=== PATIENT | female | born 1950 | race Caucasian/White ===

== ENCOUNTER 2017-05-29 09:50 | Emergency (ER) | payer OTHER ==
[2017-05-29] MEDS ORDERED: ALBUTEROL 2.5 MG/3 ML NEB SOL ONE (10:40)
[2017-05-29] MEDS ORDERED: IPRATROPIUM BROM 0.5MG/2.5ML ONE (10:40)
--- NOTE | 2017-05-29 11:33 | RAD REPORT ---
EXAM DESCRIPTION: Delores Ferguson (2 Views)05/29/2017 10:24 am CLINICAL HISTORY: Cough COMPARISON: None FINDINGS: The left base is mildly hazy. The remainder of the lungs appear clear of acute infiltrate . Peribronchial thickening is present centrally. The heart is normal size IMPRESSION: The left base is mildly hazy which may indicate a mild pneumonia
--- NOTE | 2017-05-29 11:39 | EDPHYS ---
Physician Documentation [facility] Name: Carmelita Ovalles Age: 66 yrs Sex: Female : 1950 Arrival Date: 05/29/2017 Time: 09:57 Bed 18 Private MD: ED Physician Dann Mathur HPI: 05/29 10:18 This 66 yrs old Female presents to ER via Ambulatory with complaints of kb Congestion. 10:19 The patient or guardian reports cough, that is intermittent, described as moderate, kb with no sputum. Onset: The symptoms/episode began/occurred 1 year(s) ago. Severity of symptoms: At their worst the symptoms were mild, moderate, in the emergency department the symptoms are unchanged. Modifying factors: The symptoms are alleviated by nothing, the symptoms are aggravated by nothing. Associated signs and symptoms: The patient has no apparent associated signs or symptoms. The patient has not experienced similar symptoms in the past. The patient has not recently seen a physician. Pt states she has had a cough and not breathing well for a year. Has been seen by Dr Tafoya and Urgent Care a few times for same complaint over the last year and was given cough syrup for symptoms, but no imaging was done. . Historical: - Allergies: 10:03 No Known Allergies; hb - Home Meds: 10:15 hydrochlorothiazide 25 mg Oral tab 1 tab once daily [Active]; methylphenidate 18 mg rb1 Oral tr24 1 tab once daily [Active]; methimazole 5 mg Oral tab 1 tab once daily [Active]; propranolol 10 mg Oral tab 1 tab daily [Active]; atorvastatin 10 mg oral tab 1 tab once daily [Active]; irbesartan 300 mg oral tab 1 tab once daily [Active]; paroxetine HCl 40 mg oral tab 1 tab once daily [Active]; guaifenesin Oral [Active]; ProAir HFA inhalation inhalation [Active]; red yeast rice 600 mg oral cap [Active]; - PMHx: 10:15 Hypertension; Hypothyroidism; rb1 - Immunization history:: Adult Immunizations up to date. - Social history:: Smoking status: Patient/guardian denies using tobacco. ROS: 10:14 Constitutional: Negative for fever, chills, and weight loss, Cardiovascular: Negative kb for chest pain, palpitations, and edema, Abdomen/GI: Negative for abdominal pain, nausea, vomiting, diarrhea, and constipation, Back: Negative for injury and pain, MS/Extremity: Negative for injury and deformity, Skin: Negative for injury, rash, and discoloration, Neuro: Negative for headache, weakness, numbness, tingling, and seizure. 10:14 Respiratory: Positive for cough, wheezing, Negative for dyspnea on exertion, hemoptysis, orthopnea, pleurisy, shortness of breath, sputum production. Exam: 10:14 Constitutional: This is a well developed, well nourished patient who is awake, alert, kb and in no acute distress. Head/Face: Normocephalic, atraumatic. ENT: Nares patent. No nasal discharge, no septal abnormalities noted. Tympanic membranes are normal and external auditory canals are clear. Oropharynx with no redness, swelling, or masses, exudates, or evidence of obstruction, uvula midline. Mucous membranes moist. Neck: Trachea midline, no thyromegaly or masses palpated, and no cervical lymphadenopathy. Supple, full range of motion without nuchal rigidity, or vertebral point tenderness. No Meningismus. Chest/axilla: Normal chest wall appearance and motion. Nontender with no deformity. No lesions are appreciated. Cardiovascular: Regular rate and rhythm with a normal S1 and S2. No gallops, murmurs, or rubs. Normal PMI, no JVD. No pulse deficits. Abdomen/GI: Soft, non-tender, with normal bowel sounds. No distension or tympany. No guarding or rebound. No evidence of tenderness throughout. Skin: Warm, dry with normal turgor. Normal color with no rashes, no lesions, and no evidence of cellulitis. MS/ Extremity: Pulses equal, no cyanosis. Neurovascular intact. Full, normal range of motion. Neuro: Awake and alert, GCS 15, oriented to person, place, time, and situation. Cranial nerves II-XII grossly intact. Motor strength 5/5 in all extremities. Sensory grossly intact. Cerebellar exam normal. Normal gait. 10:14 Respiratory: the patient does not display signs of respiratory distress, Respirations: normal, Breath sounds: wheezing: expiratory that is mild, that is moderate, is scattered. Vital Signs: 10:02 BP 147 / 94; Pulse 87; Resp 20; Temp 98.1; Pulse Ox 95% on R/A; Weight 63.5 kg; Height hb 5 ft. (152.40 cm); Pain 0/10; 11:13 BP 165 / 86; Pulse 90; Resp 18; Pulse Ox 100% on R/A; tw2 11:59 BP 165 / 86; Pulse 89; Resp 18; Pulse Ox 100% on R/A; tw2 10:02 Body Mass Index 27.34 (63.50 kg, 152.40 cm) hb MDM: 10:04 Patient medically screened. kb 10:14 Data reviewed: vital signs, nurses notes. Data interpreted: Pulse oximetry: on room air kb is 95 %. Interpretation: normal. 11:36 Counseling: I had a detailed discussion with the patient and/or guardian regarding: the kb historical points, exam findings, and any diagnostic results supporting the discharge/admit diagnosis, radiology results, the need for outpatient follow up, a family practitioner, to return to the emergency department if symptoms worsen or persist or if there are any questions or concerns that arise at home. 05/29 10:13 Order name: Chest Pa And Lat (2 Views) XRAY kb 05/29 11:33 Order name: RAD; Complete Time: 11:36 EDMS Administered Medications: 10:40 Drug: DuoNeb (3:1) (2.5 mg - 0.5 mg) 3 ml {Note: pt. in x-ray.} Route: Nebulizer; rb1 11:57 Follow up: Response: No adverse reaction; Wheezing diminished tw2 11:47 Drug: Zithromax 500 mg Route: PO; tw2 12:04 Follow up: Response: No adverse reaction tw2 Disposition: 05/29/17 11:38 Discharged to Home. Impression: Pneumonia, unspecified organism. - Condition is Stable. - Discharge Instructions: Pneumonia, Adult, [id number]. - Prescriptions for Albuterol Sulfate 90 mcg/actuation - inhale 1-2 puff by INHALATION route every 4-6 hours; 1 Inhaler. Zithromax 500 mg Oral Tablet - take 1 tablet by ORAL route once daily for 5 days; 5 tablet. - Medication Reconciliation Form, Thank You Letter, Antibiotic Education, Prescription Opioid Use form. - Follow up: Emergency Department; When: As needed; Reason: Worsening of condition. Follow up: Private Physician; When: 2 - 3 days; Reason: Recheck today's complaints, Continuance of care, Re-evaluation by your physician. Addendum: 05/31/2017 08:05 Co-signature as Attending Physician, Dann Mathur MD I agree with the assessment and c montez plan of care. Signatures: Dispatcher [employer] Alem Beauchamp, PATIENT CARE-C PATIENT CARE-Dann Mann MD MD cha Barber, Rebecca, RN RN rb1 Bambi Cagle RN RN Amberly Frankel RN RN tw2
--- NOTE | 2017-05-29 11:39 | ER ---
Nurse's Notes [facility] Name: Carmelita Ovalles Age: 66 yrs Sex: Female : 1950 Arrival Date: 05/29/2017 Time: 09:57 Bed 18 Private MD: Diagnosis: Pneumonia, unspecified organism Presentation: 05/29 10:01 Presenting complaint: Patient states: Productive cough with greenish yellow sputum, hb SOB, and malaise x 1 year. Transition of care: patient was not received from another setting of care. Resp Distress?. Onset of symptoms is unknown. Care prior to arrival: None. 10:01 Method Of Arrival: Ambulatory hb 10:01 Acuity: MARCIA 3 hb Historical: - Allergies: 10:03 No Known Allergies; hb - Home Meds: 10:15 hydrochlorothiazide 25 mg Oral tab 1 tab once daily [Active]; methylphenidate 18 mg rb1 Oral tr24 1 tab once daily [Active]; methimazole 5 mg Oral tab 1 tab once daily [Active]; propranolol 10 mg Oral tab 1 tab daily [Active]; atorvastatin 10 mg oral tab 1 tab once daily [Active]; irbesartan 300 mg oral tab 1 tab once daily [Active]; paroxetine HCl 40 mg oral tab 1 tab once daily [Active]; guaifenesin Oral [Active]; ProAir HFA inhalation inhalation [Active]; red yeast rice 600 mg oral cap [Active]; - PMHx: 10:15 Hypertension; Hypothyroidism; rb1 - Immunization history:: Adult Immunizations up to date. - Social history:: Smoking status: Patient/guardian denies using tobacco. Screenin:49 Abuse screen: Denies threats or abuse. Nutritional screening: No deficits noted. tw2 Tuberculosis screening: No symptoms or risk factors identified. Fall Risk None identified. Assessment: 10:06 General: Appears uncomfortable, Behavior is calm, cooperative, Denies fever. Pain: rb1 Complains of pain in left wrist Pain currently is 4 out of 10 on a pain scale. Neuro: Level of Consciousness is awake, alert, obeys commands, Oriented to person, place, time, situation. Cardiovascular: Capillary refill < 3 seconds is brisk in bilateral fingers. Respiratory: Airway is patent Respiratory effort is even, labored, Respiratory pattern is regular, symmetrical, Breath sounds with rhonchi bilaterally. GI: No signs and/or symptoms were reported involving the gastrointestinal system. : No signs and/or symptoms were reported regarding the genitourinary system. Derm: Skin is pink, warm \T\ dry. Musculoskeletal: Range of motion: intact in all extremities. 11:13 Reassessment: Patient appears in no apparent distress at this time. Patient and/or tw2 family updated on plan of care and expected duration. Pain level reassessed. Patient is alert, oriented x 3, equal unlabored respirations, skin warm/dry/pink. Patient states feeling better. 12:04 Reassessment: Patient appears in no apparent distress at this time. Patient and/or tw2 family updated on plan of care and expected duration. Pain level reassessed. Patient is alert, oriented x 3, equal unlabored respirations, skin warm/dry/pink. Patient states feeling better. Vital Signs: 10:02 BP 147 / 94; Pulse 87; Resp 20; Temp 98.1; Pulse Ox 95% on R/A; Weight 63.5 kg; Height hb 5 ft. (152.40 cm); Pain 0/10; 11:13 BP 165 / 86; Pulse 90; Resp 18; Pulse Ox 100% on R/A; tw2 11:59 BP 165 / 86; Pulse 89; Resp 18; Pulse Ox 100% on R/A; tw2 10:02 Body Mass Index 27.34 (63.50 kg, 152.40 cm) hb ED Course: 09:57 Patient arrived in ED. as 10:02 Triage completed. hb 10:03 Alem Rivera [facility]-C [facility]. kb 10:04 Dann Mathur MD is Attending Physician. kb 10:06 Mariela Elias, RN is Primary Nurse. rb1 10:23 X-ray completed. Patient tolerated procedure well. jw2 10:48 Primary Nurse role handed off by Mariela Elias, RN tw2 10:48 Amberly Frankel, ROSHAN is Primary Nurse. tw2 10:49 Bed in low position. Call light in reach. Pulse ox on. NIBP on. tw2 11:12 Arm band placed on. tw2 11:13 No provider procedures requiring assistance completed. tw2 11:48 Awaiting: AWAITING MEDICATION WATCH PRIOR TO DISCHARGE. tw2 12:04 Patient did not have IV access during this emergency room visit. tw2 Administered Medications: 10:40 Drug: DuoNeb (3:1) (2.5 mg - 0.5 mg) 3 ml {Note: pt. in x-ray.} Route: Nebulizer; rb1 11:57 Follow up: Response: No adverse reaction; Wheezing diminished tw2 11:47 Drug: Zithromax 500 mg Route: PO; tw2 12:04 Follow up: Response: No adverse reaction tw2 Outcome: 11:38 Discharge ordered by MD. greco 12:04 Discharged to home ambulatory, with family. tw2 12:04 Condition: stable 12:04 Discharge instructions given to patient, family, Instructed on discharge instructions, follow up and referral plans. medication usage, Demonstrated understanding of instructions, follow-up care, medications, Prescriptions given X 2. 12:04 Patient left the ED. tw2 Signatures: Alem Rivera, PULP OPERATOR-C PULP OPERATOR-Renetta Chapin Rebecca, RN RN [facility] Ana Savage 2 Bambi Cagle RN ROSHAN Amberly Frankel RN RN tw2
[2017-05-29] MEDS ORDERED: AZITHROMYCIN 250 MG TAB ONE (12:04)
== END 2017-05-29 12:04 | disposition home or self-care (01) ==
LOC: ER 09:50
DX: J18.9 Pneumonia, unspecified organism (principal); I10 Essential (primary) hypertension; E03.9 Hypothyroidism, unspecified
CPT/HCPCS: 71046; 94640; 99284

== ENCOUNTER 2021-02-21 14:48 | Inpatient (IN) | payer OTHER ==
--- OUTSIDE RECORDS SUMMARY | 2021-02-21 14:51 | XMS REPORT | Continuity of Care Document ---
:1950 Author Organization [facility] t Address [address] [place] [address] Dr. Driscoll [address] [place] [id number] Care Team Providers Name Role Phone Unavailable Unavailable Unavailable Problems This patient has no known problems. Allergies, Adverse Reactions, Alerts This patient has no known allergies or adverse reactions. Medications This patient has no known medications. Procedures This patient has no known procedures. Results This patient has no known results.
[2021-02-21] MEDS ORDERED: METOPROLOL TARTRATE 5 MG/5 ML INJ IV ONE (16:03)
[2021-02-21] MEDS ORDERED: METOPROLOL TAR 25 MG TAB ONE (16:03)
[2021-02-21 16:07] LABS: Basophils % 0.5 % (0-1.3); Lymphocytes % 19.3 % (15.3-44.8); MPV 8.9 fL (7.6-11.3); RBC Red Blood Cell Count 4.64 M/uL (3.86-4.86)
[2021-02-21 16:11] LABS: Protime INR 1.16
--- NOTE | 2021-02-21 16:13 | RAD REPORT ---
EXAM DESCRIPTION: RAD - Chest Single View - 02/21/2021 4:04 pm CLINICAL HISTORY: Cough;SOB COMPARISON: Chest Pa And Lat (2 Views) dated 05/29/2017 FINDINGS: Lines: None. Lungs: No evidence of edema or pneumonia. Pleural: No significant pleural effusions or pneumothorax. Cardiac: The heart size is within normal limits. Bones: No acute fractures. Other: IMPRESSION: No acute cardiopulmonary disease.
[2021-02-21 16:41] LABS: ALT/SGPT 24 U/L (12-78); AST/SGOT 14 U/L (15-37); Albumin 3.2 g/dL (3.4-5.0); Alkaline Phosphatase 92 U/L (45-117); BUN Blood Urea Nitrogen 14 mg/dL (7-18); Bicarbonate 31 mmol/L (21-32); Bilirubin Direct 0.2 mg/dL (0-0.2); Bilirubin Total 0.5 mg/dL (0.2-1.0); Glucose Level 123 mg/dL (74-106); Magnesium 1.8 mg/dL (1.8-2.4); NT PRO-BNP 94 pg/mL (<125); Protein, Total 8.4 g/dL (6.4-8.2); Sodium Level 132 mmol/L (136-145); T3 Free 5.92 pg/mL (2.18-3.98); Troponin (Emerg Dept Use Only) < 0.02 ng/mL (0.0-0.045)
[2021-02-21 16:42] LABS: Thyroid Stimulating Hormone < 0.005 uIU/mL (0.360-3.740)
[2021-02-21] MEDS ORDERED: POTASSIUM 25 MEQ EFFERV TAB ONE (16:51)
--- NOTE | 2021-02-21 16:51 | ER ---
Nurse's Notes [facility] Name: Carmelita Ovalles Age: 70 yrs Sex: Female : 1950 Arrival Date: 02/21/2021 Time: 14:54 Bed 18 Private MD: Ashly Tafoya H Diagnosis: Unspecified atrial fibrillation Presentation: 02/21 15:07 Chief complaint: Patient states: 2-3 days I have been short of breath and having a ld1 cough/congestion. "I seem to get this every year.". Coronavirus screen: Client presents with at least one sign or symptom that may indicate coronavirus-19. Standard/surgical mask placed on the client. Ebola Screen: No symptoms or risks identified at this time. Initial Sepsis Screen: Does the patient meet any 2 criteria? No. Patient's initial sepsis screen is negative. Does the patient have a suspected source of infection? No. Patient's initial sepsis screen is negative. Risk Assessment: Do you want to hurt yourself or someone else? Patient reports no desire to harm self or others. Onset of symptoms was February 21, 2021. 15:07 Method Of Arrival: Ambulatory ld1 15:07 Acuity: MARCIA 3 ld1 Triage Assessment: 15:09 General: Appears in no apparent distress. comfortable, Behavior is cooperative, ld1 appropriate for age, anxious. Pain: Denies pain. EENT: No signs and/or symptoms were reported regarding the EENT system. Neuro: Level of Consciousness is awake, alert, obeys commands, Oriented to person, place, time, situation, Appropriate for age. Cardiovascular: Capillary refill < 3 seconds Patient's skin is warm and dry. Respiratory: Reports shortness of breath cough that is non-productive, Airway is patent Respiratory effort is even, unlabored, Respiratory pattern is regular, symmetrical, Onset: The symptoms/episode began/occurred gradually, the patient has mild shortness of breath. GI: Abdomen is flat, non-distended. : No signs and/or symptoms were reported regarding the genitourinary system. Derm: No signs and/or symptoms reported regarding the dermatologic system. Musculoskeletal: No signs and/or symptoms reported regarding the musculoskeletal system. Historical: - Allergies: 15:09 No Known Allergies; ld1 - Home Meds: 15:09 hydrochlorothiazide 25 mg Oral tab 1 tab once daily [Active]; paroxetine HCl 40 mg Oral ld1 tab 1 tab once daily [Active]; methylphenidate 18 mg Oral tr24 1 tab once daily [Active]; sulfamethoxazole-trimethoprim 400-80 mg Oral tab 2 tabs 4 times per day [Active]; aspirin 81 mg Oral chew 1 tab once daily [Active]; valsartan 320 mg oral tab 1 tab once daily [Active]; - PMHx: 15:09 Hypertension; Hypothyroidism; Depressive disorder; ld1 - PSHx: 15:09 section; ld1 - Immunization history:: Adult Immunizations up to date, Client reports receiving the 2nd dose of the Covid vaccine. - Social history:: Smoking status: Patient denies any tobacco usage or history of. Patient/guardian denies using alcohol, street drugs. Screenin:40 Abuse screen: Denies threats or abuse. Nutritional screening: No deficits noted. vg1 Tuberculosis screening: No symptoms or risk factors identified. Fall Risk No fall in past 12 months (0 pts). No secondary diagnosis (0 pts). IV access (20 points). Ambulatory Aid- None/Bed Rest/Nurse Assist (0 pts). Gait- Normal/Bed Rest/Wheelchair (0 pts) Mental Status- Oriented to own ability (0 pts). Total Ann Fall Scale indicates No Risk (0-24 pts). Assessment: 15:17 General: Appears in no apparent distress. comfortable, Behavior is calm, cooperative. vg1 Pain: Denies pain. Neuro: Level of Consciousness is awake, alert, obeys commands, Oriented to person, place, time, situation. Cardiovascular: Denies chest pain, Patient's skin is warm and dry. Rhythm is atrial fibrillation with rapid ventricular response Parent/caregiver reports patient has had no hx of Afib. Respiratory: Reports shortness of breath on exertion cough that is Airway is patent Respiratory effort is even, unlabored, Respiratory pattern is regular, symmetrical, tachypnea Breath sounds are clear bilaterally. GI: Patient currently denies diarrhea, nausea, vomiting. : No signs and/or symptoms were reported regarding the genitourinary system. EENT: Parent/caregiver reports the patient having nasal discharge. Derm: Skin is intact, is healthy with good turgor. Musculoskeletal: Circulation, motion, and sensation intact. 17:19 Reassessment: Patient appears in no apparent distress at this time. No changes from ld1 previously documented assessment. Patient and/or family updated on plan of care and expected duration. Pain level reassessed. Patient is alert, oriented x 3, equal unlabored respirations, skin warm/dry/pink. Vital Signs: 15:09 BP 114 / 74; Pulse 99; Resp 18; Temp 98.0(TE); Pulse Ox 100% on R/A; Weight 48.99 kg; ld1 Height 5 ft. 2 in. (157.48 cm); Pain 0/10; 15:22 BP 109 / 70; Pulse 142; Resp 28; Pulse Ox 99% ; vg1 16:23 BP 112 / 65; Pulse 106; Resp 19; Pulse Ox 97% on R/A; ld1 17:19 BP 107 / 66; Pulse 81; Resp 18; Pulse Ox 98% on R/A; ld1 20:57 BP 106 / 59; Pulse 91; Resp 24; Pulse Ox 97% on R/A; ld1 21:35 BP 92 / 59; Pulse 69; Resp 18; Pulse Ox 99% on R/A; ld1 15:09 Body Mass Index 19.75 (48.99 kg, 157.48 cm) ld1 ED Course: 14:54 Patient arrived in ED. mr 14:54 Ashly Tafoya DO is Private Physician. mr 15:09 Triage completed. ld1 15:09 Arm band placed on left wrist. ld1 15:16 Lindsey Saavedra, RN is Primary Nurse. vg1 15:17 [facility] Salcido [facility]. cp 15:17 Stanford Ruth MD is Attending Physician. cp 15:37 EKG done, by ED staff, reviewed by Dann ARREDONDO. vg1 15:40 Patient has correct armband on for positive identification. Placed in gown. Bed in low vg1 position. Call light in reach. Side rails up X2. Adult w/ patient. color television console monitor on. Pulse ox on. NIBP on. 15:40 No provider procedures requiring assistance completed. vg1 15:45 Initial lab(s) drawn, by nd, sent to lab. COVID swab sent to lab. Flu and/or RSV swab 5 sent to lab. Inserted saline lock: 22 gauge in right forearm, using aseptic technique. Blood collected. 15:46 T3 Free Sent. 5 15:46 TSH Sent. 5 15:46 Basic Metabolic Panel Sent. [facility] 15:46 CBC with Diff Sent. [facility] 15:46 LFT's Sent. [facility] 15:46 Magnesium Sent. [facility] 15:47 NT PRO-BNP Sent. [facility] 15:47 PT-INR Sent. [facility] 15:47 Troponin (emerg Dept Use Only) Sent. [facility] 16:04 XRAY Chest (1 view) In Process Unspecified. EDSC 16:50 Artie Urias MD is Hospitalizing Provider. cp 22:37 Patient admitted, IV remains in place. ld1 Administered Medications: 16:21 Drug: Metoprolol 2.5 mg Route: IVP; Site: right forearm; ld1 17:03 Follow up: Response: No adverse reaction ld1 16:21 Drug: Metoprolol 25 mg Route: PO; ld1 17:03 Follow up: Response: No adverse reaction ld1 17:03 Drug: Potassium Effervescent Tablet 50 mEq Route: PO; ld1 17:03 Follow up: Response: No adverse reaction ld1 17:03 Drug: Lovenox (enoxaparin) 1 mg/kg Route: Sub-Q; Site: abdomen; ld1 17:03 Follow up: Response: No adverse reaction ld1 19:51 Drug: Dextromethorphan-Guaifenesin Liquid 10 mg-100 mg/5 mL 10 ml Route: PO; ld1 19:51 Follow up: Response: No adverse reaction ld1 Outcome: 16:51 Decision to Hospitalize by Provider. cp 22:37 Admitted to Med/surg accompanied by tech, via wheelchair, with chart, Report called to ldJeronimo Xavier RN 22:37 Condition: stable 22:37 Instructed on the need for admit. 22:37 Patient left the ED. ld1 Signatures: Dispatcher [employer] EDSC Meghna Yang Corey, PA PA cp Martinez, Maria 5 Lindsey Saavedra, RN RN vg1 Maria A Jordan RN RN ld1 Corrections: (The following items were deleted from the chart) 15:12 15:09 PSHx: Coronary Angioplasty; ld1 ld1 15:41 15:17 Respiratory: Reports shortness of breath on exertion cough that is Airway is vg1 patent Respiratory effort is even, unlabored, Respiratory pattern is regular, symmetrical, Breath sounds are clear bilaterally. 1 16:04 15:46 Influenza Screen (A \\T\\ B)+BA.LAB.ALEX drawn and sent. [facility] EDMS 16:05 15:46 CORONAVIRUS+MR.LAB.ALEX drawn and sent. [address]
--- NOTE | 2021-02-21 16:51 | EDPHYS ---
Physician Documentation [facility] Name: Carmelita Ovalles Age: 70 yrs Sex: Female : 1950 Arrival Date: 02/21/2021 Time: 14:54 Bed 18 Private MD: Ashly Tafoya H ED Physician Stanford Ruth HPI: 02/21 15:45 This 70 yrs old Female presents to ER via Ambulatory with complaints of Breathing cp Difficulty. 15:45 The patient has shortness of breath with light activity. Onset: The symptoms/episode cp began/occurred 3 day(s) ago. Associated signs and symptoms: Pertinent positives: non-productive cough, diaphoresis, fever, vomiting, Pertinent negatives: chest pain. Severity of symptoms: in the emergency department the symptoms are unchanged despite home interventions. Historical: - Allergies: 15:09 No Known Allergies; ld1 - Home Meds: 15:09 hydrochlorothiazide 25 mg Oral tab 1 tab once daily [Active]; paroxetine HCl 40 mg Oral ld1 tab 1 tab once daily [Active]; methylphenidate 18 mg Oral tr24 1 tab once daily [Active]; sulfamethoxazole-trimethoprim 400-80 mg Oral tab 2 tabs 4 times per day [Active]; aspirin 81 mg Oral chew 1 tab once daily [Active]; valsartan 320 mg oral tab 1 tab once daily [Active]; - PMHx: 15:09 Hypertension; Hypothyroidism; Depressive disorder; ld1 - PSHx: 15:09 section; ld1 - Immunization history:: Adult Immunizations up to date, Client reports receiving the 2nd dose of the Covid vaccine. - Social history:: Smoking status: Patient denies any tobacco usage or history of. Patient/guardian denies using alcohol, street drugs. ROS: 15:50 Constitutional: Negative for body aches, chills, fever, poor PO intake. cp 15:50 Eyes: Negative for injury, pain, redness, and discharge. cp 15:50 ENT: Positive for rhinorrhea, Negative for drainage from ear(s), ear pain, sore throat, difficulty swallowing, difficulty handling secretions. 15:50 Cardiovascular: Negative for chest pain, edema. 15:50 Respiratory: Positive for cough, with no reported sputum, shortness of breath, on exertion. 15:50 Abdomen/GI: Negative for abdominal pain, vomiting, diarrhea, constipation. 15:50 : Negative for urinary symptoms. 15:50 Neuro: Negative for altered mental status, headache, syncope, weakness. 15:50 All other systems are negative. Exam: 15:39 ECG was reviewed by the Attending Physician. cp 15:55 Constitutional: The patient appears in no acute distress, alert, awake, cp non-diaphoretic, non-toxic, well developed, well nourished. 15:55 Head/Face: Normocephalic, atraumatic. cp 15:55 Eyes: Periorbital structures: appear normal, Conjunctiva: normal, no exudate, no injection, Sclera: no appreciated abnormality, Lids and lashes: appear normal, bilaterally. 15:55 ENT: External ear(s): are unremarkable, Nose: is normal, Mouth: Lips: moist, Oral mucosa: moist, Posterior pharynx: Airway: no evidence of obstruction, patent. 15:55 Neck: ROM/movement: is normal, is supple, without pain, no range of motions limitations, no nuchal rigidity. 15:55 Chest/axilla: Inspection: normal, Palpation: is normal, no crepitus, no tenderness. 15:55 Cardiovascular: Rate: tachycardic, Rhythm: irregular, Edema: is not appreciated, JVD: is not appreciated. 15:55 Respiratory: the patient does not display signs of respiratory distress, Respirations: normal, no use of accessory muscles, no retractions, labored breathing, is not present, Breath sounds: bronchial sounds, that are mild, are heard diffusely, decreased breath sounds, are not appreciated, stridor, is not appreciated, wheezing: is not appreciated. 15:55 Abdomen/GI: Inspection: abdomen appears normal, Palpation: abdomen is soft and non-tender, in all quadrants. 15:55 Back: pain, is absent, ROM is normal. 15:55 Skin: cellulitis, is not appreciated, no rash present. 15:55 Neuro: Orientation: to person, place \T\ time. Mentation: is normal, Cerebellar function: is grossly normal, Motor: moves all fours, strength is normal, Sensation: is normal. Vital Signs: 15:09 BP 114 / 74; Pulse 99; Resp 18; Temp 98.0(TE); Pulse Ox 100% on R/A; Weight 48.99 kg; ld1 Height 5 ft. 2 in. (157.48 cm); Pain 0/10; 15:22 BP 109 / 70; Pulse 142; Resp 28; Pulse Ox 99% ; vg1 16:23 BP 112 / 65; Pulse 106; Resp 19; Pulse Ox 97% on R/A; ld1 17:19 BP 107 / 66; Pulse 81; Resp 18; Pulse Ox 98% on R/A; ld1 20:57 BP 106 / 59; Pulse 91; Resp 24; Pulse Ox 97% on R/A; ld1 21:35 BP 92 / 59; Pulse 69; Resp 18; Pulse Ox 99% on R/A; ld1 15:09 Body Mass Index 19.75 (48.99 kg, 157.48 cm) ld1 MDM: 15:33 Patient medically screened. cp 16:00 Differential diagnosis: Bronchitis CHF exacerbation, Chronic Obstructive Pulmonary cp Disease Myocardial Infarction pneumonia, Pneumothorax pulmonary edema, Pulmonary Embolism Sepsis Unstable Angina. 16:50 Data reviewed: vital signs, nurses notes, lab test result(s), EKG, radiologic studies, cp plain films. 16:50 Test interpretation: by ED physician or midlevel provider: ECG, plain radiologic cp studies. Counseling: I had a detailed discussion with the patient and/or guardian regarding: the historical points, exam findings, and any diagnostic results supporting the discharge/admit diagnosis, lab results, radiology results, the need for further work-up and treatment in the hospital. Response to treatment: the patient's symptoms have markedly improved after treatment. Physician consultation: Artie Urias MD was called at 16:45, was contacted at 16:45, regarding admission, to the telemetry unit. patient's condition. 02/21 15:38 Order name: Basic Metabolic Panel; Complete Time: 16:47 cp 02/21 16:48 Interpretation: Normal except: NA 132; K 3.0; CL 93; GLUC 123; GFR 75. cp 02/21 15:38 Order name: CBC with Diff; Complete Time: 16:20 cp 02/21 15:38 Order name: LFT's; Complete Time: 16:47 cp 02/21 16:49 Interpretation: Normal except: AST 14; TP 8.4; ALB 3.2; GLOB 5.2; A/G 0.6. cp 02/21 15:38 Order name: Magnesium; Complete Time: 16:47 cp 02/21 15:38 Order name: NT PRO-BNP; Complete Time: 16:47 cp 02/21 15:38 Order name: PT-INR; Complete Time: 16:20 cp 02/21 16:20 Interpretation: Reviewed. 02/21 15:38 Order name: Troponin (emerg Dept Use Only); Complete Time: 16:47 cp 02/21 15:38 Order name: XRAY Chest (1 view); Complete Time: 16:20 cp 02/21 15:38 Order name: TSH; Complete Time: 16:47 cp 02/21 16:50 Interpretation: Abnormal: TSH < 0.005. 02/21 15:38 Order name: T3 Free; Complete Time: 16:47 02/21 16:49 Interpretation: Abnormal: T3F 5.92. 02/21 16:05 Order name: COVID-19/FLU A+B; Complete Time: 17:30 EDMS 02/21 17:30 Interpretation: Reviewed. 02/21 18:58 Order name: T4 Free EDMS 02/21 15:38 Order name: EKG; Complete Time: 15:40 cp 02/21 15:38 Order name: Cardiac monitoring; Complete Time: 15:41 cp 02/21 15:38 Order name: EKG - Nurse/Tech; Complete Time: 15:41 cp 02/21 15:38 Order name: IV Saline Lock; Complete Time: 15:46 cp 02/21 15:38 Order name: Labs collected and sent; Complete Time: 15:46 02/21 15:38 Order name: O2 Per Protocol; Complete Time: 15:41 cp 02/21 15:38 Order name: O2 Sat Monitoring; Complete Time: 15:41 cp EC:39 Rate is 122 beats/min. Rhythm is irregular. QRS interval is normal. QT interval is cp normal. T waves are Inverted in lead aVL. Interpreted by me. Reviewed by me. Administered Medications: 16:21 Drug: Metoprolol 2.5 mg Route: IVP; Site: right forearm; ld1 17:03 Follow up: Response: No adverse reaction ld1 16:21 Drug: Metoprolol 25 mg Route: PO; ld1 17:03 Follow up: Response: No adverse reaction ld1 17:03 Drug: Potassium Effervescent Tablet 50 mEq Route: PO; ld1 17:03 Follow up: Response: No adverse reaction ld1 17:03 Drug: Lovenox (enoxaparin) 1 mg/kg Route: Sub-Q; Site: abdomen; ld1 17:03 Follow up: Response: No adverse reaction ld1 19:51 Drug: Dextromethorphan-Guaifenesin Liquid 10 mg-100 mg/5 mL 10 ml Route: PO; ld1 19:51 Follow up: Response: No adverse reaction ld1 Disposition Summary: 02/21/21 16:51 Hospitalization Ordered Hospitalization Status: Inpatient Admission cp Provider: Artie Urias cp Location: Telemetry/MedSurg (Inpatient) cp Condition: Stable cp Problem: new cp Symptoms: have improved cp Bed/Room Type: Standard cp Room Assignment: 205(02/21/21 19:58) mw Diagnosis - Unspecified atrial fibrillation cp Forms: - Medication Reconciliation Form cp - SBAR form cp Addendum: 02/26/2021 07:12 Co-signature as Attending Physician, Stanford Ruth MD I agree with the assessment and k dr plan of care. Signatures: Dispatcher [employer] EDMS Teena Hernandez RN RN Stanford Ruth MD MD [facility] Dann Salcido PA PA cp Osvaldo Heller PA PA ej Dibbern, Lauren, RN RN ld1 Corrections: (The following items were deleted from the chart) 02/21 15:12 15:09 PSHx: Coronary Angioplasty; ld1 ld1 16:04 15:39 Influenza Screen (A \T\ B)+BA.LAB.BRZ ordered. EDMS EDMS 16:05 15:39 CORONAVIRUS+MR.LAB.BRZ ordered. EDMS EDMS 19:58 16:51 cp mw
[2021-02-21 16:54] LABS: SARS-COV-2 RT PCR NEGATIVE (NEGATIVE)
[2021-02-21] MEDS ORDERED: ENOXAPARIN 40 MG/0.4 ML SQ ONE (16:59)
[2021-02-21] MEDS ORDERED: GUAIFENESIN/CODEINE 5ML UCUP ONE (19:48)
[2021-02-21] MEDS ORDERED: guaiFENesin 100 MG/5 ML UCUP ONE (19:49)
--- NOTE | 2021-02-21 20:15 | P.HP ---
Certification for Inpatient Patient admitted to: Inpatient With expected LOS: <2 Midnights Patient will require the following post-hospital care: None Practitioner: I am a practitioner with admitting privileges, knowledge of patient current condition, hospital course, and medical plan of care. Services: Services provided to patient in accordance with Admission requirements found in Title 42 Section 412.3 of the Code of Federal Regulations Patient History Date of Service: 02/21/21 Reason for admission: atrial fibrillation History of Present Illness: Ms. Ovalles is a 70 yo F with HTN, hyperthyroidism (not on medications), here today for cough, sinus congestion, and SOB for the past two to three weeks. Upon arrival, she was found to be in atrial fibrillation with a rate of 142 that responded to IV and PO Lopressor. She says she has had palpitations and weight loss for the past few months as well. She was previously on methimazole for hyperthyoidism. She last saw her floorworker before the pandemic. Her levels were wnl at that time, so her methimazole was discontinued. She says she has had thyroid nodules in the past that 'went away' and the biopsy of the nodules showed they were benign. Na 132 K 3 Cl 93 GFR 75 Glu 123 TSH <0.005 T4 2.56 T3 5.92 Allergies No Known Allergies Allergy (Unverified 05/29/17 12:08) - Past Medical/Surgical History -: hyperthyroidism -: HTN -: C section -: tonsillectomy - Family History Family History: Reviewed- Non-Contributory - Social History Smoking Status: Never smoker Alcohol use: No CD- Drugs: No Caffeine use: Yes Place of Residence: Home Review of Systems 10-point ROS is otherwise unremarkable General: Unremarkable Eyes: Unremarkable ENT: Nose Congestion Respiratory: Cough, Shortness of Breath Cardiovascular: Palpitations Gastrointestinal: Unremarkable Genitourinary: Unremarkable Musculoskeletal: Unremarkable Integumentary: Unremarkable Neurological: Unremarkable Lymphatics: Unremarkable Physical Examination - Physical Exam General: Alert, In no apparent distress HEENT: Atraumatic, PERRLA, Mucous membr. moist/pink, EOMI, Sclerae nonicteric Neck: Supple, 2+ carotid pulse no bruit, No LAD, Without JVD or thyroid abnormality Respiratory: Clear to auscultation bilaterally, Normal air movement Cardiovascular: Normal S1 S2, Irregular heart rate/rhythm Gastrointestinal: Normal bowel sounds, No tenderness Musculoskeletal: No tenderness Integumentary: No rashes Neurological: Normal speech, Normal strength at 5/5 x4 extr, Normal tone, Normal affect Lymphatics: No axilla or inguinal lymphadenopathy - Studies Laboratory Data (last 24 hrs) 02/21/21 15:47: PT 13.4 H, INR 1.16 02/21/21 15:47: WBC 5.40, Hgb 12.7, Hct 38.0, Plt Count 262 02/21/21 15:47: Sodium 132 L, Potassium 3.0 L, BUN 14, Creatinine 0.76, Glucose 123 H, Magnesium 1.8, Total Bilirubin 0.5, AST 14 L, ALT 24, Alkaline Phosphatase 92 Assessment and Plan - Problems (Diagnosis) (1) Atrial fibrillation Current Visit: Yes Status: Acute Qualifiers: Atrial fibrillation type: unspecified Qualified Code(s): I48.91 - Unspecified atrial fibrillation (2) Hyperthyroidism Current Visit: Yes Status: Chronic (3) HTN (hypertension) Current Visit: Yes Status: Chronic Qualifiers: Hypertension type: primary hypertension Qualified Code(s): I10 - Essential (primary) hypertension - Plan on tele continue PO metoprolol BID, IV metoprolol PRN for HR >120 continue eliquis BID restart methimazole ECHO pending cough syrup PRN potassium replacement gentle IVF hydration hydralazine PRN for BP spikes reconcile and continue home medications Discharge Plan: Home Plan to discharge in: 48 Hours - Advance Directives Does patient have a Living Will: No Does patient have a Durable POA for Healthcare: No - Code Status/Comfort Care Code Status Assessed: Yes (full code ) Critical Care: No Time Spent Managing Pts Care (In Minutes): 70
[2021-02-21] MEDS ORDERED: METOPROLOL TARTRATE 5 MG/5 ML INJ IV PRN (23:05)
[2021-02-21] MEDS ORDERED: ONDANSETRON 4 MG/2 ML VIAL IV PRN (23:05)
[2021-02-21] MEDS ORDERED: HYDRALAZINE HCL 20 MG/ML VIAL IV PRN (23:05)
[2021-02-21] MEDS ORDERED: ACETAMINOPHEN 500 MG TAB PO PRN (23:05)
[2021-02-22 06:06] LABS: Absolute Lymphocytes (CBC) 1.7 K/uL (0.7-4.9); Basophils % 0.7 % (0-1.3); Hematocrit 34.6 % (36.0-45.0); RBC Red Blood Cell Count 4.18 M/uL (3.86-4.86)
[2021-02-22 06:26] LABS: ALT/SGPT 20 U/L (12-78); AST/SGOT 15 U/L (15-37); Albumin 2.7 g/dL (3.4-5.0); Alkaline Phosphatase 74 U/L (45-117); BUN Blood Urea Nitrogen 16 mg/dL (7-18); Bicarbonate 31 mmol/L (21-32); Bilirubin Total 0.4 mg/dL (0.2-1.0); Glucose Level 102 mg/dL (74-106); Phosphorus 3.4 mg/dL (2.5-4.9); Sodium Level 136 mmol/L (136-145)
[2021-02-22 06:28] LABS: HDL Cholesterol 41 mg/dL (40-60); LDL Cholesterol, Calculated 100 (<130); Protein, Total 6.9 g/dL (6.4-8.2)
[2021-02-22] MEDS ORDERED: POTASSIUM 25 MEQ EFFERV TAB PO ONE ×2 (08:44→09:00)
[2021-02-22] MEDS: METOPROLOL TAR 25 MG TAB PO SCH ×2 (10:20→18:12)
[2021-02-22] MEDS: APIXABAN 5 MG TABLET PO SCH ×2 (10:21→20:38)
[2021-02-22] MEDS: GUAIFENESIN/DM 5 ML UCUP PO PRN ×2 (10:31→18:12)
[2021-02-22] MEDS: NA CHLORIDE 0.9% 1,000 ML IV SCH ×3 (10:32→12:25)
--- NOTE | 2021-02-22 13:09 | P.PN ---
Subjective Date of Service: 02/22/21 Chief Complaint: atrial fibrillation Subjective: No new changes, No C/O voiced, Tolerating diet Physical Examination - Vital Signs Temperature: 98.5 F Blood Pressure: 134/60 Pulse: 82 Respirations: 18 Pulse Ox (%): 96 - Studies Laboratory Data (last 24 hrs) 02/21/21 15:47: PT 13.4 H, INR 1.16 02/21/21 15:47: WBC 5.40, Hgb 12.7, Hct 38.0, Plt Count 262 02/21/21 15:47: Sodium 132 L, Potassium 3.0 L, BUN 14, Creatinine 0.76, Glucose 123 H, Magnesium 1.8, Total Bilirubin 0.5, AST 14 L, ALT 24, Alkaline Phosphatase 92 Assessment And Plan - Plan Patient Generalthin built female, appears older than stated age, awake and conversant HEENTpupils equal reactive to light extraocular motor movement intact Neckno thyroid mass no JVD Respiratoryfew coarse rubs otherwise good air entry bilaterally CardiovascularS1-S2 mildly tachycardic but regular GIfull soft bowel sounds positive Extremities are no pedal edema no calf tenderness Neuroalert conversant, rapid speech flow Labsreviewedlow TSH and markedly elevated T4 Impression 1 Clinical hyperthyroidism 2 A. fib with RVRdue to 1 3 Hypertension Plan Atrial fibrillation currently rate controlled Continue started Eliquis Continue restarted methimazole Patient previously followed with Dr. Fonseca at [facility], will recommend follow-up with her at discharge patient advised to make appointment Follow-up pending echocardiogram We will replete potassium today Magnesium level within normal range Continue GI and DVT prophylaxis
[2021-02-22] MEDS: NS KCL 20MEQ 20 MEQ/1,000 ML BAG IV SCH (14:05)
[2021-02-22 23:55] VITALS: O2SAT 98; BMI 19.5
[2021-02-23] MEDS: GUAIFENESIN/DM 5 ML UCUP PO PRN (00:57)
[2021-02-23] MEDS: METOPROLOL TAR 25 MG TAB PO SCH (05:24)
[2021-02-23 06:33] LABS: ALT/SGPT 20 U/L (12-78); AST/SGOT 18 U/L (15-37); Albumin 2.6 g/dL (3.4-5.0); Alkaline Phosphatase 71 U/L (45-117); BUN Blood Urea Nitrogen 11 mg/dL (7-18); Bicarbonate 28 mmol/L (21-32); Bilirubin Total 0.4 mg/dL (0.2-1.0); Glucose Level 94 mg/dL (74-106); Potassium 3.9 mmol/L (3.5-5.1); Sodium Level 138 mmol/L (136-145)
[2021-02-23] MEDS: APIXABAN 5 MG TABLET PO SCH (08:21)
[2021-02-23] MEDS: NS KCL 20MEQ 20 MEQ/1,000 ML BAG IV SCH ×2 (08:21→08:29)
--- NOTE | 2021-02-23 08:26 | P.PN ---
Subjective Date of Service: 02/23/21 Chief Complaint: atrial fibrillation Subjective: No new changes, C/O voiced (cough and nasal congestion) Physical Examination - Vital Signs Temperature: 97.5 F Blood Pressure: 126/83 Pulse: 86 Respirations: 18 Pulse Ox (%): 98 - Physical Exam General: Alert, In no apparent distress, Oriented x3 Neck: 2+ carotid pulse no bruit, JVD not distended Respiratory: Clear to auscultation bilaterally, Normal air movement Cardiovascular: Normal pulses, Regular rate/rhythm, Normal S1 S2 Gastrointestinal: Normal bowel sounds, Soft and benign, Non-distended Musculoskeletal: No clubbing, No swelling Neurological: Normal gait, Normal speech, Normal strength at 5/5 x4 extr Assessment And Plan - Current Problems (Diagnosis) (1) Atrial fibrillation Current Visit: Yes Status: Acute Qualifiers: Atrial fibrillation type: unspecified Qualified Code(s): I48.91 - Unspecified atrial fibrillation (2) HTN (hypertension) Current Visit: Yes Status: Chronic Qualifiers: Hypertension type: primary hypertension Qualified Code(s): I10 - Essential (primary) hypertension (3) Hyperthyroidism Current Visit: Yes Status: Chronic - Plan Patient Generalthin built female, appears older than stated age, awake and conversant HEENTpupils equal reactive to light extraocular motor movement intact Neckno thyroid mass no JVD Respiratoryfew coarse rubs otherwise good air entry bilaterally CardiovascularS1-S2 mildly tachycardic but regular GIfull soft bowel sounds positive Extremities are no pedal edema no calf tenderness Neuroalert conversant, rapid speech flow Labsreviewedlow TSH and markedly elevated T4 Impression 1 Clinical hyperthyroidism 2 A. fib with RVRdue to 1 3 Hypertension Plan Complaining of persistent cough today We will obtain repeat chest history, previously normal If chest x-ray clears will start Cipro echo antitussives as follow-up plan for discharge home Chest atrial fibrillation currently rate controlled Continue started Eliquis Continue restarted methimazole Patient previously followed with Dr. Fonseca at [facility], will recommend follow-up with her at discharge patient advised to make appointment Follow-up pending echocardiogram Magnesium level within normal range Continue GI and DVT prophylaxis
--- NOTE | 2021-02-23 09:47 | RAD REPORT ---
EXAM DESCRIPTION: Delores Single View02/23/2021 8:41 am CLINICAL HISTORY: cough COMPARISON: cough FINDINGS: There appear to be mild bilateral pulmonary opacities. The heart is normal size IMPRESSION: There appear to be mild bilateral pulmonary opacities which may indicate pneumonia
[2021-02-23] MEDS ORDERED: CEFTRIAXONE 1,000 MG in NA CHLORIDE 0.9% 50 ML IVPB SCH (10:00)
[2021-02-23 12:03] VITALS: BP 122/61; TEMP 96.8
--- NOTE | 2021-02-23 14:56 | P.DS ---
Admission Date: 02/21/21 Discharge Date: 02/23/21 Disposition: ROUTINE DISCHARGE Discharge Condition: FAIR Reason for Admission: atrial fibrillation - Problems (1) Atrial fibrillation Current Visit: Yes Status: Acute Qualifiers: Atrial fibrillation type: unspecified Qualified Code(s): I48.91 - Unspecified atrial fibrillation (2) HTN (hypertension) Current Visit: Yes Status: Chronic Qualifiers: Hypertension type: primary hypertension Qualified Code(s): I10 - Essential (primary) hypertension (3) Hyperthyroidism Current Visit: Yes Status: Chronic (4) Pneumonia Current Visit: Yes Status: Acute Brief History of Present Illness: History of Present Illness: Ms. Ovalles is a 70 yo F with HTN, hyperthyroidism (not on medications), here today for cough, sinus congestion, and SOB for the past two to three weeks. Upon arrival, she was found to be in atrial fibrillation with a rate of 142 that responded to IV and PO Lopressor. She says she has had palpitations and weight loss for the past few months as well. She was previously on methimazole for hyperthyoidism. She last saw her weatherization coordinator before the pandemic. Her levels were wnl at that time, so her methimazole was discontinued. She says she has had thyroid nodules in the past that 'went away' and the biopsy of the nodules showed they were benign. Na 132 K 3 Cl 93 GFR 75 Glu 123 TSH <0.005 T4 2.56 T3 5.92 Allergies No Known Allergies Allergy (Unverified 05/29/17 12:08) - Past Medical/Surgical History -: hyperthyroidism -: HTN -: C section -: tonsillectomy - Family History Family History: Reviewed- Non-Contributory Hospital Course: Hospital course Patient admitted for increased weight loss, palpitation. Noted with new onset atrial fibrillation with RVR up to 140s. She was initiated on Eliquis as well as beta-laith with improved rate control. She was noted with elevated thyroid level with free T4 of 2.4. Patient has a history of hypothyroidism previously was on methimazole and following with weatherization coordinator but apparently has stopped taking the medicine over the last several years. Her medication with methimazole was restarted and was advised to follow-up with endocrine. Patient developed cough within 24 hours of admission. Chest x-ray shows small bilateral infiltrate. She was Covid negative. She has been started on Rocephin. Patient requesting to go home with p.o. antibiotics which will be sent. Referral back to endocrinology as [facility] Dr. Marrero has been advised Vital Signs/Physical Exam: Temp Pulse Resp BP Pulse Ox 96.8 F 71 18 122/61 97 02/23/21 12:00 02/23/21 12:00 02/23/21 12:00 02/23/21 12:00 02/23/21 12:00 General: Alert, In no apparent distress, Oriented x3 HEENT: Atraumatic, Normocephalic, PERRLA Neck: Supple, 2+ carotid pulse no bruit, JVD not distended Respiratory: Clear to auscultation bilaterally, Normal air movement Cardiovascular: No edema, Regular rate/rhythm, Normal S1 S2 Gastrointestinal: Normal bowel sounds, Soft and benign, Non-distended Musculoskeletal: No clubbing, No swelling Integumentary: No rashes, No breakdown Neurological: Normal gait, Normal speech, Normal strength at 5/5 x4 extr, Normal tone External genitalia: No edema, No lesions Laboratory Data at Discharge: WBC 4.30 K/uL (4.3-10.9) D 02/22/21 05:43 Hgb 11.5 g/dL (12.0-15.0) L 02/22/21 05:43 Hct 34.6 % (36.0-45.0) L 02/22/21 05:43 Plt Count 223 K/uL (152-406) 02/22/21 05:43 PT 13.4 SECONDS (9.5-12.5) H 02/21/21 15:47 INR 1.16 02/21/21 15:47 Sodium 138 mmol/L (136-145) 02/23/21 05:36 Potassium 3.9 mmol/L (3.5-5.1) 02/23/21 05:36 BUN 11 mg/dL (7-18) 02/23/21 05:36 Creatinine 0.54 mg/dL (0.55-1.3) L 02/23/21 05:36 Glucose 94 mg/dL (74-106) 02/23/21 05:36 Phosphorus 3.4 mg/dL (2.5-4.9) 02/22/21 05:43 Magnesium 2.0 mg/dL (1.8-2.4) 02/22/21 05:43 Total Bilirubin 0.4 mg/dL (0.2-1.0) 02/23/21 05:36 AST 18 U/L (15-37) 02/23/21 05:36 ALT 20 U/L (12-78) 02/23/21 05:36 Alkaline Phosphatase 71 U/L (45-117) 02/23/21 05:36 Triglycerides 87 mg/dL (<150) 02/22/21 05:43 Cholesterol 158 mg/dL (<200) 02/22/21 05:43 HDL Cholesterol 41 mg/dL (40-60) 02/22/21 05:43 Cholesterol/HDL Ratio 3.85 02/22/21 05:43 Home Medications: Amoxicillin/Potassium Clav [Augmentin 875-125 Tablet] 1 each PO BID #20 tablet 02/23/21 Apixaban [Eliquis] 5 mg PO BID #60 tablet 02/23/21 Benzonatate [Tessalon Perle] 200 mg PO TID PRN #15 cap 02/23/21 Metoprolol Tartrate [Lopressor*] 25 mg PO BID 6AM 6PM #60 tab 02/23/21 guaiFENesin [Guaifenesin ER] 600 mg PO BID #10 tab.er.12h 02/23/21 methIMAzole [Tapazole*] 10 mg PO DAILY #30 tab 02/23/21 New Medications: Amoxicillin/Potassium Clav [Augmentin 875-125 Tablet] 1 each PO BID #20 tablet Apixaban [Eliquis] 5 mg PO BID #60 tablet guaiFENesin [Guaifenesin ER] 600 mg PO BID #10 tab.er.12h Metoprolol Tartrate [Lopressor*] 25 mg PO BID 6AM 6PM #60 tab methIMAzole [Tapazole*] 10 mg PO DAILY #30 tab Benzonatate [Tessalon Perle] 200 mg PO TID PRN #15 cap PRN Reason: Cough Diet: Regular Activity: Ad gabe Time spent managing pt's care (in minutes): 35
--- NOTE | 2021-02-24 08:16 | EKG ---
Test Date: 2021-02-21 Test Time: 15:34:41 Chairman And Ceo: VERÓNICA MEASUREMENT RESULTS: Intervals: Rate: 122 MO: QRSD: 76 QT: 316 QTc: 450 [place]: P: MO: QRS: 74 T: 77 INTERPRETIVE STATEMENTS: Atrial fibrillation with rapid ventricular response Abnormal ECG No previous ECG available for comparison Electronically Signed On 02-24-21 08:12:44 APPAREL MANAGER by Vincent Gr
== END 2021-02-23 16:46 | disposition home or self-care (01) | DRG 308 ==
LOC: ER 14:48 → ERHOLD 18:47 → 2ND 22:20
PROVIDERS: ADMIT Internal Medicine; ATTEND Internal Medicine
DX: I48.91 Unspecified atrial fibrillation (principal); J18.9 Pneumonia, unspecified organism; I10 Essential (primary) hypertension; E05.90 Thyrotoxicosis, unspecified without thyrotoxic crisis or storm; Z20.822 Contact with and (suspected) exposure to COVID-19
CPT/HCPCS: 0240U; 36415; 71045; 80048; 80053; 80061; 80076; 82947; 83735; 83880; 84100; 84439; 84443; 84481; 84484; 85025; 85610; 87070; 87205; 93005; 96372; 96374; 99285; J1650; J3480; J7030; U0003

== ENCOUNTER 2022-03-01 13:28 | Inpatient (IN) | payer OTHER ==
--- OUTSIDE RECORDS SUMMARY | 2022-03-01 13:32 | XMS REPORT | Continuity of Care Document ---
:1950 Author Organization [facility] t Address [address] [place] [address] Care Team Providers Name Role Phone Ashly Tafoya Primary Care Physician STANFORD SOTELO Attending Clinician Unavailable MARTHA MARRERO Attending Clinician Unavailable Lab, Ang - Db Attending Clinician Unavailable Stanford Sotelo MD Attending Clinician Martha Marrero MD Attending Clinician Doctor Unassigned, Captree Attending Clinician Unavailable Payers Payer Name Policy Type Policy Number Effective Date Expiration Date Chio ALCOCER MANAGED [id number] 2021 MEDICARE PPO-JUAN C 00:00:00 MEDICARE PART A [id number] 2016 2022 \T\ B 00:00:00 00:00:00 Problems Condition Condition Condition Status Onset Resolution Last Treating Co mments Source Name Details Category Date Date Treatment Clinician Date Essential Essential Disease Active Uni vers hypertensi hypertensi 1-06 [place] [address] [place] [address] Multiple Multiple Disease Active Unive rs thyroid thyroid 4-15 ity of nodules nodules 00:00: [address] Vitamin D Vitamin D Disease Active 2013-03 Uni vers deficiency deficiency 0-22 it y of 00:00: [address] Thyroid Thyroid Disease Active 2013-03 Univers nodule nodule 0-15 ity of 00:00: [address] Prediabete Prediabete Disease Active 2013-03 U nivers s s 0-15 ity of 00:00: [place] 00 Medical Branch Osteopenia Osteopenia Disease Active U barb 5-07 ity of 00:00: [place] 00 [facility] Branch Family Family Disease Active Univers history of history of 8-20 [place] y of early CAD [place] CAD [place] HLD HLD Disease Active Overview: Univer s (hyperlipi (hyperlipi 8-20 Formattin ity of demia) demia) 00:00: g of this [place] note Medical might be Branch different from the original. ICD10 Diagnosis Term Guidance Adviser Utility Toxic Toxic Disease Recurre Overview: Unive rs multinodul multinodul nce 2-23 Formattin ity of ar goiter ar goiter 00:00: [place] of this [place] 00 note Medical might be Branch different from the original. ICD10 Diagnosis Term Guidance Adviser Utility Allergies, Adverse Reactions, Alerts Allergy Allergy Status Severity Reaction(s) Onset Inactive Treating Comm ents Source Name Type Date Date Clinician NO KNOWN Drug Active Univers ALLERGIE Class ity of S [facility] Social History Social Habit Start Date Stop Date Quantity Comments Source Exposure to 2022-02-03 2022-02-13 Not sure [facility] SARS-CoV-2 00:00:00 13:48:00 [facility] (event) [place] Alcohol intake 2017-03-13 2017-03-13 Current [facility] 00:00:00 00:00:00 non-drinker of [facility] alcohol (finding) [place] Tobacco use and 2011-09-14 2011-09-14 Smokeless tobacco Un iversity of exposure 00:00:00 00:00:00 non-user [facility] Sex Ass[birth year] At [birth year] Universit y of 00:00:00 00:00:00 [facility] Smoking Status Start Date Stop Date Source Never smoked tobacco [facility] Medications Ordered Filled Start Stop Current Ordering Indication Dosage Frequency Signature Comments Components Source Medication Medication Date Date Medication? Clinician (SIG) Name Name RED YEAST 2021-03- No Take by [facility] ers RICE 2-13 12-13 mouth. ity of EXTRACT 01:49: 00:00 [place] ORAL 42 :00 Medical Branch RED YEAST 2021-03- No Take by [facility] ers RICE 2-13 12-13 mouth. ity of EXTRACT 01:49: 00:00 [place] ORAL 42 :00 Medical Branch MULTIVITS,C 2021-03- No Take by Un luis A,MINERALS/ 2-13 12-13 mouth. ity o f IRON/FA 01:49: 00:00 [place] (MULTI FOR 36 :00 Medical HER ORAL) Branch MULTIVITS,C 2021-03- No Take by Un luis A,MINERALS/ 2-13 12-13 mouth. ity o f IRON/FA 01:49: 00:00 [place] (MULTI FOR 36 :00 Medical HER ORAL) Branch irbesartan 2021-03- No 300mg Take 300 U nivers (AVAPRO) 2-13 12-13 mg by ity of 300 mg 01:49: 00:00 mouth [place] tablet 30 :00 every Medical morning. Branch irbesartan 2021-03- No 300mg Take 300 U nivers (AVAPRO) 2-13 12-13 mg by ity of 300 mg 01:49: 00:00 mouth [place] tablet 30 :00 every Medical morning. Branch FOLIC 2021-03- No Take by Univers ACID/MV,FE, 2-13 12-13 mouth. ity o f OTHER MIN 01:49: 00:00 [place] (CENTRUM 27 :00 Medical ORAL) Branch FOLIC 2021-03- No Take by Univers ACID/MV,FE, 2-13 12-13 mouth. ity o f OTHER MIN 01:49: 00:00 [place] (CENTRUM 27 :00 Medical ORAL) Branch ANNA LOW 2021-03- No w/ heart Uni vers STRENGTH 81 2-13 12-13 guard -- ity of MG ORAL 01:49: 00:00 once daily [place] as TBEC 21 :00 Medical Branch ANNA LOW 2021-03- No w/ heart Uni vers STRENGTH 81 2-13 12-13 guard -- ity of MG ORAL 01:49: 00:00 once daily [place] as TBEC 21 :00 Medical Branch alendronate 2021-03 Yes [id number] 70mg Take 1 Univers 70 mg 2-09 tablet by ity of tablet 00:00: mouth [place] 00 weekly. Medical Branch methIMAzole 2021-03 Yes [id number] 5mg Take 1 Univers 5 mg tablet 2-09 tablet by ity of 00:00: mouth in [place] 00 the Medical morning. Branch alendronate 2-1 Yes [id number] 70mg Take 1 Univers 70 mg 2-09 tablet by ity of tablet 00:00: mouth [place] 00 weekly. Medical Branch methIMAzole 2-1 Yes [id number] 5mg Take 1 Univers 5 mg tablet 2-09 tablet by ity of 00:00: mouth in [place] 00 the Medical morning. Branch alendronate 2-1 Yes [id number] 70mg Take 1 Univers 70 mg 2-09 tablet by ity of tablet 00:00: mouth [place] 00 weekly. Medical Branch methIMAzole 2-1 Yes [id number] 5mg Take 1 Univers 5 mg tablet 2-09 tablet by ity of 00:00: mouth in [place] 00 the Medical morning. Branch methIMAzole 2-0 Yes [id number] 5mg Take 1 Univers 5 mg tablet 8-12 tablet by ity of 00:00: mouth in [place] 00 the Medical morning. Branch alendronate 2-0 Yes [id number] 70mg Take 1 Univers 70 mg 8-12 tablet by ity of tablet 00:00: mouth [place] 00 weekly. Medical Branch methIMAzole 2-0 Yes [id number] 5mg Take 1 Univers 5 mg tablet 8-12 tablet by ity of 00:00: mouth in [place] 00 the Medical morning. Branch alendronate 2-0 Yes [id number] 70mg Take 1 Univers 70 mg 8-12 tablet by ity of tablet 00:00: mouth [place] 00 weekly. Medical Branch methIMAzole 2-0 Yes [id number] 5mg Take 1 Univers 5 mg tablet 8-12 tablet by ity of 00:00: mouth in [place] 00 the Medical morning. Branch alendronate 2-0 Yes [id number] 70mg Take 1 Univers 70 mg 8-12 tablet by ity of tablet 00:00: mouth [place] 00 weekly. Medical Branch methIMAzole 2022-0 2- No [id number] 5mg Take 1 Univers 5 mg tablet 8-12 12-09 tablet by it y of 00:00: 00:00 mouth in [place] 00 :00 the Medical morning. Branch alendronate 2022-0 2- No [id number] 70mg Take 1 Univers 70 mg 8-12 12-09 tablet by ity of tablet 00:00: 00:00 mouth [place] 00 :00 weekly. Medical Branch methIMAzole 2021-0 2021- No [id number] 5mg Take 1 Univers 5 mg tablet 10-17 tablet by it y of 00:00: 00:00 mouth in [place] 00 :00 the Medical morning. Branch alendronate 2021-0 2- No [id number] 70mg Take 1 Univers 70 mg 10-17 tablet by ity of tablet 00:00: 00:00 mouth [place] 00 :00 weekly. Medical Branch ELIQUIS 5 2021-0 Yes 5mg Take 5 mg Uni vers mg tablet 1-03 by mouth 2 ity of 00:00: (two) [place] 00 times Medical daily. Branch metoprolol 2-0 Yes 25mg Take 25 mg U nivers tartrate 25 1-03 by mouth 2 it y of mg tablet 00:00: (two) [place] 00 times Medical daily. Branch ELIQUIS 5 2021-0 Yes 5mg Take 5 mg Uni vers mg tablet 1-03 by mouth 2 ity of 00:00: (two) [place] 00 times Medical daily. Branch metoprolol 2-0 Yes 25mg Take 25 mg U nivers tartrate 25 1-03 by mouth 2 it y of mg tablet 00:00: (two) [place] 00 times Medical daily. Branch ELIQUIS 5 2021-0 Yes 5mg Take 5 mg Uni vers mg tablet 1-03 by mouth 2 ity of 00:00: (two) [place] 00 times Medical daily. Branch metoprolol 2022-0 Yes 25mg Take 25 mg U nivers tartrate 25 1-03 by mouth 2 it y of mg tablet 00:00: (two) [place] 00 times Medical daily. Branch ELIQUIS 5 2-0 Yes 5mg Take 5 mg Uni vers mg tablet 1-03 by mouth 2 ity of 00:00: (two) [place] 00 times Medical daily. Branch metoprolol 2022-0 Yes 25mg Take 25 mg U nivers tartrate 25 1-03 by mouth 2 it y of mg tablet 00:00: (two) [place] 00 times Medical daily. Branch ELIQUIS 5 2-0 Yes 5mg Take 5 mg Uni vers mg tablet 1-03 by mouth 2 ity of 00:00: (two) [place] 00 times Medical daily. Branch metoprolol Yes 25mg Take 25 mg U nivers tartrate 25 - by mouth 2 it y of mg tablet 00:00: (two) [place] 00 times Medical daily. Branch ELIQUIS 5 Yes 5mg Take 5 mg Uni vers mg tablet 03-10 by mouth 2 ity of 00:00: (two) [place] 00 times Medical daily. Branch metoprolol Yes 25mg Take 25 mg U nivers tartrate 25 - by mouth 2 it y of mg tablet 00:00: (two) [place] 00 times Medical daily. Branch PROPRANOLOL 2020-0 Yes [id number] TAKE 1 Univers 10 mg 7-28 TABLET BY ity of tablet 00:00: MOUTH [place] 00 EVERY DAY Medical Branch PROPRANOLOL 2020-0 Yes [id number] TAKE 1 Univers 10 mg 7-28 TABLET BY ity of tablet 00:00: MOUTH [place] 00 EVERY DAY Medical Branch PROPRANOLOL 2020-0 Yes [id number] TAKE 1 Univers 10 mg 7-28 TABLET BY ity of tablet 00:00: MOUTH [place] 00 EVERY DAY Medical Branch PROPRANOLOL 2020-0 Yes [id number] TAKE 1 Univers 10 mg 7-28 TABLET BY ity of tablet 00:00: MOUTH [place] 00 EVERY DAY Medical Branch PROPRANOLOL 2020-0 2022- No [id number] TAKE 1 Univers 10 mg 7-28 12-13 TABLET BY ity of tablet 00:00: 00:00 MOUTH [place] 00 :00 EVERY DAY Medical Branch PROPRANOLOL 2020-0 2- No [id number] TAKE 1 Univers 10 mg 7-28 12-13 TABLET BY ity of tablet 00:00: 00:00 MOUTH [place] 00 :00 EVERY DAY Medical Branch atorvastati 2020-0 Yes [id number] TAKE 1 Univers n 10 mg 3-02 TABLET BY ity of tablet 00:00: MOUTH AT [place] [address] BEDTIME. Medical Branch atorvastati 2020-0 Yes [id number] TAKE 1 Univers n 10 mg 3-02 TABLET BY ity of tablet 00:00: MOUTH AT [place] [address] BEDTIME. Medical Branch atorvastati 2020-0 Yes [id number] TAKE 1 Univers n 10 mg 3-02 TABLET BY ity of tablet 00:00: MOUTH AT [place] [address] BEDTIME. Medical Branch atorvastati 2020-0 Yes [id number] TAKE 1 Univers n 10 mg 3-02 TABLET BY ity of tablet 00:00: MOUTH AT [place] 00 BEDTIME. Medical Branch atorvastati 2021- No [id number] TAKE 1 Univers n 10 mg 3-02 12-13 TABLET BY ity of tablet 00:00: 00:00 MOUTH AT [place] 00 :00 BEDTIME. Medical Branch atorvastati 2021- No [id number] TAKE 1 Univers n 10 mg 3-02 12-13 TABLET BY ity of tablet 00:00: 00:00 MOUTH AT [place] 00 :00 BEDTIME. Medical Branch ANNA LOW Yes w/ heart Univ ers STRENGTH 81 1-06 guard -- ity of MG ORAL 15:48: [place] [facility] 40 Medical Branch PEXEVA 40 Yes 1 daily Unive rs MG ORAL TAB 1-06 ity of 15:48: [place] [address] Medical Branch CONCERTA 18 Yes once daily Univers MG ORAL 1-06 x 5days ity of TO24 15:48: weekly [place] [address] Medical Branch RED YEAST Yes Take by Unive rs RICE 1-06 mouth. ity of EXTRACT 15:48: [place] ORAL Medical Branch irbesartan Yes 300mg Take 300 Un luis (AVAPRO) 1-06 mg by ity of 300 mg 15:48: mouth [place] tablet 40 every Medical morning. Branch MULTIVITS,C Yes Take by Uni vers A,MINERALS/ 1-06 mouth. ity of IRON/FA 15:48: [place] (MULTI FOR 40 Medical HER ORAL) Branch FOLIC Yes Take by Univers ACID/MV,FE, 1-06 mouth. ity of OTHER MIN 15:48: [place] (CENTRUM 40 Medical ORAL) Branch VITAMIN B Yes Take by Unive rs COMPLEX 1-06 mouth ity of ORAL 15:48: daily. [place] [address] Medical Branch ANNA LOW Yes w/ heart Univ ers STRENGTH 81 1-06 guard -- ity of MG ORAL 15:48: once daily [place] [facility] 40 Medical Branch PEXEVA 40 Yes 1 daily Unive rs MG ORAL TAB 1-06 ity of 15:48: [place] [address] Medical Branch CONCERTA 18 Yes once daily Univers MG ORAL 1-06 x 5days ity of TO24 15:48: weekly [place] [address] Medical Branch RED YEAST Yes Take by Unive rs RICE 1-06 mouth. ity of EXTRACT 15:48: [place] ORAL 40 Medical Branch irbesartan Yes 300mg Take 300 Un luis (AVAPRO) 1-06 mg by ity of 300 mg 15:48: mouth [place] tablet 40 every Medical morning. Branch MULTIVITS,C Yes Take by Uni vers A,MINERALS/ 1-06 mouth. ity of IRON/FA 15:48: [place] (MULTI FOR 40 Medical HER ORAL) Branch FOLIC Yes Take by Univers ACID/MV,FE, 1-06 mouth. ity of OTHER MIN 15:48: [place] (CENTRUM 40 Medical ORAL) Branch VITAMIN B Yes Take by Unive rs COMPLEX 1-06 mouth ity of ORAL 15:48: daily. [address] ANNA LOW Yes w/ heart Univ ers STRENGTH 81 1-06 guard -- ity of MG ORAL 15:48: once daily [address] PEXEVA 40 Yes 1 daily Unive rs MG ORAL TAB 1-06 ity of 15:48: [address] CONCERTA 18 Yes once daily Univers MG ORAL 1-06 x 5days ity of TO24 15:48: weekly [address] RED YEAST Yes Take by Unive rs RICE 1-06 mouth. ity of EXTRACT 15:48: [place] ORAL [address] [place] [address] Branch irbesartan Yes 300mg Take 300 Un luis (AVAPRO) 1-06 mg by ity of 300 mg 15:48: mouth [place] tablet 40 every Medical morning. Branch MULTIVITS,C Yes Take by Uni vers A,MINERALS/ 1-06 mouth. ity of IRON/FA 15:48: [place] (MULTI FOR 40 Medical HER ORAL) Branch FOLIC Yes Take by Univers ACID/MV,FE, 1-06 mouth. ity of OTHER MIN 15:48: [place] (CENTRUM 40 Medical ORAL) Branch VITAMIN B Yes Take by Unive rs COMPLEX 1-06 mouth ity of ORAL 15:48: daily. [address] ANNA LOW Yes w/ heart Univ ers STRENGTH 81 1-06 guard -- ity of MG ORAL 15:48: once daily [address] Branch PEXEVA 40 2018-0 Yes 1 daily Unive rs MG ORAL TAB 1-06 ity of 15:48: [address] CONCERTA 18 Yes once daily Univers MG ORAL 1-06 x 5days ity of TO24 15:48: weekly [address] RED YEAST Yes Take by Unive rs RICE 1-06 mouth. ity of EXTRACT 15:48: [address] irbesartan Yes 300mg Take 300 Un luis (AVAPRO) 1-06 mg by ity of 300 mg 15:48: mouth [place] tablet 40 every Medical morning. Branch MULTIVITS,C Yes Take by Uni vers A,MINERALS/ 1-06 mouth. ity of IRON/FA 15:48: [place] (MULTI FOR 40 Medical HER ORAL) [place] FOLIC Yes Take by Univers ACID/MV,FE, 1-06 mouth. ity of OTHER MIN 15:48: [place] (CENTRUM 40 Medical ORAL) Branch VITAMIN B Yes Take by Unive rs COMPLEX 1-06 mouth ity of ORAL 15:48: daily. [address] PEXEVA 40 Yes 1 daily Unive rs MG ORAL TAB 1-06 ity of 15:48: [address] CONCERTA 18 Yes once daily Univers MG ORAL 1-06 x 5days ity of TO24 15:48: weekly [address] VITAMIN B Yes Take by Unive rs COMPLEX 1-06 mouth ity of ORAL 15:48: daily. [address] PEXEVA 40 Yes 1 daily Unive rs MG ORAL TAB 1-06 ity of 15:48: [address] CONCERTA 18 Yes once daily Univers MG ORAL 1-06 x 5days ity of TO24 15:48: weekly [address] VITAMIN B Yes Take by Unive rs COMPLEX 1-06 mouth ity of ORAL 15:48: daily. [address] hydroCHLORO Yes [id number] 25mg Take 1 U nivers thiazide 25 1-06 tablet by ity of mg tablet 00:00: mouth [place] 00 daily. Medical Branch codeine-gua Yes [id number] 5mL Take 5 mL Univers ifenesin 1-06 by mouth ity of 10-100 mg/5 00:00: every 6 [place] as mL solution 00 (six) Medical hours as Branch needed for Cough. hydroCHLORO 2017-0 Yes [id number] 25mg Take 1 U nivers thiazide 25 1-06 tablet by ity of mg tablet 00:00: mouth [place] 00 daily. Medical Branch codeine-gua 2017-0 Yes [id number] 5mL Take 5 mL Univers ifenesin 1-06 by mouth ity of 10-100 mg/5 00:00: every 6 [place] as mL solution 00 (six) Medical hours as Branch needed for Cough. hydroCHLORO Yes [id number] 25mg Take 1 U nivers thiazide 25 1-06 tablet by ity of mg tablet 00:00: mouth [place] 00 daily. Medical Branch codeine-gua 2017-0 Yes [id number] 5mL Take 5 mL Univers ifenesin 1-06 by mouth ity of 10-100 mg/5 00:00: every 6 [place] as mL solution 00 (six) Medical hours as Branch needed for Cough. hydroCHLORO Yes [id number] 25mg Take 1 U nivers thiazide 25 1-06 tablet by ity of mg tablet 00:00: mouth [place] 00 daily. Medical Branch codeine-gua Yes [id number] 5mL Take 5 mL Univers ifenesin 1-06 by mouth ity of 10-100 mg/5 00:00: every 6 [place] as mL solution 00 (six) Medical hours as Branch needed for Cough. codeine-gua 2017-0 Yes [id number] 5mL Take 5 mL Univers ifenesin 1-06 by mouth ity of 10-100 mg/5 00:00: every 6 [place] as mL solution 00 (six) Medical hours as Branch needed for Cough. codeine-gua Yes [id number] 5mL Take 5 mL Univers ifenesin 1-06 by mouth ity of 10-100 mg/5 00:00: every 6 [place] as mL solution 00 (six) Medical hours as Branch needed for Cough. hydroCHLORO 2021- No [id number] 25mg Take 1 Univers thiazide 25 1-06 12-13 tablet by it y of mg tablet 00:00: 00:00 mouth [place] 00 :00 daily. Medical Branch hydroCHLORO 2021- No [id number] 25mg Take 1 Univers thiazide 25 1-06 12-13 tablet by it y of mg tablet 00:00: 00:00 mouth [place] 00 :00 daily. Medical Branch paroxetine 2016-03 Yes TAKE 1 Unive rs 40 mg 1-12 TABLET BY ity of tablet 00:00: MOUTH ONCE [place] DAY Medical Branch paroxetine 2016-03 Yes TAKE 1 Unive rs 40 mg 1-12 TABLET BY ity of tablet 00:00: MOUTH ONCE [place] Medical Branch paroxetine 2016-03 Yes TAKE 1 Unive rs 40 mg 1-12 TABLET BY ity of tablet 00:00: MOUTH ONCE [place] Medical Branch paroxetine 2016-03 Yes TAKE 1 Unive rs 40 mg 1-12 TABLET BY ity of tablet 00:00: MOUTH ONCE [place] Medical Branch paroxetine 2016-03 Yes TAKE 1 Unive rs 40 mg 1-12 TABLET BY ity of tablet 00:00: MOUTH ONCE [place] Medical Branch paroxetine 2016-03 Yes TAKE 1 Unive rs 40 mg 1-12 TABLET BY ity of tablet 00:00: MOUTH ONCE [place] Medical Branch Vital Signs Vital Name Observation Time Observation Value Comments Source Systolic blood 2022-02-13 20:09:00 148 [facility]Hg[facility] Diastolic blood 2022-02-13 20:09:00 81 mm[Hg] [facility] pressure [facility] Heart rate 2022-02-13 20:01:00 60 /min [facility] Body weight 2022-02-13 20:01:00 51.574 kg [facility] BMI 2022-02-13 20:01:00 22.21 kg/m2 [facility] Oxygen saturation 2022-02-13 20:01:00 98 /min Uni versity [facility] in Arterial blood [facility] Br anch by Pulse oximetry Procedures Procedure Date / Time Performed Performing Clinician Sour e POCT HEMOGLOBIN A1C 2022-02-13 20:11:00 Stanford [facility]otelo [facility] TEST [facility] Encounters Start End Encounter Admission Attending Care Care Encounter Source Date/Time Date/Time Type Type Clinicians Facility Department ID 2022-08-14 2022-08-14 Outpatient R RAE [facility] [id number] [facility] 13:30:00 13:30:00 STANFORD lainez [facility] 2022-03-03 2022-03-03 Outpatient R MARRERO [facility] [id number] Univers 09:00:00 09:00:00 MARTHA lainez [facility] 2022-03-03 2022-03-03 Outpatient R MAG [facility] [id number] Univers 09:00:00 09:00:00 MARTHA lainez [facility] 2022-02-13 2022-02-13 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, 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 Franck as MG?BLEA [id number] [place] carlos [facility] [address] [place] MEDICAL OFFICE [facility] 2021-11-07 2021-11-07 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, Ang - Db [facility] 1.2.840.1 [id number] Univers 09:00:00 09:15:00 Visit Martha Marrero DivX [id number] ity of [place] [id number] Franck as MG?BLEA [id number] [address] MEDICAL OFFICE [facility] 2021-11-07 2021-11-07 Outpatient R MAG [facility] [id number] Univers 09:00:00 09:00:00 MARTHA itselena [facility] 2021-11-07 2021-11-07 Outpatient R MAG [facility] [id number] Univers 09:00:00 09:00:00 MARTHA ity [facility] 2021-11-07 2021-11-07 Outpatient R MAG [facility] [id number] Univers 09:00:00 09:00:00 [facility] ity [facility] 2021-11-06 2021-11-06 [facility] [id number] Univers 00:00:00 00:00:00 [employer] [id number] it y of [place] 4.2.7.2.686 Franck as MG?BLEA [id number] [address] MEDICAL OFFICE BUILDING 2021-10-17 2021-10-17 [facility]phone [facility] [id number] Univers 00:00:00 00:00:00 [place] SRCH2PEC [id number] [place].2.[place].2.686 [place] [facility] [id number] [address] [facility] 2021-08-26 2021-08-26 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, Ang - Db [facility] 1.2.840.1 [id number] Univers 09:45:00 10:00:00 Visit Marrero [employer] [id number] ity of [place] 4.2.7.2.686 Franck as MG?BLEA [id number] [address] MEDICAL OFFICE [facility] 2021-08-26 2021-08-26 Outpatient R MAG [facility] [id number] Univers 09:00:00 09:44:21 [facility] ity [facility] 2021-08-26 2021-08-26 Office [facility] [id number] Univers 09:00:00 09:44:21 Visit [employer] [id number] it y of [place] 4.2.7.2.686 Franck as MG?BLEA [id number] [address] MEDICAL OFFICE BUILDING 2021-06-27 2021-06-27 [facility]phone [facility] [id number] Univers 00:00:00 00:00:00 [facility] SRCH2PEC [id number] ity of [place] 4.2.7.2.686 [facility] [id number] [facility] [place] 220 Branch [facility] 2021-05-23 2021-05-23 [facility] [id number] Univers 08:57:32 23:59:00 Encounter Martha KENYON [id number] [facility] 4.2.7.2.686 [facility] [id number] [facility] 806 Branch 2021-05-23 2021-05-[address] [facility] [id number] Univers 08:57:14 08:56:00 [place] ity [facility] 2021-05-23 2021-05-23 [facility] [id number] Univers 08:40:00 08:56:00 Encounter Martha KENYON [id number] ity [facility] [id number] [facility] [id number] [facility] 800 Branch 2021-05-14 2021-05-[address] [facility] [id number] Univers 14:30:00 14:30:00 [place] ity [facility] 2021-05-14 2021-05-14 Orders Doctor LAURYN [id number] Univers 00:00:00 00:00:00 Only Unassigned, BYRON [id number] ity of [place] [facility] 4.2.7.2.686 Franck [id number] [facility] 009 Branch Results Test Description Test Time Test Comments Results Result Comments Source POCT HEMOGLOBIN A1C TEST 2022-02-13 20:13:00 Test Item Value Reference Range Interpretation Comme nts POCT HBA1C (test code = 4548-4) 5.2 % 4[facility]6 [facility] [id number] 20:13:00 Test Item Value Reference Range Interpretation Comments POCT HBA1C (test code = 4548-4) 5.2 % 4-6 [facility]
[2022-03-01 14:07] LABS: Absolute Lymphocytes (CBC) 0.7 K/uL (0.7-4.9); Hematocrit 33.2 % (36.0-45.0); Lymphocytes % 27.3 % (15.3-44.8); MCV 87.5 fL (80-100); MPV 8.5 fL (7.6-11.3); RBC Red Blood Cell Count 3.79 M/uL (3.86-4.86)
[2022-03-01 14:38] LABS: Potassium 2.2 mmol/L (3.5-5.1)
[2022-03-01] MEDS ORDERED: ALBUTEROL 2.5 MG/3 ML NEB SOL ONE (14:43)
[2022-03-01] MEDS ORDERED: IPRATROPIUM BROM 0.5MG/2.5ML ONE (14:43)
[2022-03-01 15:17] LABS: SARS-COV-2 RT PCR POSITIVE (NEGATIVE)
[2022-03-01 15:24] LABS: Blood Morphology Comment NOT SEEN (NOT SEEN); Platelet Estimate ADEQ; White Blood Cell Scan OK (OK)
--- NOTE | 2022-03-01 15:31 | RAD REPORT ---
EXAM DESCRIPTION: RAD - Chest Single View - 03/01/2022 3:22 pm CLINICAL HISTORY: COUGH Chest pain. COMPARISON: Chest Single View dated 02/23/2021; Chest Single View dated 02/21/2021; Chest Pa And Lat (2 Views) dated 05/29/2017 FINDINGS: Portable technique limits examination quality. Mild bilateral pulmonary opacities are present likely representing pulmonary edema or pneumonia. The heart is mildly enlarged in size. No displaced fractures. IMPRESSION: Mild CHF versus pneumonia pattern.
[2022-03-01] MEDS ORDERED: CEFTRIAXONE 1000 MG/VIAL ONE (16:03)
[2022-03-01] MEDS ORDERED: ASPIRIN 81 MG CHEWABLE TABLET ONE (16:04)
[2022-03-01] MEDS ORDERED: OSELTAMIVIR 75 MG CAP PO ONE (16:04)
[2022-03-01] MEDS ORDERED: METHYLPREDNISOLONE 40 MG INJ ONE (16:05)
[2022-03-01] MEDS ORDERED: POTASSIUM 25 MEQ EFFERV TAB ONE (16:05)
[2022-03-01] MEDS ORDERED: KCL 20 MEQ/100 mL IVPB 100 ML IV ONE (16:05)
[2022-03-01] MEDS ORDERED: AZITHROMYCIN 500 MG INJ IVPB ONE (16:05)
--- NOTE | 2022-03-01 16:41 | EDPHYS ---
Physician Documentation [facility] Name: Carmelita Ovalles Age: 71 yrs Sex: Female : 1950 Arrival Date: 03/01/2022 Time: 13:30 Bed 20 Private MD: ED Physician Dann Mathur HPI: 03/01 13:35 This 71 yrs old Female presents to ER via EMS with complaints of Congestion, Productive cp Cough. 13:35 The patient or guardian reports cough, that is intermittent, difficulty breathing. cp 13:35 Onset: The symptoms/episode began/occurred gradually, and became worse yesterday. cp Associated signs and symptoms: Pertinent positives: sore throat, runny nose, Pertinent negatives: chest pain, diarrhea, fever, vomiting. Severity of symptoms: in the emergency department the symptoms are unchanged despite home interventions. Historical: - Allergies: 13:33 No Known Allergies; ko1 - Home Meds: 13:33 aspirin 81 mg Oral chew 1 tab once daily [Active]; ko1 - PMHx: 13:33 depressive disorder; Hypertension; Hypothyroidism; ko1 - Immunization history:: Adult Immunizations unknown. - Social history:: Smoking status: Patient reports the use of cigarette tobacco products, smokes two packs cigarettes per day. ROS: 13:40 Constitutional: Negative for body aches, chills, fever, poor PO intake. cp 13:40 Respiratory: Positive for cough, "sounds productive", shortness of breath, at rest. cp 13:40 Abdomen/GI: Negative for vomiting, diarrhea, constipation. 13:40 Eyes: Negative for injury, pain, redness, and discharge. cp 13:40 ENT: Positive for rhinorrhea, sore throat, Negative for drainage from ear(s), ear pain, difficulty swallowing, difficulty handling secretions. 13:40 Cardiovascular: Negative for chest pain. 13:40 Neuro: Negative for altered mental status, dizziness, syncope, weakness. 13:40 All other systems are negative. Exam: 13:45 Constitutional: The patient appears in no acute distress, alert, awake, cp non-diaphoretic, non-toxic, well developed, well nourished, uncomfortable. 13:45 Head/Face: Normocephalic, atraumatic. cp 13:45 Eyes: Periorbital structures: appear normal, Conjunctiva: normal, no exudate, no injection, Sclera: no appreciated abnormality, Lids and lashes: appear normal, bilaterally. 13:45 ENT: External ear(s): are unremarkable, Ear canal(s): are normal, clear, TM's: dullness, bilaterally, Nose: nasal drainage, and is seen coming from both nares, that is clear, Mouth: Lips: moist, Oral mucosa: moist, Posterior pharynx: Airway: no evidence of obstruction, patent, swelling, is not appreciated, erythema, that is mild, exudate, is not appreciated. 13:45 Neck: ROM/movement: is normal, is supple, without pain, no range of motions limitations, no meningismus. 13:45 Chest/axilla: Inspection: normal. 13:45 Cardiovascular: Rate: normal, Rhythm: regular, Edema: is not appreciated, JVD: is not appreciated. 13:45 Respiratory: the patient does not display signs of respiratory distress, Respirations: labored breathing, that is mild, Breath sounds: decreased breath sounds, that are severe, are heard in the left posterior lower lobe, right posterior middle lobe and right posterior lower lobe, stridor, is not appreciated, wheezing: that is mild, is heard diffusely. 13:45 Abdomen/GI: Inspection: abdomen appears normal, Palpation: abdomen is soft and non-tender, in all quadrants. 13:45 Neuro: Orientation: to person, place \\T\\ time. Mentation: is normal, Motor: moves all fours, strength is normal. 13:57 ECG was reviewed by the Attending Physician. cp Vital Signs: 13:30 BP 121 / 85; Pulse 72; Resp 20; Temp 98.6(O); Pulse Ox 98% ; Pain 0/10; ko1 14:47 BP 135 / 64; Pulse 62; Pulse Ox 95% on 2 lpm NC; ko1 15:30 BP 137 / 88; Pulse 66; Resp 18; Pulse Ox 95% on 2 lpm NC; ko1 16:00 BP 130 / 60; Pulse 71; Resp 20; Pulse Ox 100% on Nebulizer Mask; ko1 17:00 BP 123 / 81; Pulse 87; Pulse Ox 97% on 2 lpm NC; ko1 18:00 BP 117 / 72; Pulse 72; Pulse Ox 98% on 2 lpm NC; ko1 19:20 BP 112 / 74; Pulse 82; Resp 21; Temp 98.6; Pulse Ox 100% on 2 lpm NC; Pain 0/10; pf1 MDM: 13:33 Patient medically screened. 16:27 Data reviewed: vital signs, nurses notes, lab test result(s), EKG, radiologic studies, cp plain films. Physician consultation: Rubin Macias MD was called at 16:27, left message on voicemail. 03/01 13:32 Order name: Basic Metabolic Panel; Complete Time: 15:05 03/01 15:05 Interpretation: Normal except: NA 131; K 2.2; CL 87; CO2 37; GLUC 110; CA 8.3. 03/01 13:32 Order name: CBC with Diff; Complete Time: 15:24 03/01 14:19 Interpretation: Normal except: WBC 2.70; RBC 3.79; HGB 11.6; HCT 33.2; MN% 18.6; NEUT A cp 1.3. 03/01 13:32 Order name: Magnesium; Complete Time: 15:05 03/01 13:32 Order name: NT PRO-BNP; Complete Time: 15:05 03/01 13:32 Order name: Troponin HS; Complete Time: 15:05 03/01 15:05 Interpretation: Troponin HS 95.0; Reviewed. 03/01 13:32 Order name: COVID-19/FLU A+B/RSV; Complete Time: 15:24 03/01 15:24 Interpretation: Reviewed. 03/01 13:32 Order name: XRAY Chest (1 view); Complete Time: 15:34 03/01 15:34 Interpretation: Report review. 03/01 13:32 Order name: Strep; Complete Time: 14:19 03/01 14:18 Order name: Throat Culture EDMT 03/01 15:06 Order name: ABG 03/01 15:07 Order name: Lactate w/ 2H reflex if indic.; Complete Time: 16:23 03/01 15:07 Order name: D-Dimer; Complete Time: 16:23 03/01 15:07 Order name: Blood Culture Adult (2) 03/01 15:24 Order name: CBC Smear Scan; Complete Time: 15:24 EDMT 03/01 13:32 Order name: EKG; Complete Time: 13:33 cp 03/01 13:32 Order name: Cardiac monitoring; Complete Time: 13:36 cp 03/01 13:32 Order name: EKG - Nurse/Tech; Complete Time: 13:57 cp 03/01 13:32 Order name: IV Saline Lock; Complete Time: 13:57 cp 03/01 13:32 Order name: Labs collected and sent; Complete Time: 13:57 cp 03/01 13:32 Order name: O2 Per Protocol; Complete Time: 13:35 cp 03/01 13:32 Order name: O2 Sat Monitoring; Complete Time: 13:36 cp EC:57 Rate is 76 beats/min. Rhythm is regular. NM interval is normal. QRS interval is normal. cp QT interval is normal. T waves are Inverted in lead aVR. Interpreted by me. Reviewed by me. Administered Medications: 14:42 Drug: Albuterol 2.5 mg Route: Inhalation; ko1 14:42 Drug: AtroVENT (ipratropium) Aerosol 0.5 mg Route: Inhalation; ko1 16:24 Drug: SOLU-Medrol (methylPrednisoLONE) 80 mg Route: IVP; Site: right antecubital; ko1 16:24 Drug: Tamiflu (oseltamivir) 75 mg Route: PO; ko1 19:00 Follow up: Response: No adverse reaction pf1 16:24 Drug: Potassium Effervescent Tablet 50 mEq Route: PO; ko1 19:00 Follow up: Response: No adverse reaction pf1 16:25 Drug: Aspirin Chewable Tablet 324 mg Route: PO; ko1 19:00 Follow up: Response: No adverse reaction; Pain is decreased; RASS: Alert and Calm (0) pf1 16:25 Drug: Rocephin - (cefTRIAXone) 1 grams Route: IVPB; Infused Over: 30 mins; Site: right ko1 antecubital; 16:32 Drug: Potassium Chloride 20 mEq Route: IV; Rate: calculated rate; Site: right ko1 antecubital; 16:33 Drug: Zithromax (azithromycin) 500 mg Route: IVPB; Infused Over: 1 hrs; Site: right ko1 antecubital; Disposition Summary: 03/01/22 16:40 Hospitalization Ordered Hospitalization Status: Inpatient Admission cp Provider: Rubin Macias cp Location: Telemetry/MedSurg (Inpatient) cp Condition: Stable cp Problem: new cp Symptoms: have improved cp Bed/Room Type: Standard cp Room Assignment: 418(03/01/22 19:53) cg Diagnosis - Pneumonia due to SARS-associated coronavirus cp - Influenza due to identified novel influenza A virus with pneumonia cp Forms: - Medication Reconciliation Form cp - SBAR form cp Addendum: 03/20/2022 13:33 Co-signature as Attending Physician, Dann Mathur MD I agree with the assessment and c montez plan of care. Signatures: Dispatcher [employer] EDDann Cronin MD MD cha Page, Corey, PA PA cp Theresa Saavedra RN RN cg Nesha Santa RN RN ko1 Linda polk RN RN pf1 Corrections: (The following items were deleted from the chart) 03/01 19:53 16:40 cp cg 20:32 20:32 PSHx: section; pf1 pf1
--- NOTE | 2022-03-01 16:41 | ER ---
Nurse's Notes [facility] Name: Carmelita Ovalles Age: 71 yrs Sex: Female : 1950 Arrival Date: 03/01/2022 Time: 13:30 Bed 20 Private MD: Diagnosis: Pneumonia due to SARS-associated coronavirus;Influenza due to identified novel influenza A virus with pneumonia Presentation: 03/01 13:30 Chief complaint: EMS states: patient does not have heat in their house and she called ko1 for cough and congestion. Coronavirus screen: congestion, cough unrelated to allergies, runny nose. Ebola Screen: No symptoms or risks identified at this time. Initial Sepsis Screen: Does the patient meet any 2 criteria? No. Patient's initial sepsis screen is negative. Does the patient have a suspected source of infection? No. Patient's initial sepsis screen is negative. Risk Assessment: Do you want to hurt yourself or someone else? Patient reports no desire to harm self or others. Onset of symptoms was February 28, 2022 at 07:00. 13:30 Method Of Arrival: EMS: [facility] ko1 13:30 Acuity: MARCIA 2 ko1 Triage Assessment: 13:33 General: Appears in no apparent distress. comfortable, Behavior is cooperative, ko1 appropriate for age, anxious. Pain: Denies pain. Respiratory:. Historical: - Allergies: 13:33 No Known Allergies; ko1 - Home Meds: 13:33 aspirin 81 mg Oral chew 1 tab once daily [Active]; ko1 - PMHx: 13:33 depressive disorder; Hypertension; Hypothyroidism; ko1 - Immunization history:: Adult Immunizations unknown. - Social history:: Smoking status: Patient reports the use of cigarette tobacco products, smokes two packs cigarettes per day. Screenin:45 Abuse screen: Denies threats or abuse. Denies injuries from another. Nutritional ko1 screening: No deficits noted. Tuberculosis screening: No symptoms or risk factors identified. 15:00 [facility] ED Fall Risk Assessment (Adult) History of falling in the last 3 months, ko1 including since admission No falls in past 3 months (0 pts) Confusion or Disorientation No (0 pts) Intoxicated or Sedated No (0 pts) Impaired Gait No (0 pts) Mobility Assist Device Used No (0 pt) Altered Elimination No (0 pt) Score/Fall Risk Level 0 - 2 = Low Risk Oriented to surroundings, Maintained a safe environment, Educated pt \T\ family on fall prevention, incl call for assistance when getting out of bed, Assessed \T\ reinforced patient's understanding of fall precautions, Provided non-skid footwear, Hourly rounding (assess needs \T\ fall precautionary measures) done, Used ambulatory aids as needed (educated on \T\ assisted with), Used gait belt as appropriate. Assessment: 15:00 General: Appears distressed, uncomfortable, ill, Behavior is cooperative, appropriate ko1 for age. Pain: Denies pain. Cardiovascular: Patient's skin is warm and dry. Respiratory: Airway is patent Trachea midline Respiratory effort is even, unlabored, Respiratory pattern is regular, Sputum is. 18:43 Neuro: No deficits noted. Respiratory: Breath sounds are coarse bilaterally. GI: No ko1 deficits noted. : No deficits noted. EENT: Reports nasal congestion nasal discharge. Derm: No deficits noted. Musculoskeletal: No deficits noted. 19:00 General: Appears in no apparent distress. comfortable, well developed, Behavior is pf1 calm, cooperative, appropriate for age, quiet. 19:00 Pain: Denies pain. Neuro: No deficits noted. Level of Consciousness is awake, alert, pf1 obeys commands, Oriented to person, place, time, situation. Cardiovascular: No deficits noted. Capillary refill < 3 seconds Patient's skin is warm and dry. Respiratory: Airway is patent Trachea midline Respiratory effort is even, unlabored, Respiratory pattern is regular, symmetrical, Sputum is green Breath sounds are coarse Breath sounds are diminished bilaterally. in left posterior lower lobe. GI: No deficits noted. Abdomen is non-distended, Bowel sounds present X 4 quads. Abd is soft and non tender X 4 quads. : No deficits noted. No signs and/or symptoms were reported regarding the genitourinary system. EENT: Reports nasal congestion nasal discharge for 3 days. Derm: No deficits noted. Musculoskeletal: No deficits noted. No signs and/or symptoms reported regarding the musculoskeletal system. Vital Signs: 13:30 BP 121 / 85; Pulse 72; Resp 20; Temp 98.6(O); Pulse Ox 98% ; Pain 0/10; ko1 14:47 BP 135 / 64; Pulse 62; Pulse Ox 95% on 2 lpm NC; ko1 15:30 BP 137 / 88; Pulse 66; Resp 18; Pulse Ox 95% on 2 lpm NC; ko1 16:00 BP 130 / 60; Pulse 71; Resp 20; Pulse Ox 100% on Nebulizer Mask; ko1 17:00 BP 123 / 81; Pulse 87; Pulse Ox 97% on 2 lpm NC; ko1 18:00 BP 117 / 72; Pulse 72; Pulse Ox 98% on 2 lpm NC; ko1 19:20 BP 112 / 74; Pulse 82; Resp 21; Temp 98.6; Pulse Ox 100% on 2 lpm NC; Pain 0/10; pf1 ED Course: 13:30 Patient arrived in ED. ko1 13:31 Dann Salcido PA is PHCP. cp 13:31 Dann Mathur MD is Attending Physician. cp 13:33 Triage completed. ko1 13:35 Nesha Santa, RN is Primary Nurse. ko1 13:42 Strep Sent. ko1 13:42 COVID-19/FLU A+B/RSV Sent. ko1 13:57 Basic Metabolic Panel Sent. ko1 13:57 CBC with Diff Sent. ko1 13:57 Magnesium Sent. ko1 13:57 NT PRO-BNP Sent. ko1 13:57 Troponin HS Sent. ko1 13:58 EKG done, by ED staff, reviewed by Dann Mathur MD. mm9 13:58 Patient has correct armband on for positive identification. Placed in gown. Bed in low mm9 position. Call light in reach. Side rails up X2. Warm blanket given. Pillow given. equipment monitor phototypesetting on. Pulse ox on. NIBP on. 14:45 Inserted saline lock: 22 gauge in right antecubital area, using aseptic technique. ko1 Blood collected. Oxygen administration via nasal cannula \T\ 2L/min Response to oxygen therapy: symptoms improved. 15:23 XRAY Chest (1 view) In Process Unspecified. EDMS 15:56 Blood Culture Adult (2) Sent. ko1 15:56 D-Dimer Sent. ko1 15:56 Lactate w/ 2H reflex if indic. Sent. ko1 16:03 ABG Sent. ko1 16:40 Rubin Macias MD is Hospitalizing Provider. cp 19:54 No provider procedures requiring assistance completed. pf1 19:55 Arm band placed on right wrist. pf1 Administered Medications: 14:42 Drug: Albuterol 2.5 mg Route: Inhalation; ko1 14:42 Drug: AtroVENT (ipratropium) Aerosol 0.5 mg Route: Inhalation; ko1 16:24 Drug: SOLU-Medrol (methylPrednisoLONE) 80 mg Route: IVP; Site: right antecubital; ko1 16:24 Drug: Tamiflu (oseltamivir) 75 mg Route: PO; ko1 19:00 Follow up: Response: No adverse reaction pf1 16:24 Drug: Potassium Effervescent Tablet 50 mEq Route: PO; ko1 19:00 Follow up: Response: No adverse reaction pf1 16:25 Drug: Aspirin Chewable Tablet 324 mg Route: PO; ko1 19:00 Follow up: Response: No adverse reaction; Pain is decreased; RASS: Alert and Calm (0) pf1 16:25 Drug: Rocephin - (cefTRIAXone) 1 grams Route: IVPB; Infused Over: 30 mins; Site: right ko1 antecubital; 16:32 Drug: Potassium Chloride 20 mEq Route: IV; Rate: calculated rate; Site: right ko1 antecubital; 16:33 Drug: Zithromax (azithromycin) 500 mg Route: IVPB; Infused Over: 1 hrs; Site: right ko1 antecubital; Medication: 19:54 VIS not applicable for this client. pf1 Outcome: 16:40 Decision to Hospitalize by Provider. cp 22:12 Patient left the ED. pf1 Signatures: Dispatcher [employer] EDMS Dann Salcido PA PA cp Oliver, Kathy, RN RN ko1 Martinez, Maria 9 Linda polk RN RN pf1 Corrections: (The following items were deleted from the chart) 18:47 14:47 BP 135 / 64; Pulse 62bpm; Pulse Ox 95% RA; ko1 ko1 18:47 18:46 BP 137 / 88; Pulse 66bpm; Resp 18bpm; Pulse Ox 95% 2 lpm Nasal Cannula; ko1 ko1 20:32 20:32 PSHx: section; pf1 pf1
--- NOTE | 2022-03-01 20:02 | P.HP ---
Certification for Inpatient Patient admitted to: Inpatient With expected LOS: >2 Midnights Patient will require the following post-hospital care: None Practitioner: I am a practitioner with admitting privileges, knowledge of patient current condition, hospital course, and medical plan of care. Services: Services provided to patient in accordance with Admission requirements found in Title 42 Section 412.3 of the Code of Federal Regulations Patient History Date of Service: 03/01/22 Reason for admission: Pneumonia, hypokalemia History of Present Illness: 71-year-old female with history of hypertension, hypothyroidism, paroxysmal atrial fibrillation on chronic anticoagulation therapy presents the emergency department for 1 week of cough, congestion. She was evaluated in the emergency department her labs were significant for sodium of 131 potassium 2.2 chloride 87 bicarb 37 high-sensitivity troponin 95.0 BNP 418 chest x-ray was performed which showed mild CHF versus pneumonia pattern. Clinically patient does not appear to be significantly overloaded she did test positive for COVID/influenza a. She is currently saturating well on room air, she does admit to the use of hydrochlorothiazide which I believe is contributing to her mild hyponatremia and hypokalemia, patient also reports diarrhea during the day today. Electrolytes were replaced in ED, ED provider wishes to admit for further evaluation and management of COVID/influenza/hypokalemia. Allergies No Known Allergies Allergy (Unverified 05/29/17 12:08) Home Medications: Amoxicillin/Potassium Clav [Augmentin 875-125 Tablet] 1 each PO BID #20 tablet 02/23/21 Apixaban [Eliquis] 5 mg PO BID #60 tablet 02/23/21 Benzonatate [Tessalon Perle] 200 mg PO TID PRN #15 cap 02/23/21 Metoprolol Tartrate [Lopressor*] 25 mg PO BID 6AM 6PM #60 tab 02/23/21 guaiFENesin [Guaifenesin ER] 600 mg PO BID #10 tab.er.12h 02/23/21 methIMAzole [Tapazole*] 10 mg PO DAILY #30 tab 02/23/21 - Past Medical/Surgical History Diabetic: No -: hyperthyroidism -: HTN -: A. fib on chronic anticoagulation -: C section -: tonsillectomy Psychosocial/ Personal History: Patient lives at home with her - Family History Family History: Reviewed- Non-Contributory - Social History Smoking Status: Never smoker Alcohol use: No CD- Drugs: No Caffeine use: Yes Place of Residence: Home Review of Systems 10-point ROS is otherwise unremarkable Respiratory: Cough, Dry Gastrointestinal: Nausea, Diarrhea Physical Examination - Physical Exam General: Alert, In no apparent distress, Oriented x3 HEENT: Atraumatic, PERRLA, Other (Mucous membranes dry), EOMI, Sclerae nonicteric Neck: Supple, 2+ carotid pulse no bruit, No LAD, Without JVD or thyroid abnormality Respiratory: Diminished Cardiovascular: Regular rate/rhythm, Normal S1 S2 Capillary refill: <2 Seconds Gastrointestinal: Normal bowel sounds, No tenderness Musculoskeletal: No tenderness Integumentary: No rashes Neurological: Normal speech, Normal strength at 5/5 x4 extr, Normal tone, Normal affect - Studies Laboratory Data (last 24 hrs) 03/01/22 13:50: WBC 2.70 L, Hgb 11.6 L, Hct 33.2 L, Plt Count 274 03/01/22 13:50: Sodium 131 L, Potassium 2.2 L*, BUN 10, Creatinine 0.60, Glucose 110 H, Magnesium 2.0 Microbiology Data (last 24 hrs): 03/01/22 13:39 Throat Group A Streptococcus Rapid Screen - Final Assessment and Plan - Plan Assessment: Pneumonia secondary to COVID-19/influenza A Elevated troponin Mild hyponatremia, severe hypokalemia Paroxysmal atrial fibrillation on chronic anticoagulation therapy Hypertension Hypothyroidism Plan: Pneumonia secondary to COVID-19/influenza A: Symptoms ongoing for approximately 1 week now, chest x-ray shows CHF versus pneumonia. Cover with antibiotics Rocephin/Zithromax. Patient does not appear clinically overloaded at this point time. Continue gentle IV hydration. Elevated troponin: Trend troponins, mildly elevated suspect event ischemia. Cardiology consulted. Echocardiogram ordered. Mild hyponatremia, severe hypokalemia: Replaced in ED, believe this is from commendation of diarrhea, use of hydrochlorothiazide. We will hold hydroch lorothiazide, continue gentle hydration tonight. Paroxysmal atrial fibrillation on chronic anticoagulation therapy: Continue Eliquis, metoprolol. Monitor on telemetry. Hypertension: Continue home meds Hypothyroidism: Continue home meds, thyroid panel in the morning. DVT PPX: Continue Eliquis Code status: Full Discharge Plan: Home Plan to discharge in: 48 Hours - Advance Directives Does patient have a Living Will: No Does patient have a Durable POA for Healthcare: No - Code Status/Comfort Care Code Status Assessed: Yes (Full code) Critical Care: No Time Spent Managing Pts Care (In Minutes): 55
[2022-03-01] MEDS ORDERED: ACETAMINOPHEN 500 MG TAB PO PRN (22:47)
[2022-03-01] MEDS ORDERED: ALBUTEROL 2.5 MG/3 ML NEB SOL NEB PRN (22:47)
[2022-03-01] MEDS ORDERED: ONDANSETRON 4 MG/2 ML VIAL IV PRN (22:47)
[2022-03-01] MEDS: Ringers Lactate 1,000 ML IV SCH (23:31)
[2022-03-01 23:53] VITALS: BMI 22.0
[2022-03-01 23:54] LABS: Potassium 2.5 mmol/L (3.5-5.1); Troponin High Sensitivity 80.9 pg/mL (<58.9)
[2022-03-02] MEDS: KCL 20 MEQ/100 mL IVPB 20 MEQ/100 ML BAG IV SCH ×3 (00:34→04:55)
[2022-03-02] MEDS: METOPROLOL TAR 25 MG TAB PO SCH ×2 (06:04→17:37)
[2022-03-02 06:25] LABS: Absolute Lymphocytes (CBC) 0.6 K/uL (0.7-4.9); Lymphocytes % 26.8 % (15.3-44.8); MCV 88.2 fL (80-100); MPV 9.2 fL (7.6-11.3); RBC Red Blood Cell Count 3.74 M/uL (3.86-4.86)
[2022-03-02 06:37] LABS: Albumin 2.7 g/dL (3.4-5.0); Bilirubin Total 0.2 mg/dL (0.2-1.0); Potassium 3.7 mmol/L (3.5-5.1); Protein, Total 7.2 g/dL (6.4-8.2); Thyroid Stimulating Hormone 0.659 uIU/mL (0.358-3.740)
[2022-03-02 07:03] LABS: Troponin High Sensitivity 72.4 pg/mL (<58.9)
[2022-03-02] MEDS ORDERED: CEFTRIAXONE 1000 MG/VIAL ONE (07:28)
[2022-03-02] MEDS ORDERED: NA CHLORIDE 0.9% 50 ML IV ONE (07:43)
[2022-03-02] MEDS ORDERED: INFLUENZA VACCINE (for 6+ mo) 0.5 ML DOSE IMVAC ONE (08:00)
[2022-03-02] MEDS ORDERED: PNEUMOCOCCAL VACCINE 0.5 ML IMVAC ONE (08:00)
[2022-03-02] MEDS: APIXABAN 5 MG TABLET PO SCH ×2 (08:41→20:08)
[2022-03-02] MEDS: CEFTRIAXONE 1,000 MG in NA CHLORIDE 0.9% 50 ML IVPB SCH (08:41)
[2022-03-02] MEDS: AZITHROMYCIN IV 500 MG in NA CHLORIDE 0.9% 250 ML IVPB SCH (08:42)
[2022-03-02 08:44] LABS: Blood Morphology Comment NOT SEEN (NOT SEEN); Platelet Estimate ADEQ; White Blood Cell Scan OK (OK)
[2022-03-02] MEDS ORDERED: POTASSIUM CL SA 10 MEQ TAB PO ONE ×3 (09:00→20:00)
[2022-03-02] MEDS: Ringers Lactate 1,000 ML IV SCH ×2 (11:06→23:13)
[2022-03-02] MEDS: BENZONATATE 100 MG CAP PO PRN ×2 (11:10→23:20)
--- NOTE | 2022-03-02 14:10 | CON ---
Date of Consultation: 03/02/2022 Reason For Consultation: Elevated troponin. History Of Present Illness: This is a 71-year-old female, poor historian, has hypertension; hypothyr oidism; paroxysmal atrial fibrillation, on chronic anticoagulation, presented with cough and congesti on and some shortness of breat, generalized weakness. Does not have any orthopnea, any lower extremi ty edema. No chest pain. She was tested positive for COVID. Denies having any other complaints. Past Medical History: As outlined above in the HPI. Medications: Refer reconciliation sheet for detailed list. Allergies: NO KNOWN DRUG ALLERGIES. Family History: No premature coronary artery disease or cancer. Social History: She does not smoke or drink. Does not use any drugs. Review of Systems: All systems reviewed were negative except as mentioned in HPI. Physical Examination: Vital signs: Reviewed. Head and Neck: Pupils are equal, reactive to light. Intact eye movements. No JVD. No cervical lym phadenopathy. Neck is supple. Thyroid is not enlarged. Lungs: Rhonchi bilaterally. No accessory muscle use or muscle retraction. Heart: Regular rate and rhythm. No extra sounds. Abdomen: Soft, nontender. Bowel sounds positive. No organomegaly. No masses or hernia. No rigidi ty or rebound. Extremities: No edema, clubbing, or cyanosis. Intact pulses. Skin: No rashes. Neurologic: Alert, awake, oriented x3. No acute focal deficits appreciated. Investigations: Troponin 95 and then dropped to 72. BUN is 9, creatinine 0.51. Potassium 3.7. Hem oglobin is 11.3. Assessment And Recommendations: 1.Elevated troponin. This is due to demand and due to the COVID condition. Obtain an echocardiogra m on her tomorrow and further plan accordingly. 2.Paroxysmal atrial fibrillation. Continue metoprolol, Eliquis, and I will follow the patient with you. SR/MODL Voice ID: [id number] Report ID: [id number]
--- NOTE | 2022-03-02 23:54 | P.PN ---
Subjective Date of Service: 03/02/22 Subjective: No new changes, No C/O voiced, Improving Review of Systems 10-point ROS is otherwise unremarkable Physical Examination - Vital Signs Temperature: 97.5 F Blood Pressure: 126/59 Pulse: 55 Respirations: 19 Pulse Ox (%): 94 - Physical Exam General: Alert, In no apparent distress, Oriented x3 Respiratory: Diminished, Expiratory wheezes Cardiovascular: Regular rate/rhythm, Normal S1 S2, Systolic murmur Gastrointestinal: Normal bowel sounds, Soft and benign, Non-distended, No tenderness Musculoskeletal: No clubbing, No swelling, No tenderness Neurological: Sensation intact, Cranial nerves 3-12 intact - Studies Medications List Reviewed: Yes Assessment & Plan - Problems (Diagnosis) (1) Pneumonia Current Visit: Yes Status: Acute Qualifiers: Pneumonia type: due to influenza A virus Qualified Code(s): J10.00 - Influenza due to other identified influenza virus with unspecified type of pneumonia (2) Atrial fibrillation Current Visit: No Status: Acute Qualifiers: Atrial fibrillation type: unspecified Qualified Code(s): I48.91 - Unspecified atrial fibrillation (3) HTN (hypertension) Current Visit: No Status: Chronic Qualifiers: Hypertension type: primary hypertension Qualified Code(s): I10 - Essential (primary) hypertension (4) Hyperthyroidism Current Visit: No Status: Chronic (5) Leukopenia Current Visit: Yes Status: Acute (6) Hypokalemia Current Visit: Yes Status: Acute (7) Hyponatremia Current Visit: Yes Status: Acute (8) COVID-19 Current Visit: Yes Status: Acute (9) Elevated troponin Current Visit: Yes Status: Acute - Plan PLAN: 1. CONTINUE WITH IV STEROIDS 2. CONTINUE WITH NEBS 3. CONTINUE ANTI BIOTIC THERAPY 4. CHECK ROOM AIR O2 SATS 5. REPEAT CHEST X-RAY 6. PHYSICAL THERAPY EVALUATION 7. DISCHARGE IN A.M. IF CONTINUES TO IMPROVE Discharge Plan: Home Plan to discharge in: Greater than 2 days - Advance Directives Does patient have a Living Will: No Does patient have a Durable POA for Healthcare: No - Code Status/Comfort Care Code Status Assessed: Yes Code Status: Full Code Critical Care: No Time Spent Managing PTS Care (In Minutes): 35
[2022-03-03] MEDS: METHYLPREDNISOLONE 40 MG INJ IV SCH ×3 (00:12→08:11)
[2022-03-03] MEDS: METOPROLOL TAR 25 MG TAB PO SCH (05:24)
[2022-03-03] MEDS ORDERED: CEFTRIAXONE 1000 MG/VIAL ONE (07:26)
[2022-03-03] MEDS ORDERED: NA CHLORIDE 0.9% 50 ML IV ONE (07:43)
[2022-03-03 08:00] LABS: Absolute Lymphocytes (CBC) 0.4 K/uL (0.7-4.9); Hematocrit 30.7 % (36.0-45.0); Lymphocytes % 14.8 % (15.3-44.8); MCV 89.4 fL (80-100); MPV 8.7 fL (7.6-11.3); RBC Red Blood Cell Count 3.44 M/uL (3.86-4.86)
[2022-03-03] MEDS: CEFTRIAXONE 1,000 MG in NA CHLORIDE 0.9% 50 ML IVPB SCH (08:11)
[2022-03-03] MEDS: AZITHROMYCIN IV 500 MG in NA CHLORIDE 0.9% 250 ML IVPB SCH (08:11)
[2022-03-03] MEDS: APIXABAN 5 MG TABLET PO SCH (08:12)
[2022-03-03 08:19] LABS: Albumin 2.8 g/dL (3.4-5.0); Bilirubin Total 0.3 mg/dL (0.2-1.0); Protein, Total 6.8 g/dL (6.4-8.2)
[2022-03-03 08:43] LABS: Folic Acid, (Folate) 11.1 ng/mL (3.1-17.5)
[2022-03-03 08:45] LABS: Troponin High Sensitivity 81.6 pg/mL (<58.9)
[2022-03-03] MEDS ORDERED: PARoxetine HCL 10 MG TAB PO SCH (09:00)
[2022-03-03] MEDS ORDERED: METHYLPHENIDATE HCL 18 MG PO SCH (09:00)
--- NOTE | 2022-03-03 09:04 | RAD REPORT ---
EXAM DESCRIPTION: RAD - Chest Single View - 03/03/2022 6:55 am CLINICAL HISTORY: pneumonia Chest pain. COMPARISON: Chest Single View dated 03/01/2022; Chest Single View dated 02/23/2021; Chest Single Vie w dated 02/21/2021; Chest Pa And Lat (2 Views) dated 05/29/2017 FINDINGS: Portable technique limits examination quality. No bilateral pulmonary opacities are again seen with little overall change since 03/01/2022 study. Th e heart is mildly prominent. No displaced fractures. IMPRESSION: Stable chest since 03/01/2022 study.
[2022-03-03 09:07] VITALS: BP 153/67; TEMP 97.9
[2022-03-03 11:12] VITALS: O2SAT 96
--- NOTE | 2022-03-03 13:44 | EKG ---
Test Date: 2022-03-01 Test Time: 13:52:36 [employer]pension Coordinator: PARESH MEASUREMENT RESULTS: Intervals: Rate: 76 DC: 184 QRSD: 78 QT: 436 QTc: 490 [place]: P: 112 DC: 184 QRS: 51 T: 56 INTERPRETIVE STATEMENTS: Sinus rhythm with premature atrial complexes with aberrant conduction Nonspecific T wave abnormality Abnormal ECG Compared to ECG 02/21/2021 15:34:41 Atrial premature complex(es) now present Aberrant conduction of supraventricular beat(s) now present T-wave abnormality now present Atrial fibrillation no longer present Electronically Signed On 03-03-22 13:39:32 [employer] TEACHER by Koko Shannon
== END 2022-03-03 11:30 | disposition home or self-care (01) | DRG 177 ==
LOC: ER 13:28 → ERHOLD 19:20 → 4TH 20:19
PROVIDERS: ADMIT Hospitalist; ATTEND Hospitalist
DX: U07.1 COVID-19 (principal); J10.08 Influenza due to other identified influenza virus with other specified pneumonia; J12.82 Pneumonia due to coronavirus disease 2019; E87.1 Hypo-osmolality and hyponatremia; I24.8 Other forms of acute ischemic heart disease; I10 Essential (primary) hypertension; E03.9 Hypothyroidism, unspecified; I48.0 Paroxysmal atrial fibrillation; E87.6 Hypokalemia; D72.819 Decreased white blood cell count, unspecified; E05.90 Thyrotoxicosis, unspecified without thyrotoxic crisis or storm; R19.7 Diarrhea, unspecified; F17.210 Nicotine dependence, cigarettes, uncomplicated; Z79.01 Long term (current) use of anticoagulants; Z79.899 Other long term (current) drug therapy
CPT/HCPCS: 0241U; 36415; 71045; 80048; 80053; 80061; 82533; 82607; 82746; 82805; 83540; 83605; 83735; 83880; 84132; 84145; 84439; 84443; 84484; 85025; 85379; 87040; 87070; 87081; 93005; 96374; 96375; 99285; J0456; J2920; J3480; J7050; J7120; J7613; J7644

== ENCOUNTER 2022-10-27 17:04 | Inpatient (IN) | payer OTHER ==
--- OUTSIDE RECORDS SUMMARY | 2022-10-27 17:09 | XMS REPORT | Continuity of Care Document ---
:1950 Author Organization [facility] t Address [address] [place] [address]. [address] [place] [address] Care Team Providers Name Role Phone Ashly Tafoya Primary Care Physician STANFORD SOTELO Attending Clinician Unavailable Claudine Dumont Attending Clinician CLAUDINE RAMEY Attending Clinician Unavailable Doctor Unassigned, [place] Attending Clinician Unavailable Lab, Ang - Db Attending Clinician Unavailable Stanford Sotelo MD Attending Clinician MARTHA MARRERO Attending Clinician Unavailable Martha Marrero MD Attending Clinician Payers Payer Name Policy Type Policy Number Effective Date Expiration Date S katrina [employer] MANAGED [id number] 2021 MEDICARE PPO-JUAN C 00:00:00 MEDICARE PART A [id number] 2016 2022 \T\ B 00:00:00 00:00:00 Problems Condition Condition Condition Status Onset Resolution Last Treating Co mments Source Name Details Category Date Date Treatment Clinician Date Essential Essential Disease Active Uni vers hypertensi hypertensi 1-06 [place] [address] [place] [address] Multiple Multiple Disease Active Unive rs thyroid thyroid 4-15 ity of nodules nodules 00:00: [address] Vitamin D Vitamin D Disease Active 2013-03 Uni vers deficiency deficiency 0-22 it y of 00:00: [place] [facility] Thyroid Thyroid Disease Active 2013-03 Univers nodule nodule 0-15 ity of 00:00: Medical Branch Prediabete Prediabete Disease Active 2013-03 U nivers s s 0-15 ity of 00:00: [place] [facility] Osteopenia Osteopenia Disease Active U nivers 5-07 ity of 00:00: [place] [facility] Family Family Disease Active Univers history of history of 8-20 [place] y of early CAD early CAD 00:[place] [facility] [place] HLD HLD Disease Active Overview: Univer s (hyperlipi (hyperlipi 8-20 Form[place] ity of demia) demia) 00:00: g of this [place] note Medical might be Branch different from the original. ICD10 Diagnosis Term Candle Pourer Utility Toxic Toxic Disease Recurre Overview: Unive rs multinodul multinodul nce 2-23 [place] ity of ar goiter ar goiter 00:00: [place] of this [place] note Medical might be Branch different from the original. ICD10 Diagnosis Term Candle Pourer Utility Allergies, Adverse Reactions, Alerts Allergy Allergy Status Severity Reaction(s) Onset Inactive Treating Comm ents Source Name Type Date Date Clinician NO KNOWN Drug Active Univers ALLERGIE Class ity of S [facility] Social History Social Habit Start Date Stop Date Quantity Comments Source Gender identity Universit y of [facility] Sexual orientation Univer [facility] Alcohol intake 2022-08-28 2022-08-28 Current University of 00:00:00 00:00:00 non-drinker of [facility] alcohol Branch (finding) Exposure to 2022-02-03 2022-02-13 Not sure [facility] SARS-CoV-2 (event) 00:00:00 13:48:00 [facility] History of Social 2018-09-15 2018-09-15 Univers ity of function 00:00:00 00:00:00 [facility] Tobacco use and 2011-09-14 2011-09-14 Smokeless Universit y of exposure 00:00:00 00:00:00 tobacco non-user [facility] Sex Ass[birth year] Universit y of 00:00:00 00:00:00 [facility] Smoking Status Start Date Stop Date Source Never smoked tobacco [facility] Medications Ordered Filled Start Stop Current Ordering Indication Dosage Frequency Signature Comments Components Source Medication Medication Date Date Medication? Clinician (SIG) Name Name DAVID 40 Yes 1 daily Unive rs MG ORAL TAB 6-23 ity of 13:29: [address] [place] 40 Yes 1 daily Unive rs MG ORAL TAB 6-23 ity of 13:29: [address] [place] 40 Yes 1 daily Unive rs MG ORAL TAB 6-23 ity of 13:29: [address] [place] 40 Yes 1 daily Unive rs MG ORAL TAB 6-23 ity of 13:29: [address] [place] 40 Yes 1 daily Unive rs MG ORAL TAB 6-23 ity of 13:29: [address] [place] 40 Yes 1 daily Unive rs MG ORAL TAB 6-23 ity of 13:29: [address] [place] 40 Yes 1 daily Unive rs MG ORAL TAB 6-23 ity of 13:29: [address] [place] 40 Yes 1 daily Unive rs MG ORAL TAB 6-23 ity of 13:29: [address] VITAMIN B Yes Take by Unive rs COMPLEX 6-23 mouth ity of ORAL 13:29: daily. [address] [place] 18 Yes once daily Univers MG ORAL 6-23 x 5days ity of TO24 13:29: weekly [address] VITAMIN B Yes Take by Unive rs COMPLEX 6-23 mouth ity of ORAL 13:29: daily. [address] [place]ERT[place] 18 Yes once daily Univers MG ORAL 6-23 x 5days ity of TO24 13:29: weekly [address] VITAMIN B Yes Take by Unive rs COMPLEX 6-23 mouth ity of ORAL 13:29: daily. [address] [place]ERT[place] 18 Yes once daily Univers MG ORAL 6-23 x 5days ity of TO24 13:29: weekly [address] VITAMIN B Yes Take by Unive rs COMPLEX 6-23 mouth ity of ORAL 13:29: daily. [address] [place] 18 2022-0 Yes once daily Univers MG ORAL 6-23 x 5days ity of TO24 13:29: weekly [address] VITAMIN B 0 Yes Take by Unive rs COMPLEX 6-23 mouth ity of ORAL 13:29: daily. [address] [place] 18 2022-0 Yes once daily Univers MG ORAL 6-23 x 5days ity of TO24 13:29: weekly [address] VITAMIN B 0 Yes Take by Unive rs COMPLEX 6-23 mouth ity of ORAL 13:29: daily. [address] [place] 18 2022-0 Yes once daily Univers MG ORAL 6-23 x 5days ity of TO24 13:29: weekly [address] VITAMIN B Yes Take by Unive rs COMPLEX 6-23 mouth ity of ORAL 13:29: daily. [address] [place] 18 Yes once daily Univers MG ORAL 6-23 x 5days ity of TO24 13:29: weekly [address] VITAMIN B Yes Take by Unive rs COMPLEX 6-23 mouth ity of ORAL 13:29: daily. [address] [place] 18 0 Yes once daily Univers MG ORAL 6-23 x 5days ity of TO24 13:29: weekly [address] methIMAzole 2022-0 Yes [id number] 5mg Take 1 Univers 5 mg tablet 6-23 tablet by ity of 00:00: mouth in [place] 00 the Medical morning. Branch methIMAzole 2022-0 Yes [id number] 5mg Take 1 Univers 5 mg tablet 6-23 tablet by ity of 00:00: mouth in [place] 00 the Medical morning. [place] methIMAzole 3-0 Yes [id number] 5mg Take 1 Univers 5 mg tablet 6-23 tablet by ity of 00:00: mouth in [place] 00 the Medical morning. Branch methIMAzole 3-0 Yes [id number] 5mg Take 1 Univers 5 mg tablet 6-23 tablet by ity of 00:00: mouth in [place] 00 the Medical morning. [place] methIMAzole 2022-0 Yes [id number] 5mg Take 1 Univers 5 mg tablet 6-23 tablet by ity of 00:00: mouth in [place] 00 the Medical morning. Branch methIMAzole 2023-0 Yes [id number] 5mg Take 1 Univers 5 mg tablet 6-23 tablet by ity of 00:00: mouth in [place] the Medical morning. Branch methIMAzole 2023-0 Yes [id number] 5mg Take 1 Univers 5 mg tablet 6-23 tablet by ity of 00:00: mouth in [place] the Medical morning. Branch methIMAzole 2023-0 Yes [id number] 5mg Take 1 Univers 5 mg tablet 6-23 tablet by ity of 00:00: mouth in [place] the Medical morning. Branch benzonatate 2023-0 Yes TAKE 1 Univ ers 100 mg 5-26 CAPSULE BY ity of capsule 00:00: MOUTH 3 [place] TIMES A Medical DAY Branch NEEDED FOR COUGH POLY HIST 3-0 Yes TAKE 1 Univer s FORTE 5-26 TABLET 2 ity of 10.5-10 mg 00:00: [place]ES [place] Tab 00 DAY Medical NEEDED FOR Branch CONGESTION benzonatate 3-0 Yes TAKE 1 Univ ers 100 mg 5-26 CAPSULE BY ity of capsule 00:00: MOUTH 3 [place] TIMES A Medical DAY Branch NEEDED FOR COUGH POLY HIST 3-0 Yes TAKE 1 Univer s FORTE 5-26 TABLET 2 ity of 10.5-10 mg 00:00: TIMES [place] Tab 00 DAY Medical NEEDED FOR Branch CONGESTION benzonatate 3-0 Yes TAKE 1 Univ ers 100 mg 5-26 CAPSULE BY ity of capsule 00:00: MOUTH 3 [place] TIMES A Medical DAY Branch NEEDED FOR COUGH POLY HIST 3-0 Yes TAKE 1 Univer s FORTE 5-26 TABLET 2 ity of 10.5-10 mg 00:00: TIMES [place] Tab 00 DAY Medical NEEDED FOR Branch CONGESTION benzonatate 3-0 Yes TAKE 1 Univ ers 100 mg 5-26 CAPSULE BY ity of capsule 00:00: MOUTH 3 [place] TIMES A Medical DAY Branch NEEDED FOR COUGH POLY HIST 3-0 Yes TAKE 1 Univer s FORTE 5-26 TABLET 2 ity of 10.5-10 mg 00:00: TIMES [place] Tab 00 DAY Medical NEEDED FOR Branch CONGESTION benzonatate 3-0 Yes TAKE 1 Univ ers 100 mg 5-26 CAPSULE BY ity of capsule 00:00: MOUTH 3 [place] 00 TIMES A Medical DAY Branch NEEDED FOR COUGH POLY HIST 2023-0 Yes TAKE 1 Univer s FORTE 5-26 TABLET 2 ity of 10.5-10 mg 00:00: TIMES [place] Tab 00 DAY Medical NEEDED FOR Branch CONGESTION benzonatate 2023-0 Yes TAKE 1 Univ ers 100 mg 5-26 CAPSULE BY ity of capsule 00:00: MOUTH 3 TIMES A Medical DAY Branch NEEDED FOR COUGH POLY HIST 3-0 Yes TAKE 1 Univer s FORTE 5-26 TABLET 2 ity of 10.5-10 mg 00:00: TIMES A [place] Tab 00 DAY Medical NEEDED FOR Branch CONGESTION benzonatate 3-0 Yes TAKE 1 Univ ers 100 mg 5-26 CAPSULE BY ity of capsule 00:00: MOUTH 3 TIMES A Medical DAY Branch NEEDED FOR COUGH POLY HIST 3-0 Yes TAKE 1 Univer s FORTE 5-26 TABLET 2 ity of 10.5-10 mg 00:00: TIMES [place] Tab DAY Medical NEEDED FOR Branch CONGESTION benzonatate 3-0 Yes TAKE 1 Univ ers 100 mg 5-26 CAPSULE BY ity of capsule 00:00: MOUTH 3 TIMES A Medical DAY Branch NEEDED FOR COUGH POLY HIST 3-0 Yes TAKE 1 Univer s FORTE 5-26 TABLET 2 ity of 10.5-10 mg 00:00: TIMES A [place] Tab 00 DAY Medical NEEDED FOR Branch CONGESTION hydroCHLORO 2023-0 Yes 25mg Take 1 Univ ers thiazide 25 4-09 tablet by ity of mg tablet 00:00: [place] 00 the Medical morning. Branch hydroCHLORO 2023-0 Yes 25mg Take 1 Univ ers thiazide 25 4-09 tablet by ity of mg tablet 00:00: [place] 00 the Medical morning. Branch hydroCHLORO 2023-0 Yes 25mg Take 1 Univ ers thiazide 25 4-09 tablet by ity of mg tablet 00:00: [place] 00 the Medical morning. Branch hydroCHLORO 2023-0 Yes 25mg Take 1 Univ ers thiazide 25 4-09 tablet by ity of mg tablet 00:00: [place] 00 the Medical morning. Branch hydroCHLORO 2023-0 Yes 25mg Take 1 Univ ers thiazide 25 4-09 tablet by ity of mg tablet 00:00: [place] 00 the Medical morning. Branch hydroCHLORO 3-0 Yes 25mg Take 1 Univ ers thiazide 25 4-09 tablet by ity of mg tablet 00:00: [place] 00 the Medical morning. Branch hydroCHLORO 3-0 Yes 25mg Take 1 Univ ers thiazide 25 4-09 tablet by ity of mg tablet 00:00: [place] 00 the Medical morning. Branch hydroCHLORO 3-0 Yes 25mg Take 1 Univ ers thiazide 25 4-09 tablet by ity of mg tablet 00:00: [place] 00 the Medical morning. Branch RED YEAST 2021-03- No Take by [facility] ers RICE 2-13 12-13 mouth. ity of EXTRACT 01:49: 00:00 [place] ORAL 42 :00 Medical Branch RED YEAST 2021-03- No Take by [facility] ers RICE 2-13 12-13 mouth. ity of [...] FOLIC 2021-03- No Take by Univers ACID/MV,FE, 04-20 mouth. ity o f OTHER MIN 01:49: 00:00 [place] (CENTRUM 27 :00 Medical ORAL) Branch ANNA LOW 2021-03- No w/ heart Uni vers STRENGTH 81 04-20 guard -- ity of MG ORAL 01:49: 00:00 once daily [place] TBEC 21 :00 Medical Branch ANNA LOW 2021-03- No w/ heart Uni vers STRENGTH 81 04-20 guard -- ity of MG ORAL 01:49: 00:00 once daily [place] TBEC 21 :00 Medical Branch alendronate 2021-03 Yes [id number] 70mg Take 1 Univers 70 mg 2-09 tablet by ity of tablet 00:00: mouth [place] 00 weekly. [facility] Branch methIMAzole 2021-03 Yes [id number] 5mg Take 1 Univers 5 mg tablet 2-09 tablet by ity of 00:00: mouth in [place] 00 the Medical morning. Branch alendronate 2021-03 Yes [id number] 70mg Take 1 Univers 70 mg 2-09 tablet by ity of tablet 00:00: mouth [place] 00 weekly. [facility] Branch methIMAzole 2021-03 Yes [id number] 5mg Take 1 Univers 5 mg tablet 2-09 tablet by ity of 00:00: mouth in [place] 00 the Medical morning. Branch alendronate 2021-03 Yes [id number] 70mg Take 1 Univers 70 mg 2-09 tablet by ity of tablet 00:00: mouth [place] 00 weekly. [facility] Branch methIMAzole 2021-03 Yes [id number] 5mg Take 1 Univers 5 mg tablet 2-09 tablet by ity of 00:00: mouth in [place] 00 the Medical morning. Branch alendronate 2021-03 Yes [id number] 70mg Take 1 Univers 70 mg 2-09 tablet by ity of tablet 00:00: mouth [place] 00 weekly. [facility] Branch methIMAzole 2021-03 Yes [id number] 5mg Take 1 Univers 5 mg tablet 2-09 tablet by ity of 00:00: mouth in [place] 00 the Medical morning. Branch alendronate 2021-03 Yes [id number] 70mg Take 1 Univers 70 mg 2-09 tablet by ity of tablet 00:00: mouth [place] 00 weekly. [facility] alendronate 2021- Yes [id number] 70mg Take 1 Univers 70 mg 2-09 tablet by ity of tablet 00:00: mouth [place] 00 weekly. Medical Branch alendronate 2021- Yes [id number] 70mg Take 1 Univers 70 mg 2-09 tablet by ity of tablet 00:00: mouth [place] 00 weekly. Medical Branch alendronate 2021- Yes [id number] 70mg Take 1 Univers 70 mg 2-09 tablet by ity of tablet 00:00: mouth [place] 00 weekly. Medical Branch alendronate 2021- Yes [id number] 70mg Take 1 Univers 70 mg 2-09 tablet by ity of tablet 00:00: mouth [place] 00 weekly. Medical Branch alendronate 2021-03 Yes [id number] 70mg Take 1 Univers 70 mg 2-09 tablet by ity of tablet 00:00: mouth [place] 00 weekly. Medical Branch alendronate 2021-03 Yes [id number] 70mg Take 1 Univers 70 mg 2-09 tablet by ity of tablet 00:00: mouth [place] 00 weekly. Medical Branch alendronate 2021-03 Yes [id number] 70mg Take 1 Univers 70 mg 2-09 tablet by ity of tablet 00:00: mouth [place] 00 weekly. [facility] Branch methIMAzole 2021-2022- No [id number] 5mg Take 1 Univers 5 mg tablet 2-11 11- tablet by it y of 00:00: 00:00 mouth in [place] 00 :00 the Medical morning. Branch methIMAzole 2021-2022- No [id number] 5mg Take 1 Univers 5 mg tablet 2-11 11-23 tablet by it y of 00:00: 00:00 mouth in [place] 00 :00 the Medical morning. Branch methIMAzole 2021-0 Yes [id number] 5mg Take 1 Univers 5 mg tablet 8-12 tablet by ity of 00:00: mouth in [place] 00 the Medical morning. Branch alendronate 2021-0 Yes [id number] 70mg Take 1 Univers 70 mg 8-12 tablet by ity of tablet 00:00: mouth [place] 00 weekly. Medical Branch methIMAzole 2021-0 Yes [id number] 5mg Take 1 Univers 5 mg tablet 8-12 tablet by ity of 00:00: mouth in [place] 00 the Medical morning. Branch alendronate 2022-0 Yes [id number] 70mg Take 1 Univers 70 mg 8-12 tablet by ity of tablet 00:00: mouth [place] 00 weekly. Medical Branch methIMAzole 2022-0 Yes [id number] 5mg Take 1 Univers 5 mg tablet 8-12 tablet by ity of 00:00: mouth in [place] 00 the Medical morning. Branch alendronate 2022-0 Yes [id number] 70mg Take 1 Univers 70 mg 8-12 tablet by ity of tablet 00:00: mouth [place] 00 weekly. Medical Branch methIMAzole 2022-0 2022- No [id number] 5mg Take 1 Univers 5 mg tablet 8-12 12-09 tablet by it y of 00:00: 00:00 mouth in [place] 00 :00 the Medical morning. Branch alendronate 2-0 2- No [id number] 70mg Take 1 Univers 70 mg 8-12 12-09 tablet by ity of tablet 00:00: 00:00 mouth [place] 00 :00 weekly. Medical Branch methIMAzole 2-0 2- No [id number] 5mg Take 1 Univers 5 mg tablet 8-12 12-09 tablet by it y of 00:00: 00:00 mouth in [place] 00 :00 the Medical morning. Branch alendronate 2-0 2- No [id number] 70mg Take 1 Univers 70 mg 8-12 12-09 tablet by ity of tablet 00:00: 00:00 mouth [place] 00 :00 weekly. Medical Branch ELIQUIS 5 2-0 Yes 5mg Take 5 mg Uni vers mg tablet 1-03 by mouth 2 ity of 00:00: (two) [place] 00 times Medical daily. Branch metoprolol 2022-0 Yes 25mg Take 25 mg U nivers tartrate 25 1-03 by mouth 2 it y of mg tablet 00:00: (two) [place] 00 times Medical daily. Branch ELIQUIS 5 2-0 Yes 5mg Take 5 mg Uni vers mg tablet 1-03 by mouth 2 ity of 00:00: (two) [place] 00 times Medical daily. Branch metoprolol 2022-0 Yes 25mg Take 25 mg U nivers tartrate 25 1-03 by mouth 2 it y of mg tablet 00:00: (two) [place] 00 times Medical daily. Branch ELIQUIS 5 2-0 Yes 5mg Take 5 mg Uni vers mg tablet 1-03 by mouth 2 ity of 00:00: (two) [place] 00 times Medical daily. Branch metoprolol 2022-0 Yes 25mg Take 25 mg U nivers tartrate 25 1-03 by mouth 2 it y of mg tablet 00:00: (two) [place] 00 times Medical daily. Branch ELIQUIS 5 2-0 Yes 5mg Take 5 mg Uni vers mg tablet 1-03 by mouth 2 ity of 00:00: (two) [place] 00 times Medical daily. Branch metoprolol 2022-0 Yes 25mg Take 25 mg U nivers tartrate 25 1-03 by mouth 2 it y of mg tablet 00:00: (two) [place] 00 times Medical daily. Branch ELIQUIS 5 2-0 Yes 5mg Take 5 mg Uni vers mg tablet 1-03 by mouth 2 ity of 00:00: (two) [place] 00 times Medical daily. Branch metoprolol 2022-0 Yes 25mg Take 25 mg U nivers tartrate 25 1-03 by mouth 2 it y of mg tablet 00:00: (two) [place] 00 times Medical daily. Branch ELIQUIS 5 2-0 Yes 5mg Take 5 mg Uni vers mg tablet 1-03 by mouth 2 ity of 00:00: (two) [place] 00 times Medical daily. Branch metoprolol 2022-0 Yes 25mg Take 25 mg U nivers tartrate 25 1-03 by mouth 2 it y of mg tablet 00:00: (two) [place] 00 times Medical daily. Branch ELIQUIS 5 2-0 Yes 5mg Take 5 mg Uni vers mg tablet 1-03 by mouth 2 ity of 00:00: (two) [place] 00 times Medical daily. Branch metoprolol 2022-0 Yes 25mg Take 25 mg U nivers tartrate 25 1-03 by mouth 2 it y of mg tablet 00:00: (two) [place] 00 times Medical daily. Branch ELIQUIS 5 2022-0 Yes 5mg Take 5 mg Uni vers mg tablet 1-03 by mouth 2 ity of 00:00: (two) [place] 00 times Medical daily. Branch metoprolol 2022-0 Yes 25mg Take 25 mg U nivers tartrate 25 1-03 by mouth 2 it y of mg tablet 00:00: (two) [place] 00 times Medical daily. Branch ELIQUIS 5 2022-0 Yes 5mg Take 5 mg Uni vers mg tablet 1-03 by mouth 2 ity of 00:00: (two) [place] 00 times Medical daily. Branch metoprolol 2022-0 Yes 25mg Take 25 mg U nivers tartrate 25 1-03 by mouth 2 it y of mg tablet 00:00: (two) [place] 00 times Medical daily. Branch ELIQUIS 5 2022-0 Yes 5mg Take 5 mg Uni vers mg tablet 1-03 by mouth 2 ity of 00:00: (two) [place] 00 times Medical daily. Branch metoprolol 2022-0 Yes 25mg Take 25 mg U nivers tartrate 25 1-03 by mouth 2 it y of mg tablet 00:00: (two) [place] 00 times Medical daily. Branch ELIQUIS 5 2022-0 Yes 5mg Take 5 mg Uni vers mg tablet 1-03 by mouth 2 ity of 00:00: (two) [place] 00 times Medical daily. Branch metoprolol 2022-0 Yes 25mg Take 25 mg U nivers tartrate 25 1-03 by mouth 2 it y of mg tablet 00:00: (two) [place] 00 times Medical daily. Branch ELIQUIS 5 2-0 Yes 5mg Take 5 mg Uni vers mg tablet 1-03 by mouth 2 ity of 00:00: (two) [place] 00 times Medical daily. Branch metoprolol 2022-0 Yes 25mg Take 25 mg U nivers tartrate 25 1-03 by mouth 2 it y of mg tablet 00:00: (two) [place] 00 times Medical daily. Branch ELIQUIS 5 2022-0 Yes 5mg Take 5 mg Uni vers mg tablet 1-03 by mouth 2 ity of 00:00: (two) [place] 00 times Medical daily. Branch metoprolol 2022-0 Yes 25mg Take 25 mg U nivers tartrate 25 1-03 by mouth 2 it y of mg tablet 00:00: (two) [place] 00 times Medical daily. Branch ELIQUIS 5 2022-0 Yes 5mg Take 5 mg Uni vers mg tablet 1-03 by mouth 2 ity of 00:00: (two) [place] 00 times Medical daily. Branch metoprolol 2022-0 Yes 25mg Take 25 mg U nivers tartrate 25 1-03 by mouth 2 it y of mg tablet 00:00: (two) [place] 00 times Medical daily. Branch ELIQUIS 5 Yes 5mg Take 5 mg Uni vers mg tablet 03 by mouth 2 ity of 00:00: (two) [place] 00 times Medical daily. Branch metoprolol Yes 25mg Take 25 mg U nivers tartrate 25 - by mouth 2 it y of mg tablet 00:00: (two) [place] 00 times Medical daily. Branch PROPRANOLOL 2020-0 Yes [id number] TAKE 1 Univers 10 mg 7-28 TABLET BY ity of tablet 00:00: MOUTH [place] 00 EVERY DAY Medical Branch PROPRANOLOL 2020-0 Yes [id number] TAKE 1 Univers 10 mg 7-28 TABLET BY ity of tablet 00:00: MOUTH [place] 00 EVERY DAY Medical Branch PROPRANOLOL 2020-0 Yes [id number] TAKE 1 Univers 10 mg 7-28 TABLET BY ity of tablet 00:00: MOUTH [place] 00 EVERY DAY Medical Branch PROPRANOLOL 2020-0 Yes [id number] TAKE 1 Univers 10 mg 7-28 TABLET BY ity of tablet 00:00: MOUTH [place] 00 EVERY DAY Medical Branch PROPRANOLOL 2020-0 2021- No [id number] TAKE 1 Univers 10 mg 7-28 12-13 TABLET BY ity of tablet 00:00: 00:00 MOUTH [place] 00 :00 EVERY DAY Medical Branch PROPRANOLOL 2020-0 2021- No [id number] TAKE 1 Univers 10 mg 7-28 12-13 TABLET BY ity of tablet 00:00: 00:00 MOUTH [place] 00 :00 EVERY DAY Medical Branch atorvastati 2020-0 Yes [id number] TAKE 1 Univers n 10 mg 3-02 TABLET BY ity of tablet 00:00: MOUTH AT [place] [address] BEDTIME. Medical Branch atorvastati 2020-0 Yes [id number] TAKE 1 Univers n 10 mg 3-02 TABLET BY ity of tablet 00:00: MOUTH AT [place] [address] BEDTIME. Medical Branch atorvastati 2020-0 Yes [id number] TAKE 1 Univers n 10 mg 3-02 TABLET BY ity of tablet 00:00: MOUTH AT [place] [address] BEDTIME. Medical Branch atorvastati 2020-0 Yes [id number] TAKE 1 Univers n 10 mg 3-02 TABLET BY ity of tablet 00:00: MOUTH AT [place] [address] BEDTIME. Medical Branch atorvastati 2020-0 2021- No [id number] TAKE 1 Univers n 10 mg 3-02 12-13 TABLET BY ity of tablet 00:00: 00:00 MOUTH AT [place] 00 :00 BEDTIME. Medical Branch atorvastati 2021- No [id number] TAKE 1 Univers n 10 mg 3-02 12-13 TABLET BY ity of tablet 00:00: 00:00 MOUTH AT [place] 00 :00 BEDTIME. Medical Branch ANNA LOW Yes w/ heart Univ ers STRENGTH 81 1-06 guard -- ity of MG ORAL 15:48: once [place] [facility] 40 Medical Branch [place] 40 Yes 1 daily Unive rs MG ORAL TAB 1-06 ity of 15:48: [place] [address] Medical Branch CONCERTA 18 Yes once daily Univers MG ORAL 1-06 x 5days ity of TO24 15:48: weekly [place] [address] Medical Branch RED YEAST Yes Take by Unive rs RICE 1-06 mouth. ity of EXTRACT 15:48: [facility] 40 Medical Branch irbesartan Yes 300mg Take 300 Un luis (AVAPRO) 1-06 mg by ity of 300 mg 15:48: mouth [place] tablet 40 every Medical morning. Branch MULTIVITS,C Yes Take by Uni vers A,MINERALS/ 1-06 mouth. ity of IRON/FA 15:48: [place] (MULTI FOR 40 Medical HER ORAL) Branch FOLIC Yes Take by Univers ACID/MV,FE, 1-06 mouth. ity of OTHER MIN 15:48: [place] (CENTRUM 40 Medical ORAL) Branch VITAMIN B Yes Take by Unive rs COMPLEX 1-06 mouth ity of ORAL 15:48: daily. [place] [address] Medical Branch ANNA LOW Yes w/ heart [facility] ers STRENGTH 81 1-06 guard -- ity of MG ORAL 15:48: once daily [place] [facility] 40 Medical Branch [place] 40 Yes 1 daily Unive rs MG ORAL TAB 1-06 ity of 15:48: [place] [address] Medical Branch CONCERTA 18 Yes once daily Univers MG ORAL 1-06 x 5days ity of TO24 15:48: weekly [place] [address] Medical Branch RED YEAST Yes Take by Unive rs RICE 1-06 mouth. ity of EXTRACT 15:48: [facility] 40 Medical Branch irbesartan 2018-0 Yes 300mg Take 300 Un luis (AVAPRO) 1-06 mg by ity of 300 mg 15:48: mouth [place] tablet 40 every Medical morning. Branch MULTIVITS,C Yes Take by Uni vers A,MINERALS/ 1-06 mouth. ity of IRON/FA 15:48: [place] (MULTI FOR 40 Medical HER ORAL) Branch FOLIC Yes Take by Univers ACID/MV,FE, 1-06 mouth. ity of OTHER MIN 15:48: [place] ([facility] 40 Medical ORAL) Branch VITAMIN B Yes Take by Unive rs COMPLEX 1-06 mouth ity of ORAL 15:48: daily. [address] ANNA LOW Yes w/ heart Univ ers STRENGTH 81 1-06 guard -- ity of MG ORAL 15:48: once daily [place] [place] 40 Yes 1 daily Unive rs MG ORAL TAB 1-06 ity of 15:48: [address] CONCERTA 18 Yes once daily Univers MG ORAL 1-06 x 5days ity of TO24 15:48: weekly [address] RED YEAST Yes Take by Unive rs RICE 1-06 mouth. ity of EXTRACT 15:48: [place] [address] irbesartan Yes 300mg Take 300 Un luis (AVAPRO) 1-06 mg by ity of 300 mg 15:48: mouth [place] tablet 40 every Medical morning. Branch MULTIVITS,C Yes Take by Uni vers A,MINERALS/ 1-06 mouth. ity of IRON/FA 15:48: [place] (MULTI FOR 40 Medical HER ORAL) Branch FOLIC Yes Take by Univers ACID/MV,FE, 1-06 mouth. ity of OTHER MIN 15:48: [place] ([facility] 40 Medical ORAL) Branch VITAMIN B Yes Take by Unive rs COMPLEX 1-06 mouth ity of ORAL 15:48: daily. [address] ANNA LOW Yes w/ heart Univ ers STRENGTH 81 1-06 guard -- ity of MG ORAL 15:48: once daily [place] [place] 40 0 Yes 1 daily Unive rs MG ORAL TAB 1-06 ity of 15:48: [address] CONCERTA 18 Yes once daily Univers MG ORAL 1-06 x 5days ity of TO24 15:48: weekly [address] RED YEAST Yes Take by Unive rs RICE 1-06 mouth. ity of EXTRACT 15:48: [address] irbesartan Yes 300mg Take 300 Un luis (AVAPRO) 1-06 mg by ity of 300 mg 15:48: mouth [place] tablet 40 every Medical morning. Branch MULTIVITS,C Yes Take by Uni vers A,MINERALS/ 1-06 mouth. ity of IRON/FA 15:48: [place] (MULTI FOR 40 Medical HER ORAL) [place] FOLIC Yes Take by Univers ACID/MV,FE, 1-06 mouth. ity of OTHER MIN 15:48: [place] (CENTRUM 40 Medical ORAL) [place] VITAMIN B Yes Take by Unive rs COMPLEX 1-06 mouth ity of ORAL 15:48: daily. [address] PEXEVA 40 Yes 1 daily Unive rs MG ORAL TAB 1-06 ity of 15:48: [address] CONCERTA 18 Yes once daily Univers MG ORAL 1-06 x 5days ity of TO24 15:48: weekly [address] VITAMIN B Yes Take by Unive rs COMPLEX 1-06 mouth ity of ORAL 15:48: daily. [address] PEXEVA 40 Yes 1 daily Unive rs MG ORAL TAB 1-06 ity of 15:48: [address] CONCERTA 18 Yes once daily Univers MG ORAL 1-06 x 5days ity of TO24 15:48: weekly [address] VITAMIN B Yes Take by Unive rs COMPLEX 1-06 mouth ity of ORAL 15:48: daily. [address] PEXEVA 40 Yes 1 daily Unive rs MG ORAL TAB 1-06 ity of 15:48: [address] CONCERTA 18 Yes once daily Univers MG ORAL 1-06 x 5days ity of TO24 15:48: weekly [address] VITAMIN B Yes Take by Unive rs COMPLEX 1-06 mouth ity of ORAL 15:48: daily. [address] hydroCHLORO Yes [id number] 25mg Take 1 U nivers thiazide 25 1-06 tablet by ity of mg tablet 00:00: mouth [place] 00 daily. Medical Branch codeine-gua 2018-0 Yes [id number] 5mL Take 5 mL Univers ifenesin 1-06 by mouth ity of 10-100 mg/5 00:00: every 6 Franck as mL solution 00 (six) Medical hours as Branch needed for Cough. hydroCHLORO 2018-0 Yes [id number] 25mg Take 1 U nivers thiazide 25 1-06 tablet by ity of mg tablet 00:00: mouth [place] 00 daily. Medical Branch codeine-gua 2017-0 Yes [id number] 5mL Take 5 mL Univers ifenesin 1-06 by mouth ity of 10-100 mg/5 00:00: every 6 Franck as mL solution 00 (six) Medical hours as Branch needed for Cough. hydroCHLORO 2017-0 Yes [id number] 25mg Take 1 U nivers thiazide 25 1-06 tablet by ity of mg tablet 00:00: mouth [place] 00 daily. Medical Branch codeine-gua 2017-0 Yes [id number] 5mL Take 5 mL Univers ifenesin 1-06 by mouth ity of 10-100 mg/5 00:00: every 6 Franck as mL solution 00 (six) Medical hours as Branch needed for Cough. hydroCHLORO 2017-0 Yes [id number] 25mg Take 1 U nivers thiazide 25 1-06 tablet by ity of mg tablet 00:00: mouth [place] 00 daily. Medical Branch codeine-gua 0 Yes [id number] 5mL Take 5 mL Univers ifenesin 1-06 by mouth ity of 10-100 mg/5 00:00: every 6 Franck as mL solution 00 (six) Medical hours as Branch needed for Cough. codeine-gua 2017-0 Yes [id number] 5mL Take 5 mL Univers ifenesin 1-06 by mouth ity of 10-100 mg/5 00:00: every 6 Franck as mL solution 00 (six) Medical hours as Branch needed for Cough. codeine-gua 2017-0 Yes [id number] 5mL Take 5 mL Univers ifenesin 1-06 by mouth ity of 10-100 mg/5 00:00: every 6 Franck as mL solution 00 (six) Medical hours as Branch needed for Cough. codeine-gua 2017-0 Yes [id number] 5mL Take 5 mL Univers ifenesin 1-06 by mouth ity of 10-100 mg/5 00:00: every 6 Franck as mL solution 00 (six) Medical hours as Branch needed for Cough. codeine-gua 2018-0 Yes [id number] 5mL Take 5 mL Univers ifenesin 1-06 by mouth ity of 10-100 mg/5 00:00: every 6 Franck as mL solution 00 (six) Medical hours as Branch needed for Cough. codeine-gua 2017-0 Yes [id number] 5mL Take 5 mL Univers ifenesin 1-06 by mouth ity of 10-100 mg/5 00:00: every 6 Franck as mL solution 00 (six) Medical hours as Branch needed for Cough. codeine-gua 2017-0 Yes [id number] 5mL Take 5 mL Univers ifenesin 1-06 by mouth ity of 10-100 mg/5 00:00: every 6 Franck as mL solution 00 (six) Medical hours as Branch needed for Cough. codeine-gua 2017-0 Yes [id number] 5mL Take 5 mL Univers ifenesin 1-06 by mouth ity of 10-100 mg/5 00:00: every 6 Franck as mL solution 00 (six) Medical hours as Branch needed for Cough. codeine-gua 2017-0 Yes [id number] 5mL Take 5 mL Univers ifenesin 1-06 by mouth ity of 10-100 mg/5 00:00: every 6 Franck as mL solution 00 (six) Medical hours as Branch needed for Cough. codeine-gua 2017-0 Yes [id number] 5mL Take 5 mL Univers ifenesin 1-06 by mouth ity of 10-100 mg/5 00:00: every 6 Franck as mL solution 00 (six) Medical hours as Branch needed for Cough. codeine-gua 2017-0 Yes [id number] 5mL Take 5 mL Univers ifenesin 1-06 by mouth ity of 10-100 mg/5 00:00: every 6 Franck as mL solution 00 (six) Medical hours as Branch needed for Cough. codeine-gua 2017-0 Yes [id number] 5mL Take 5 mL Univers ifenesin 1-06 by mouth ity of 10-100 mg/5 00:00: every 6 Franck as mL solution 00 (six) Medical hours as Branch needed for Cough. hydroCHLORO 2017-2021- No [id number] 25mg Take 1 Univers thiazide 25 -06 12-13 tablet by it y of mg tablet 00:00: 00:00 mouth [place] 00 :00 daily. Medical Branch hydroCHLORO 2021- No [id number] 25mg Take 1 Univers thiazide 25 -06 12-13 tablet by it y of mg tablet 00:00: 00:00 mouth [place] 00 :00 daily. Medical Branch paroxetine 2016-03 Yes TAKE 1 Unive rs 40 mg 1-12 TABLET BY ity of tablet 00:00: MOUTH ONCE Medical Branch paroxetine 2016-03 Yes TAKE 1 Unive rs 40 mg 1-12 TABLET BY ity of tablet 00:00: MOUTH ONCE Medical Branch paroxetine 2016-03 Yes TAKE 1 Unive rs 40 mg 1-12 TABLET BY ity of tablet 00:00: MOUTH Medical Branch paroxetine 2016-03 Yes TAKE 1 Unive rs 40 mg 1-12 TABLET BY ity of tablet 00:00: MOUTH ONCE Medical Branch paroxetine 2016-03 Yes TAKE 1 Unive rs 40 mg 1-12 TABLET BY ity of tablet 00:00: MOUTH Medical Branch paroxetine 2016-03 Yes TAKE 1 Unive rs 40 mg 1-12 TABLET BY ity of tablet 00:00: MOUTH Medical Branch paroxetine 2016-03 Yes TAKE 1 Unive rs 40 mg 1-12 TABLET BY ity of tablet 00:00: MOUTH Medical Branch paroxetine 2016-03 Yes TAKE 1 Unive rs 40 mg 1-12 TABLET BY ity of tablet 00:00: MOUTH Medical Branch paroxetine 2016-03 Yes TAKE 1 Unive rs 40 mg 1-12 TABLET BY ity of tablet 00:00: MOUTH ONCE Medical Branch paroxetine 2016-03 Yes TAKE 1 Unive rs 40 mg 1-12 TABLET BY ity of tablet 00:00: MOUTH ONCE Medical Branch paroxetine 2016-03 Yes TAKE 1 Unive rs 40 mg 1-12 TABLET BY ity of tablet 00:00: MOUTH Medical Branch paroxetine 2016-03 Yes TAKE 1 Unive rs 40 mg 1-12 TABLET BY ity of tablet 00:00: MOUTH ONCE Medical [place] paroxetine 2016-03 Yes TAKE 1 Unive rs 40 mg 1-12 TABLET BY ity of tablet 00:00: MOUTH ONCE Medical Branch paroxetine 2016-03 Yes TAKE 1 Unive rs 40 mg 1-12 TABLET BY ity of tablet 00:00: MOUTH ONCE Medical Branch paroxetine 2016-03 Yes TAKE 1 Unive rs 40 mg 1-12 TABLET BY ity of tablet 00:00: MOUTH ONCE Medical [place] Vital Signs Vital Name Observation Time Observation Value Comments Source Systolic blood 2022-08-28 18:16:00 103 mm[Hg] Univer sity of pressure [facility] Diastolic blood 2022-08-28 18:16:00 66 mm[Hg] Unive rsity of [facility] Heart rate 2022-08-28 18:16:00 60 /min [facility] Respiratory rate 2022-08-28 18:16:00 18 /min [facility] Body weight 2022-08-28 18:16:00 [facility] 2022-08-28 18:16:00 22.85 kg/m2 [facility] Oxygen saturation in 2022-08-28 18:16:00 98 /min [facility] Arterial blood by [facility] Pulse oximetry Branch Systolic blood 2022-02-13 20:09:00 148 mm[Hg] Univer sity of [facility] Diastolic blood 2022-02-13 20:09:00 81 mm[Hg] Unive rsity of [facility] Heart rate 2022-02-13 20:01:00 60 /min Universi ty [facility] Body weight 2022-02-13 20:01:00 51.574 kg [facility] BMI 2022-02-13 20:01:00 22.21 kg/m2 [facility] Oxygen saturation in 2022-02-13 20:01:00 98 /min University Arterial blood by [facility] Pulse oximetry Branch Procedures Procedure Date / Time Performed Performing Clinician Sourc e DEXA AXIAL (HIP AND 2022-09-28 18:02:00 Claudine Ramey [facility] SPINE) Medical Branch US HEAD NECK 2022-09-28 17:56:22 [facility] Counts Include 234 [facility] o f [facility] ASSIGNMENT OF BENEFITS 2022-09-28 16:55:24 Doctor Unassigned, No [facility] Branch POCT HEMOGLOBIN A1C 2022-02-13 20:11:00 Stanford Sotelo [facility] Encounters Start End Encounter Admission Attending Care Care Encounter Source Date/Time Date/Time Type Type Clinicians Facility Department ID 2023-02-26 2023-02-26 [facility] [id number] Univers 14:30:00 14:30:00 [facility] [place] [facility] 2022-10-05 2022-10-05 Telephone [facility] [id number] Univers 00:00:00 00:00:00 Claudine HEALTH 350.1.13.10 it y of [place] 4.2.7.2.686 Franck as MG?BLEA [id number] [address] MEDICAL OFFICE BUILDING 2022-09-28 2022-09-28 [facility] [id number] Univers 11:59:24 23:59:00 Encounter Claudine [place] 350.1.13.10 ity of [place] 4.2.7.2.686 [facility] [id number] [facility] [address] [place] 2022-09-28 2022-09-28 [facility] 1.2.840.114 [id number] Univers 11:58:51 11:58:51 Encounter Claudine [place] 350.1.13.10 ity of [place] 4.2.7.2.686 [facility] [id number] [facility] 8[address] [place] 2022-09-28 2022-09-28 Outpatient R [facility] [id number] Univers 11:58:51 11:58:51 [facility] [place] [facility] 2022-09-28 2022-09-28 Orders Doctor COMBS [id number] Univers 00:00:00 00:00:00 Only Unassigned, BYRON 350.1.13.10 ity of [facility] 4.2.7.2.686 Franck as [id number] [address] 2022-09-04 2022-09-04 Telephone Tanvir [facility] [id number] Univers 00:00:00 00:00:00 Claudine HEALTH 350.1.13.10 it y of [place] 4.2.7.2.686 Franck as MG?BLEA [id number] Mo carlos GARCIA [address] [place] MEDICAL OFFICE [facility] 2022-08-28 2022-08-28 [facility], Ang - [facility] 1.2.840.1 [id number] Univers 13:45:00 14:00:00 [facility] 350.1.13.10 ity of [place] 4.2.7.2.686 Franck as MG?BLEA [id number] Mo carlos [facility] [address] [place] MEDICAL OFFICE [facility] 2022-08-28 2022-08-28 Outpatient R TANVIR [facility] [id number] Univers 13:00:00 13:51:[address] [facility] 2022-08-28 2022-08-28 [facility] 1.2.840.114 [id number] Univers 13:00:00 13:51:03 Visit [facility] 350.1.13.10 it y of [place] 4.2.7.2.686 Franck as MG?BLEA [id number] [facility] [address] MEDICAL OFFICE [facility] 2022-08-14 2022-08-14 Outpatient R RAE [facility] [id number] Univers 13:30:00 13:30:00 STANFORD ity of [facility] 2022-07-22 2022-07-22 Telephone [facility] [id number] Univers 00:00:00 00:00:00 Stanford HEALTH 350.1.13.10 it y of [place] 4.2.7.2.686 Franck as MG?BLEA [id number] [facility] [address] MEDICAL OFFICE BUILDING 2022-03-03 2022-03-03 Outpatient R MARRERO [facility] [id number] Univers 09:00:00 09:00:[address] [facility] 2022-03-03 2022-03-03 Outpatient R MARRERO [facility] [id number] Univers 09:00:00 09:00:[address] [facility] 2022-02-13 2022-02-13 [facility], Ang - Db [facility] 1.2.840.1 14 [id number] Univers 15:30:00 15:45:00 Visit Stanford Sotelo [employer] 350.1.13.10 ity of [place] 4.2.7.2.686 Franck as MG?BLEA [id number] [facility] [address] [facility] OFFICE [facility] 2022-02-13 2022-02-13 Outpatient R SOTELO, [facility] [id number] Univers 14:30:00 15:10:[address] [facility] 2022-02-13 2022-02-13 Office [facility] [id number] Univers 14:30:00 15:10:34 Visit Stanford H [employer] 350.1.13.10 it y of [place] 4.2.7.2.686 Franck as MG?BLEA [id number] [facility] [address] [facility] OFFICE [facility] 2021-11-07 2021-11-07 [facility], Ang - Db [facility] 1.2.840.1 14 [id number] Univers 09:00:00 09:15:00 Visit Martha Marrero [facility] 350.1.13.10 ity of [place] 4.2.7.2.686 Franck as MG?BLEA [id number] [facility] [address] [facility] OFFICE [facility] 2021-11-07 2021-11-07 Outpatient R MAG [facility] [id number] Univers 09:00:00 09:00:[address] [facility] 2021-11-07 2021-11-07 Outpatient R MAG [facility] [id number] Univers 09:00:00 09:00:[address] [facility] 2021-11-07 2021-11-07 [facility] [id number] Univers 09:00:00 09:00:00 WENTONG ity of [facility] 2021-11-06 2021-11-06 Refill [facility] 1.2.840.114 [id number] Univers 00:00:00 00:00:00 [employer] HEALTH 350.1.13.10 it y of [place] 4.2.7.2.686 Franck as MG?BLEA [id number] [facility] [address] MEDICAL OFFICE BUILDING 2021-10-17 2021-10-17 Telephone [facility] [id number] Univers 00:00:00 00:00:00 Dinorahong MULTISPEC 350.1.13.10 [place].2.[place] [id number] [facility] AND [address] DIABETES [facility]INIC 2021-08-26 2021-08-26 [facility], Gonsalo - Bakari [facility] 1.2.840.1 14 [id number] Univers 09:45:00 10:00:00 Visit Mag [employer] 350.1.13.10 ity of [place] 4.2.7.2.686 Franck as MG?BLEA [id number] [facility] [address] OFFICE [facility] 2021-08-26 2021-08-26 Outpatient R [facility] [id number] Univers 09:00:00 09:44:[address] [facility] 2021-08-26 2021-08-26 Office [facility] 1.2.840.114 [id number] Univers 09:00:00 09:44:21 Visit [employer] 350.1.13.10 it y of [place] 4.2.7.2.686 Franck as MG?BLEA [id number] [address] OFFICE [facility] 2021-06-27 2021-06-27 Telephone [facility] [id number] Univers 00:00:00 00:00:00 Wentong MULTISPEC 350.1.13.10 [place].2.[place] [id number] [facility] AND [place] [address] DI[facility]ES CLIN[facility] 2021-05-23 2021-05-23 [facility] 1.2.840.114 [id number] Univers 08:57:32 23:59:00 Encounter Martha KENYON 350.1.13.10 ity [facility] 4.2.7.2.686 [facility] [id number] [facility] 806 Branch 2021-05-23 2021-05-23 Outpatient R [facility] [id number] Univers 08:57:14 08:56:00 WENTONG ity of [facility] 2021-05-23 2021-05-23 [facility] 1.2.840.114 [id number] Univers 08:40:00 08:56:00 Encounter Martha KENYON 350.1.13.10 ity [facility] 4.2.7.2.686 [facility] [id number] [facility] 800 Branch 2021-05-14 2021-05-14 Outpatient R MAG [facility] [id number] Univers 14:30:00 14:30:[address] [facility] 2021-05-14 2021-05-14 Orders Doctor LAURYN 1.2.840.114 [id number] Univers 00:00:00 00:00:00 Only Unassigned, [place] 350.1.13.10 ity of [place] [facility] 4.2.7.2.686 [facility] [id number] [facility] 009 Branch Results Test Description Test Time Test Comments Results Result Comments Source POCT HEMOGLOBIN A1C TEST 2022-02-13 20:13:00 Test Item Value Reference Range Interpretation Comme nts POCT HBA1C (test code = 4548-4) 5.2 % 4-6 [facility] [id number] 20:13:00 Test Item Value Reference Range Interpretation Comments POCT HBA1C (test code = 4548-4) 5.2 % 4-6 [facility] Notes Date/Time Note Provider Source 2022-10-05 10:03:21-00:00 Formatting of this note migh t be different from the original. [facility] [employer] Called Mrs. Ovalles and left a her a voice message to let her know about her lab results for her DEXA Scan and her Thyroid Ultrasound Scan. If she calls back please share the following with her below. Your Ultrasound scan of your enlarged multinodular goiter remains unchanged, no further follow up is required. Your DEXA Scan results show that your bone mass density on your right hip has decreased a little bit which is not urgent. When Dr. Sotelo sees you in February he will make some changes.
[2022-10-27 17:38] LABS: Absolute Lymphocytes (CBC) 2.1 K/uL (0.7-4.9); Hematocrit 34.3 % (36.0-45.0); Lymphocytes % 34.2 % (15.3-44.8); MCV 80.4 fL (80-100); MPV 8.7 fL (7.6-11.3); Platelets 233 thou/uL (152-406); RBC Red Blood Cell Count 4.27 M/uL (3.86-4.86)
[2022-10-27 17:51] LABS: Albumin 3.1 g/dL (3.4-5.0); Bilirubin Total 0.4 mg/dL (0.2-1.0); Protein, Total 8.3 g/dL (6.4-8.2)
[2022-10-27 18:04] LABS: SARS-CoV-2 Antigen Rapid Res Negative (Negative)
[2022-10-27] MEDS ORDERED: NA CHLORIDE 0.9% 1,000 ML ONE (18:25)
[2022-10-27] MEDS ORDERED: POTASSIUM 25 MEQ EFFERV TAB ONE (18:25)
[2022-10-27] MEDS ORDERED: KCL 20 MEQ/100 mL IVPB 100 ML IV ONE (18:26)
--- NOTE | 2022-10-27 18:57 | RAD REPORT ---
EXAM DESCRIPTION: RAD - Chest Single View - 10/27/2022 6:29 pm CLINICAL HISTORY: COUGH Chest pain. COMPARISON: Chest Single View dated 03/03/2022; Chest Single View dated 03/01/2022; Chest Single Vie w dated 02/23/2021; Chest Single View dated 02/21/2021 FINDINGS: Portable technique limits examination quality. Moderate bilateral pulmonary opacities are present which may represent pulmonary edema or pneumonia. The heart is moderately enlarged. No displaced fractures. IMPRESSION: Moderate CHF versus bilateral pneumonia pattern.
--- NOTE | 2022-10-27 19:07 | ER ---
Nurse's Notes [facility] Name: Carmelita Ovalles Age: 72 yrs Sex: Female : 1950 Arrival Date: 10/27/2022 Time: 17:04 Bed 15 Private MD: Diagnosis: Other pneumonia, unspecified organism-Multilobar;Cough;Syncope Near;Hypokalemia;Essential (primary) hypertension Presentation: 10/27 17:07 Chief complaint: EMS states: Was at [facility] w/ daughter when she had a near syncopal ph episode, c/o SOB and productive cough, room air Spo2 97% RA, recent covid and flu infections, has also had pneumonia recently, A\T\A x 1and 125 Solu-Medrol given. Coronavirus screen: Vaccine status: Patient reports receiving the 2nd dose of the covid vaccine. Ebola Screen: No symptoms or risks identified at this time. Initial Sepsis Screen: Does the patient meet any 2 criteria? No. Patient's initial sepsis screen is negative. Does the patient have a suspected source of infection? Yes: Productive cough/pneumonia. Risk Assessment: Do you want to hurt yourself or someone else? Patient reports no desire to harm self or others. Onset of symptoms was October 27, 2022. 17:07 Method Of Arrival: EMS: [facility] ph 17:07 Acuity: MARCIA 2 ph Historical: - Allergies: 17:09 No Known Allergies; ph - PMHx: 17:09 depressive disorder; Hypertension; Hypothyroidism; ph - Immunization history:: Adult Immunizations unknown. - Social history:: Smoking status: Patient denies any tobacco usage or history of. Screenin:10 [facility] ED Fall Risk Assessment (Adult) History of falling in the last 3 months, ph including since admission No falls in past 3 months (0 pts) Confusion or Disorientation No (0 pts) Intoxicated or Sedated No (0 pts) Impaired Gait No (0 pts) Mobility Assist Device Used No (0 pt) Altered Elimination No (0 pt) Score/Fall Risk Level 0 - 2 = Low Risk Oriented to surroundings, Maintained a safe environment, Hourly rounding (assess needs \T\ fall precautionary measures) done. Abuse screen: Denies threats or abuse. Denies injuries from another. Nutritional screening: No deficits noted. Tuberculosis screening: No symptoms or risk factors identified. Assessment: 18:09 Reassessment: See triage assessment. ld1 18:09 Reassessment: Patient appears in no apparent distress at this time. No changes from ld1 previously documented assessment. Patient and/or family updated on plan of care and expected duration. Pain level reassessed. Patient is alert, oriented x 3, equal unlabored respirations, skin warm/dry/pink. 18:56 Reassessment: Patient appears in no apparent distress at this time. No changes from ld1 previously documented assessment. Patient and/or family updated on plan of care and expected duration. Pain level reassessed. 19:59 General: Appears in no apparent distress. Behavior is calm, cooperative, drowsy. Pain: kd3 Denies pain. Neuro: Level of Consciousness is awake, alert, obeys commands, lethargic, Oriented to person, place, time, situation. Cardiovascular: Patient's skin is warm and dry. Respiratory: Airway is patent Trachea midline Respiratory effort is even, unlabored, Respiratory pattern is regular, symmetrical. 10/28 07:00 Reassessment: nurse to nurse report given to ROSHAN Bernal by ROSHAN Figueroa. kc6 Vital Signs: 10/27 17:07 BP 167 / 80; Pulse 78; Resp 18; Temp 97.6(O); Pulse Ox 97% on R/A; Weight 52.16 kg; ph Height 5 ft. 2 in. ; 18:09 BP 175 / 88; Pulse 72; Resp 18; Pulse Ox 98% on R/A; ld1 18:56 BP 174 / 86; Pulse 75; Resp 18; Pulse Ox 96% on R/A; ld1 20:01 BP 164 / 87; Pulse 71; Resp 18; Pulse Ox 99% on R/A; kd3 17:07 Body Mass Index 21.03 (52.16 kg, 157.48 cm) ph ED Course: 17:06 Patient arrived in ED. ld1 17:06 Hilario Mortensen DO is Attending Physician. ms3 17:09 Triage completed. ph 17:10 Arm band placed on Patient placed in an exam room, on a stretcher, on athletic monitor, ph on pulse oximetry. 17:10 Patient has correct armband on for positive identification. Bed in low position. Call light in reach. Side rails up X 1. Client placed on continuous cardiac and pulse oximetry monitoring. NIBP monitoring applied. 18:09 No provider procedures requiring assistance completed. ld1 18:31 CXR XRAY In Process Unspecified. EDMS 19:05 Larry Baker is Hospitalizing Provider. ms3 19:27 Simona Madera, RN is Primary Nurse. kd3 19:59 Blood Culture Adult (2) Sent. kd3 19:59 Inserted saline lock: 22 gauge in right antecubital area, using aseptic technique. kd3 Blood collected. 10/28 06:50 Patient admitted, IV remains in place. lg3 Administered Medications: 10/27 18:34 Drug: Potassium PO Effervescent Tablet 50 mEq Route: PO; ld1 20:01 Follow up: Response: No adverse reaction kd3 18:34 Drug: Potassium Chloride IV 20 mEq Route: IV; Rate: calculated rate; Site: left ld1 antecubital; 10/28 06:51 Follow up: Response: No adverse reaction; IV Status: Completed infusion; IV Intake: lg3 100ml 10/27 19:59 Drug: levofloxacin IVPB 750 mg Volume: 150 ml; Route: IVPB; Infused Over: 90 mins; kd3 Site: right antecubital; 10/28 06:50 Follow up: Response: No adverse reaction; IV Status: Completed infusion; IV Intake: lg3 150ml Medication: 10/27 17:11 VIS not applicable for this client. ph Intake: 10/28 06:50 IV: 150ml; Total: 150ml. lg3 06:51 IV: 100ml; Total: 250ml. lg3 Outcome: 10/27 19:06 Decision to Hospitalize by Provider. ms3 10/28 06:49 Admitted to ER Hold. Please see [facility] for further documentation. lg3 Condition: stable Instructed on the need for admit, Demonstrated understanding of instructions. 07:39 Patient left the ED. kc6 Signatures: Dispatcher [employer] EDNanda La RN Carolina Leija ph RN RN lg3 Hilario Mortensen DO DO ms3 Maria A Mortensen RN RN ld1 Simona Madera, RN RN kd3 Izabella Figueredo RN RN kc6
--- NOTE | 2022-10-27 19:07 | EDPHYS ---
Physician Documentation [facility] Name: Carmelita Ovalles Age: 72 yrs Sex: Female : 1950 Arrival Date: 10/27/2022 Time: 17:04 Bed 15 Private MD: ED Physician Hilario Mortensen HPI: 10/27 19:36 This 72 yrs old Female presents to ER via EMS with complaints of Cough, weakness, near ms3 syncope. 19:36 72-year-old female with past medical history of depression, hypertension, ms3 hypothyroidism presents for coughing, shortness of breath that began 3 days ago and has progressively gotten worse according to patient's family. EMS notes patient was recently diagnosed with COVID, flu, pneumonia. Patient was given albuterol/Atrovent, 125 mg Solu-Medrol, 100 mL normal saline prior to arrival. EMS notes patient's room air oxygen saturation to be 97%.. Historical: - Allergies: 17:09 No Known Allergies; ph - PMHx: 17:09 depressive disorder; Hypertension; Hypothyroidism; ph - Immunization history:: Adult Immunizations unknown. - Social history:: Smoking status: Patient denies any tobacco usage or history of. ROS: 19:36 Constitutional: Negative for fever, and chills. ms3 19:36 Cardiovascular: 19:36 Respiratory: Positive for cough, shortness of breath. 19:36 Neuro: Positive for near syncope. 19:36 All other systems are negative. Exam: 19:36 Constitutional: This is a well developed, well nourished patient who is awake, alert, ms3 and in no acute distress. Head/Face: Normocephalic, atraumatic. Neck: Trachea midline, no cervical lymphadenopathy. Supple, full range of motion without nuchal rigidity, or vertebral point tenderness. No Meningismus. Chest/axilla: Normal chest wall appearance and motion. Nontender with no deformity. Cardiovascular: Regular rate and rhythm with a normal S1 and S2. No gallops, murmurs, or rubs. Normal PMI, no JVD. No pulse deficits. 19:36 Respiratory: the patient does not display signs of respiratory distress, Respirations: no acute changes, Breath sounds: rales, that are moderate. 20:08 ECG was reviewed by the Attending Physician. ms3 Vital Signs: 17:07 BP 167 / 80; Pulse 78; Resp 18; Temp 97.6(O); Pulse Ox 97% on R/A; Weight 52.16 kg; ph Height 5 ft. 2 in. ; 18:09 BP 175 / 88; Pulse 72; Resp 18; Pulse Ox 98% on R/A; ld1 18:56 BP 174 / 86; Pulse 75; Resp 18; Pulse Ox 96% on R/A; ld1 20:01 BP 164 / 87; Pulse 71; Resp 18; Pulse Ox 99% on R/A; kd3 17:07 Body Mass Index 21.03 (52.16 kg, 157.48 cm) ph MDM: 17:06 Patient medically screened. ms3 20:13 Differential diagnosis: abnormal EKG, acute myocardial infarction, anxiety, pleurisy, ms3 pneumonia. The patient was given aspirin in the Emergency Department. Data reviewed: vital signs, nurses notes, lab test result(s), EKG, radiologic studies, and as a result, I will admit patient. Consideration of Admission/Observation Patient was admitted/placed on observation. Management of patient was discussed with the following: Hospitalist: ARNULFO Gold on behalf of Hospitalist team. I considered the following discharge prescriptions or medication management in the emergency department Medications were administered in the Emergency Department. See MAR. Independent interpretation of the following test(s) in the Emergency Department EKG: See my EKG interpretation above X-Ray: My interpretation is CXR image reviewed by me shows bilateral PNA. Historians other than the Patient: EMS: [facility]. Care significantly affected by the following chronic conditions: Hypertension. Counseling: I had a detailed discussion with the patient and/or guardian regarding the historical points, exam findings, and any diagnostic results supporting the discharge/admit diagnosis, lab results, radiology results, the need for further work-up and treatment in the hospital. 10/27 17:07 Order name: CBC with Diff; Complete Time: 17:53 ms3 10/27 17:07 Order name: CMP; Complete Time: 18:09 ms3 10/27 17:07 Order name: SARS RAPID; Complete Time: 18:09 ms3 10/27 19:26 Order name: Blood Culture Adult (2) ms3 10/27 20:06 Order name: Urinalysis w/ reflexes EDMS 10/27 20:06 Order name: Basic Metabolic Panel EDMS 10/27 20:06 Order name: Basic Metabolic Panel EDMS 10/27 20:06 Order name: Basic Metabolic Panel EDMS 10/27 20:06 Order name: Basic Metabolic Panel EDMS 10/27 20:06 Order name: CBC with Automated Diff EDMS 10/27 20:06 Order name: CBC with Automated Diff EDMS 10/27 20:06 Order name: CBC with Automated Diff EDMS 10/27 20:06 Order name: CBC with Automated Diff EDMS 10/27 20:06 Order name: Magnesium EDMS 10/27 20:06 Order name: Magnesium EDMS 10/27 20:06 Order name: Magnesium EDMS 10/27 20:06 Order name: Magnesium EDMS 10/27 23:35 Order name: NT PRO-BNP EDMS 10/27 23:35 Order name: Thyroid Stimulating Hormone EDMS 10/28 00:02 Order name: Osmolality, Serum EDMS 10/28 01:40 Order name: Urinalysis w/ reflexes EDMS 10/28 02:19 Order name: Osmolality, Urine EDMS 10/28 04:48 Order name: CBC Smear Scan EDMS 10/28 05:17 Order name: Potassium EDMS 10/27 17:07 Order name: CXR XRAY; Complete Time: 19:04 ms3 10/27 19:40 Order name: EKG; Complete Time: 19:41 ms3 10/27 20:06 Order name: Heart Healthy EDMS 10/27 19:40 Order name: EKG - Nurse/Tech; Complete Time: 19:59 ms3 EC:08 Rate is 73 beats/min. Rhythm is regular. QRS Rupert is Normal. SD interval is normal. QRS ms3 interval is normal. QT interval is normal. Clinical impression: NSR w/ Non-specific ST/T Changes. Interpreted by me. Reviewed by me. Administered Medications: 18:34 Drug: Potassium PO Effervescent Tablet 50 mEq Route: PO; ld1 20:01 Follow up: Response: No adverse reaction kd3 18:34 Drug: Potassium Chloride IV 20 mEq Route: IV; Rate: calculated rate; Site: left ld1 antecubital; 10/28 06:51 Follow up: Response: No adverse reaction; IV Status: Completed infusion; IV Intake: lg3 100ml 10/27 19:59 Drug: levofloxacin IVPB 750 mg Volume: 150 ml; Route: IVPB; Infused Over: 90 mins; kd3 Site: right antecubital; 10/28 06:50 Follow up: Response: No adverse reaction; IV Status: Completed infusion; IV Intake: lg3 150ml Disposition Summary: 10/27/22 19:06 Hospitalization Ordered Hospitalization Status: Inpatient Admission ms3 Provider: Larry Baker ms3 Condition: Stable ms3 Problem: new ms3 Symptoms: are unchanged ms3 Bed/Room Type: Standard ms3 Location: Telemetry/MedSurg (Inpatient)(10/28/22 06:54) cg Room Assignment: [facility](10/28/22 06:54) Diagnosis - Other pneumonia, unspecified organism - Multilobar ms3 - Cough ms3 - Syncope Near ms3 - Hypokalemia ms3 - Essential (primary) hypertension ms3 Forms: - Medication Reconciliation Form ms3 - SBAR form ms3 - Leadership Thank You Letter ms3 Signatures: Dispatcher [employer] Nanda Workman RN RN Theresa Giang RN RN cg Hilario Mortensen DO DO ms3 Maria A Mortensen RN RN ld1 Simona Madera RN RN kd3 Carolina Graff RN lg3 Corrections: (The following items were deleted from the chart) 10/27 20:04 19:06 Telemetry/MedSurg (Inpatient) ms3 cg 20:04 19:06 ms3 cg 10/28 06:54 10/27 20:04 [facility] ER HOLD cg cg 10/28 06:54 10/27 20:04 ERHOLD- cg cg
[2022-10-27] MEDS ORDERED: Levofloxacin 750mg IV 750 MG/150 ML BAG IV ONE (19:51)
--- NOTE | 2022-10-27 19:59 | P.HP ---
Certification for Inpatient Patient admitted to: Inpatient With expected LOS: <2 Midnights Patient will require the following post-hospital care: None Practitioner: I am a practitioner with admitting privileges, knowledge of patient current condition, hospital course, and medical plan of care. Services: Services provided to patient in accordance with Admission requirements found in Title 42 Section 412.3 of the Code of Federal Regulations Patient History Date of Service: 10/27/22 Reason for admission: Pneumonia History of Present Illness: 72-year-old female with a past medical history of hypertension, hyperthyroidism, depression, atrial fibrillation on Eliquis presents to the emergency room with shortness of breath. She reports associated weakness, nonproductive cough. She reports recently diagnosed with COVID flu and pneumonia was treated with albuterol and Atrovent. Patient is a poor historian, she denies chest pain, abdominal pain, fever, nausea vomiting diarrhea. Chest x-ray Moderate bilateral pulmonary opacities are present which may represent pulmonary edema or pneumonia. The heart is moderately enlarged. No displaced fractures. IMPRESSION: Moderate CHF versus bilateral pneumonia pattern. Laboratory evaluation hyponatremia sodium 128, hypokalemia potassium 2.0, elevated carbon dioxide 36, CBC anemia hemoglobin 11.4, hematocrit 34.3, SARS negative. Plan to admit for acute hypoxic respiratory failure secondary to pneumonia, hypokalemia, hyponatremia. Allergies No Known Allergies Allergy (Unverified 05/29/17 12:08) Home Medications: Apixaban [Eliquis] 5 mg PO BID #60 tablet 02/23/21 Metoprolol Tartrate [Lopressor*] 25 mg PO BID 6AM 6PM #60 tab 02/23/21 methIMAzole [Tapazole*] 10 mg PO DAILY #30 tab 02/23/21 Alendronate Sodium 70 mg PO Q7D 03/02/22 Benzonatate [Tessalon Perle*] 200 mg PO Q8H PRN 03/02/22 Methylphenidate HCl [Methylphenidate ER] 18 mg PO DAILY 03/02/22 PARoxetine HCL [Paroxetine HCl] 40 mg PO DAILY 03/02/22 hydroCHLOROthiazide [Hydrochlorothiazide] 25 mg PO DAILY 03/02/22 Albuterol Inhaler [Ventolin Inhaler*] 2 puff IH Q6H PRN #1 inh 03/03/22 Benzonatate [Tessalon Perle*] 100 mg PO TID PRN #30 cap 03/03/22 Oseltamivir Phosphate [Tamiflu] 75 mg PO BID #10 cap 03/03/22 predniSONE [Deltasone] 20 mg PO BID #11 tab 03/03/22 - Past Medical/Surgical History Diabetic: No -: hyperthyroidism -: HTN -: A. fib on chronic anticoagulation -: C section -: tonsillectomy Psychosocial/ Personal History: Patient lives at home with her - Social History Alcohol use: No CD- Drugs: No Caffeine use: Yes Review of Systems 10-point ROS is otherwise unremarkable Physical Examination - Physical Exam General: Alert, In no apparent distress, Oriented x3 HEENT: Atraumatic, Normocephalic, PERRLA Neck: Supple, 2+ carotid pulse no bruit, JVD not distended Respiratory: Clear to auscultation bilaterally, Normal air movement Cardiovascular: No edema, Normal pulses, Irregular heart rate/rhythm Capillary refill: <2 Seconds Gastrointestinal: Normal bowel sounds, Soft and benign Musculoskeletal: No clubbing, No swelling Integumentary: No rashes, No breakdown - Studies Laboratory Data (last 24 hrs) 10/27/22 10/27/22 17:30 17:30 WBC 6.30 Hgb 11.4 L Hct 34.3 L Plt Count 233 Sodium 128 L Potassium 2.0 L* BUN 17 Creatinine 0.78 Glucose 113 H Total Bilirubin 0.4 AST 15 ALT 11 L Alkaline Phosphatase 93 Assessment and Plan - Plan Assessment plan Acute hypoxic respiratory failure secondary to pneumonia vs heart failure Hyponatremia Hypokalemia Chronic atrial fibrillation Acute on chronic heart failure Cardiomegaly Hyperthyroidism Anemia DVT prophylaxis Assessment plan Acute hypoxic respiratory failure secondary to pneumonia vs acute heart failure Chest x-ray Moderate bilateral pulmonary opacities are present which may represent pulmonary edema or pneumonia. The heart is moderately enlarged. No displaced fractures. IMPRESSION: Moderate CHF versus bilateral pneumonia pattern. SARS negative. O2 2 L keep sats greater than 90% As needed nebs, IV Levaquin Pulmonary consult Hyponatremia Hypokalemia sodium 128, hypokalemia potassium 2.0, Trend electrolytes replace as needed Nephrology consult, Dr. Deleon notified UA, Urine Osmo, urine sodium, serum osmo ordered Chronic atrial fibrillation Acute on chronic heart failure Cardiomegaly Cardiology consult, telemetry Trend BNP, troponins Resume appropriate home medications Eliquis, metoprolol Hyperthyroidism TSH ordered resume home tapazole Anemia CBC anemia hemoglobin 11.4, hematocrit 34.3 DVT prophylaxis Cardiac diet Full code Discharge Plan: Home Plan to discharge in: 48 Hours - Advance Directives Does patient have a Living Will: No Does patient have a Durable POA for Healthcare: No - Code Status/Comfort Care Code Status: Full Code Physician Review: Patient Assessed, Agree with Above Assessment and Plan Critical Care: No Time Spent Managing Pts Care (In Minutes): 50
[2022-10-27] MEDS ORDERED: ONDANSETRON 4 MG/2 ML VIAL IV PRN (20:04)
[2022-10-27] MEDS ORDERED: ALPRAZOLAM 0.25 MG TABLET PO PRN (20:04)
[2022-10-27] MEDS ORDERED: ACETAMINOPHEN 500 MG TAB PO PRN (20:04)
[2022-10-27] MEDS ORDERED: ALBUTEROL 2.5 MG/3 ML NEB SOL NEB PRN (20:04)
[2022-10-27 20:25] VITALS: BMI 20.8
[2022-10-27 23:35] LABS: Thyroid Stimulating Hormone 2.06 uIU/mL (0.358-3.740)
[2022-10-28] MEDS ORDERED: ALBUTEROL 2.5 MG/3 ML NEB SOL ONE (00:57)
[2022-10-28 01:40] LABS: Specific Gravity 1.007 (1.005-1.030); Urine Bacteria 20-50 /HPF (<20); Urine Bilirubin NEGATIVE (Negative); Urine Blood Trace (Negative); Urine Clarity Extremely Turbid (Clear); Urine Color Colorless (Yellow); Urine Glucose NEGATIVE (Negative); Urine Mucus Slight /HPF (None Seen); Urine Protein NEGATIVE (Negative); Urine RBC <5 /HPF (None Seen); Urine Urobilinogen Normal (Normal); Urine pH 6.5 (5.0-7.0)
[2022-10-28 03:33] LABS: Absolute Lymphocytes (CBC) 0.4 K/uL (0.7-4.9); Hematocrit 29.6 % (36.0-45.0); Lymphocytes % 15.1 % (15.3-44.8); MPV 8.7 fL (7.6-11.3); Platelets 203 thou/uL (152-406); RBC Red Blood Cell Count 3.71 M/uL (3.86-4.86)
[2022-10-28 04:16] LABS: Magnesium 1.6 mg/dL (1.6-2.4)
[2022-10-28 04:18] LABS: Potassium 1.9 mEq/L (3.5-5.1)
[2022-10-28 04:48] LABS: Blood Morphology Comment NOT SEEN (NOT SEEN); Platelet Estimate ADEQ; White Blood Cell Scan OK (OK)
[2022-10-28] MEDS ORDERED: POTASSIUM 25 MEQ EFFERV TAB PO ONE (04:48)
[2022-10-28] MEDS ORDERED: METOPROLOL TARTRATE 5 MG/5 ML INJ IV PRN (04:50)
[2022-10-28] MEDS ORDERED: METOPROLOL TARTRATE 5 MG/5 ML INJ IV ONE (05:04)
[2022-10-28] MEDS ORDERED: POTASSIUM 25 MEQ EFFERV TAB ONE (05:04)
[2022-10-28] MEDS ORDERED: POTASSIUM CL 40 MEQ in NA CHLORIDE 0.9% 500 ML IV SCH (06:00)
[2022-10-28] MEDS: KCL 20 MEQ/100 mL IVPB 100 ML IV SCH ×4 (06:00→12:31)
[2022-10-28] MEDS ORDERED: KCL 20 MEQ/100 mL IVPB 100 ML IV ONE (06:47)
--- NOTE | 2022-10-28 08:55 | P.CNS ---
Date of Consult: 10/28/22 Reason for Consult: Hyponatremia Requesting Physician: maria eugenia klein Chief Complaint: Pneumonia History of Present Illness: 72-year-old female with a past medical history of hypertension, hyperthyroidism, depression, atrial fibrillation on Eliquis presents to the emergency room with shortness of breath. She reports associated weakness, nonproductive cough. She reports recently diagnosed with COVID flu and pneumonia was treated with albuterol and Atrovent. Patient is a poor historian, she denies chest pain, abdominal pain, fever, nausea vomiting diarrhea. Chest x-ray Moderate bilateral pulmonary opacities are present which may represent pulmonary edema or pneumonia. The heart is moderately enlarged. No displaced fractures. IMPRESSION: Moderate CHF versus bilateral pneumonia pattern. Laboratory evaluation hyponatremia sodium 128, hypokalemia potassium 2.0, elevated carbon dioxide 36, CBC anemia hemoglobin 11.4, hematocrit 34.3, SARS negative. Plan to admit for acute hypoxic respiratory failure secondary to pneumonia, hypokalemia, hyponatremia. [id number] 19:36 This 72 yrs old Female presents to ER via EMS with complaints of Cough, weakness, near ms3 syncope. 19:36 72-year-old female with past medical history of depression, hypertension, ms3 hypothyroidism presents for coughing, shortness of breath that began 3 days ago and has progressively gotten worse according to patient's family. EMS notes patient was recently diagnosed with COVID, flu, pneumonia. Patient was given albuterol/Atrovent, 125 mg Solu-Medrol, 100 mL normal saline prior to arrival. EMS notes patient's room air oxygen saturation to be 97%.. Allergies No Known Allergies Allergy (Unverified 05/29/17 12:08) Home medications list reviewed: Yes Home Medications: Apixaban [Eliquis] 5 mg PO BID #60 tablet 02/23/21 Metoprolol Tartrate [Lopressor*] 25 mg PO BID 6AM 6PM #60 tab 02/23/21 methIMAzole [Tapazole*] 10 mg PO DAILY #30 tab 02/23/21 Alendronate Sodium 70 mg PO Q7D 03/02/22 Benzonatate [Tessalon Perle*] 200 mg PO Q8H PRN 03/02/22 Methylphenidate HCl [Methylphenidate ER] 18 mg PO DAILY 03/02/22 PARoxetine HCL [Paroxetine HCl] 40 mg PO DAILY 03/02/22 hydroCHLOROthiazide [Hydrochlorothiazide] 25 mg PO DAILY 03/02/22 Albuterol Inhaler [Ventolin Inhaler*] 2 puff IH Q6H PRN #1 inh 03/03/22 Benzonatate [Tessalon Perle*] 100 mg PO TID PRN #30 cap 03/03/22 Oseltamivir Phosphate [Tamiflu] 75 mg PO BID #10 cap 03/03/22 predniSONE [Deltasone] 20 mg PO BID #11 tab 03/03/22 - Past Medical/Surgical History Diabetic: No -: Hyperthyroidism -: HTN -: Afib on chronic anticoagulation -: C section -: tonsillectomy Psychosocial/ Personal History: Patient lives at home with her - Social History Smoking Status: Current every day smoker Alcohol use: No CD- Drugs: No Caffeine use: Yes Review of Systems 10-point ROS is otherwise unremarkable General: Weakness Physical Examination Temp Pulse Resp BP Pulse Ox 97.4 F 121 H 17 130/91 H 99 10/28/22 04:00 10/28/22 05:09 10/28/22 04:00 10/28/22 05:09 10/28/22 04:00 General: In no apparent distress, Oriented x3, Cooperative HEENT: Atraumatic Neck: Supple Respiratory: Normal air movement Cardiovascular: No edema, Regular rate/rhythm Gastrointestinal: Soft and benign, Non-distended Musculoskeletal: No clubbing, No contractures Integumentary: No rashes, No cyanosis Neurological: Normal speech Laboratory Data (last 24 hrs) 10/27/22 10/27/22 17:30 17:30 WBC 6.30 Hgb 11.4 L Hct 34.3 L Plt Count 233 Sodium 128 L Potassium 2.0 L* BUN 17 Creatinine 0.78 Glucose 113 H Total Bilirubin 0.4 AST 15 ALT 11 L Alkaline Phosphatase 93 Imagings Data: [id number] EXAM DESCRIPTION: RAD - Chest Single View - 10/27/2022 6:29 pm CLINICAL HISTORY: COUGH Chest pain. COMPARISON: Chest Single View dated 03/03/2022; Chest Single View dated 03/01/2022; Chest Single View dated 02/23/2021; Chest Single View dated 02/21/2021 FINDINGS: Portable technique limits examination quality. Moderate bilateral pulmonary opacities are present which may represent pulmonary edema or pneumonia. The heart is moderately enlarged. No displaced fractures. IMPRESSION: Moderate CHF versus bilateral pneumonia pattern. Conclusions/Impression: Hyponatremia in the setting of HCTZ -DC HCTZ -Encourage nutrition -Repeat BMP pending Hypokalemia in the setting of HCTZ -DC HCTZ -Replete as ordered -Repeat BMP pending Metabolic Alkalosis in the setting of hypokalemia -Replete potassium as ordered HTN with Tachycardia -Continue Metoprolol BID Anemia in chronic illness Microcytosis -Monitor H&H -Check iron status Case reviewed with Dr. Klein ER and Hospitalist notes reviewed Thank you kindly for the consultation
[2022-10-28] MEDS ORDERED: hydroCHLOROthiazide 25 MG TAB PO SCH (09:00)
[2022-10-28] MEDS ORDERED: ENOXAPARIN 40 MG/0.4 ML SQ SCH (09:00)
[2022-10-28] MEDS: METOPROLOL TAR 25 MG TAB PO SCH ×2 (09:45→17:22)
[2022-10-28] MEDS: APIXABAN 5 MG TABLET PO SCH ×2 (09:45→21:15)
[2022-10-28] MEDS ORDERED: NA CHLORIDE 0.9% 250 ML ONE (09:53)
[2022-10-28] MEDS ORDERED: DRISDOL (VITAMIN D=ERGOCALCIFEROL) 50000 UNIT CAP PO SCH (10:00)
[2022-10-28] MEDS: CYANOCOBALAMIN 1000MCG/ML INJ SQ SCH (10:06)
[2022-10-28 10:24] LABS: Ferritin 10.8 ng/mL (8-388)
[2022-10-28] MEDS ORDERED: ALBUTEROL 2.5 MG/3 ML NEB SOL NEB PRN (11:00)
[2022-10-28] MEDS ORDERED: Levofloxacin 750mg IV 750 MG/150 ML BAG IV SCH ×2 (11:00→20:00)
[2022-10-28] MEDS: MULTIVITAMINS,THERAPEUT 1 TAB PO SCH (12:31)
[2022-10-28 12:37] LABS: Magnesium 1.9 mg/dL (1.6-2.4); Potassium 3.2 mEq/L (3.5-5.1)
[2022-10-28 12:44] LABS: Troponin High Sensitivity 106.3 pg/mL (<58.9)
--- NOTE | 2022-10-28 12:57 | EKG ---
Test Date: 2022-10-27 Test Time: 19:57:12 Magazine Supervisor: LIZZY MEASUREMENT RESULTS: Intervals: Rate: 73 RI: 206 QRSD: 74 QT: 438 QTc: 482 [place]: P: 82 RI: 206 QRS: 31 T: 66 INTERPRETIVE STATEMENTS: Sinus rhythm with premature supraventricular complexes Nonspecific ST and T wave abnormality Abnormal ECG Compared to ECG 03/01/2022 13:52:36 ST (T wave) deviation now present Aberrant conduction of supraventricular beat(s) no longer present T-wave abnormality no longer present Electronically Signed On 10-28-22 12:55:48 CDT by Koko Shannon
--- NOTE | 2022-10-28 17:25 | P.PN ---
Subjective Date of Service: 10/28/22 Chief Complaint: Pneumonia Patient has no new complaint. She denies any diarrhea or nausea or vomiting. She reports polyuria. Physical Examination - Vital Signs Temperature: 99.9 F Blood Pressure: 144/93 Pulse: 87 Respirations: 18 Pulse Ox (%): 97 - Studies Laboratory Data (last 24 hrs) 10/27/22 10/27/22 17:30 17:30 WBC 6.30 Hgb 11.4 L Hct 34.3 L Plt Count 233 Sodium 128 L Potassium 2.0 L* BUN 17 Creatinine 0.78 Glucose 113 H Total Bilirubin 0.4 AST 15 ALT 11 L Alkaline Phosphatase 93 Assessment And Plan - Plan Physical Exam General: Alert, In no apparent distress, Oriented x3 Neck: Supple, 2+ carotid pulse no bruit, JVD not distended Respiratory: Clear to auscultation bilaterally, Normal air movement Cardiovascular: No edema, Normal pulses, Irregular heart rate/rhythm Gastrointestinal: Normal bowel sounds, Soft and benign Musculoskeletal: No clubbing, No swelling Integumentary: No rashes, No breakdown Diagnosis Atypical pneumonia Hyponatremia Hypokalemia Acute on chronic diastolic heart failure Chronic atrial fibrillation Hyperthyroidism Anemia Assessment & plan Atypical pneumonia SARS negative. Patient is tolerating room air. Current IV Levaquin. Nebs. Hyponatremia Hypokalemia sodium 128, hypokalemia potassium 2.0, Trend electrolytes replace as needed Nephrology consulted patient seen by Dr. Deleon. Continue IV fluid. Replete potassium IV and po. Chronic atrial fibrillation Acute on chronic heart failure Cardiomegaly Continue home medications-Eliquis, metoprolol Hyperthyroidism Normal TSH Continue tapazole DVT prophylaxis Cardiac diet Full code
[2022-10-28] MEDS ORDERED: POTASSIUM CL SA 10 MEQ TAB PO ONE (20:46)
[2022-10-28] MEDS: DOCUSATE NA 100 MG CAP PO SCH (21:15)
--- NOTE | 2022-10-29 00:30 | CON ---
Date of Consultation: 10/28/2022 Reason For Consultation: Elevated troponin, atrial fibrillation. History Of Present Illness: 72-year-old female with history of hypertension, depression, and atrial fibrillation, who was on anticoagulation, presented with shortness of breath and cough, generalized w eakness. Cough is nonproductive. She reported also testing positive for COVID recently. Denies hav ing any chest pain, nausea, vomiting, or diarrhea or other complaints. Past Medical History: As outlined above in the HPI. Medications: Refer consultation sheet for detailed list. Allergies: NO KNOWN DRUG ALLERGIES. Family History: No premature coronary artery disease or cancer. Social History: Does not smoke or drink. Does not use any drugs. Review of Systems: All systems reviewed are negative except as mentioned in HPI. Physical Examination: Vital Signs: Reviewed. Head and Neck: Pupils are equal, reactive to light. Intact eye movements. No JVD. No cervical lym phadenopathy. Neck is supple. Thyroid is not enlarged. Lungs: She has rhonchi bilaterally. No accessory muscle use or muscle retraction. Heart: Irregularly irregular. No extra sounds. Abdomen: Soft, nontender. Bowel sounds positive. No organomegaly. No masses or hernia. No rigidi ty or rebound. Extremities: No clubbing or cyanosis. Intact pulses. Skin: No rash was noted. Neurologic: Alert, awake, oriented x3. No acute focal deficits appreciated. Investigations: Troponin peaked at 117 and trending down. BUN 15, creatinine 0.63. Hemoglobin is 1 0.0. Assessment And Plan: 1.Elevated troponin mildly. There is no chest pain. The patient is a very poor historian. Obtain a Lexiscan stress test to further evaluate. 2.Shortness of breath, likely due to pneumonia. The patient is already improving with current manag ement and she is not on any diuretics. I do not see any signs of fluid overload. Obtain an echo to further evaluate. SR/MODL Voice ID: [id number] Report ID: [id number]
[2022-10-29 02:37] LABS: Urine Total Volume 24 Hours 650 mL
[2022-10-29 02:51] LABS: UR SODIUM 46 mmol/L (27-287)
[2022-10-29 03:40] LABS: Magnesium 1.8 mg/dL (1.6-2.4); Potassium 3.2 mEq/L (3.5-5.1)
[2022-10-29 03:44] LABS: Hematocrit 26.5 % (36.0-45.0); Lymphocytes % 32.1 % (15.3-44.8); MCV 80.6 fL (80-100); MPV 8.8 fL (7.6-11.3); Platelets 187 thou/uL (152-406); RBC Red Blood Cell Count 3.29 M/uL (3.86-4.86)
[2022-10-29 04:52] VITALS: O2SAT 95
[2022-10-29] MEDS: METOPROLOL TAR 25 MG TAB PO SCH (05:03)
[2022-10-29] MEDS ORDERED: POTASSIUM CL SA 10 MEQ TAB PO ONE (06:00)
--- NOTE | 2022-10-29 06:59 | ECHO ---
HEIGHT: 5 ft 2 in WEIGHT: 114 lb 0 oz DATE OF STUDY: 10/28/[address]: Larry Baker MD 2-DIMENSIONAL: YES M.MODE: YES DOPPLER: YES COLOR FLOW: YES TDS: PORTABLE: YES DEFINITY: BUBBLE STUDY: DIAGNOSIS: CONGESTIVE HEART FAILURE CARDIAC HISTORY: CATHERIZATION: SURGERY: PROSTHETIC VALVE: PACEMAKER: MEASUREMENTS (cm) DIASTOLIC (NORMALS) SYSTOLIC (NORMALS) IVSd 0.9 (0.6-1.2) LA Diam 3.5 (1.9-4.0) LVEF 61% LVIDd 3.4 (3.5-5.7) LVIDs 2.3 (2.0-3.5) %FS 32% LVPWd 0.9 (0.6-1.2) Ao Diam 3.3 (2.0-3.7) 2 DIMENSIONAL ASSESSMENT: RIGHT ATRIUM: NORMAL LEFT ATRIUM: NORMAL RIGHT VENTRICLE: NORMAL LEFT VENTRICLE: NORMAL TRICUSPID VALVE: MILD TRICUSPID REGURGITATION MITRAL VALVE: MILD MITRAL REGURGITATION PULMONIC VALVE: MILD PULMONIC INSUFFICIENCY AORTIC VALVE: CALCIFIED, NO AORTIC STENOSIS PERICARDIAL EFFUSION: NONE AORTIC ROOT: NORMAL LEFT VENTRICULAR WALL MOTION: NORMAL DOPPLER/COLOR FLOW: SEE BELOW COMMENTS: 1. NORMAL LEFT VENTRICULAR EJECTION FRACTION 55-60% WITH NORMAL WALL MOTION 2. MILD MITRAL REGURGITATION 3. MILD TRICUSPID REGURGITATION 4. MILD AORTIC INSUFFICIENCY 5. MODERATE PULMONARY HYPERTENSION WITH RIGHT VENTRICULAR SYSTOLIC PRESSURE OF 45-50 mmHg TECHNOLOGIST: MICHELE FAUSTIN
[2022-10-29] MEDS ORDERED: REGADENOSON 0.4 MG/5 ML SYR IV ONE (07:45)
--- NOTE | 2022-10-29 08:32 | RAD REPORT ---
EXAM DESCRIPTION: NM - Rest Stress Cardiac Imaging - 10/29/2022 8:19 am CLINICAL HISTORY: elevated troponin Chest pain. COMPARISON: No comparisons TECHNIQUE: The patient was administered approximately 10mCi of Tc 99m Sestamibi prior to resting SPE CT imaging of the heart. The patient was then administered approximately 30 mCi of Tc 99m Sestamibi f ollowing exercise or pharmacologic stress. Multiplanar SPECT images were reviewed. FINDINGS: No stress induced ischemic defect is seen to suggest stress induced ischemia. No fixed def ect is seen to suggest hibernating myocardium or scarred myocardium. The end diastolic volume is 73 ml, the end systolic volume is 21 ml, and the ejection fraction is 72 %. IMPRESSION: No stress induced ischemia.
[2022-10-29] MEDS: MULTIVITAMINS,THERAPEUT 1 TAB PO SCH (08:54)
[2022-10-29] MEDS: DOCUSATE NA 100 MG CAP PO SCH (08:54)
[2022-10-29] MEDS: CYANOCOBALAMIN 1000MCG/ML INJ SQ SCH (09:00)
[2022-10-29] MEDS ORDERED: MAGNESIUM SULFATE 1 gm IVPB 1 GM/100 ML BAG IV ONE (10:38)
--- NOTE | 2022-10-29 11:08 | P.PN ---
Date of Service: 10/29/22 Vital Signs Temp Pulse Resp BP Pulse Ox 97.7 F 62 20 155/70 H 96 10/29/22 09:18 10/29/22 09:18 10/29/22 09:18 10/29/22 09:18 10/29/22 09:18 Medications Acetaminophen (Acetaminophen 500 Mg Tab) 500 mg PO Q4HP PRN PRN Reason: Pain scale 2-4 (Mild) Albuterol Sulfate (Albuterol 2.5 Mg/3 Ml Neb Alis) 2.5 mg NEB [id number] PRN PRN Reason: SHORTNESS OF BREATH Alprazolam (Alprazolam 0.25 Mg Tablet) 0.25 mg PO BEDTIME PRN PRN PRN Reason: INSOMNIA Apixaban (Apixaban 5 Mg Tablet) 5 mg PO BID [facility] Last Admin: 10/28/22 21:15 Dose: 5 mg Cyanocobalamin (Cyanocobalamin 1000mcg/Ml Inj) 1,000 mcg SQ DAILY [facility] Last Admin: 10/29/22 09:00 Dose: 1,000 mcg Docusate Sodium (Docusate Na 100 Mg Cap) 100 mg PO BID [facility] Last Admin: 10/29/22 08:54 Dose: Not Given Ergocalciferol (Drisdol (Vitamin D=Ergocalciferol) 92502 Unit Cap) 50,000 unit PO Q7D [facility] Last Admin: 10/28/22 10:07 Dose: 50,000 unit Levofloxacin/Dextrose (Levaquin 750 Mg/150 Ml Ivpb (Premix)) 750 mg in 150 mls @ 100 mls/hr IV Q24H [facility]; Protocol Last Admin: 10/28/22 21:15 Dose: 150 mls Magnesium Sulfate/Dextrose (Magnesium Sulfate 1gm/D5w Ivpb (Premix)) 1 gm in 100 mls @ 100 mls/hr IV 1X ONE Stop: 10/29/22 11:37 Methimazole (Methimazole 10 Mg Tab) 10 mg PO DAILY [facility] Last Admin: 10/29/22 08:54 Dose: Not Given Metoprolol Tartrate (Metoprolol Tar 25 Mg Tab) 25 mg PO BID 6AM 6PM [facility] Last Admin: 10/29/22 05:03 Dose: 25 mg Metoprolol Tartrate (Metoprolol Tartrate 5 Mg/5 Ml Inj) 5 mg IV Q6H PRN PRN Reason: Titrate to SBP (MUST DEFINE) Last Admin: 10/28/22 05:09 Dose: 5 mg Ondansetron HCl (Ondansetron 4 Mg/2 Ml Vial) 4 mg IV Q6HP PRN PRN Reason: NAUSEA / VOMITING Sodium Chloride (Flush Normal Saline 10 Ml) 10 ml IV BID [facility] Last Admin: 10/29/22 09:00 Dose: Not Given Vitamin B Complex/Vit C/Folic Acid (Multivitamins,Therapeut 1 Tab) 1 tab PO DAILY [facility] Last Admin: 10/29/22 08:54 Dose: Not Given Microbiology Results 10/27/22 19:54 Blood - Blood Aerobic Blood Culture - Preliminary No growth in 24 hours. 10/27/22 19:54 Blood - Blood Anaerobic Blood Culture - Preliminary No growth in 24 hours. 10/27/22 19:41 Blood - Blood Aerobic Blood Culture - Preliminary No growth in 24 hours. 10/27/22 19:41 Blood - Blood Anaerobic Blood Culture - Preliminary No growth in 24 hours. Assessment/ Plan: Nephrology No dyspnea No chest pain No acute events overnight +Appetite Vitals, medications, blood work and imaging reviewed in the chart General: In no apparent distress, Oriented x3, Cooperative HEENT: Atraumatic Neck: Supple Respiratory: Normal air movement Cardiovascular: No edema, Regular rate/rhythm Gastrointestinal: Soft and benign, Non-distended Musculoskeletal: No clubbing, No contractures Integumentary: No rashes, No cyanosis Neurological: Normal speech Laboratory Data (last 24 hrs) 10/27/22 10/27/22 17:30 17:30 WBC 6.30 Hgb 11.4 L Hct 34.3 L Plt Count 233 Sodium 128 L Potassium 2.0 L* BUN 17 Creatinine 0.78 Glucose 113 H Total Bilirubin 0.4 AST 15 ALT 11 L Alkaline Phosphatase 93 Imagings Data: [id number] EXAM DESCRIPTION: RAD - Chest Single View - 10/27/2022 6:29 pm CLINICAL HISTORY: COUGH Chest pain. COMPARISON: Chest Single View dated 03/03/2022; Chest Single View dated 03/01/2022; Chest Single View dated 02/23/2021; Chest Single View dated 02/21/2021 FINDINGS: Portable technique limits examination quality. Moderate bilateral pulmonary opacities are present which may represent pulmonary edema or pneumonia. The heart is moderately enlarged. No displaced fractures. IMPRESSION: Moderate CHF versus bilateral pneumonia pattern. Conclusions/Impression: Hyponatremia in the setting of HCTZ -DC HCTZ -Encourage nutrition Hypokalemia in the setting of HCTZ -DC HCTZ -Replete as ordered Metabolic Alkalosis in the setting of hypokalemia -Replete potassium as ordered HTN with Tachycardia -Continue Metoprolol BID Anemia in chronic illness Iron Deficiency 7.4% -Monitor H&H -Ferrlecit IV as ordered -Consider outpt GI evaluation for iron deficiency anemia Hospitalist notes reviewed
[2022-10-29] MEDS ORDERED: SOD FERRIC GLUC COMPLX/SUCROSE 250 MG in NA CHLORIDE 0.9% 250 ML IV ONE (11:15)
[2022-10-29] MEDS: APIXABAN 5 MG TABLET PO SCH (12:09)
--- NOTE | 2022-10-29 12:38 | P.DS ---
Admission Date: 10/27/22 Discharge Date: 10/29/22 Disposition: ROUTINE DISCHARGE Discharge Condition: FAIR Reason for Admission: Pneumonia Brief History of Present Illness: 72-year-old female with a past medical history of hypertension, hyperthyroidism, depression, atrial fibrillation on Eliquis presented to the emergency room with shortness of breath. She reported associated weakness, nonproductive cough. She reports recently diagnosed with COVID flu and pneumonia was treated with albuterol and Atrovent. Patient is a poor historian, she denies chest pain, abdominal pain, fever, nausea vomiting diarrhea. Chest x-ray Moderate bilateral pulmonary opacities are present which may represent pulmonary edema or pneumonia. Laboratory evaluation showed hyponatremia sodium 128, hypokalemia potassium 2.0, elevated carbon dioxide 36, CBC anemia hemoglobin 11.4, hematocrit 34.3, SARS negative. Patient admitted for further management. Hospital Course: Diagnosis Atypical pneumonia Hyponatremia Hypokalemia Acute on chronic diastolic heart failure Chronic atrial fibrillation Hyperthyroidism Anemia Assessment & plan Atypical pneumonia SARS negative. Treated with IV Levaquin She tolerated room air She was also treated with nebs. Hyponatremia Hypokalemia sodium 128, hypokalemia potassium 2.0 on presentation. Nephrology consulted, patient seen by Dr. Deleon. Electrolyte abnormalities were managed with IV fluid and IV potassium replacement. Potassium level improved to normal Chronic atrial fibrillation Acute on chronic heart failure Cardiomegaly Continued home medications-Eliquis, metoprolol. Iron deficiency anemia Patient received IV iron therapy per nephrology recommendation. She is discharged with oral iron supplementation.. Hyperthyroidism Normal TSH Continued tapazole Vital Signs/Physical Exam: Temp Pulse Resp BP Pulse Ox 97.7 F 62 20 155/70 H 96 10/29/22 09:18 10/29/22 09:18 10/29/22 09:18 10/29/22 09:18 10/29/22 09:18 General: Alert, In no apparent distress, Oriented x3 HEENT: Mucous membr. moist/pink Neck: JVD not distended Respiratory: Clear to auscultation bilaterally, Normal air movement Cardiovascular: No edema, Normal S1 S2, Irregular heart rate/rhythm Gastrointestinal: Normal bowel sounds, Soft and benign, Non-distended, No tenderness Musculoskeletal: No swelling Integumentary: No rashes, No cyanosis Neurological: Normal strength at 5/5 x4 extr Laboratory Data at Discharge: WBC 6.30 thou/uL (4.3-10.9) 10/29/22 03:02 Hgb 9.0 g/dL (12.0-15.0) L D 10/29/22 03:02 Hct 26.5 % (36.0-45.0) L 10/29/22 03:02 Plt Count 187 thou/uL (152-406) 10/29/22 03:02 Sodium 135 mEq/L (136-145) L 10/29/22 03:02 Potassium 3.8 mEq/L (3.5-5.1) D 10/29/22 10:59 BUN 14 mg/dL (7-18) 10/29/22 03:02 Creatinine 0.74 mg/dL (0.55-1.02) 10/29/22 03:02 Glucose 123 mg/dL (74-106) H 10/29/22 03:02 Magnesium 1.8 mg/dL (1.6-2.4) 10/29/22 03:02 Total Bilirubin 0.4 mg/dL (0.2-1.0) 10/27/22 17:30 AST 15 U/L (15-37) 10/27/22 17:30 ALT 11 U/L (13-56) L 10/27/22 17:30 Alkaline Phosphatase 93 U/L (45-117) 10/27/22 17:30 Home Medications: Apixaban [Eliquis] 5 mg PO BID #60 tablet 02/23/21 Metoprolol Tartrate [Lopressor*] 25 mg PO BID 6AM 6PM #60 tab 02/23/21 methIMAzole [Tapazole*] 10 mg PO DAILY #30 tab 02/23/21 Alendronate Sodium 70 mg PO Q7D 03/02/22 Benzonatate [Tessalon Perle*] 200 mg PO Q8H PRN 03/02/22 Methylphenidate HCl [Methylphenidate ER] 18 mg PO DAILY 03/02/22 PARoxetine HCL [Paroxetine HCl] 40 mg PO DAILY 03/02/22 Albuterol Inhaler [Ventolin Inhaler*] 2 puff IH Q6H PRN #1 inh 03/03/22 Docusate [Colace Cap*] 100 mg PO BID #60 cap 10/29/22 Folic Acid/Vitamin B Comp W-C [Nephro-Carole Tablet] 1 tab PO DAILY #30 tab 10/29/22 Iron Polysaccharide Complex [Polysaccharide Iron] 150 mg PO DAILY #30 cap 10/29/22 Vitamin D [Drisdol*] 50,000 unit PO Q7D #4 cap 10/29/22 levoFLOXacin [Levaquin] 750 mg PO DAILY #5 tab 10/29/22 New Medications: Docusate [Colace Cap*] 100 mg PO BID #60 cap Vitamin D [Drisdol*] 50,000 unit PO Q7D #4 cap levoFLOXacin [Levaquin] 750 mg PO DAILY #5 tab Folic Acid/Vitamin B Comp W-C [Nephro-Carole Tablet] 1 tab PO DAILY #30 tab Iron Polysaccharide Complex [Polysaccharide Iron] 150 mg PO DAILY #30 cap Diet: AHA Activity: Ad gabe Followup: NONE,NONE [Primary Care Provider] - 1-2 Weeks Time spent managing pt's care (in minutes): 33
[2022-10-29 13:01] VITALS: BP 166/70; TEMP 98.4
--- NOTE | 2022-10-29 13:36 | TREADPHA ---
DX: ELEVATED TROPONIN Date of Study: 10/29/2022 Ht: 5' 2 " Wt: 114 lb 0 oz Consulting Physician: STEVEN MEDICATIONS: TYLENOL, PROVENTIL, XANAX, ELIQUIS, B-12, COLACE, DRISDOL, LEVAQUIN, TAPAZOLE, LOPRESSOR, ZOFRAN HISTORY: HYPERTENSION, ANXIETY, THYROID PHYSICIAL EXAMINATION: RESTING B.P.: 156/82 RESTING H.R.: 65 RESTING EKG: NORMAL SINUS RHYTHM PROTOCOL: PHARMACOLOGIC EXERCISE TIME: 3:30 B.P. AT [facility] STRESS: 137/76 IMPRESSION: LEXISCAN STRESS TEST PERFORMED ORDERED. CARDIOLITE INJECTED PER PROTOCOL (SEE NUCLEAR MEDICINE REPORT). PREMATURE ATRIAL COMPLEXES NOTED PRIOR TO PROCEDURE, PREMATURE VENTRICULAR COMPLEXES NOTED DURING PROCEDURE. NO VENTRICULAR TACHYCARDIA, SUPRAVENTRICULAR TACHYCARDIA NOTED. NO SHORTNESS OF BREATH OR CHEST PAIN NOTED. NO ELECTROCARDIOGRAM CHANGES OF ISCHEMIA WITH LEXISCAN.
--- NOTE | 2022-10-29 18:45 | PN ---
Date of Progress Note: 10/29/2022 Subjective: Seen by bedside. Doing well. No further chest pain. She had a stress test that was ne gative. Review of Systems: No chest pain, shortness of breath, orthopnea, or cough. No nausea, vomiting, or diarrhea. All othe r systems were reviewed, they were negative. Objective: Vital Signs: Reviewed. Head and Neck: Pupils are equal, reactive to light. Intact eye movements. No JVD. No cervical lym phadenopathy. Neck is supple. Thyroid is not enlarged. Lungs: Clear to auscultation bilaterally. No rhonchi, wheezing, or crackles. No accessory muscle u se. Heart: Regular rate and rhythm. No extra sounds. Abdomen: Soft, nontender. Bowel sounds positive. No organomegaly. No masses or hernia. No rigidi ty or rebound. Extremities: No edema, clubbing, or cyanosis. Intact pulses. Skin: No rash. No nodule. Neurologic: Alert, awake, oriented x3. No acute focal deficits appreciated. Investigations: Labs were reviewed. Assessment And Recommendations: 1.Elevated troponin. This is demand ischemia. No chest pain and negative stress test. No further workup is needed. 2.Shortness of breath is due to pneumonia. Patient appears to be clinically stable. Cardiology will sign off and patient can be followed up as an outpatient. /ANUEL Voice ID: [id number] Report ID: [id number]
[2022-10-30] MEDS ORDERED: SOD FERRIC GLUC COMPLX/SUCROSE 250 MG in NA CHLORIDE 0.9% 250 ML IV ONE (07:30)
== END 2022-10-29 16:21 | disposition home or self-care (01) | DRG 193 ==
LOC: ER 17:04 → ERHOLD 19:59 → 4TH 10-28 07:34
PROVIDERS: ADMIT Internal Medicine; ATTEND Internal Medicine
DX: J18.9 Pneumonia, unspecified organism (principal); I50.33 Acute on chronic diastolic (congestive) heart failure; J96.01 Acute respiratory failure with hypoxia; E87.1 Hypo-osmolality and hyponatremia; I48.20 Chronic atrial fibrillation, unspecified; E87.3 Alkalosis; I24.8 Other forms of acute ischemic heart disease; I11.0 Hypertensive heart disease with heart failure; D50.9 Iron deficiency anemia, unspecified; D63.8 Anemia in other chronic diseases classified elsewhere; I48.91 Unspecified atrial fibrillation; E03.9 Hypothyroidism, unspecified; E87.6 Hypokalemia; F17.200 Nicotine dependence, unspecified, uncomplicated; Z86.16 Personal history of COVID-19; Z79.01 Long term (current) use of anticoagulants; Z79.52 Long term (current) use of systemic steroids; Z79.899 Other long term (current) drug therapy
CPT/HCPCS: 36415; 71045; 78452; 80048; 80053; 81001; 82728; 83540; 83735; 83880; 83930; 83935; 84132; 84300; 84443; 84466; 84484; 85025; 87040; 87811; 93005; 93017; 93306; 94640; 94760; 99285; A9500; J2785; J2916; J3420; J3475; J3480; J7030; J7050; J7613

== ENCOUNTER 2023-05-10 00:36 | Inpatient (IN) | payer OTHER ==
--- OUTSIDE RECORDS SUMMARY | 2023-05-10 00:41 | XMS REPORT | Continuity of Care Document ---
Author Name Unknown Address [address] [facility] [address] [place] [address] [facility] Address [address] [facility] [address] [place] [address] Care Team Providers Care Wrap Turner Name Role Phone MARYHARRYALLYSSAANH Primary Care Physician Unavailab STANFORD Jacobsen Attending Clinician UnavailStanford Palomo MD Attending Clinician [phone] Tanvir AGClaudine VILLASEÑOR Attending Clinician Doctor Unassigned, Oliver Attending Clinician U navailable CLAUDINE RAMEY Attending Clinician Unavailable Lab, Ang - Db Attending Clinician Unavailable MARTHA HATHAWAY Attending Clinician Unavailable Martha Hathaway MD Attending Clinician [phone] Payers Payer Name Policy Type Policy Number Effective Date Expirati on Date Source [employer] MANAGED MEDICARE PPO-JUAN C [id number] 2021 00:00:00 MEDICARE PART A \\T\\ B [id number] 2016 00:00:00 2022 00:00:00 Problems Condition Name Condition Details Condition Category Status Onset Date Resolution Date Last Treatment Date Treating Clinician Comments Source Essential hypertensi on, benign Essential hypertensi on, benign Disease Active 03-13 00:00: 00 [facility] Multiple thyroid nodules Multiple thyroid nodules Disease Active 06-20 00:00: 00 [facility] Vitamin D deficiency Vitamin D deficiency Disease Active 2013-03 00:00: 00 [facility] Thyroid nodule Thyroid nodule Disease Active 2013-03 00:00: 00 [facility] Prediabete s Prediabete s Disease Active 2013-03 00:00: 00 [facility] Osteopenia Osteopenia Disease Active 07-12 00:00: 00 [facility] Family history of early CAD Family history of early CAD Disease Active 10-25 00:00: 00 [facility] HLD (hyperlipi demia) HLD (hyperlipi demia) Disease Active 10-25 00:00: 00 Overview: Formattin g of this note might be different from the original. 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 Utility [facility] Allergies, Adverse Reactions, Alerts Allergy Name Allergy Type Status Severity Reaction(s) Onset Date Inactive Date Treating Clinician Comments Source NO KNOWN ALLERGIE S Drug Class Active [facility] Social History Social Habit Start Date Stop Date Quantity Comments Source Gender identity [facility] Sexual orientation U [facility] Alcohol intake 2022-08-28 00:00:00 2022-08-28 00:00:00 Current non-drinker of alcohol (finding) [facility] Exposure to SARS-CoV-2 (event) 2022-02-03 00:00:00 2022-02-13 13:48:00 Not sure [facility] History of Social function 2018-09-15 00:00:00 2018-09-15 00:00:00 [facility] Tobacco use and exposure 2011-09-14 00:00:00 2011-09-14 00:00:00 Smokeless tobacco non-user [facility] Sex Assigned At 1950 00:00:00 1950 00:00:00 [facility] Smoking Status Start Date Stop Date Source Never smoked tobacco [facility] Medications Ordered Medication Name Filled Medication Name Start Date Stop Date Current Medication? Ordering Clinician Indication Dosage Frequency Signature (SIG) Comments Components Source methIMAzole 5 mg tablet 2022-03 00:00: 00 Yes [id number] 5mg Take 1 tablet by mouth in the morning. [facility] [place] [place] alendronate 70 mg tablet 2022-03 00:00: 00 Yes [id number] 70mg Take 1 tablet by mouth weekly. [facility] [place] [place] methIMAzole 5 mg tablet 2022-03 00:00: 00 Yes [id number] 5mg Take 1 tablet by mouth in the morning. [facility] it[facility] [place] [place] alendronate 70 mg tablet 2022-03 00:00: 00 Yes [id number] 70mg Take 1 tablet by mouth weekly. [facility] [place] [place] ALENDRONATE 70 mg tablet 2022-03 00:00: 00 Yes [id number] 70mg TAKE 1 TABLET BY MOUTH ONE TIME PER WEEK [facility] [place] [place] ALENDRONATE 70 mg tablet 2022-03 00:00: 00 02-26 00:00 :00 No [id number] 70mg TAKE 1 TABLET BY MOUTH ONE TIME PER WEEK [facility] [place] [place] ALENDRONATE 70 mg tablet 2022-03 00:00: 00 02-26 00:00 :00 No [id number] 70mg TAKE 1 TABLET BY MOUTH ONE TIME PER WEEK [facility] [place] [place] PEXEVA 40 MG ORAL TAB 2022-0 08-28 13:29: 45 Yes 1 daily [facility] PEXEVA 40 MG ORAL TAB 3-0 08-28 13:29: 45 Yes 1 daily [facility] PEXEVA 40 MG ORAL TAB 3-0 08-28 13:29: 45 Yes 1 daily [facility] PEXEVA 40 MG ORAL TAB 3-0 08-28 13:29: 45 Yes 1 daily [facility] PEXEVA 40 MG ORAL TAB 3-0 08-28 13:29: 45 Yes 1 daily [facility] PEXEVA 40 MG ORAL TAB 3-0 08-28 13:29: 45 Yes 1 daily [facility] PEXEVA 40 MG ORAL TAB 2022-0 08-28 13:29: 45 Yes 1 daily [facility] PEXEVA 40 MG ORAL TAB 2022-0 08-28 13:29: 45 Yes 1 daily [facility] PEXEVA 40 MG ORAL TAB 2022-0 08-28 13:29: 45 Yes 1 daily [facility] PEXEVA 40 MG ORAL TAB 2022-0 08-28 13:29: 45 Yes 1 daily [facility] PEXEVA 40 MG ORAL TAB 2022-0 08-28 13:29: 45 Yes 1 daily [facility] PEXEVA 40 MG ORAL TAB 2022-0 08-28 13:29: 45 Yes 1 daily [facility] PEXEVA 40 MG ORAL TAB 2022-0 08-28 13:29: 45 Yes 1 daily [facility] PEXEVA 40 MG ORAL TAB 0 08-28 13:29: 45 Yes 1 daily [facility] CONCERTA 18 MG ORAL TO24 2022-0 08-28 13:29: 43 Yes once daily x 5days weekly [facility] VITAMIN B COMPLEX ORAL 2022-0 08-28 13:29: 43 Yes Take by mouth daily. [facility] CONCERTA 18 MG ORAL TO24 2022-0 08-28 13:29: 43 Yes once daily x 5days weekly [facility] VITAMIN B COMPLEX ORAL 2022-0 08-28 13:29: 43 Yes Take by mouth daily. [facility] CONCERTA 18 MG ORAL TO24 2022-0 08-28 13:29: 43 Yes once daily x 5days weekly [facility] VITAMIN B COMPLEX ORAL 2022-0 08-28 13:29: 43 Yes Take by mouth daily. [facility] CONCERTA 18 MG ORAL TO24 0 08-28 13:29: 43 Yes once daily x 5days weekly [facility] VITAMIN B COMPLEX ORAL 2023-0 08-28 13:29: 43 Yes Take by mouth daily. [facility] CONCERTA 18 MG ORAL TO24 08-28 13:29: 43 Yes once daily x 5days weekly [facility] VITAMIN B COMPLEX ORAL 08-28 13:29: 43 Yes Take by mouth daily. [facility] [place] [place] CONCERTA 18 MG ORAL TO24 08-28 13:29: 43 Yes once daily x 5days weekly [facility] [place] [place] VITAMIN B COMPLEX ORAL 08-28 13:29: 43 Yes Take by mouth daily. [facility] [place] [place] CONCERTA 18 MG ORAL TO24 08-28 13:29: 43 Yes once daily x 5days weekly [facility] [place] [place] VITAMIN B COMPLEX ORAL 08-28 13:29: 43 Yes Take by mouth daily. [facility] [place] [place] CONCERTA 18 MG ORAL TO24 08-28 13:29: 43 Yes once daily x 5days weekly [facility] [place] [place] VITAMIN B COMPLEX ORAL 08-28 13:29: 43 Yes Take by mouth daily. [facility] [place] [place] CONCERTA 18 MG ORAL TO24 08-28 13:29: 43 Yes once daily x 5days weekly [facility] [place] [place] VITAMIN B COMPLEX ORAL 08-28 13:29: 43 Yes Take by mouth daily. [facility] [place] [place] CONCERTA 18 MG ORAL TO24 08-28 13:29: 43 Yes once daily x 5days weekly [facility] [place] [place] VITAMIN B COMPLEX ORAL 08-28 13:29: 43 Yes Take by mouth daily. [facility] [place] [place] CONCERTA 18 MG ORAL TO24 08-28 13:29: 43 Yes once daily x 5days weekly [facility] [place] [place] VITAMIN B COMPLEX ORAL 08-28 13:29: 43 Yes Take by mouth daily. [facility] [place] [place] CONCERTA 18 MG ORAL TO24 08-28 13:29: 43 Yes once daily x 5days weekly [facility] [place] [place] VITAMIN B COMPLEX ORAL 08-28 13:29: 43 Yes Take by mouth daily. [facility] [place] [place] CONCERTA 18 MG ORAL TO24 08-28 13:29: 43 Yes once daily x 5days weekly [facility] VITAMIN B COMPLEX ORAL 2022-0 08-28 13:29: 43 Yes Take by mouth daily. [facility] CONCERTA 18 MG ORAL TO24 2022-0 08-28 13:29: 43 Yes once daily x 5days weekly [facility] VITAMIN B COMPLEX ORAL 2022-0 08-28 13:29: 43 Yes Take by mouth daily. [facility] methIMAzole 5 mg tablet 2022-0 08-28 00:00: 00 Yes [id number] 5mg Take 1 tablet by mouth in the morning. [facility] methIMAzole 5 mg tablet 2022-0 08-28 00:00: 00 Yes [id number] 5mg Take 1 tablet by mouth in the morning. [facility] methIMAzole 5 mg tablet 2022-0 08-28 00:00: 00 Yes [id number] 5mg Take 1 tablet by mouth in the morning. [facility] methIMAzole 5 mg tablet 2022-0 08-28 00:00: 00 Yes [id number] 5mg Take 1 tablet by mouth in the morning. [facility] methIMAzole 5 mg tablet 2022-0 08-28 00:00: 00 Yes [id number] 5mg Take 1 tablet by mouth in the morning. [facility] methIMAzole 5 mg tablet 3-0 08-28 00:00: 00 Yes [id number] 5mg Take 1 tablet by mouth in the morning. [facility] methIMAzole 5 mg tablet 3-0 08-28 00:00: 00 Yes [id number] 5mg Take 1 tablet by mouth in the morning. [facility] methIMAzole 5 mg tablet 3-0 -23 00:00: 00 Yes [id number] 5mg Take 1 tablet by mouth in the morning. [facility] methIMAzole 5 mg tablet 3-0 -23 00:00: 00 Yes [id number] 5mg Take 1 tablet by mouth in the morning. [facility] methIMAzole 5 mg tablet 3-0 -23 00:00: 00 Yes [id number] 5mg Take 1 tablet by mouth in the morning. [facility] [place] [place] methIMAzole 5 mg tablet 3-0 23 00:00: 00 Yes [id number] 5mg Take 1 tablet by mouth in the morning. [facility] [place] [place] methIMAzole 5 mg tablet 3-0 08-28 00:00: 00 02-26 00:00 :00 No [id number] 5mg Take 1 tablet by mouth in the morning. [facility] [place] [place] methIMAzole 5 mg tablet 3-0 08-28 00:00: 00 02-26 00:00 :00 No [id number] 5mg Take 1 tablet by mouth in the morning. [facility] [place] [place] benzonatate 100 mg capsule 3-0 -26 00:00: 00 Yes TAKE 1 CAPSULE BY MOUTH 3 TIMES A DAY [facility]10 mg Tab 3-0 -26 00:00: 00 Yes TAKE 1 TABLET 2 TIMES A DAY NEEDED FOR CONGESTION [facility] [place] [place] benzonatate 100 mg capsule 3-0 -26 00:00: 00 Yes TAKE 1 CAPSULE BY MOUTH 3 TIMES A DAY NEEDED FOR COUGH [facility] [place] [place] POLY HIST FORTE 10.5-10 mg Tab 3-0 -26 00:00: 00 Yes TAKE 1 TABLET 2 TIMES A DAY NEEDED FOR CONGESTION [facility] [place] [place] benzonatate 100 mg capsule 3-0 -26 00:00: 00 Yes TAKE 1 CAPSULE BY MOUTH 3 TIMES A DAY NEEDED FOR COUGH [facility] [place] [place] POLY HIST FORTE 10.5-10 mg Tab 3-0 -26 00:00: 00 Yes TAKE 1 TABLET 2 TIMES A DAY NEEDED FOR CONGESTION [facility] [place] [place] benzonatate 100 mg capsule 3-0 -26 00:00: 00 Yes TAKE 1 CAPSULE BY MOUTH 3 TIMES A DAY NEEDED FOR COUGH [facility] [place] [place] POLY HIST FORTE 10.5-10 mg Tab 3-0 -26 00:00: 00 Yes TAKE 1 TABLET 2 TIMES A DAY NEEDED FOR CONGESTION [facility] [place] [place] benzonatate 100 mg capsule 2023-0 5-26 00:00: 00 Yes TAKE 1 CAPSULE BY MOUTH 3 TIMES A DAY NEEDED FOR COUGH [facility] POLY HIST FORTE 10.5-10 mg Tab 3-0 26 00:00: 00 Yes TAKE 1 TABLET 2 TIMES A DAY NEEDED FOR CONGESTION [facility] benzonatate 100 mg capsule 3-0 26 00:00: 00 Yes TAKE 1 CAPSULE BY MOUTH 3 TIMES A DAY NEEDED FOR COUGH [facility] POLY HIST FORTE 10.5-10 mg Tab 3-0 26 00:00: 00 Yes TAKE 1 TABLET 2 TIMES A DAY NEEDED FOR CONGESTION [facility] benzonatate 100 mg capsule 3-0 26 00:00: 00 Yes TAKE 1 CAPSULE BY MOUTH 3 TIMES A DAY NEEDED FOR COUGH [facility] POLY HIST FORTE 10.5-10 mg Tab 3-0 26 00:00: 00 Yes TAKE 1 TABLET 2 TIMES A DAY NEEDED FOR CONGESTION [facility] benzonatate 100 mg capsule 3-0 26 00:00: 00 Yes TAKE 1 CAPSULE BY MOUTH 3 TIMES A DAY NEEDED FOR COUGH [facility] POLY HIST FORTE 10.5-10 mg Tab 3-0 26 00:00: 00 Yes TAKE 1 TABLET 2 TIMES A DAY NEEDED FOR CONGESTION [facility] benzonatate 100 mg capsule 3-0 26 00:00: 00 Yes TAKE 1 CAPSULE BY MOUTH 3 TIMES A DAY NEEDED FOR COUGH [facility] POLY HIST FORTE 10.5-10 mg Tab 3-0 26 00:00: 00 Yes TAKE 1 TABLET 2 TIMES A DAY NEEDED FOR CONGESTION [facility] benzonatate 100 mg capsule 3-0 26 00:00: 00 Yes TAKE 1 CAPSULE BY MOUTH 3 TIMES A DAY NEEDED FOR COUGH [facility] POLY HIST FORTE 10.5-10 mg Tab 3-0 -26 00:00: 00 Yes TAKE 1 TABLET 2 TIMES A DAY NEEDED FOR CONGESTION [facility] benzonatate 100 mg capsule 3-0 26 00:00: 00 Yes TAKE 1 CAPSULE BY MOUTH 3 TIMES A DAY NEEDED FOR COUGH Univers [facility] POLY HIST FORTE 10.5-10 mg Tab 2022-0 26 00:00: 00 Yes TAKE 1 TABLET 2 TIMES A DAY [facility] 20[facility]-0 26 00:00: 00 Yes TAKE 1 CAPSULE BY MOUTH 3 TIMES A DAY NEEDED FOR COUGH [facility] 10.5-10 mg Tab 2022-0 07-31 00:00: 00 Yes TAKE 1 TABLET 2 TIMES A DAY NEEDED FOR CONGESTION [facility] capsule 2022-0 07-31 00:00: 00 Yes TAKE 1 CAPSULE BY MOUTH 3 TIMES A DAY NEEDED FOR COUGH Univers [facility] POLY HIST FORTE 10.5-10 mg Tab 2022-0 07-31 00:00: 00 Yes TAKE 1 TABLET 2 TIMES A DAY NEEDED FOR CONGESTION Univers [facility] hydroCHLORO thiazide 25 mg tablet 2022-0 - 00:00: 00 Yes 25mg Take 1 tablet by mouth in the morning. [facility] hydroCHLORO thiazide 25 mg tablet 2022-0 - 00:00: 00 Yes 25mg Take 1 tablet by mouth in the morning. [facility] hydroCHLORO thiazide 25 mg tablet 2022-0 - 00:00: 00 Yes 25mg Take 1 tablet by mouth in the morning. [facility] hydroCHLORO thiazide 25 mg tablet 3-0 - 00:00: 00 Yes 25mg Take 1 tablet by mouth in the morning. [facility] hydroCHLORO thiazide 25 mg tablet 3-0 4- 00:00: 00 Yes 25mg Take 1 tablet by mouth in the morning. [facility] hydroCHLORO thiazide 25 mg tablet 3-0 4- 00:00: 00 Yes 25mg Take 1 tablet by mouth in the morning. [facility] hydroCHLORO thiazide 25 mg tablet 3-0 4- 00:00: 00 Yes 25mg Take 1 tablet by mouth in the morning. [facility] hydroCHLORO thiazide 25 mg tablet 3-0 4- 00:00: 00 Yes 25mg Take 1 tablet by mouth in the morning. [facility] hydroCHLORO thiazide 25 mg tablet 0 06-14 00:00: 00 Yes 25mg Take 1 tablet by mouth in the morning. [facility] hydroCHLORO thiazide 25 mg tablet 0 06-14 00:00: 00 Yes 25mg Take 1 tablet by mouth in the morning. [facility] hydroCHLORO thiazide 25 mg tablet 0 06-14 00:00: 00 Yes 25mg Take 1 tablet by mouth in the morning. [facility] hydroCHLORO thiazide 25 mg tablet 0 06-14 00:00: 00 Yes 25mg Take 1 tablet by mouth in the morning. [facility] hydroCHLORO thiazide 25 mg tablet 0 06-14 00:00: 00 Yes 25mg Take 1 tablet by mouth in the morning. [facility] RED YEAST RICE EXTRACT ORAL 2021-03 01:49: 42 02-17 00:00 :00 No Take by mouth. [facility] RED YEAST RICE EXTRACT ORAL 2021-03 01:49: 42 02-17 00:00 :00 No Take by mouth. [facility] MULTIVITS,C A,MINERALS/ IRON/FA (MULTI FOR HER ORAL) 2021-03 01:49: 36 02-17 00:00 :00 No Take by mouth. [facility] MULTIVITS,C A,MINERALS/ IRON/FA (MULTI FOR HER ORAL) 2021-03 01:49: 36 02-17 00:00 :00 No Take by mouth. [facility] irbesartan (AVAPRO) 300 mg tablet 2021-03 01:49: 30 02-17 00:00 :00 No 300mg Take 300 mg by mouth every morning. [facility] irbesartan (AVAPRO) 300 mg tablet 2021-03 01:49: 30 02-17 00:00 :00 No 300mg Take 300 mg by mouth every morning. [facility] FOLIC ACID/MV,FE, OTHER MIN (CENTRUM ORAL) 2021-03 01:49: 27 02-17 00:00 :00 No Take by mouth. [facility] FOLIC ACID/MV,FE, OTHER MIN (CENTRUM ORAL) 2021-03 01:49: 27 02-17 00:00 :00 No Take by mouth. [facility] ANNA LOW STRENGTH 81 MG ORAL TBEC 2021-03 01:49: 21 02-17 00:00 :00 No w/ heart guard -- once daily [facility] ANNA LOW STRENGTH 81 MG ORAL TBEC 2021-03 01:49: 21 02-17 00:00 :00 No w/ heart guard -- once daily [facility] alendronate 70 mg tablet 2021-03 00:00: 00 Yes [id number] 70mg Take 1 tablet by mouth weekly. [facility] methIMAzole 5 mg tablet 2021-03 00:00: 00 Yes [id number] 5mg Take 1 tablet by mouth in the morning. [facility] alendronate 70 mg tablet 2021-03 00:00: 00 Yes [id number] 70mg Take 1 tablet by mouth weekly. [facility] methIMAzole 5 mg tablet 2021-03 00:00: 00 Yes [id number] 5mg Take 1 tablet by mouth in the morning. [facility] alendronate 70 mg tablet 2021-03 00:00: 00 Yes [id number] 70mg Take 1 tablet by mouth weekly. [facility] methIMAzole 5 mg tablet 2021-03 00:00: 00 Yes [id number] 5mg Take 1 tablet by mouth in the morning. [facility] alendronate 70 mg tablet 2021-03 00:00: 00 Yes [id number] 70mg Take 1 tablet by mouth weekly. [facility] methIMAzole 5 mg tablet 2021-03 00:00: 00 Yes [id number] 5mg Take 1 tablet by mouth in the morning. [facility] alendronate 70 mg tablet 2021-03 00:00: 00 Yes [id number] 70mg Take 1 tablet by mouth weekly. [facility] alendronate 70 mg tablet 2021-03 00:00: 00 Yes [id number] 70mg Take 1 tablet by mouth weekly. [facility] alendronate 70 mg tablet 2021-03 00:00: 00 Yes [id number] 70mg Take 1 tablet by mouth weekly. [facility] alendronate 70 mg tablet 2021-03 00:00: 00 Yes [id number] 70mg Take 1 tablet by mouth weekly. [facility] alendronate 70 mg tablet 2021-03 00:00: 00 Yes [id number] 70mg Take 1 tablet by mouth weekly. [facility] alendronate 70 mg tablet 2021-03 00:00: 00 Yes [id number] 70mg Take 1 tablet by mouth weekly. [facility] alendronate 70 mg tablet 2021-03 00:00: 00 Yes [id number] 70mg Take 1 tablet by mouth weekly. [facility] alendronate 70 mg tablet 2021-03 00:00: 00 Yes [id number] 70mg Take 1 tablet by mouth weekly. [facility] alendronate 70 mg tablet 2021-03 00:00: 00 Yes [id number] 70mg Take 1 tablet by mouth weekly. [facility] alendronate 70 mg tablet 2021-03 00:00: 00 Yes [id number] 70mg Take 1 tablet by mouth weekly. [facility] alendronate 70 mg tablet 2021-03 00:00: 00 Yes [id number] 70mg Take 1 tablet by mouth weekly. [facility] alendronate 70 mg tablet 2021-03 00:00: 00 02-24 00:00 :00 No [id number] 70mg Take 1 tablet by mouth weekly. [facility] methIMAzole 5 mg tablet 2021-03 00:00: 00 08-28 00:00 :00 No [id number] 5mg Take 1 tablet by mouth in the morning. [facility] methIMAzole 5 mg tablet 2021- 2 00:00: 00 08-28 00:00 :00 No [id number] 5mg Take 1 tablet by mouth in the morning. [facility] methIMAzole 5 mg tablet 2021-0 8-12 00:00: 00 Yes [id number] 5mg Take 1 tablet by mouth in the morning. [facility] alendronate 70 mg tablet 2021-0 8-12 00:00: 00 Yes [id number] 70mg Take 1 tablet by mouth weekly. [facility] methIMAzole 5 mg tablet 2021-0 8- 00:00: 00 Yes [id number] 5mg Take 1 tablet by mouth in the morning. [facility] alendronate 70 mg tablet 2021-0 8-12 00:00: 00 Yes [id number] 70mg Take 1 tablet by mouth weekly. [facility] methIMAzole 5 mg tablet 2021-0 8-12 00:00: 00 Yes [id number] 5mg Take 1 tablet by mouth in the morning. [facility] alendronate 70 mg tablet 2021-0 8-12 00:00: 00 Yes [id number] 70mg Take 1 tablet by mouth weekly. [facility] methIMAzole 5 mg tablet 2021-0 8-12 00:00: 00 02-13 00:00 :00 No [id number] 5mg Take 1 tablet by mouth in the morning. [facility] alendronate 70 mg tablet 2021-0 8-12 00:00: 00 02-13 00:00 :00 No [id number] 70mg Take 1 tablet by mouth weekly. [facility] methIMAzole 5 mg tablet 2021-0 8-12 00:00: 00 02-13 00:00 :00 No [id number] 5mg Take 1 tablet by mouth in the morning. [facility] alendronate 70 mg tablet 2021-0 8-12 00:00: 00 02-13 00:00 :00 No [id number] 70mg Take 1 tablet by mouth weekly. [facility] ELIQUIS 5 mg tablet 03-10 00:00: 00 Yes 5mg Take 5 mg by mouth 2 (two) times daily. [facility] metoprolol tartrate 25 mg tablet 03-10 00:00: 00 Yes 25mg Take 25 mg by mouth 2 (two) times daily. [facility] ELIQUIS 5 mg tablet 03-10 00:00: 00 Yes 5mg Take 5 mg by mouth 2 (two) times daily. [facility] metoprolol tartrate 25 mg tablet 03-10 00:00: 00 Yes 25mg Take 25 mg by mouth 2 (two) times daily. [facility] ELIQUIS 5 mg tablet 03-10 00:00: 00 Yes 5mg Take 5 mg by mouth 2 (two) times daily. [facility] metoprolol tartrate 25 mg tablet 03-10 00:00: 00 Yes 25mg Take 25 mg by mouth 2 (two) times daily. [facility] ELIQUIS 5 mg tablet 03-10 00:00: 00 Yes 5mg Take 5 mg by mouth 2 (two) times daily. [facility] metoprolol tartrate 25 mg tablet 03-10 00:00: 00 Yes 25mg Take 25 mg by mouth 2 (two) times daily. [facility] ELIQUIS 5 mg tablet 03-10 00:00: 00 Yes 5mg Take 5 mg by mouth 2 (two) times daily. [facility] metoprolol tartrate 25 mg tablet 03-10 00:00: 00 Yes 25mg Take 25 mg by mouth 2 (two) times daily. [facility] ELIQUIS 5 mg tablet 03-10 00:00: 00 Yes 5mg Take 5 mg by mouth 2 (two) times daily. [facility] metoprolol tartrate 25 mg tablet 03-10 00:00: 00 Yes 25mg Take 25 mg by mouth 2 (two) times daily. [facility] ELIQUIS 5 mg tablet 03-10 00:00: 00 Yes 5mg Take 5 mg by mouth 2 (two) times daily. [facility] metoprolol tartrate 25 mg tablet 03-10 00:00: 00 Yes 25mg Take 25 mg by mouth 2 (two) times daily. [facility] ELIQUIS 5 mg tablet 03-10 00:00: 00 Yes 5mg Take 5 mg by mouth 2 (two) times daily. [facility] metoprolol tartrate 25 mg tablet 03-10 00:00: 00 Yes 25mg Take 25 mg by mouth 2 (two) times daily. [facility] ELIQUIS 5 mg tablet 03-10 00:00: 00 Yes 5mg Take 5 mg by mouth 2 (two) times daily. [facility] metoprolol tartrate 25 mg tablet 03-10 00:00: 00 Yes 25mg Take 25 mg by mouth 2 (two) times daily. [facility] ELIQUIS 5 mg tablet 03-10 00:00: 00 Yes 5mg Take 5 mg by mouth 2 (two) times daily. [facility] metoprolol tartrate 25 mg tablet 03-10 00:00: 00 Yes 25mg Take 25 mg by mouth 2 (two) times daily. [facility] ELIQUIS 5 mg tablet 03-10 00:00: 00 Yes 5mg Take 5 mg by mouth 2 (two) times daily. [facility] metoprolol tartrate 25 mg tablet 03-10 00:00: 00 Yes 25mg Take 25 mg by mouth 2 (two) times daily. [facility] ELIQUIS 5 mg tablet 03-10 00:00: 00 Yes 5mg Take 5 mg by mouth 2 (two) times daily. [facility] metoprolol tartrate 25 mg tablet 03-10 00:00: 00 Yes 25mg Take 25 mg by mouth 2 (two) times daily. [facility] ELIQUIS 5 mg tablet 03-10 00:00: 00 Yes 5mg Take 5 mg by mouth 2 (two) times daily. [facility] metoprolol tartrate 25 mg tablet 03-10 00:00: 00 Yes 25mg Take 25 mg by mouth 2 (two) times daily. [facility] ELIQUIS 5 mg tablet 03-10 00:00: 00 Yes 5mg Take 5 mg by mouth 2 (two) times daily. [facility] metoprolol tartrate 25 mg tablet 03-10 00:00: 00 Yes 25mg Take 25 mg by mouth 2 (two) times daily. [facility] ELIQUIS 5 mg tablet 03-10 00:00: 00 Yes 5mg Take 5 mg by mouth 2 (two) times daily. [facility] metoprolol tartrate 25 mg tablet 03-10 00:00: 00 Yes 25mg Take 25 mg by mouth 2 (two) times daily. [facility] ELIQUIS 5 mg tablet 03-10 00:00: 00 Yes 5mg Take 5 mg by mouth 2 (two) times daily. [facility] metoprolol tartrate 25 mg tablet 03-10 00:00: 00 Yes 25mg Take 25 mg by mouth 2 (two) times daily. [facility] ELIQUIS 5 mg tablet 03-10 00:00: 00 Yes 5mg Take 5 mg by mouth 2 (two) times daily. [facility] metoprolol tartrate 25 mg tablet 03-10 00:00: 00 Yes 25mg Take 25 mg by mouth 2 (two) times daily. [facility] ELIQUIS 5 mg tablet 03-10 00:00: 00 Yes 5mg Take 5 mg by mouth 2 (two) times daily. [facility] metoprolol tartrate 25 mg tablet 03-10 00:00: 00 Yes 25mg Take 25 mg by mouth 2 (two) times daily. [facility] ELIQUIS 5 mg tablet 03-10 00:00: 00 Yes 5mg Take 5 mg by mouth 2 (two) times daily. [facility] metoprolol tartrate 25 mg tablet 03-10 00:00: 00 Yes 25mg Take 25 mg by mouth 2 (two) times daily. [facility] ELIQUIS 5 mg tablet 03-10 00:00: 00 Yes 5mg Take 5 mg by mouth 2 (two) times daily. [facility] metoprolol tartrate 25 mg tablet 03-10 00:00: 00 Yes 25mg Take 25 mg by mouth 2 (two) times daily. [facility] ELIQUIS 5 mg tablet 03-10 00:00: 00 Yes 5mg Take 5 mg by mouth 2 (two) times daily. [facility] metoprolol tartrate 25 mg tablet 03-10 00:00: 00 Yes 25mg Take 25 mg by mouth 2 (two) times daily. [facility] PROPRANOLOL 10 mg tablet 0 10-02 00:00: 00 Yes [id number] TAKE 1 TABLET BY MOUTH EVERY DAY [facility] PROPRANOLOL 10 mg tablet 0 10-02 00:00: 00 Yes [id number] TAKE 1 TABLET BY MOUTH EVERY DAY [facility] PROPRANOLOL 10 mg tablet 0 10-02 00:00: 00 Yes [id number] TAKE 1 TABLET BY MOUTH EVERY DAY [facility] PROPRANOLOL 10 mg tablet 0 10-02 00:00: 00 Yes [id number] TAKE 1 TABLET BY MOUTH EVERY DAY [facility] PROPRANOLOL 10 mg tablet 2019-0 10-02 00:00: 00 02-17 00:00 :00 No [id number] TAKE 1 TABLET BY MOUTH EVERY DAY [facility] PROPRANOLOL 10 mg tablet 2019-0 28 00:00: 00 02-17 00:00 :00 No [id number] TAKE 1 TABLET BY MOUTH EVERY DAY [facility] atorvastati n 10 mg tablet 3-02 00:00: 00 Yes [id number] TAKE 1 TABLET BY MOUTH AT BEDTIME. [facility] atorvastati n 10 mg tablet 05-07 00:00: 00 Yes [id number] TAKE 1 TABLET BY MOUTH AT BEDTIME. [facility] atorvastati n 10 mg tablet 05-07 00:00: 00 Yes [id number] TAKE 1 TABLET BY MOUTH AT BEDTIME. [facility] atorvastati n 10 mg tablet 05-07 00:00: 00 Yes [id number] TAKE 1 TABLET BY MOUTH AT BEDTIME. [facility] atorvastati n 10 mg tablet 05-07 00:00: 00 02-17 00:00 :00 No [id number] TAKE 1 TABLET BY MOUTH AT BEDTIME. [facility] atorvastati n 10 mg tablet 05-07 00:00: 00 02-17 00:00 :00 No [id number] TAKE 1 TABLET BY MOUTH AT BEDTIME. [facility] ANNA LOW STRENGTH 81 MG ORAL TBEC 03-13 15:48: 40 Yes w/ heart guard -- once daily [facility] PEXEVA 40 MG ORAL TAB 03-13 15:48: 40 Yes 1 daily [facility] CONCERTA 18 MG ORAL TO24 03-13 15:48: 40 Yes once daily x 5days weekly [facility] RED YEAST RICE EXTRACT ORAL 03-13 15:48: 40 Yes Take by mouth. [facility] irbesartan (AVAPRO) 300 mg tablet 03-13 15:48: 40 Yes 300mg Take 300 mg by mouth every morning. [facility] MULTIVITS,C A,MINERALS/ IRON/FA (MULTI FOR HER ORAL) 03-13 15:48: 40 Yes Take by mouth. [facility] FOLIC ACID/MV,FE, OTHER MIN (CENTRUM ORAL) 03-13 15:48: 40 Yes Take by mouth. [facility] VITAMIN B COMPLEX ORAL 03-13 15:48: 40 Yes Take by mouth daily. [facility] ANNA LOW STRENGTH 81 MG ORAL TBEC 03-13 15:48: 40 Yes w/ heart guard -- once daily [facility] PEXEVA 40 MG ORAL TAB 03-13 15:48: 40 Yes 1 daily [facility] CONCERTA 18 MG ORAL TO24 03-13 15:48: 40 Yes once daily x 5days weekly [facility] RED YEAST RICE EXTRACT ORAL 03-13 15:48: 40 Yes Take by mouth. [facility] irbesartan (AVAPRO) 300 mg tablet 03-13 15:48: 40 Yes 300mg Take 300 mg by mouth every morning. [facility] MULTIVITS,C A,MINERALS/ IRON/FA (MULTI FOR HER ORAL) 03-13 15:48: 40 Yes Take by mouth. [facility] FOLIC ACID/MV,FE, OTHER MIN (CENTRUM ORAL) 03-13 15:48: 40 Yes Take by mouth. [facility] VITAMIN B COMPLEX ORAL 03-13 15:48: 40 Yes Take by mouth daily. [facility] ANNA LOW STRENGTH 81 MG ORAL TBEC 03-13 15:48: 40 Yes w/ heart guard -- once daily [facility] PEXEVA 40 MG ORAL TAB 03-13 15:48: 40 Yes 1 daily [facility] CONCERTA 18 MG ORAL TO24 03-13 15:48: 40 Yes once daily x 5days weekly [facility] RED YEAST RICE EXTRACT ORAL 03-13 15:48: 40 Yes Take by mouth. [facility] irbesartan (AVAPRO) 300 mg tablet 03-13 15:48: 40 Yes 300mg Take 300 mg by mouth every morning. [facility] MULTIVITS,C A,MINERALS/ IRON/FA (MULTI FOR HER ORAL) 03-13 15:48: 40 Yes Take by mouth. [facility] FOLIC ACID/MV,FE, OTHER MIN (CENTRUM ORAL) 03-13 15:48: 40 Yes Take by mouth. [facility] [place] [place] VITAMIN B COMPLEX ORAL 03-13 15:48: 40 Yes Take by mouth daily. [facility] [place] [place] ANNA LOW STRENGTH 81 MG ORAL TBEC 03-13 15:48: 40 Yes w/ heart guard -- once daily [facility] [place] [place] PEXEVA 40 MG ORAL TAB 03-13 15:48: 40 Yes 1 daily [facility] [place] [place] CONCERTA 18 MG ORAL TO24 03-13 15:48: 40 Yes once daily x 5days weekly [facility] [place] [place] RED YEAST RICE EXTRACT ORAL 03-13 15:48: 40 Yes Take by mouth. [facility] [place] [place] irbesartan (AVAPRO) 300 mg tablet 03-13 15:48: 40 Yes 300mg Take 300 mg by mouth every morning. [facility] MULTIVITS,C A,MINERALS/ IRON/FA (MULTI FOR HER ORAL) 03-13 15:48: 40 Yes Take by mouth. [facility] [place] [place] FOLIC ACID/MV,FE, OTHER MIN (CENTRUM ORAL) 03-13 15:48: 40 Yes Take by mouth. [facility] [place] [place] VITAMIN B COMPLEX ORAL 03-13 15:48: 40 Yes Take by mouth daily. [facility] [place] [place] PEXEVA 40 MG ORAL TAB 03-13 15:48: 40 Yes 1 daily [facility] [place] [place] CONCERTA 18 MG ORAL TO24 03-13 15:48: 40 Yes once daily x 5days weekly [facility] [place] [place] VITAMIN B COMPLEX ORAL 03-13 15:48: 40 Yes Take by mouth daily. [facility] [place] [place] PEXEVA 40 MG ORAL TAB 03-13 15:48: 40 Yes 1 daily [facility] [place] [place] CONCERTA 18 MG ORAL TO24 03-13 15:48: 40 Yes once daily x 5days weekly [facility] [place] [place] VITAMIN B COMPLEX ORAL 03-13 15:48: 40 Yes Take by mouth daily. [facility] [place] [place] PEXEVA 40 MG ORAL TAB 03-13 15:48: 40 Yes 1 daily [facility] CONCERTA 18 MG ORAL TO24 03-13 15:48: 40 Yes once daily x 5days weekly [facility] VITAMIN B COMPLEX ORAL 03-13 15:48: 40 Yes Take by mouth daily. [facility] hydroCHLORO thiazide 25 mg tablet 03-13 00:00: 00 Yes [id number] 25mg Take 1 tablet by mouth daily. [facility] codeine-gua ifenesin 10-100 mg/5 mL solution 03-13 00:00: 00 Yes [id number] 5mL Take 5 mL by mouth every 6 (six) hours as needed for Cough. [facility] hydroCHLORO thiazide 25 mg tablet 03-13 00:00: 00 Yes [id number] 25mg Take 1 tablet by mouth daily. [facility] codeine-gua ifenesin 10-100 mg/5 mL solution 03-13 00:00: 00 Yes [id number] 5mL Take 5 mL by mouth every 6 (six) hours as needed for Cough. [facility] hydroCHLORO thiazide 25 mg tablet 03-13 00:00: 00 Yes [id number] 25mg Take 1 tablet by mouth daily. [facility] codeine-gua ifenesin 10-100 mg/5 mL solution 03-13 00:00: 00 Yes [id number] 5mL Take 5 mL by mouth every 6 (six) hours as needed for Cough. [facility] hydroCHLORO thiazide 25 mg tablet 03-13 00:00: 00 Yes [id number] 25mg Take 1 tablet by mouth daily. [facility] codeine-gua ifenesin 10-100 mg/5 mL solution 03-13 00:00: 00 Yes [id number] 5mL Take 5 mL by mouth every 6 (six) hours as needed for Cough. [facility] codeine-gua ifenesin 10-100 mg/5 mL solution 03-13 00:00: 00 Yes [id number] 5mL Take 5 mL by mouth every 6 (six) hours as needed for Cough. [facility] codeine-gua ifenesin 10-100 mg/5 mL solution 03-13 00:00: 00 Yes [id number] 5mL Take 5 mL by mouth every 6 (six) hours as needed for Cough. [facility] codeine-gua ifenesin 10-100 mg/5 mL solution 03-13 00:00: 00 Yes [id number] 5mL Take 5 mL by mouth every 6 (six) hours as needed for Cough. [facility] codeine-gua ifenesin 10-100 mg/5 mL solution 03-13 00:00: 00 Yes [id number] 5mL Take 5 mL by mouth every 6 (six) hours as needed for Cough. [facility] codeine-a ifenesin 10-100 mg/5 mL solution 03-13 00:00: 00 Yes [id number] 5mL Take 5 mL by mouth every 6 (six) hours as needed for Cough. [facility] codeine-a ifenesin 10-100 mg/5 mL solution 03-13 00:00: 00 Yes [id number] 5mL Take 5 mL by mouth every 6 (six) hours as needed for Cough. [facility] codeine-gua ifenesin 10-100 mg/5 mL solution 03-13 00:00: 00 Yes [id number] 5mL Take 5 mL by mouth every 6 (six) hours as needed for Cough. [facility] codeine-gua ifenesin 10-100 mg/5 mL solution 03-13 00:00: 00 Yes [id number] 5mL Take 5 mL by mouth every 6 (six) hours as needed for Cough. [facility] codeine-a ifenesin 10-100 mg/5 mL solution 03-13 00:00: 00 Yes [id number] 5mL Take 5 mL by mouth every 6 (six) hours as needed for Cough. [facility] codeine-a ifenesin 10-100 mg/5 mL solution 03-13 00:00: 00 Yes [id number] 5mL Take 5 mL by mouth every 6 (six) hours as needed for Cough. [facility] codeine-gua ifenesin 10-100 mg/5 mL solution 03-13 00:00: 00 Yes [id number] 5mL Take 5 mL by mouth every 6 (six) hours as needed for Cough. [facility] codeine-gua ifenesin 10-100 mg/5 mL solution 03-13 00:00: 00 Yes [id number] 5mL Take 5 mL by mouth every 6 (six) hours as needed for Cough. [facility] codeine-gua ifenesin 10-100 mg/5 mL solution 03-13 00:00: 00 Yes [id number] 5mL Take 5 mL by mouth every 6 (six) hours as needed for Cough. [facility] codeine-a ifenesin 10-100 mg/5 mL solution 03-13 00:00: 00 Yes [id number] 5mL Take 5 mL by mouth every 6 (six) hours as needed for Cough. [facility] codeine-gua ifenesin 10-100 mg/5 mL solution 03-13 00:00: 00 Yes [id number] 5mL Take 5 mL by mouth every 6 (six) hours as needed for Cough. [facility] codeine-gua ifenesin 10-100 mg/5 mL solution 03-13 00:00: 00 Yes [id number] 5mL Take 5 mL by mouth every 6 (six) hours as needed for Cough. [facility] codeine-a ifenesin 10-100 mg/5 mL solution 03-13 00:00: 00 Yes [id number] 5mL Take 5 mL by mouth every 6 (six) hours as needed for Cough. [facility] hydroCHLORO thiazide 25 mg tablet 03-13 00:00: 00 02-17 00:00 :00 No [id number] 25mg Take 1 tablet by mouth daily. [facility] hydroCHLORO thiazide 25 mg tablet 03-13 00:00: 00 02-17 00:00 :00 No [id number] 25mg Take 1 tablet by mouth daily. [facility] paroxetine 40 mg tablet 2016-03 00:00: 00 Yes TAKE 1 TABLET BY MOUTH ONCE A DAY [facility] paroxetine 40 mg tablet 2016-03 00:00: 00 Yes TAKE 1 TABLET BY MOUTH ONCE A DAY [facility] paroxetine 40 mg tablet 2016-03 00:00: 00 Yes TAKE 1 TABLET BY MOUTH ONCE A DAY [facility] paroxetine 40 mg tablet 2016-03 00:00: 00 Yes TAKE 1 TABLET BY MOUTH ONCE A DAY [facility] paroxetine 40 mg tablet 2016-03 00:00: 00 Yes TAKE 1 TABLET BY MOUTH ONCE A DAY [facility] paroxetine 40 mg tablet 2016-03 00:00: 00 Yes TAKE 1 TABLET BY MOUTH ONCE A DAY [facility] paroxetine 40 mg tablet 2016-03 00:00: 00 Yes TAKE 1 TABLET BY MOUTH ONCE A DAY [facility] paroxetine 40 mg tablet 2016-03 00:00: 00 Yes TAKE 1 TABLET BY MOUTH ONCE A DAY [facility] paroxetine 40 mg tablet 2016-03 00:00: 00 Yes TAKE 1 TABLET BY MOUTH ONCE A DAY [facility] paroxetine 40 mg tablet 2016-03 00:00: 00 Yes TAKE 1 TABLET BY MOUTH ONCE A DAY [facility] paroxetine 40 mg tablet 2016-03 00:00: 00 Yes TAKE 1 TABLET BY MOUTH ONCE A DAY [facility] paroxetine 40 mg tablet 2016-03 00:00: 00 Yes TAKE 1 TABLET BY MOUTH ONCE A DAY [facility] paroxetine 40 mg tablet 2016-03 00:00: 00 Yes TAKE 1 TABLET BY MOUTH ONCE A DAY [facility] paroxetine 40 mg tablet 2016-03 00:00: 00 Yes TAKE 1 TABLET BY MOUTH ONCE A DAY [facility] paroxetine 40 mg tablet 2016-03 00:00: 00 Yes TAKE 1 TABLET BY MOUTH ONCE A DAY [facility] paroxetine 40 mg tablet 2016-03 00:00: 00 Yes TAKE 1 TABLET BY MOUTH ONCE A DAY [facility] paroxetine 40 mg tablet 2016-03 00:00: 00 Yes TAKE 1 TABLET BY MOUTH ONCE A DAY [facility] paroxetine 40 mg tablet 2016-03 00:00: 00 Yes TAKE 1 TABLET BY MOUTH ONCE A DAY [facility] paroxetine 40 mg tablet 2016-03 00:00: 00 Yes TAKE 1 TABLET BY MOUTH ONCE A DAY [facility] paroxetine 40 mg tablet 2016-03 00:00: 00 Yes TAKE 1 TABLET BY MOUTH ONCE A DAY [facility] paroxetine 40 mg tablet 2016-03 00:00: 00 Yes TAKE 1 TABLET BY MOUTH ONCE A DAY [facility] Vital Signs Vital Name Observation Time Observation Value Comments S oursabino Systolic blood pressure 2023-02-26 20:02:00 213 mm[Hg] [facility] Diastolic blood pressure 2023-02-26 20:02:00 99 mm[Hg] [facility] Body weight 2023-02-26 19:54:00 52.481 kg [facility] BMI 2023-02-26 19:54:00 22.60 kg/m2 [facility] Systolic blood pressure 2022-08-28 18:16:00 103 mm[Hg] [facility] Diastolic blood pressure 2022-08-28 18:16:00 66 mm[Hg] [facility] Heart rate 2022-08-28 18:16:00 60 /min [facility] Respiratory rate 2022-08-28 18:16:00 18 /min [facility] Body weight 2022-08-28 18:16:00 53.071 kg [facility] BMI 2022-08-28 18:16:00 22.85 kg/m2 [facility] Oxygen saturation in Arterial blood by Pulse oximetry 2022-08-28 18:16:00 98 /min [facility] Systolic blood pressure 2022-02-13 20:09:00 148 mm[Hg] [facility] Diastolic blood pressure 2022-02-13 20:09:00 81 mm[Hg] [facility] Heart rate 2022-02-13 20:01:00 60 /min [facility] Body weight 2022-02-13 20:01:00 51.574 kg [facility] BMI 2022-02-13 20:01:00 22.21 kg/m2 [facility] Oxygen saturation in Arterial blood by Pulse oximetry 2022-02-13 20:01:00 98 /min [facility] Procedures Procedure Date / Time Performed Performing Clinicia n Source POCT HEMOGLOBIN A1C TEST 2023-02-26 20:05:00 Stanford Mcbride [facility] DEXA AXIAL (HIP AND SPINE) 2022-09-28 18:02:00 Claudine Ramey [facility] US HEAD NECK 2022-09-28 17:56:22 Claudine Ramey [facility] ASSIGNMENT OF BENEFITS 2022-09-28 16:55:24 Docto r Unassigned, Oliver [facility] POCT HEMOGLOBIN A1C TEST 2022-02-13 20:11:00 Stanford Mcbride [facility] Encounters Start Date/Time End Date/Time Encounter Type Admission Type Attending Clinicians Care Facility Care Department Encounter ID Source 2023-09-03 15:30:00 2023-09-03 15:30:00 Outpatient R STANFORD MCBRIDE [facility] [id number] [facility] 2023-02-26 14:30:00 2023-02-26 14:57:42 Outpatient R STANFORD MCBRIDE [facility] [id number] [facility] 2023-02-26 14:30:00 2023-02-26 14:57:42 Office Visit Stanford Mcbride [facility] 1.2.840.114 350.1.13.10 4.2.7.2.686 [id number] [facility] 2023-02-21 00:00:00 2023-02-21 00:00:00 Stanford Angel [facility] 1.284.114 350.1.13.10 4.2.7.2.686 [id number] [facility] 2022-10-05 00:00:00 2022-10-05 00:00:00 [facility] 1.284.114 350.1.13.10 4.2.7.2.686 [id number] [facility] 2022-10-05 00:00:00 2022-10-05 00:00:00 Patient Secure Msg Doctor Unassigned, Oliver [facility] 1.284.114 350.1.13.10 4.2.7.2.686 [id number] [facility] 2022-09-28 11:59:24 2022-09-28 23:59:00 Hospital Encounter Claudine Ramey [facility] 1.2.114 350.1.13.10 4.2.7.2.686 [id number] [facility] 2022-09-28 11:58:51 2022-09-28 11:58:51 Outpatient R CLAUDINE RAMEY [facility] [id number] [facility] 2022-09-28 11:58:51 2022-09-28 11:58:51 Hospital Encounter Tanvir [facility] 1.2.114 350.1.13.10 4.2.7.2.686 [id number] [facility] 2022-09-28 00:00:00 2022-09-28 00:00:00 Orders Only Doctor Unassigned, Oliver [facility] 1.2.114 350.1.13.10 4.2.7.2.686 [id number] [facility] 2022-09-04 00:00:00 2022-09-04 00:00:00 Telephone Tanvir [facility] 1.2.840.114 350.1.13.10 4.2.7.2.686 [id number] [facility] 2022-09-01 00:00:00 2022-09-01 00:00:00 Patient Secure Msg Doctor Unassigned, Oliver [facility] 1.2.840.114 350.1.13.10 4.2.7.2.686 [id number] [facility] 2022-08-28 13:45:00 2022-08-28 14:00:00 Able Seaman Visit Lab, [facility] - Bakari [facility] 1.2.840.114 350.1.13.10 4.2.7.2.686 [id number] [facility] 2022-08-28 13:00:00 2022-08-28 13:51:03 Outpatient R [facility] [id number] [facility] 2022-08-28 13:00:00 2022-08-28 13:51:03 [facility] 1.2.840.114 350.1.13.10 4.2.7.2.686 [id number] [facility] 2022-08-14 13:30:00 2022-08-14 13:30:00 Outpatient R STANFORD MCBRIDE [facility] [id number] [facility] 2022-07-22 00:00:00 2022-07-22 00:00:00 Telephone Stanford Mcbride [facility] 1..840.114 350.1.13.10 4.2.7.2.686 [id number] [facility] 2022-07-11 00:00:00 2022-07-11 00:00:00 Patient Secure Msg Doctor Unassigned, Oliver [facility] 1..840.114 350.1.13.10 4.2.7.2.686 [id number] [facility] 2022-03-03 09:00:00 2022-03-03 09:00:00 Outpatient R [facility] [id number] [facility] 2022-03-03 09:00:00 2022-03-03 09:00:00 Outpatient R [facility] [id number] [facility] 2022-02-13 15:30:00 2022-02-13 15:45:00 Able Seaman Visit Lab, Gonsalo Villegas Stanford Mcbride [facility] 1..840.114 350.1.13.10 4.2.7.2.686 [id number] [facility] 2022-02-13 14:30:00 2022-02-13 15:10:34 Outpatient R STANFORD MCBRIDE [facility] [id number] [facility] 2022-02-13 14:30:00 2022-02-13 15:10:34 Office Visit Stanford Mcbride [facility] 1.2.840.114 350.1.13.10 4.2.7.2.686 [id number] [facility] 2021-11-07 09:00:00 2021-11-07 09:15:00 Able [facility], Gonsalo Hathaway [facility] [place]?[facility] [id number] 350.1.13.10 4.2.7.2.686 [id number] [facility] 2021-11-07 09:00:00 2021-11-07 09:00:00 Outpatient R [facility] [id number] [facility] 2021-11-07 09:00:00 2021-11-07 09:00:00 Outpatient R [facility] [id number] [facility] 2021-11-07 09:00:00 2021-11-07 09:00:00 Outpatient R [facility] [id number] [facility] 2021-11-06 00:00:00 2021-11-06 00:00:00 Refill Mag [facility] [place]?[facility] 1..840.114 350.1.13.10 4.2.7.2.686 [id number] [facility] 2021-10-17 00:00:00 2021-10-17 00:00:00 Telephone Mag [facility] 1..840.114 350.1.13.10 4.2.7.2.686 [id number] [facility] 2021-08-26 09:45:00 2021-08-26 10:00:00 Able [facility] Visit [facility], Gonsalo Hathaway [facility] [place]?[facility] 1..840.114 350.1.13.10 4.2.7.2.686 [id number] [facility] 2021-08-26 09:00:00 2021-08-26 09:44:21 Outpatient R [facility] [id number] [facility] 2021-08-26 09:00:00 2021-08-26 09:44:21 Office Visit Mag [facility] [place]?[facility] 1.2840.114 350.1.13.10 4.2.7.2.686 [id number] [facility] 2021-06-27 00:00:00 2021-06-27 00:00:00 Telephone Mag [facility] [place] [facility] 1.0.114 350.1.13.10 4.2.7.2.686 [id number] [facility] 2021-05-23 08:57:32 2021-05-23 23:59:00 Hospital Encounter Mag [facility] 1.0.114 350.1.13.10 4.2.7.2.686 [id number] [facility] 2021-05-23 08:57:14 2021-05-23 08:56:00 Outpatient R [facility] [id number] [facility] 2021-05-23 08:40:00 2021-05-23 08:56:00 Hospital Encounter Mag [facility] 1..114 350.1.13.10 4.2.7.2.686 [id number] [facility] 2021-05-14 14:30:00 2021-05-14 14:30:00 Outpatient R [facility] [id number] [facility] 2021-05-14 00:00:00 2021-05-14 00:00:00 Orders Only Doctor Unassigned, Oliver [facility] 1.2.114 350.1.13.10 4.2.7.2.686 [id number] [facility] Results Test Description Test Time Test Comments Results Result Co mments Source [facility] [id number] 20:06:00* Test Item Value Reference Range Interpretation Comme nts POCT HBA1C (test code = 4548-4) 5.6 % 4-6 [facility] HEMOGLOBIN A1C [id number] 20:13:00* Test Item Value Reference Range Interpretation Comme nts POCT HBA1C (test code = 4548-4) 5.2 % 4-6 [facility] HEMOGLOBIN A1C [id number] 20:13:00* Test Item Value Reference Range Interpretation Comme nts POCT HBA1C (test code = 4548-4) 5.2 % 4-6 [facility] Notes Date/Time Note Provider Source 2022-10-05 10:03:21 [id number]/+[id number]:03:21F ormatting of this note might be different from the original.Called Mrs. Ovalles and left a her a voice message to let her know about her lab results for her DEXA Scan and her Thyroid Ultrasound Scan. 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 When Dr. Mcbride sees you in February he will make some changes. [id number] encounter [id number]:05:56Telephone encounter [id number] 9|[id number] for patient [id number] [id number] [id number]:05:561.2.840 .[id number]. [id number] [facility]"
[2023-05-10] MEDS ORDERED: OXYMETAZOLINE HCL 0.05% 15ML NAS ONE (01:09)
[2023-05-10] MEDS ORDERED: LABETALOL 20 MG/4ML SYRINGE IV ONE (01:10)
[2023-05-10 02:01] LABS: PT Prothrombin Time 21.6 SECONDS (9.5-12.5)
[2023-05-10 02:02] LABS: Absolute Basophils 0.1 K/uL (0-0.5); Absolute Eosinophils 0.3 K/uL (0-0.5); Absolute Lymphocytes (CBC) 1.2 K/uL (0.7-4.9); Absolute Monocytes 0.4 K/uL (0.1-1.3); Absolute Neutrophil 2.7 K/uL (1.8-8.0); Basophils % 1.2 % (0-1.3); Eosinophils % 7.5 % (0-4.4); Hematocrit 28.8 % (36.0-45.0); Hemoglobin 9.6 g/dL (12.0-15.0); Lymphocytes % 25.3 % (15.3-44.8); MCHC 33.4 g/dL (32.0-36.0); MCV 80.7 fL (80-100); MPV 9.2 fL (7.6-11.3); Monocytes % 7.8 % (3.3-12.3); Neutrophils % 58.2 % (41.7-73.7); Platelets 217 thou/uL (152-406); RBC Red Blood Cell Count 3.57 M/uL (3.86-4.86)
[2023-05-10 02:13] LABS: Anion Gap 9.1 mEq/L (5.0-15.0); Potassium 3.1 mEq/L (3.5-5.1)
[2023-05-10] MEDS ORDERED: HYDRALAZINE HCL 20 MG/ML VIAL ONE (02:14)
--- NOTE | 2023-05-10 02:28 | EDPHYS ---
Physician Documentation [facility] Name: Carmelita Ovalles Age: 72 yrs Sex: Female : 1950 Arrival Date: 05/10/2023 Time: 00:36 Bed 16 Private MD: ED Physician Edison Cao HPI: 05/09 02:22 This 72 yrs old Female presents to ER via EMS with complaints of hypertension, sp3 epistaxis. 02:22 72-year-old female with history of hypertension, hypothyroidism presents to the ED with sp3 chief complaint hypertension with blood pressure systolically in the 200 range with new onset epistaxis of the left nare. Patient is on Eliquis for unknown reason with possible paroxysmal atrial fibrillation in the past. Patient denies any chest pain, shortness of breath or other abnormalities. Review of systems negative for headache, neck pain, abdominal pain, nausea, vomiting, diarrhea, syncope, near syncope, weakness, focal neurological deficit, travel history, fever, URI symptoms, known sick contacts, prolonged immobilization, or any other signs or symptoms on ROS at this time.. Historical: - Allergies: 05/08 00:34 No Known Allergies; as9 - PMHx: 00:34 depressive disorder; Hypertension; Hypothyroidism; as9 - PSHx: 00:34 None; as9 - Immunization history:: Client reports receiving the 2nd dose of the Covid vaccine, Pneumococcal vaccine is up to date, Flu vaccine is up to date. - Social history:: Smoking status: Patient denies any tobacco usage or history of. Patient/guardian denies using alcohol, street drugs. ROS: 05/09 02:23 Constitutional: Negative for fever, chills, and weight loss, Eyes: Negative for injury, sp3 pain, redness, and discharge, Neck: Negative for injury, pain, and swelling, Respiratory: Negative for shortness of breath, cough, wheezing, and pleuritic chest pain, Abdomen/GI: Negative for abdominal pain, nausea, vomiting, diarrhea, and constipation, Back: Negative for injury and pain, MS/Extremity: Negative for injury and deformity, Skin: Negative for injury, rash, and discoloration, Neuro: Negative for headache, weakness, numbness, tingling, and seizure, Psych: Negative for depression, anxiety, suicide ideation, homicidal ideation, and hallucinations, Allergy/Immunology: Negative for hives, rash, and allergies, Endocrine: Negative for neck swelling, polydipsia, polyuria, polyphagia, and marked weight changes, Hematologic/Lymphatic: Negative for swollen nodes, abnormal bleeding, and unusual bruising, All other systems are negative, Exam: 02:24 Constitutional: This is a well developed, well nourished patient who is awake, alert, sp3 and in no acute distress. Head/Face: Normocephalic, atraumatic. Eyes: Pupils equal round and reactive to light, extra-ocular motions intact. Lids and lashes normal. Conjunctiva and sclera are non-icteric and not injected. Cornea within normal limits. Periorbital areas with no swelling, redness, or edema. Neck: Trachea midline, no thyromegaly or masses palpated, and no cervical lymphadenopathy. Supple, full range of motion without nuchal rigidity, or vertebral point tenderness. No Meningismus. Chest/axilla: Normal chest wall appearance and motion. Nontender with no deformity. No lesions are appreciated. Cardiovascular: Regular rate and rhythm with a normal S1 and S2. No gallops, murmurs, or rubs. Normal PMI, no JVD. No pulse deficits. Respiratory: Lungs have equal breath sounds bilaterally, clear to auscultation and percussion. No rales, rhonchi or wheezes noted. No increased work of breathing, no retractions or nasal flaring. Back: No spinal tenderness. No costovertebral tenderness. Full range of motion. Skin: Warm, dry with normal turgor. Normal color with no rashes, no lesions, and no evidence of cellulitis. MS/ Extremity: Pulses equal, no cyanosis. Neurovascular intact. Full, normal range of motion. Neuro: Awake and alert, GCS 15, oriented to person, place, time, and situation. Cranial nerves II-XII grossly intact. Motor strength 5/5 in all extremities. Sensory grossly intact. Cerebellar exam normal. Normal gait. 02:24 ENT: Left nare with ongoing epistaxis and fresh clots.. 02:24 ECG was reviewed by the Attending Physician. EKG demonstrates normal sinus rhythm at 70 bpm with normal intervals except QTc of 483, high voltage, nonspecific ST/T changes anteriorly. Vital Signs: 00:34 BP 200 / 108; Pulse 73; Resp 20; Temp 96.9; Pulse Ox 99% on R/A; Weight 51.26 kg; as9 Height 5 ft. 0 in. ; 01:07 BP 170 / 137; Pulse 71; Resp 20; Temp 97; Pulse Ox 99% on R/A; as9 01:15 BP 157 / 103; Pulse 72; Resp 20; Pulse Ox 99% on R/A; as9 01:18 BP 189 / 89; Pulse 71; Resp 20; Pulse Ox 99% on R/A; as9 01:38 BP 175 / 82; Pulse 68; Resp 20; Pulse Ox 97% on R/A; as9 01:45 BP 163 / 94; Pulse 71; Resp 19; Pulse Ox 96% on R/A; as9 02:01 BP 181 / 84; Pulse 66; Resp 18; Pulse Ox 96% on R/A; as9 02:30 BP 133 / 68; Pulse 75; Resp 16; Pulse Ox 97% on R/A; Pain 0/10; pf1 02:51 BP 140 / 77; Pulse 74; Resp 18; Pulse Ox 98% on R/A; as9 03:15 BP 124 / 62; Pulse 70; Resp 18; Pulse Ox 98% on R/A; as9 03:35 BP 118 / 59; Pulse 72; Resp 18; Temp 97.8; Pulse Ox 99% on R/A; as9 00:34 Body Mass Index 22.07 (51.26 kg, 152.4 cm) as9 02:30 Pain Scale: Adult pf1 MDM: 00:49 Patient medically screened. sp3 02:25 Data reviewed: vital signs, nurses notes, lab test result(s), EKG, radiologic studies. sp3 ED course: 72-year-old female with hypertensive urgency not relieved with labetalol and hydralazine. Epistaxis was stopped with single dose Afrin after blowing of clots and direct pressure for 10 minutes. EKG does show T wave inversions precordially with Maring T wave inversions in lead III and aVF. No Wellens criteria present. Patient's troponin is elevated at 192 in the setting of normal creatinine. Given these findings and hypertension, we will admit patient with cardiology consultation. Serial troponins and close monitoring of blood pressure will ensue.. 05/09 00:50 Order name: Basic Metabolic Panel; Complete Time: 02:20 sp3 05/09 00:50 Order name: CBC with Diff; Complete Time: 02:19 sp3 05/09 00:50 Order name: PT-INR; Complete Time: 02:19 sp3 05/09 00:50 Order name: Troponin HS; Complete Time: 02:20 sp3 05/09 02:56 Order name: Urinalysis w/ reflexes pf1 05/09 03:35 Order name: Lipid Profile EDMS 05/09 03:35 Order name: Lipid Profile EDMS 05/09 03:35 Order name: Troponin High Sensitivity EDMS 05/09 03:35 Order name: Troponin High Sensitivity EDMS 05/09 03:35 Order name: Troponin High Sensitivity EDMS 05/09 03:35 Order name: Troponin High Sensitivity EDMS / 03:35 Order name: Echo with Doppler EDMS 05/09 00:50 Order name: EKG; Complete Time: 00:50 sp3 05/09 02:30 Order name: EKG; Complete Time: 02:30 sp3 05/09 03:35 Order name: CONS Physician Consult EDMS 05/09 00:50 Order name: Cardiac monitoring; Complete Time: 01:11 sp3 05/09 00:50 Order name: EKG - Nurse/Tech; Complete Time: 01:11 sp3 05/09 00:50 Order name: IV Saline Lock; Complete Time: 01:11 sp3 05/09 00:50 Order name: Labs collected and sent; Complete Time: 01:12 sp3 05/09 02:30 Order name: EKG - Nurse/Tech; Complete Time: 02:36 sp3 Administered Medications: 01:10 Drug: Oxymetazoline Intranasal Drops (0.05 %) 1 sprays Intranasal once Route: as9 Intranasal; Site: both nares; 03:09 Follow up: Response: No adverse reaction; Marked relief of symptoms as9 01:10 Drug: Labetalol IV 10 mg IV at calculated rate once Route: IV; Rate: calculated rate; as9 Site: right forearm; 02:10 Follow up: Response: No adverse reaction; Blood pressure is unchanged as9 02:15 Drug: hydrALAZINE IVP 10 mg IVP once Route: IVP; Site: right forearm; pf1 02:44 Follow up: Response: No adverse reaction; Marked relief of symptoms; Blood pressure is pf1 lowered Disposition Summary: 05/10/23 02:27 Hospitalization Ordered Notes: Hospitalization Status: Inpatient Admission sp3 Provider: Jovany Stone sp3 Location: Telemetry/MedSur (Inpatient) sp3 Condition: Stable sp3 Problem: an acute exacerbation sp3 Symptoms: have worsened sp3 Bed/Room Type: Standard sp3 Room Assignment: 421(05/10/23 03:38) cm10 Diagnosis - NSTEMI, Epistaxis, HTN urgency sp3 Forms: - Medication Reconciliation Form sp3 - SBAR form sp3 - Leadership Thank You Letter sp3 Signatures: Dispatcher [employer] EDEdison Obrien MD MD sp3 Linda Casper RN RN pf1 Oanh Haddad RN RN cm10 Phil Fountain RN RN as9 Corrections: (The following items were deleted from the chart) 03:38 02:27 sp3 cm10
--- NOTE | 2023-05-10 02:28 | ER ---
Nurse's Notes [facility] Name: Carmelita Ovalles Age: 72 yrs Sex: Female : 1950 Arrival Date: 05/10/2023 Time: 00:36 Bed 16 Private MD: Diagnosis: NSTEMI, Epistaxis, HTN urgency Presentation: 05/09 00:34 Chief complaint: EMS states: patient is with nose bleeding that started an hour and a as9 half. she took her blood thinner tonight. patient is hypertensive with BP of 208/110. she is taking thyroid medicine, anxiety medicine, with low potassium and is hard of hearing. 00:34 Coronavirus screen: Vaccine status: Patient reports receiving the 2nd dose of the covid as9 vaccine. Ebola Screen: No symptoms or risks identified at this time. Initial Sepsis Screen: Does the patient meet any 2 criteria? No. Patient's initial sepsis screen is negative. Does the patient have a suspected source of infection? No. Patient's initial sepsis screen is negative. Risk Assessment: Do you want to hurt yourself or someone else? Patient reports no desire to harm self or others. Onset of symptoms was May 09, 2023. 00:34 Method Of Arrival: EMS: [facility] as9 00:34 Acuity: MARCIA 3 as9 Triage Assessment: 00:34 General: Appears in no apparent distress. uncomfortable, Behavior is calm, cooperative, as9 appropriate for age. 00:34 Pain: Denies pain. EENT: Reports nose bleed. Neuro: Level of Consciousness is awake, as9 alert, obeys commands, Oriented to person, place, time, situation, Appropriate for age. Cardiovascular: Capillary refill < 3 seconds Patient's skin is warm and dry. Respiratory: Airway is patent Respiratory effort is even, unlabored, Respiratory pattern is regular, symmetrical. GI: No signs and/or symptoms were reported involving the gastrointestinal system. : No signs and/or symptoms were reported regarding the genitourinary system. Derm: Skin is pink, warm \T\ dry. Musculoskeletal: Circulation, motion, and sensation intact. Range of motion: intact in all extremities. Historical: - Allergies: 05/08 00:34 No Known Allergies; as9 - PMHx: 00:34 depressive disorder; Hypertension; Hypothyroidism; as9 - PSHx: 00:34 None; as9 - Immunization history:: Client reports receiving the 2nd dose of the Covid vaccine, Pneumococcal vaccine is up to date, Flu vaccine is up to date. - Social history:: Smoking status: Patient denies any tobacco usage or history of. Patient/guardian denies using alcohol, street drugs. Screenin/04 01:50 [facility] ED Fall Risk Assessment (Adult) History of falling in the last 3 months, as9 including since admission No falls in past 3 months (0 pts) Confusion or Disorientation No (0 pts) Intoxicated or Sedated No (0 pts) Impaired Gait No (0 pts) Mobility Assist Device Used No (0 pt) Altered Elimination No (0 pt) Score/Fall Risk Level 0 - 2 = Low Risk. Abuse screen: Denies threats or abuse. Nutritional screening: No deficits noted. Tuberculosis screening: No symptoms or risk factors identified. Assessment: 01:48 Reassessment: see triage assessment notes. as9 02:22 Reassessment: Patient appears in no apparent distress at this time. Patient and/or pf1 family updated on plan of care and expected duration. Pain level reassessed. Patient is alert, oriented x 3, equal unlabored respirations, skin warm/dry/pink. 02:23 Reassessment: Patient states feeling better. Patient states symptoms have improved. pf1 02:57 Reassessment: Patient ambulated with steady gait to restroom and back to ER 16. pf1 03:44 Reassessment: Patient is alert, oriented x 3, equal unlabored respirations, skin as9 warm/dry/pink. Vital Signs: 00:34 BP 200 / 108; Pulse 73; Resp 20; Temp 96.9; Pulse Ox 99% on R/A; Weight 51.26 kg; as9 Height 5 ft. 0 in. ; 01:07 BP 170 / 137; Pulse 71; Resp 20; Temp 97; Pulse Ox 99% on R/A; as9 01:15 BP 157 / 103; Pulse 72; Resp 20; Pulse Ox 99% on R/A; as9 01:18 BP 189 / 89; Pulse 71; Resp 20; Pulse Ox 99% on R/A; as9 01:38 BP 175 / 82; Pulse 68; Resp 20; Pulse Ox 97% on R/A; as9 01:45 BP 163 / 94; Pulse 71; Resp 19; Pulse Ox 96% on R/A; as9 02:01 BP 181 / 84; Pulse 66; Resp 18; Pulse Ox 96% on R/A; as9 02:30 BP 133 / 68; Pulse 75; Resp 16; Pulse Ox 97% on R/A; Pain 0/10; pf1 02:51 BP 140 / 77; Pulse 74; Resp 18; Pulse Ox 98% on R/A; as9 03:15 BP 124 / 62; Pulse 70; Resp 18; Pulse Ox 98% on R/A; as9 03:35 BP 118 / 59; Pulse 72; Resp 18; Temp 97.8; Pulse Ox 99% on R/A; as9 00:34 Body Mass Index 22.07 (51.26 kg, 152.4 cm) as9 02:30 Pain Scale: Adult pf1 ED Course: 00:49 Patient arrived in ED. sp3 00:49 Edison Cao MD is Attending Physician. sp3 01:12 Basic Metabolic Panel Sent. as9 01:12 CBC with Diff Sent. as9 01:12 PT-INR Sent. as9 01:12 Troponin HS Sent. as9 01:12 Inserted saline lock: 20 gauge in right forearm, using aseptic technique. Blood as9 collected. 01:17 Basic Metabolic Panel Sent. pf1 01:17 CBC with Diff Sent. pf1 01:17 PT-INR Sent. pf1 01:17 Troponin HS Sent. pf1 01:48 Triage completed. as9 01:53 Arm band placed on right wrist. as9 01:55 Patient has correct armband on for positive identification. Bed in low position. Call as9 light in reach. Side rails up X 1. 02:19 Notified ED physician of a critical lab result(s). Troponin 192. cm10 02:27 Jovany Stone MD is Hospitalizing Provider. sp3 02:36 EKG done, by ED staff, reviewed by Edison Cao MD. cm10 03:50 No provider procedures requiring assistance completed. Patient admitted, IV remains in as9 place. 03:51 Provided Education on: need for admit. as9 Administered Medications: 01:10 Drug: Oxymetazoline Intranasal Drops (0.05 %) 1 sprays Intranasal once Route: as9 Intranasal; Site: both nares; 03:09 Follow up: Response: No adverse reaction; Marked relief of symptoms as9 01:10 Drug: Labetalol IV 10 mg IV at calculated rate once Route: IV; Rate: calculated rate; as9 Site: right forearm; 02:10 Follow up: Response: No adverse reaction; Blood pressure is unchanged as9 02:15 Drug: hydrALAZINE IVP 10 mg IVP once Route: IVP; Site: right forearm; pf1 02:44 Follow up: Response: No adverse reaction; Marked relief of symptoms; Blood pressure is pf1 lowered Medication: 01:52 VIS not applicable for this client. as9 Outcome: 02:27 Decision to Hospitalize by Provider. sp3 03:50 Admitted to Tele accompanied by nurse, via stretcher, Report called to Janel ISLAS as9 03:51 Condition: good as9 03:51 Instructed on the need for admit, 03:52 Patient left the ED. as9 Signatures: Edison Cao MD MD sp3 Linda Casper RN RN pf1 Oanh Haddad RN RN cm10 Phil Fountain RN RN as9 Corrections: (The following items were deleted from the chart) 03:42 00:34 Chief complaint: EMS states: patient is with nose bleeding that started an hour as9 and a half. she took her blood thinner tonight. patient is hypertensive with BP of 208/110. she is taking tyroid medicine, anxiety medicine, with low potassium and is hard of hearing. as9
[2023-05-10] MEDS ORDERED: ACETAMINOPHEN 500 MG TAB PO PRN (03:26)
[2023-05-10] MEDS ORDERED: ONDANSETRON 4 MG/2 ML VIAL IV PRN (03:26)
[2023-05-10] MEDS ORDERED: NITROGLYCERIN 0.4 MG/TAB SL PRN (03:26)
--- NOTE | 2023-05-10 03:34 | P.HP ---
Certification for Inpatient Patient admitted to: Observation With expected LOS: <2 Midnights Practitioner: I am a practitioner with admitting privileges, knowledge of patient current condition, hospital course, and medical plan of care. Services: Services provided to patient in accordance with Admission requirements found in Title 42 Section 412.3 of the Code of Federal Regulations Patient History Date of Service: 05/10/23 Reason for admission: Chest pain, poorly controlled blood pressure. History of Present Illness: 72-year-old female patient with medical history significant for hypertension, hyperlipidemia, history of hypothyroidism was evaluated for episode of chest pain. She reported chest discomfort and was found to have significant elevated blood pressure with systolic over 200 mmHg. She was given blood pressure control medication and was admitted for inpatient care. As part of her routine lab workup troponin was elevated at 190. Chest x-ray was nonconcerning for acute issues and a CT of the chest for dissection had no acute abnormality. Allergies No Known Allergies Allergy (Verified 05/10/23 04:11) Home Medications: Apixaban [Eliquis] 5 mg PO BID #60 tablet 02/23/21 Metoprolol Tartrate [Lopressor*] 25 mg PO BID 6AM 6PM #60 tab 02/23/21 methIMAzole [Tapazole*] 10 mg PO DAILY #30 tab 02/23/21 Methylphenidate HCl [Methylphenidate ER] 18 mg PO DAILY 03/02/22 PARoxetine HCL [Paroxetine HCl] 40 mg PO DAILY 03/02/22 - Past Medical/Surgical History Diabetic: No -: Hyperthyroidism -: HTN -: Afib on chronic anticoagulation -: C section -: tonsillectomy Psychosocial/ Personal History: Patient lives at home with her - Social History Alcohol use: No CD- Drugs: No Caffeine use: Yes Review of Systems General: Unremarkable Eyes: Unremarkable ENT: Unremarkable Respiratory: Unremarkable Cardiovascular: Chest Pain Gastrointestinal: Unremarkable Genitourinary: Unremarkable Musculoskeletal: Unremarkable Integumentary: Unremarkable Neurological: Unremarkable Lymphatics: Unremarkable Physical Examination - Physical Exam General: Alert, Oriented x3 HEENT: Atraumatic Neck: Supple Respiratory: Normal air movement Cardiovascular: Regular rate/rhythm, Normal S1 S2 Gastrointestinal: Soft and benign Musculoskeletal: No swelling Neurological: Normal speech, Normal strength at 5/5 x4 extr - Studies Laboratory Data (last 24 hrs) 05/10/23 05/10/23 05/10/23 01:38 01:38 01:38 WBC 4.60 Hgb 9.6 L Hct 28.8 L Plt Count 217 PT 21.6 H INR 2.00 Sodium 136 Potassium 3.1 L BUN 14 Creatinine 0.65 Glucose 122 H Assessment and Plan - Plan Chest pain: Concerns for ACS entertained at this point. Continue telemetry, obtain echocardiogram and continue aspirin and statin therapy. Will trend troponin every 4 hours x 3. Cardiology consulted for management recommendation. Hypertension: Poorly controlled. Monitor vital signs per unit protocol and continue antihypertensive medication as prescribed outpatient. Will adjust medication to achieve goal blood pressure less than 130/80 mmHg. History of hypothyroidism: Will continue with methimazole. Hyperlipidemia: Continue statin therapy. Prophylaxis: Full dose Lovenox for DVT and ACS treatment CODE STATUS: Full code Disposition: We will manage patient's multiple medical issues and discharge her when she is deemed clinically stable. - Advance Directives Does patient have a Living Will: No Does patient have a Durable POA for Healthcare: No
[2023-05-10 03:35] LABS: Renal Epithelial <5 /HPF (None Seen); Sqamous Epithelial <5 /HPF (None Seen); Urine Bacteria 20-50 /HPF (<20); Urine Bilirubin NEGATIVE (Negative); Urine Blood Trace (Negative); Urine Clarity Extremely Turbid (Clear); Urine Color Light-Yellow (Yellow); Urine Culture Reflex Order NOT NEEDED; Urine Glucose NEGATIVE (Negative); Urine Ketones NEGATIVE (Negative); Urine Microscopic Reflex YN ORDER UMIC; Urine Mucus Slight /HPF (None Seen); Urine Nitrite 2+ (Negative); Urine Protein TRACE (Negative); Urine RBC <5 /HPF (None Seen); Urine Urobilinogen Normal (Normal); Urine WBC <5 /HPF (<5)
[2023-05-10] MEDS ORDERED: ENOXAPARIN 100 MG/ML SYR SQ SCH (04:00)
[2023-05-10 04:31] VITALS: BMI 22.0
[2023-05-10] MEDS: ENOXAPARIN 60 MG/0.6 ML SQ SCH (05:55)
[2023-05-10] MEDS: METOPROLOL TAR 25 MG TAB PO SCH (07:41)
[2023-05-10] MEDS: ASPIRIN EC 81 MG TAB PO SCH (07:41)
[2023-05-10 07:43] LABS: Magnesium 1.9 mg/dL (1.6-2.4); Thyroid Stimulating Hormone 2.95 uIU/mL (0.358-3.740)
--- NOTE | 2023-05-10 09:25 | P.PN ---
Date of Service: 05/10/23 Subjective: Came to ED for a nosebleed that started overnight; resolved in ED after afrin spray also reports high BP, SBP >200s, improved after IV medication in ED reports episodes of shortness of breath, no chest pressure right now hard of hearing ROS: 10 point ROS as noted above, otherwise negative Physical Exam: GEN: Alert, oriented, NAD, hard of hearing - hears better on left side HEENT: Normal conjunctiva, sclera anicteric CV: Regular rate and rhythm, no edema Pulm: Nonlabored respirations on room air, clear bilaterally ABD: soft, nontender, nondistended Neuro: Normal speech, normal affect, hard of hearing Problem List: Elevated Troponin / NSTEMI Epistaxis, resolved chronic a-fib on eliquis Moderate Pulmonary Hypertension Chronic CHF Hypertension Hyperlipidemia hx severe iron deficiency anemia hx of hypothyroidism Elevated Troponins /NSTEMI unclear whether having questionable chest pain. Reports some dyspnea / tachypnea prior to admission and elevated BP in 200s. Most recent Echo (10/27/22): 61%EF, mild TR, MR, AI, moderate pulm hypertension Most recent stress test here 10/29/22 was negative for stress induced ischemia troponins elevated 192 -> 195 -> 197 possibly type II NSTEMI in setting of severe HTN monitor on tele Cardiology consulted tentative plan for [facility] per Dr. Shannon; today vs tomorrow - given full dose lovenox 3/4 am morning ~6 am continue aspirin, statin, metoprolol PRN nitroglycerin Epistaxis, resolved Nose bleed resolved in ED monitor for signs of bleeding chronic a-fib on eliquis Takes eliquis at home. Hold eliquis for now for tentative [facility] Chronic CHF Hypertension Hyperlipidemia confirm home meds, restart as appropriate hx severe iron deficiency anemia iron studies from 10/28/22 consistent with iron deficiency anemia; iron: 31, tsat% 7.4%. Received IV iron in past hospitalizations monitor CBC daily hx of hypothyroidism TSH 2.95, Free T4 0.85 VTE: Hold lovenox for tentative [facility]; given full dose 3/4 am morning ~6 am. Code: Full Dispo: Home, ~1-2 days
--- NOTE | 2023-05-10 19:37 | CON ---
Date of Consultation: 05/10/2023 Reason For Consultation: Chest pain, elevated troponin. History Of The Present Illness: 72-year-old female, history of hypertension, dyslipidemia, hypothyro idism, atrial fibrillation, presented to the emergency room because of chest pain. Blood pressure wa s above 200 systolic and after controlling blood pressure, her chest pain has resolved and she claims that she has no further pain. Past Medical History: As outlined above in the HPI. Medications: Refer reconciliation sheet for detailed list. Allergies: NO KNOWN DRUG ALLERGIES. Family History: No premature coronary artery disease or cancer. Social History: She does not smoke or drink. Does not use any drugs. Review of Systems: All systems reviewed are negative except mentioned in HPI. Physical Examination: Vital signs: Reviewed. Head and Neck: Pupils are equal, reactive to light. Intact eye movements. No JVD. No cervical lym phadenopathy. Neck is supple. Thyroid is not enlarged. Lungs: Clear to auscultation bilaterally. No rhonchi, wheezing, or crackles. No accessory muscle u se. Heart: Regular rate and rhythm. No extra sounds. Abdomen: Soft, nontender. Bowel sounds positive. No organomegaly. No masses or hernia. No rigidi ty or rebound. Extremities: No edema, clubbing, or cyanosis. Intact pulses. Skin: No rashes. Neurologic: Alert, awake, oriented x3. No acute focal deficits appreciated. Investigations: Troponin peaked at 205. BUN 12, creatinine 0.72. Hemoglobin is 9.6. Assessment/recommendation: 1.[id number] myocardial infarction. Continue baby aspirin and Lovenox for now. INR is elevat ed. Recheck INR tomorrow and after tonight's dose of Lovenox to hold it and if INR is down tomorrow, we will plan for coronary angiogram tomorrow. 2.Dyslipidemia. Continue Lipitor 40 mg nightly. 3.Hypertensive crisis. Blood pressure is much better with introduction of home medications. We myles l monitor and adjust as needed. SR/MODL Voice ID: [id number] Report ID: [id number]
[2023-05-10] MEDS: ATORVASTATIN 40 MG TAB PO SCH (20:43)
[2023-05-11] MEDS: LABETALOL 20 MG/4ML SYRINGE IV PRN (02:21)
[2023-05-11 07:50] LABS: PT Prothrombin Time 18.2 SECONDS (9.5-12.5); PTT, Activated Partial Thromb 33.6 SECONDS (24.3-36.9); Protime INR 1.68
[2023-05-11 09:16] LABS: Absolute Basophils 0.1 K/uL (0-0.5); Absolute Eosinophils 0.1 K/uL (0-0.5); Absolute Lymphocytes (CBC) 1.2 K/uL (0.7-4.9); Absolute Monocytes 0.3 K/uL (0.1-1.3); Absolute Neutrophil 2.7 K/uL (1.8-8.0); Basophils % 1.4 % (0-1.3); Eosinophils % 1.5 % (0-4.4); Hematocrit 22.1 % (36.0-45.0); Hemoglobin 7.4 g/dL (12.0-15.0); Lymphocytes % 27.2 % (15.3-44.8); MCHC 33.4 g/dL (32.0-36.0); MCV 80.9 fL (80-100); MPV 9.2 fL (7.6-11.3); Monocytes % 6.1 % (3.3-12.3); Neutrophils % 63.8 % (41.7-73.7); Platelets 197 thou/uL (152-406); RBC Red Blood Cell Count 2.74 M/uL (3.86-4.86); Red Cell Distribution Width 15.2 % (12.1-15.2)
[2023-05-11] MEDS: MORPHINE 4 MG/ML SYR IV PRN (09:50)
--- NOTE | 2023-05-11 13:42 | P.PN ---
Subjective Date of Service: 05/11/23 Chief Complaint: Chest pain, poorly controlled blood pressure. Nursing staff report patient had epistaxis all night. Patient seen bleeding from the left nostril this morning. Left nasal cavity packed. She currently denies any chest pain. Physical Examination - Vital Signs Temperature: 97.2 F Blood Pressure: 141/68 Pulse: 73 Respirations: 18 Pulse Ox (%): 99 - Studies Laboratory Data (last 24 hrs) 05/11/23 05/11/23 05/11/23 09:00 09:00 07:30 WBC 4.30 Hgb 7.4 L Hct 22.1 L Plt Count 197 PT 18.2 H INR 1.68 APTT 33.6 Sodium 137 Potassium 4.0 BUN 36 H Creatinine 0.68 Glucose 130 H Triglycerides Cholesterol HDL Cholesterol Cholesterol/HDL Ratio 05/11/23 07:30 WBC Hgb Hct Plt Count PT INR APTT Sodium Potassium BUN Creatinine Glucose Triglycerides 85 Cholesterol 148 HDL Cholesterol 36 L Cholesterol/HDL Ratio 4.11 Assessment And Plan - Plan Physical Exam: GEN: Alert, oriented, NAD, hard of hearing. HEENT: Normal conjunctiva, sclera anicteric, epistaxis-left nostril which is packed. CV: Regular rate and rhythm, no edema Pulm:clear bilaterally, adequate breath sounds bilaterally. ABD: soft, nontender, nondistended Neuro: Normal speech, no focal motor deficit. Problem List: Elevated Troponin / NSTEMI Epistaxis, resolved chronic a-fib on eliquis Moderate Pulmonary Hypertension Chronic CHF Hypertension Hyperlipidemia hx severe iron deficiency anemia hx of hypothyroidism Elevated Troponins /NSTEMI unclear whether having questionable chest pain. Reports some dyspnea / tachypnea prior to admission and elevated BP in 200s. Most recent Echo (10/27/22): 61%EF, mild TR, MR, AI, moderate pulm hypertension Most recent stress test here 10/29/22 was negative for stress induced ischemia troponins elevated 192 -> 195 -> 197 possibly type II NSTEMI in setting of severe HTN monitor on tele Cardiology consulted. Dr. Shannon is planning cardiac catheterization today. Status post full dose Lovenox yesterday. continue statin, metoprolol. Hold aspirin due to persistent epistaxis. PRN nitroglycerin Epistaxis/acute blood loss anemia Patient was given Lovenox and aspirin yesterday. INR was elevated to 2 yesterday, trended down to 1.63 today. Left nostril packed. Transfuse 1 unit PRBC. Monitor for bleeding. Chronic a-fib on eliquis Takes eliquis at home. Eliquis is on hold Chronic CHF Hypertension Hyperlipidemia Continue home medications. Labetalol as needed for BP spikes. hx severe iron deficiency anemia Received IV iron in past hospitalizations monitor CBC daily. Oral iron therapy on discharge. hx of hypothyroidism TSH 2.95, Free T4 0.85 Continue home dose Synthroid. VTE: SCD Code: Full Dispo: Home
[2023-05-11] MEDS ORDERED: NA CHLORIDE 0.9% 250 ML IV SCH (14:00)
[2023-05-11] MEDS: NA CHLORIDE 0.9% 100 ML ONE (16:46)
--- NOTE | 2023-05-11 17:09 | EKG ---
Test Date: 2023-05-10 Test Time: 01:09:57 First Grade Teacher: NATACHA MEASUREMENT RESULTS: Intervals: Rate: 70 NM: 186 QRSD: 80 QT: 448 QTc: 483 [place]: P: 64 NM: 186 QRS: 66 T: -19 INTERPRETIVE STATEMENTS: Normal sinus rhythm T wave abnormality, consider anterior ischemia Prolonged QT Abnormal ECG Compared to ECG 10/27/2022 19:57:12 T-wave abnormality now present Possible ischemia now present Prolonged QT interval now present Atrial premature complex(es) no longer present ST (T wave) deviation no longer present Electronically Signed On 05-11-23 17:03:59 ENERGY CONSULTANT by Koko Shannon
--- NOTE | 2023-05-11 17:09 | EKG ---
Test Date: 2023-05-10 Test Time: 02:33:24 Plumber Supervisor: DOUGLAS MEASUREMENT RESULTS: Intervals: Rate: 73 MS: 184 QRSD: 82 QT: 476 QTc: 524 [place]: P: 62 MS: 184 QRS: 42 T: -75 INTERPRETIVE STATEMENTS: Sinus rhythm with marked sinus arrhythmia T wave abnormality, consider inferior ischemia T wave abnormality, consider anterolateral ischemia Prolonged QT Abnormal ECG Compared to ECG 10/27/2022 19:57:12 T-wave abnormality now present Possible ischemia now present Prolonged QT interval now present Atrial premature complex(es) no longer present ST (T wave) deviation no longer present Electronically Signed On 05-11-23 17:03:58 TRAFFIC DIVISION COMMANDING OFFICER by Koko Shannon
--- NOTE | 2023-05-11 18:30 | PN ---
Date of Progress Note: 05/11/2023 Subjective: Seen by bedside. Clinically doing well. No chest pain, but she had a major nosebleed e pisode, required nasal packing. Review of Systems: No further chest pain, nausea, vomiting, diarrhea. No dysuria, polyuria, or urgency, but she has nos ebleed as above. All other systems reviewed are negative. Physical Examination: Vital Signs: Reviewed. Head and Neck: Pupils are equal, reactive to light. Intact eye movements. No JVD. No cervical lym phadenopathy. Neck is supple. Thyroid is not enlarged. Lungs: Clear to auscultation bilaterally. No rhonchi, rales, or crackles. No accessory muscle use. Heart: Regular. No extra sounds. Abdomen: Soft, nontender. Bowel sounds positive. No organomegaly. No masses or hernia. No rigidi ty or rebound. Extremities: No edema, clubbing, or cyanosis. Intact pulses. Skin: No rash. Neurologic: Alert, awake, oriented x3. No acute focal deficits appreciated. Lymph Nodes: No cervical or axillary lymphadenopathy. Investigations: Troponin peaked at 205 and coming down. BUN 36, creatinine 0.68, and hemoglobin is 7.4. Assessment/recommendation: 1.Elevated troponin with chest pain. Chest pain is not very typical. Initially, recommendations we re for left heart catheterization, but since she had major nasal bleed on Lovenox, I will hold off on the left heart catheterization and recommend to obtain a Lexiscan nuclear stress test instead and if there is significant abnormality, then we will plan for coronary angiogram at a later time. In the interim, continue baby aspirin if possible, beta-laith, and high-dose statin. 2.Dyslipidemia. Continue statin. 3.Nose bleed, status post nasal packing. 4.Anemia due to acute blood loss from nasal bleed. The patient might require blood transfusion litzy molina this hospital stay. SR/MODL Voice ID: [id number] Report ID: [id number]
[2023-05-11 22:55] LABS: Hematocrit 24.3 % (36.0-45.0); Hemoglobin 8.4 g/dL (12.0-15.0)
--- NOTE | 2023-05-12 06:59 | ECHO ---
HEIGHT: 5 ft 0 in WEIGHT: 113 lb 0 oz DATE OF STUDY: 05/11/[address]: Jovany Stone MD 2-DIMENSIONAL: YES M.MODE: YES DOPPLER: YES COLOR FLOW: YES TDS: PORTABLE: YES DEFINITY: BUBBLE STUDY: DIAGNOSIS: EVALUATE FOR CHEST PAIN CARDIAC HISTORY: CATHERIZATION: SURGERY: PROSTHETIC VALVE: PACEMAKER: MEASUREMENTS (cm) DIASTOLIC (NORMALS) SYSTOLIC (NORMALS) IVSd 1.0 (0.6-1.2) LA Diam 3.3 (1.9-4.0) LVEF 50% LVIDd 4.4 (3.5-5.7) LVIDs 3.5 (2.0-3.5) %FS 21% LVPWd 1.1 (0.6-1.2) Ao Diam 3.3 (2.0-3.7) 2 DIMENSIONAL ASSESSMENT: RIGHT ATRIUM: NORMAL LEFT ATRIUM: ENLARGED RIGHT VENTRICLE: NORMAL LEFT VENTRICLE: NORMAL TRICUSPID VALVE: NORMAL MITRAL VALVE: MILD MITRAL REGURGITATION PULMONIC VALVE: MILD PULMONIC INSUFFICENCY AORTIC VALVE: MODERATE AORTIC INSUFFICIENCY PERICARDIAL EFFUSION: NONE AORTIC ROOT: NORMAL LEFT VENTRICULAR WALL MOTION: NORMAL DOPPLER/COLOR FLOW: SEE BELOW COMMENTS: 1. LOW NORMAL LEFT VENTRICULAR EJECTION FRACTION 50% 2. MODERATE DIASTOLIC DYSFUNCTION 3. LEFT ATRIAL ENLARGEMENT 4. MILD MITRAL REGURGITATION 5. MILD PULMONIC INSUFFICIENCY 6. MODERATE AORTIC INSUFFICIENCY TECHNOLOGIST: SHIRLENE MASON
[2023-05-12 07:08] LABS: Absolute Eosinophils 0.1 K/uL (0-0.5); Absolute Lymphocytes (CBC) 1.6 K/uL (0.7-4.9); Absolute Monocytes 0.6 K/uL (0.1-1.3); Basophils % 0.5 % (0-1.3); Hematocrit 24.1 % (36.0-45.0); Hemoglobin 8.2 g/dL (12.0-15.0); Lymphocytes % 22.1 % (15.3-44.8); MCH 28.6 pg (27.0-35.0); MCV 84.1 fL (80-100); MPV 9.3 fL (7.6-11.3); Monocytes % 7.6 % (3.3-12.3); Neutrophils % 68.8 % (41.7-73.7); Nucleated Red Blood Cells % 0.1 % (0-0); Platelets 159 thou/uL (152-406); RBC Red Blood Cell Count 2.87 M/uL (3.86-4.86)
[2023-05-12 07:09] LABS: Anion Gap 7.7 mEq/L (5.0-15.0); Potassium 3.7 mEq/L (3.5-5.1)
[2023-05-12] MEDS: AMLODIPINE 5 MG TAB PO SCH (08:55)
[2023-05-12] MEDS: POTASSIUM CL SA 10 MEQ TAB PO ONE (08:58)
--- NOTE | 2023-05-12 18:31 | P.PN ---
Subjective Date of Service: 05/12/23 Chief Complaint: Chest pain, poorly controlled blood pressure. Epistaxis resolved. Patient currently denies any complain. She currently denies any chest pain. Blood pressure improved. Physical Examination - Vital Signs Temperature: 98.2 F Blood Pressure: 130/64 Pulse: 81 Respirations: 17 Pulse Ox (%): 98 Assessment And Plan - Plan Physical Exam: GEN: Alert, oriented, NAD, hard of hearing. HEENT: left nostril which is packed. CV: Regular rate and rhythm, no edema Pulm:clear bilaterally, adequate breath sounds bilaterally. ABD: soft, nontender, nondistended Neuro: Normal speech, no focal motor deficit. Problem List: Elevated Troponin / NSTEMI Epistaxis, resolved chronic a-fib on eliquis Moderate Pulmonary Hypertension Chronic CHF Hypertension Hyperlipidemia hx severe iron deficiency anemia hx of hypothyroidism Elevated Troponins /NSTEMI Reports some dyspnea / tachypnea prior to admission and elevated BP in 200s. Most recent Echo (10/27/22): 61%EF, mild TR, MR, AI, moderate pulm hypertension Most recent stress test here 10/29/22 was negative for stress induced ischemia troponins elevated 192 -> 195 -> 197 possibly type II NSTEMI in setting of severe HTN Continue to monitor on telemetry. Cardiology consulted. Dr. Shannon recommend stress test and if positive to proceed with cardiac catheterization. Status post full dose Lovenox. Lovenox and aspirin discontinued due to epistaxis continue statin, metoprolol. PRN nitroglycerin Stress test in a.m. Epistaxis/acute blood loss anemia INR was elevated to 2 trended down to 1.63 today. Left nostril pack removed. No more epistaxis Status post 1 unit PRBC transfusion Monitor for bleeding. Chronic a-fib on eliquis Patient takes eliquis at home. Eliquis is on hold due to epistaxis. Chronic CHF Hypertension Hyperlipidemia Continue home medications. Labetalol as needed for BP spikes. Added amlodipine for blood pressure control. hx severe iron deficiency anemia Received IV iron in past hospitalizations monitor CBC daily. Oral iron therapy on discharge. hx of hyperthyroidism TSH 2.95, Free T4 0.85 Continue home dose methimazole. VTE: SCD Code: Full Dispo: Home
--- NOTE | 2023-05-13 13:16 | P.PN ---
Subjective Date of Service: 05/13/23 Chief Complaint: Chest pain, poorly controlled blood pressure. Subjective: No new changes Review of Systems 10-point ROS is otherwise unremarkable Physical Examination - Vital Signs Temperature: 98.3 F Blood Pressure: 109/62 Pulse: 72 Respirations: 14 Pulse Ox (%): 99 - Physical Exam General: Alert, Oriented x3 HEENT: Atraumatic Neck: Supple Respiratory: Clear to auscultation bilaterally Cardiovascular: No edema, Normal S1 S2 Gastrointestinal: Normal bowel sounds Assessment And Plan - Current Problems (Diagnosis) (1) Atrial fibrillation Current Visit: No Status: Acute Plan: Continue Lopressor 25 mg po BID advise to start patient on Eliquis 2.5 mg po BID Qualifiers: Atrial fibrillation type: unspecified Qualified Code(s): I48.91 - Unspecified atrial fibrillation (2) Elevated troponin Current Visit: No Status: Acute Plan: most likely type 2 WI from high BP, patient had a stress test back in october 2022 that was normal. Continue medical treatment. (3) HTN (hypertension) Current Visit: No Status: Chronic Plan: increase Norvasc to 10 mg daily Continue Lopressor 25 mg po BID Qualifiers: Hypertension type: primary hypertension Qualified Code(s): I10 - Essential (primary) hypertension
--- NOTE | 2023-05-13 19:15 | P.PN ---
Subjective Date of Service: 05/13/23 Chief Complaint: Chest pain, poorly controlled blood pressure. No more epistaxis. Patient currently denies any complain. She currently denies any chest pain. Physical Examination - Vital Signs Temperature: 97.0 F Blood Pressure: 153/72 Pulse: 76 Respirations: 14 Pulse Ox (%): 95 Assessment And Plan - Plan Physical Exam: GEN: Alert, oriented, NAD, hard of hearing. HEENT: Clear, no bleed. CV: Regular rate and rhythm, no edema Pulm:clear bilaterally, adequate breath sounds bilaterally. ABD: soft, nontender, nondistended Neuro: Normal speech, no focal motor deficit. Problem List: Elevated Troponin / NSTEMI Epistaxis, resolved chronic a-fib on eliquis Moderate Pulmonary Hypertension Chronic CHF Hypertension Hyperlipidemia hx severe iron deficiency anemia hx of hypothyroidism Elevated Troponins /NSTEMI Reports some dyspnea / tachypnea prior to admission and elevated BP in 200s. Most recent Echo (10/27/22): 61%EF, mild TR, MR, AI, moderate pulm hypertension Most recent stress test here 10/29/22 was negative for stress induced ischemia troponins elevated 192 -> 195 -> 197 possibly type II NSTEMI in setting of severe HTN Continue to monitor on telemetry. Cardiology consulted. Dr. Shannon initially recommended stress test and if positive to proceed with cardiac catheterization. Status post full dose Lovenox. Lovenox and aspirin discontinued due to epistaxis continue statin, metoprolol. PRN nitroglycerin Stress test in a.m. Epistaxis/acute blood loss anemia INR was elevated to 2 trended down to 1.63 today. Left nostril pack removed. No more epistaxis Status post 1 unit PRBC transfusion Monitor for bleeding. Eliquis and aspirin discontinued. Chronic a-fib on eliquis Patient takes eliquis at home. Eliquis is on hold due to epistaxis. Chronic CHF Hypertension Hyperlipidemia Continue home medications. Labetalol as needed for BP spikes. Continue amlodipine. hx severe iron deficiency anemia Received IV iron in past hospitalizations monitor CBC daily. Oral iron therapy on discharge. hx of hyperthyroidism TSH 2.95, Free T4 0.85 Continue home dose methimazole. VTE: SCD Code: Full Dispo: Home
[2023-05-14] MEDS ORDERED: REGADENOSON 0.4 MG/5 ML SYR IV ONE (09:11)
--- NOTE | 2023-05-14 09:55 | RAD REPORT ---
EXAM DESCRIPTION: NM - Rest Stress Cardiac Imaging - 05/14/2023 9:44 am CLINICAL HISTORY: chest pain Chest pain. COMPARISON: Rest Stress Cardiac Imaging dated 10/29/2022 TECHNIQUE: The patient was administered approximately 10mCi of Tc 99m Sestamibi prior to resting SPE CT imaging of the heart. The patient was then administered approximately 30 mCi of Tc 99m Sestamibi f ollowing exercise or pharmacologic stress. Multiplanar SPECT images were reviewed. FINDINGS: There is mild decreased radiopharmaceutical accumulation involving the inferior wall with stress extending to the apex compatible with a mild area of stress-induced ischemia of moderate size. No fixed defect is seen to suggest hibernating myocardium or scarred myocardium. The end diastolic volume is 92 ml, the end systolic volume is 44 ml, and the ejection fraction is 52 %. IMPRESSION: Moderate sized area of mild stress-induced ischemia suspected involving inferior wall ex tending to the apex.
[2023-05-14 11:00] VITALS: TEMP 98.5
--- NOTE | 2023-05-14 14:46 | P.DS ---
Admission Date: 05/11/23 Discharge Date: 05/14/23 Disposition: ROUTINE DISCHARGE Discharge Condition: FAIR Reason for Admission: Chest pain, poorly controlled blood pressure. Brief History of Present Illness: 72-year-old female patient with medical history significant for hypertension, hyperlipidemia, history of hypothyroidism was evaluated for episode of chest pain. She reported chest discomfort and was found to have significant elevated blood pressure with systolic over 200 mmHg. She was given blood pressure control medication and was admitted for inpatient care. As part of her routine lab workup troponin was elevated at 190. Chest x-ray was nonconcerning for acute issues and a CT of the chest for dissection had no acute abnormality. Hospital Course: Diagnosis Elevated Troponin / NSTEMI Epistaxis, resolved chronic a-fib on eliquis Moderate Pulmonary Hypertension Chronic CHF Hypertension Hyperlipidemia hx severe iron deficiency anemia hx of hypothyroidism Elevated Troponins /NSTEMI Most recent Echo (10/27/22): 61%EF, mild TR, MR, AI, moderate pulm hypertension Most recent stress test here 10/29/22 was negative for stress induced ischemia troponins elevated 192 -> 195 -> [address] Shannon initially recommended stress test and if positive, patient will need cardiac catheterization. Status post full dose Lovenox. Lovenox and aspirin discontinued due to epistaxis Managed with statin, metoprolol. PRN nitroglycerin Stress test showed mild to moderate stress-induced inferior ischemia. Patient wants to go home today. Cardiology Dr. Patricia recommend follow-up as outpatient for arrangement for cardiac cath and recommended low-dose Eliquis. Patient discharged with Eliquis. Epistaxis/acute blood loss anemia INR was elevated to 2 trended down to 1.63 today. Left nostril pack was packed and later removed. No more epistaxis Status post 1 unit PRBC transfusion Eliquis and aspirin were held during the hospital stay Epistaxis like secondary to a combination of severe hypertension and anticoagulation. Cardiology recommend lower dose Eliquis from now. Chronic a-fib on eliquis Eliquis held during the hospital stay due to Epistaxis. Eliquis resumed at low-dose 2.5 mg twice daily. Chronic CHF Hypertension Hyperlipidemia Continue home medications. Labetalol as needed for BP spikes. Amlodipine added. hx severe iron deficiency anemia Received IV iron in past hospitalizations monitor CBC daily. Oral iron therapy on discharge. hx of hyperthyroidism TSH 2.95, Free T4 0.85 Continued home dose methimazole. Vital Signs/Physical Exam: Temp Pulse Resp BP Pulse Ox 98.5 F 76 17 150/73 H 99 05/14/23 08:00 05/14/23 08:00 05/14/23 08:00 05/14/23 08:00 05/14/23 08:00 General: Alert, In no apparent distress, Oriented x3, Other (Frail-appearing) HEENT: Atraumatic, Mucous membr. moist/pink Neck: Supple, JVD not distended Respiratory: Clear to auscultation bilaterally, Normal air movement Cardiovascular: No edema, Normal S1 S2, Irregular heart rate/rhythm Gastrointestinal: Normal bowel sounds, Soft and benign, Non-distended, No tenderness Musculoskeletal: No swelling Integumentary: No rashes, No cyanosis Neurological: Normal strength at 5/5 x4 extr Laboratory Data at Discharge: WBC 7.30 thou/uL (4.3-10.9) 05/12/23 06:34 Hgb 8.2 g/dL (12.0-15.0) L 05/12/23 06:34 Hct 24.1 % (36.0-45.0) L 05/12/23 06:34 Plt Count 159 thou/uL (152-406) 05/12/23 06:34 PT 18.2 SECONDS (9.5-12.5) H 05/11/23 07:30 INR 1.68 05/11/23 07:30 APTT 33.6 SECONDS (24.3-36.9) 05/11/23 07:30 Sodium 138 mEq/L (136-145) 05/13/23 07:00 Potassium 4.0 mEq/L (3.5-5.1) 05/13/23 07:00 BUN 12 mg/dL (7-18) 05/13/23 07:00 Creatinine 0.65 mg/dL (0.55-1.02) 05/13/23 07:00 Glucose 107 mg/dL (74-106) H 05/13/23 07:00 Magnesium 1.9 mg/dL (1.6-2.4) 05/10/23 05:30 Triglycerides 85 mg/dL (<150) 05/11/23 07:30 Cholesterol 148 mg/dL (<200) 05/11/23 07:30 HDL Cholesterol 36 mg/dL (40-60) L 05/11/23 07:30 Cholesterol/HDL Ratio 4.11 05/11/23 07:30 Home Medications: Metoprolol Tartrate [Lopressor*] 25 mg PO BID 6AM 6PM #60 tab 02/23/21 methIMAzole [Tapazole*] 10 mg PO DAILY #30 tab 02/23/21 PARoxetine HCL [Paroxetine HCl] 40 mg PO DAILY 03/02/22 Amlodipine [Norvasc*] 5 mg PO DAILY #30 tab 05/14/23 Apixaban [Eliquis] 2.5 mg PO BID #60 tablet 05/14/23 Atorvastatin Calcium [Lipitor] 40 mg PO BEDTIME #30 tab 05/14/23 New Medications: Apixaban [Eliquis] 2.5 mg PO BID #60 tablet Atorvastatin Calcium [Lipitor] 40 mg PO BEDTIME #30 tab Amlodipine [Norvasc*] 5 mg PO DAILY #30 tab Physician Discharge Instructions: Please stop taking Eliquis if you bleed from the nose again. Diet: AHA Activity: Ad gabe Followup: Ashly Tafoya DO, DO [Primary Care Provider] - 1-2 Weeks Will Patricia MD [ACTIVE - CAN ADMIT] - 1-2 Weeks Time spent managing pt's care (in minutes): 36
[2023-05-14 15:04] VITALS: BP 159/69
--- NOTE | 2023-05-14 16:14 | P.PN ---
Subjective Date of Service: 05/14/23 Chief Complaint: Chest pain, poorly controlled blood pressure. Subjective: No new changes Review of Systems 10-point ROS is otherwise unremarkable Physical Examination - Vital Signs Temperature: 98.5 F Blood Pressure: 159/69 Pulse: 72 Respirations: 16 Pulse Ox (%): 97 - Physical Exam General: Alert, Oriented x3 HEENT: Atraumatic Respiratory: Clear to auscultation bilaterally Cardiovascular: No edema, Normal S1 S2 Gastrointestinal: Normal bowel sounds Assessment And Plan - Current Problems (Diagnosis) (1) Atrial fibrillation Current Visit: No Status: Acute Plan: Continue Lopressor 25 mg po BID Eliquis 2.5 mg po BID Qualifiers: Atrial fibrillation type: unspecified Qualified Code(s): I48.91 - Unspecified atrial fibrillation (2) Elevated troponin Current Visit: No Status: Acute Plan: Patient troponin trended down, no chest pain, her nuclear stress test shows possible ischemia inferior wall, will start patient on eliquis and monitor for more epistaxis and see in clinic, if no bleeding then plan for coronary angiogram as outpatient, explained in details to patient and agrees with plan. (3) HTN (hypertension) Current Visit: No Status: Chronic Plan: increase Norvasc to 10 mg daily Continue Lopressor 25 mg po BID Qualifiers: Hypertension type: primary hypertension Qualified Code(s): I10 - Essential (primary) hypertension
[2023-05-14 16:36] VITALS: O2SAT 99
--- NOTE | 2023-05-17 12:39 | TREADPHA ---
DX: CHEST PAIN/ NSTEMI Date of Study: 05/14/23 Ht: 5' 0 " Wt: 113 lb 0 oz Consulting Physician: PEDRO MEDICATIONS: TYLENOL, NORVASC, ASPIRIN, LIPITOR, TRANDATE, TAPAZOLE, LOPRESSOR, MORPHINE, NITROSTAT, ZOFRAN HISTORY: 72 YEAR OLD FEMALE WITH HISTORY OF HYPERTENSION, CHEST PAIN, DYSLIPIDEMIA. PATIENT DENIES ALERGIES. PHYSICIAL EXAMINATION: RESTING B.P.: 156/74 RESTING H.R.: 81 RESTING EKG: SINUS RHYTHM PROTOCOL: LEXISCAN EXERCISE TIME: 3:30 B.P. AT PEAK STRESS: 118/63 IMPRESSION: LEXISCAN INJECTED. CARDIOLITE INJECTED - SEE NUCLEAR MEDICINE REPORT. NO SUPRA VENTRICULAR TACHYCARDIA, VENTRICULAR TACHYCARDIA, PREMATURE ATRIAL COMPLEXES, PREMATURE VENTRICULAR COMPLEXES NOTED. PATIENT DENIES CHEST PAIN.
== END 2023-05-14 17:16 | disposition home or self-care (01) | DRG 281 ==
LOC: ER 00:36 → 4TH 03:26 → OBSVTOIN 05-11 11:56
PROVIDERS: ADMIT Internal Medicine Nephrology; ATTEND Internal Medicine
PROC: 30233N1 Transfusion of Nonautologous Red Blood Cells into Peripheral Vein, Percutaneous Approach (ICD-10-PCS; principal; 2023-05-11)
DX: I16.0 Hypertensive urgency (principal); I21.A1 Myocardial infarction type 2; D62 Acute posthemorrhagic anemia; I50.32 Chronic diastolic (congestive) heart failure; I11.0 Hypertensive heart disease with heart failure; E03.9 Hypothyroidism, unspecified; E78.5 Hyperlipidemia, unspecified; D50.9 Iron deficiency anemia, unspecified; H91.90 Unspecified hearing loss, unspecified ear; I27.20 Pulmonary hypertension, unspecified; I48.0 Paroxysmal atrial fibrillation; R04.0 Epistaxis; Z79.01 Long term (current) use of anticoagulants; Z79.899 Other long term (current) drug therapy
CPT/HCPCS: 36415; 78452; 80048; 80061; 81001; 83735; 84439; 84443; 84484; 85014; 85018; 85025; 85610; 85730; 86850; 86900; 86901; 86920; 93005; 93017; 93306; 96374; 96375; 97116; 97161; 99285; A9500; G0378; J0360; J1650; J2785; P9016

== ENCOUNTER 2024-04-14 18:32 | Emergency (ER) | payer OTHER ==
[~2024-04-14 18:32] MED LIST: PROTHROMBIN COMPLEX CONCENTRATE (HUMAN) 500 UNIT VIAL IV SCH
[2024-04-14 19:20] LABS: Absolute Lymphocytes (CBC) 0.7 K/uL (0.7-4.9); Absolute Monocytes 0.4 K/uL (0.1-1.3); Absolute Neutrophil 2.5 K/uL (1.8-8.0); Basophils % 0.9 % (0-1.3); Eosinophils % 0.6 % (0-4.4); Hematocrit 11.9 % (36.0-45.0); Lymphocytes % 19.3 % (15.3-44.8); MCH 21.9 pg (27.0-35.0); MCHC 32.6 g/dL (32.0-36.0); MCV 67.2 fL (80-100); Monocytes % 10.1 % (3.3-12.3); Neutrophils % 69.1 % (41.7-73.7); Nucleated Red Blood Cells % 0.5 % (0-0); Platelets 388 thou/uL (152-406); RBC Red Blood Cell Count 1.77 M/uL (3.86-4.86); Red Cell Distribution Width 19.5 % (12.1-15.2)
[2024-04-14 19:22] LABS: Hemoglobin 3.9 g/dL (12.0-15.0)
[2024-04-14 19:23] LABS: Blood Morphology Comment NOTED (NOT SEEN); Hypochromasia 1+; Microcytosis 1+; Platelet Estimate ADEQ; White Blood Cell Scan OK (OK)
[2024-04-14 19:26] LABS: PT Prothrombin Time 47.4 SECONDS (9.4-12.5); Protime INR 4.58
[2024-04-14 19:40] LABS: AST/SGOT 20 U/L (15-37); Albumin 2.4 g/dL (3.4-5.0); Albumin/Globulin Ratio 0.5 (1.1-1.8); Alkaline Phosphatase 89 U/L (45-117); Anion Gap 20.8 mEq/L (5.0-15.0); BUN Blood Urea Nitrogen 37 mg/dL (7-18); Bicarbonate 30 mEq/L (21-32); Bilirubin Direct 0.7 mg/dL (0-0.2); Bilirubin Indirect, Calculated 0.6 mg/dL (0.2-0.8); Bilirubin Total 1.3 mg/dL (0.2-1.0); Globulin 5.1 g/dL (2.3-3.5); Glomerular Filtration Rate 46 ml/min (=/>90); Glucose Level 199 mg/dL (74-106); Lipase 113 U/L (13-75); Magnesium 1.8 mg/dL (1.6-2.4); NT PRO-BNP 1781 pg/mL (<125); Potassium 1.8 mEq/L (3.5-5.1); Protein, Total 7.5 g/dL (6.4-8.2); Sodium Level 127 mEq/L (136-145)
[2024-04-14 19:41] LABS: ALT/SGPT < 14 U/L (13-56)
[2024-04-14] MEDS ORDERED: NA CHLORIDE 0.9% 1,000 ML ONE (19:41)
[2024-04-14] MEDS ORDERED: KCL 20 MEQ/100 mL IVPB 100 ML IV ONE ×2 (19:47→21:21)
[2024-04-14 19:56] LABS: Phosphorus 2.5 mg/dL (2.5-4.9)
[2024-04-14] MEDS ORDERED: PANTOPRAZOLE 40 MG INJ ONE (20:02)
[2024-04-14] MEDS ORDERED: FOLIC ACID 5 MG/ML VIAL ONE (20:03)
[2024-04-14] MEDS ORDERED: Meropenem 1000 MG/VIAL IV ONE (20:03)
[2024-04-14] MEDS ORDERED: NA CHLORIDE 0.9% 200 ML ONE (20:04)
[2024-04-14] MEDS ORDERED: NA CHLORIDE 0.9% 250 ML ONE ×2 (20:07→21:50)
--- NOTE | 2024-04-14 20:15 | EDPHYS ---
Physician Documentation [facility] Name: Carmelita Ovalles Age: 73 yrs Sex: Female : 1950 Arrival Date: 04/14/2024 Time: 18:32 Bed 20 Private MD: ED Physician Dann Mathur HPI: 04/14 20:05 This 73 yrs old Female presents to ER via Wheelchair with complaints of john Altered. 20:05 The patient presents to the emergency department with rectal bleeding, melena. Onset: john The symptoms/episode began/occurred at an unknown time. Abdominal pain: none is appreciated. Modifying factors: The symptoms are alleviated by nothing, the symptoms are aggravated by nothing. weak, pale, on eliquis. The patient presents with confusion, decreased mental status, trouble concentrating. Onset: The symptoms/episode began/occurred 3 day(s) ago. Possible causes: CVA or TIA, head injury, low blood sugar, seizure, sepsis. Associated signs and symptoms: Pertinent positives: confusion, dizziness, gait abnormality, lightheadedness, nausea. Associated signs and symptoms: Pertinent positives: dizziness at rest, dizziness when standing, shortness of breath, near-syncope. Current symptoms: In the emergency department the patient's symptoms are unchanged from the initial presentation, despite home interventions. Patient's baseline: Neuro: alert and fully oriented. Severity of symptoms: At their worst the symptoms were moderate in the emergency department the symptoms are unchanged. It is unknown whether or not the patient has had similar symptoms in the past. Historical: - Allergies: 18:56 No Known Allergies; cm10 - PMHx: 18:56 depressive disorder; Hypertension; Hypothyroidism; cm10 - Immunization history:: Adult Immunizations unknown. - Infectious Disease History:: Denies. - Social history:: Smoking status: unknown. - Family history:: not pertinent. ROS: 20:05 Constitutional: Negative for fever, chills, and weight loss, Eyes: Negative for injury, john pain, redness, and discharge, ENT: Negative for injury, pain, and discharge, Neck: Negative for injury, pain, and swelling, Respiratory: Negative for shortness of breath, cough, wheezing, and pleuritic chest pain, Back: Negative for injury and pain, : Negative for injury, bleeding, discharge, and swelling, MS/Extremity: Negative for injury and deformity, Psych: Negative for depression, anxiety, suicide ideation, homicidal ideation, and hallucinations, Allergy/Immunology: Negative for hives, rash, and allergies, Endocrine: Negative for neck swelling, polydipsia, polyuria, polyphagia, and marked weight changes, 20:05 Cardiovascular: Positive for chest pain, palpitations, 20:05 Respiratory: Positive for cough, shortness of breath, 20:05 Abdomen/GI: Positive for black/tarry stool, 20:05 Skin: Positive for pallor, Exam: 20:05 Head/Face: Normocephalic, atraumatic. Eyes: Pupils equal round and reactive to light, john extra-ocular motions intact. Lids and lashes normal. Conjunctiva and sclera are non-icteric and not injected. Cornea within normal limits. Periorbital areas with no swelling, redness, or edema. ENT: Nares patent. No nasal discharge, no septal abnormalities noted. Tympanic membranes are normal and external auditory canals are clear. Oropharynx with no redness, swelling, or masses, exudates, or evidence of obstruction, uvula midline. Mucous membranes moist. Neck: Trachea midline, no thyromegaly or masses palpated, and no cervical lymphadenopathy. Supple, full range of motion without nuchal rigidity, or vertebral point tenderness. No Meningismus. Chest/axilla: Normal chest wall appearance and motion. Nontender with no deformity. No lesions are appreciated. Respiratory: Lungs have equal breath sounds bilaterally, clear to auscultation and percussion. No rales, rhonchi or wheezes noted. No increased work of breathing, no retractions or nasal flaring. Female : Normal external genitalia. MS/ Extremity: Pulses equal, no cyanosis. Neurovascular intact. Full, normal range of motion., bilateral aka Psych: Awake, alert, with orientation to person, place and time. Behavior, mood, and affect are within normal limits. 20:05 Constitutional: The patient appears lethargic, in obvious distress, 20:05 Cardiovascular: Rate: tachycardic, actual rate is 148 bpm, Rhythm: regular, Pulses: Pulses are 4+ in bilateral radial, brachial, femoral, popliteal, posterior tibial and and dorsalis pedis arteries.. Heart sounds: normal, Edema: is not appreciated, JVD: is not appreciated, 20:05 ECG was reviewed by the Attending Physician. 20:05 Musculoskeletal/extremity: ROM: no acute changes, Circulation is intact in all extremities. Sensation intact. Compartment Syndrome exam of affected extremity: is normal. Weight bearing: is unable to bear weight, DVT Exam: No signs of deep vein thrombosis. no pain, no swelling, no tenderness, negative Homans' sign noted on exam, no appreciated bluish discoloration, no erythema, no increased warmth, 20:05 Skin: Appearance: Color: pale, Temperature: normal temperature, Moisture: normal moisture, petechiae, not noted, ecchymosis, not noted, 20:05 Neuro: Orientation: no acute changes, per family, Memory: appropriate for stated age, Cranial nerves: grossly normal, is grossly normal based on the patient's age, no acute changes, Cerebellar function: is grossly normal, Motor: moves all fours, strength is 5/5 in all extremities, Sensation: is normal, no obvious gross deficits, appropriate no acute changes, Gait: not tested. seizure activity, is not displayed by the patient, Vital Signs: 18:54 BP 91 / 66; Pulse 148; Resp 22; Temp 97.2; Pulse Ox 98% on R/A; Weight 36.29 kg; cm10 19:18 BP 77 / 51; Pulse 140; Resp 21; Pulse Ox 98% on R/A; al5 19:30 BP 74 / 64; Pulse 134; Resp 21; Pulse Ox 97% on R/A; al5 19:46 BP 96 / 60; Pulse 131; Resp 21; Pulse Ox 98% on R/A; al5 20:00 BP 108 / 59; Pulse 137; Resp 26; Pulse Ox 100% on R/A; al5 20:15 BP 88 / 57; Pulse 116; Resp 21; Pulse Ox 100% on R/A; al5 20:30 BP 73 / 55; Pulse 126; Resp 20; Pulse Ox 98% on R/A; al5 20:45 BP 82 / 57; Pulse 136; Resp 20; Pulse Ox 100% on R/A; al5 21:00 BP 93 / 61; Pulse 129; Resp 21; Pulse Ox 100% on R/A; al5 21:15 BP 98 / 63; Pulse 128; Resp 19; Pulse Ox 99% on R/A; al5 21:30 BP 81 / 64; Pulse 132; Resp 23; Pulse Ox 98% on R/A; al5 21:45 BP 93 / 64; Pulse 135; Resp 24; Pulse Ox 100% on R/A; al5 22:00 BP 80 / 61; Pulse 140; Resp 17; Pulse Ox 98% on R/A; al5 22:15 BP 77 / 59; Pulse 138; Resp 20; Pulse Ox 99% on R/A; al5 22:20 al5 23:30 BP 101 / 79; Pulse 89; Resp 15; Pulse Ox 100% on R/A; al5 23:45 BP 102 / 75; Pulse 108; Resp 19; Pulse Ox 100% on R/A; al5 04/15 00:03 BP 102 / 56; Pulse 92; Resp 18; Pulse Ox 100% on R/A; al5 01:45 BP 101 / 61; Pulse 93; Resp 18; Temp 97.7; Pulse Ox 100% on R/A; al5 04/14 22:20 see blood transfusion flow sheet for vitals al5 04/15 00:03 see blood transfusion flow sheet for vitals al5 Procedures: 04/14 20:15 Central Line: the site was prepped with Betadine, in sterile fashion, a triple lumen john catheter was inserted, in the right femoral vein, in 1 attempts. placement was verified, by blood return, the site was dressed with 4X4s, using sterile technique, the patient tolerated the procedure, well. MDM: 18:56 Medical Screening Exam initiated john 20:11 Differential diagnosis: gastritis, diverticulitis, hemorrhagic shock, varices. john Differential Diagnosis altered mental status, sepsis, flu. Differential Diagnosis: CVA, electrolyte abnormality, hypoglycemia, intracranial bleed, overdose, pneumonia, seizure, sepsis, TIA, UTI, volume depletion. Data reviewed: vital signs, nurses notes, EMS record, lab test result(s), EKG, radiologic studies, CT scan, plain films. Consideration of Admission/Observation Escalation of care including admission/observation considered. I considered the following discharge prescriptions or medication management in the emergency department Medications were administered in the Emergency Department. See MAR. Independent interpretation of the following test(s) in the Emergency Department EKG: See my EKG interpretation above. Test considered but Not performed: MRI: no mri brain. Historians other than the Patient: Daughter/Son: daughter well informed. Care significantly affected by the following chronic conditions: Hypertension, hypothyroid, eliquis, depression. Counseling: I had a detailed discussion with the patient and/or guardian regarding the historical points, exam findings, and any diagnostic results supporting the discharge/admit diagnosis, lab results, radiology results, the need to transfer to another facility, for higher level of care, [facility] does not immediately have the required specialist. 20:51 Post IV fluid administration reassessment for Sepsis: Client not prescribed the 30 john mL/kg IVF due to: Sepsis focused reassessment complete. 04/14 18:59 Order name: Basic Metabolic Panel; Complete Time: 19:57 [facility] 04/14 18:59 Order name: CBC with Diff; Complete Time: 19:27 [facility] 04/14 18:59 Order name: LFT's; Complete Time: 19:57 [facility] 04/14 18:59 Order name: Magnesium; Complete Time: 19:57 [facility] 04/14 18:59 Order name: NT PRO-BNP; Complete Time: 19:57 [facility] 04/14 18:59 Order name: PT-INR; Complete Time: 19:27 [facility] 04/14 18:59 Order name: Troponin HS; Complete Time: 19:57 [facility] 04/14 18:59 Order name: Lipase; Complete Time: 19:57 [facility] 04/14 18:59 Order name: Urinalysis w/ reflexes; Complete Time: 21:33 [facility] 04/14 18:59 Order name: Urine Culture [facility] 04/14 18:59 Order name: Type And Screen [facility] 04/14 18:59 Order name: Blood Culture Adult (2) [facility] 04/14 18:59 Order name: Lactate w/ 2H reflex if indic.; Complete Time: 19:57 [facility] 04/14 19:10 Order name: Fresh Frozen Plasma [facility] 04/14 19:19 Order name: AMMONIA; Complete Time: 20:30 [facility] 04/14 19:24 Order name: CBC Smear Scan; Complete Time: 19:27 [facility] 04/14 19:29 Order name: LAB Add On sp 04/14 19:41 Order name: Ghost Lactate-NO COLLECT Timer [facility] 04/14 19:48 Order name: Phosphorus; Complete Time: 19:57 [facility] 04/14 20:34 Order name: CBC with Diff: after blood [facility] 04/14 20:34 Order name: BMP: after potassium [facility] 04/14 20:43 Order name: Packed RBC Leukored [facility] 04/14 22:50 Order name: Lactate Sepsis 2 HR Follow-up [facility] 04/14 18:59 Order name: XRAY Chest (1 view) [facility] 04/14 21:13 Order name: Chest Abd Pelvis Wo Con EDTN 04/14 21:15 Order name: Head C Spine Mpr Wo Con [facility] 04/14 18:59 Order name: Cardiac monitoring; Complete Time: 19:08 [facility] 04/14 18:59 Order name: EKG - Nurse/Tech; Complete Time: 19:23 [facility] 04/14 18:59 Order name: IV Saline Lock; Complete Time: 20:20 [facility] 04/14 18:59 Order name: Labs collected and sent; Complete Time: 20:20 [facility] 04/14 18:59 Order name: O2 Per Protocol; Complete Time: 19:08 [facility] 04/14 18:59 Order name: O2 Sat Monitoring; Complete Time: 19:08 [facility] 04/14 18:59 Order name: Traore; Complete Time: 20:20 [facility] 04/14 18:59 Order name: IV Saline Lock - Large Bore; Complete Time: 20:20 [facility] 04/14 19:26 Order name: Misc. Order: recollect of type n screen w/ new band; Complete Time: 20:20 sp EC:05 Rate is 129 beats/min. Rhythm is regular. QRS Prospect is Normal. QRS interval is normal. john QT interval is normal. No Q waves. T waves are Normal. No ST changes noted. Clinical impression: Sinus tachycardia. Interpreted by me. Reviewed by me. Administered Medications: 20:17 Drug: Potassium Chloride IV 20 mEq IV at per protocol once; administer over 1-2 hours al5 Route: IV; Rate: per protocol; Site: right antecubital; 21:52 Follow up: Response: No adverse reaction; IV Status: Completed infusion; IV Intake: al5 100ml 20:20 Drug: Pantoprazole IVP 80 mg IVP once Route: IVP; Site: right femoral; al5 21:11 Follow up: Response: No adverse reaction al5 20:20 Drug: NS 0.9% IV (30 ml/kg) 30 ml/kg IV at bolus once; Sepsis Protocol; to be given as al5 a bolus over 90 minutes Route: IV; Rate: bolus; Site: right antecubital; 21:11 Follow up: Response: No adverse reaction; IV Status: Completed infusion; IV Intake: al5 1088.7ml 20:20 Drug: foLIC Acid IVPB 1 mg IVPB once Route: IVPB; Site: right femoral; al5 21:11 Follow up: Response: No adverse reaction; IV Status: Completed infusion; IV Intake: al5 102ml 20:20 Drug: Pantoprazole IV 8 mg/hr IV at 25 ml/hr continuous; (Standard dilution is 80 mg in al5 250 mL NS) Route: IV; Rate: 25 ml/hr; Site: right femoral; 04/15 01:57 Follow up: Response: No adverse reaction; IV Status: Infusion continued upon transfer al5 04/14 20:47 Drug: Meropenem IV 1 grams IV at per protocol once; (mix in NS 100 mL) Route: IV; Rate: al5 per protocol; Site: right femoral; 21:17 Follow up: Response: No adverse reaction; IV Status: Completed infusion; IV Intake: al5 100ml 21:52 Drug: Potassium Chloride IV 20 mEq IV at per protocol once; administer over 1-2 hours al5 Route: IV; Rate: per protocol; Site: right antecubital; 04/15 00:00 Follow up: Response: No adverse reaction; IV Status: Completed infusion; IV Intake: al5 100ml 04/14 22:26 Drug: Kcentra IV 500 unit 500 unit 35 units/kg IV at per protocol once; not to exceed al5 3,500 units initiate at 0.12 mL/kg/min (or 3 units/kg/min) not to exceed 8.4 mL/min (or 210 units/min) Route: IV; Rate: per protocol; Site: right femoral; 04/15 00:29 Follow up: Response: No adverse reaction; IV Status: Completed infusion; IV Intake: [id number] Disposition: 04/14 20:15 Critical Care:. 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 Total time: 85 minutes Signatures: Dispatcher [employer] EDMS Dann Mathur MD MD cha Pinkerton, Shawna sp [place], Ryan, MD MD rt Oanh Haddad RN RN cm10 Sunni Damico RN RN al5 Corrections: (The following items were deleted from the chart) 18:59 18:59 Chest Single View+RAD.RAD.BRZ ordered. EDTN EDMS 18:59 18:59 Head C Spine Cap Wo Con+CT.RAD.BRZ ordered. EDTN EDMS 19:05 19:05 LAB ADD ON+C.LAB.BRZ ordered. EDMS EDMS 20:51 20:15 to icu john john 22:05 19:29 PACKED RBC LEUKORED+BB.LAB.BRZ ordered. EDTN EDMS 22:05 19:31 Packed RBC Leukored ordered. EDMS EDMS 22:05 19:31 ABO/RH typing ordered. EDMS EDMS 22:05 19:31 Antibody Screen ordered. EDTN EDMS 04/15 01:57 04/14 20:51 to icu john al5
--- NOTE | 2024-04-14 20:15 | ER ---
Nurse's Notes [facility] Name: Carmelita Ovalles Age: 73 yrs Sex: Female : 1950 Arrival Date: 04/14/2024 Time: 18:32 Bed 20 Private MD: Diagnosis: Altered mental status, unspecified;Hypotension, unspecified;GI Bleed/ Gastrointestinal hemorrhage, unspecified-upper;senior living (current) use of anticoagulants;Non ST elevation OR;Acute posthemorrhagic anemia;Hypo-osmolality and hyponatremia;Hypokalemia;Severe sepsis with septic shock Presentation: 04/14 18:54 Chief complaint: Altered mental status onset today. Daughter reports that patient was cm10 "Unresponsive" today. Pt arrived covered in urine and dry feces. Pt unable to follow commands. Dr. Mathur at bedside. Code Sepsis activated. Coronavirus screen: Client denies travel out of the [place] in the last 14 days. Ebola Screen: Patient denies travel to an Ebola-affected area in the 21 days before illness onset. Initial Sepsis Screen: Does the patient meet any 2 criteria? Mean Arterial Pressure (MAP) < 65. Altered Mental Status. HR > 90 bpm. Yes Does the patient have a suspected source of infection? No. Patient's initial sepsis screen is negative. If YES to both, name of provider notified: Dann Mathur MD. Risk Assessment: Do you want to hurt yourself or someone else? Patient reports no desire to harm self or others. Onset of symptoms was April 14, 2024. 18:54 Acuity: MARCIA 2 cm10 18:54 Method Of Arrival: Wheelchair cm10 Triage Assessment: 18:56 General: Appears ill, malnourished, cachectic, Behavior is quiet, uncooperative. Neuro: cm10 No deficits noted. Level of Consciousness is awake, confused, lethargic. Respiratory: No deficits noted. Airway is patent Respiratory effort is even, unlabored, Respiratory pattern is regular, symmetrical. Historical: - Allergies: 18:56 No Known Allergies; cm10 - PMHx: 18:56 depressive disorder; Hypertension; Hypothyroidism; cm10 - Immunization history:: Adult Immunizations unknown. - Infectious Disease History:: Denies. - Social history:: Smoking status: unknown. - Family history:: not pertinent. Screenin:[address] [facility] ED Fall Risk Assessment (Adult) History of falling in the last 3 months, al5 including since admission No falls in past 3 months (0 pts) Confusion or Disorientation Yes (5 pts) Intoxicated or Sedated No (0 pts) Impaired Gait Yes (1 pt) Mobility Assist Device Used No (0 pt) Altered Elimination Yes (1 pt) Score/Fall Risk Level 3 or more points = High Risk Oriented to surroundings, Maintained a safe environment, Provided non-skid footwear, Hourly rounding (assess needs \\T\\ fall precautionary measures) done, Implemented a Fall Risk Plan of Care, Utilized family, sitter, or virtual diesel fitter mechanic as indicated. Abuse screen: Denies threats or abuse. Denies injuries from another. Nutritional screening: No deficits noted. Tuberculosis screening: No symptoms or risk factors identified. Assessment: 18:55 Reassessment: code sepsis called, pt carried into bed from wheelchair by myself and kc6 Oanh Haddad RN, cleaned of incontinence and placed in gown. 19:18 General: Appears in no apparent distress. uncomfortable, ill, slender, malnourished, al5 Behavior is cooperative. Pain: Denies pain. Neuro: Level of Consciousness is confused, lethargic, Oriented to person, place. Cardiovascular: Patient's skin is warm and dry. Rhythm is atrial fibrillation. Respiratory: Airway is patent Respiratory effort is even, unlabored, Respiratory pattern is regular, symmetrical. GI: Abdomen is flat, non-distended. : No signs and/or symptoms were reported regarding the genitourinary system. EENT: No signs and/or symptoms were reported regarding the EENT system. Derm: Skin is intact, Skin is dry, Skin is normal, jaundiced, pale, Skin temperature is warm. Musculoskeletal: No signs and/or symptoms reported regarding the musculoskeletal system. 20:34 Reassessment: Patient appears in no apparent distress at this time. No changes from al5 previously documented assessment. Patient and/or family updated on plan of care and expected duration. Pain level reassessed. respirations even unlabored, skin warm and dry. 21:27 Reassessment: Patient appears in no apparent distress at this time. No changes from al5 previously documented assessment. Patient and/or family updated on plan of care and expected duration. Pain level reassessed. respirations even unlabored, skin warm and dry. 22:45 Reassessment: Patient appears in no apparent distress at this time. No changes from al5 previously documented assessment. Patient and/or family updated on plan of care and expected duration. Pain level reassessed. skin warm and dry, respirations even and unlabored. patient undergoing first unit transfusion. 04/15 00:00 Reassessment: Patient appears in no apparent distress at this time. No changes from al5 previously documented assessment. Patient and/or family updated on plan of care and expected duration. Pain level reassessed. Patient states feeling better. Patient states symptoms have improved. 01:25 Reassessment: Patient appears in no apparent distress at this time. No changes from al5 previously documented assessment. Patient and/or family updated on plan of care and expected duration. Pain level reassessed. gave report to ashtyn lock at [facility]. 01:54 Reassessment: Patient appears in no apparent distress at this time. No changes from al5 previously documented assessment. Patient and/or family updated on plan of care and expected duration. Pain level reassessed. gave report to EMS for transfer. blood transfusion checked with rice farmworker. transfer of care given. Vital Signs: 04/14 18:54 BP 91 / 66; Pulse 148; Resp 22; Temp 97.2; Pulse Ox 98% on R/A; Weight 36.29 kg; cm10 19:18 BP 77 / 51; Pulse 140; Resp 21; Pulse Ox 98% on R/A; al5 19:30 BP 74 / 64; Pulse 134; Resp 21; Pulse Ox 97% on R/A; al5 19:46 BP 96 / 60; Pulse 131; Resp 21; Pulse Ox 98% on R/A; al5 20:00 BP 108 / 59; Pulse 137; Resp 26; Pulse Ox 100% on R/A; al5 20:15 BP 88 / 57; Pulse 116; Resp 21; Pulse Ox 100% on R/A; al5 20:30 BP 73 / 55; Pulse 126; Resp 20; Pulse Ox 98% on R/A; al5 20:45 BP 82 / 57; Pulse 136; Resp 20; Pulse Ox 100% on R/A; al5 21:00 BP 93 / 61; Pulse 129; Resp 21; Pulse Ox 100% on R/A; al5 21:15 BP 98 / 63; Pulse 128; Resp 19; Pulse Ox 99% on R/A; al5 21:30 BP 81 / 64; Pulse 132; Resp 23; Pulse Ox 98% on R/A; al5 21:45 BP 93 / 64; Pulse 135; Resp 24; Pulse Ox 100% on R/A; al5 22:00 BP 80 / 61; Pulse 140; Resp 17; Pulse Ox 98% on R/A; al5 22:15 BP 77 / 59; Pulse 138; Resp 20; Pulse Ox 99% on R/A; al5 22:20 al5 23:30 BP 101 / 79; Pulse 89; Resp 15; Pulse Ox 100% on R/A; al5 23:45 BP 102 / 75; Pulse 108; Resp 19; Pulse Ox 100% on R/A; al5 04/15 00:03 BP 102 / 56; Pulse 92; Resp 18; Pulse Ox 100% on R/A; al5 01:45 BP 101 / 61; Pulse 93; Resp 18; Temp 97.7; Pulse Ox 100% on R/A; al5 04/14 22:20 see blood transfusion flow sheet for vitals al5 04/15 00:03 see blood transfusion flow sheet for vitals al5 ED Course: 04/14 18:35 Patient arrived in ED. ra3 18:56 Dann Mathur MD is Attending Physician. john 18:56 Triage completed. cm10 18:56 Arm band placed on right wrist. Patient placed in an exam room, on a stretcher. cm10 18:56 Patient has correct armband on for positive identification. Placed in gown. Bed in low kc6 position. Call light in reach. Side rails up X2. Adult w/ patient. manager monitoring on. Pulse ox on. NIBP on. Door closed. Noise minimized. Lights dimmed. Pillow given. Repositioned patient. Cleaned of incontinence. Linen changed. 18:58 Notified ED physician of a critical lab result(s). Hgb 3.8. jl7 19:04 Initial lab(s) drawn, by nj, sent to lab. First set of blood cultures drawn by nj. me1 19:08 Cathleen Prasad, RN is Primary Nurse. me1 19:09 Inserted saline lock: 22 gauge in left antecubital area, using aseptic technique. me1 19:17 Second set of blood cultures drawn by nj. me1 19:22 EKG done, by ED staff, reviewed by Dann Mathur MD. 20:[address] Mathur call [facility] Transfer center no answer 1999 called [facility] 2003 sp called [facility] talked to Fariba. 20:17 Inserted saline lock: 22 gauge in right antecubital area, using aseptic technique. al5 Blood collected. Flushed with 10 mL NS. 20:18 Assisted provider with central line placement. Set up central line tray. Triple lumen al5 line placed in right femoral. Line placed by Dann Mathur MD Placement verified by blood return, Dressed with Tegaderm, Blood was collected. Patient tolerated well. Before procedure, did Practitioner(s) obtain informed consent? Yes. Patient \\T\\ family education about procedure, CLABSI prevention and S/S of infection? Yes. Time-out/Briefing performed prior to start of procedure? Yes. Was handwashing/sanitizing done immediately prior to procedure? Yes. Was patient positioned to in a way to prevent air embolism? Yes. Was procedure site sterilized? Yes, with chlorhexidine. Was the site allowed to dry? Yes. Was local anesthetic and/or sedation utilized? Yes. During the procedure, did the Practitioner(s) maintain a sterile field? Yes. Were unused ports clamped during insertion? Yes. Was a 2nd qualified MD obtained after 3 unsuccessful insertion attempts? No. Was blood aspirated from each lumen? Yes. After the procedure, did the Practitioner(s) clean the site and apply a sterile dressing? Yes. 20:21 XRAY Chest (1 view) In Process Unspecified. EDMS 20:[address] Larry Linton accepted patient. 2035 Vivian Erickson admin approval to [facility] unit 8A bed #802 report number [phone] fax [phone]. 21:00 Provided Education on: educated family on medications and need for transfer. notified al5 family of where the patient will be transferred to, unit floor, and room she will be in.. 21:31 Chest Abd Pelvis Wo Con In Process Unspecified. EDMS 21:32 Head C Spine Mpr Wo Con In Process Unspecified. EDMS 04/15 01:02 called [employer] flight declined due to weather talked to MARIANA. sp 01:04 called [facility] talked to Lana simon due to weather. sp 01:29 called [facility] for transfer to [facility]. sp 01:56 Patient transferred, IV remains in place. 01:57 LAB Add On Sent. al5 Administered Medications: 04/14 20:17 Drug: Potassium Chloride IV 20 mEq IV at per protocol once; administer over 1-2 hours al5 Route: IV; Rate: per protocol; Site: right antecubital; 21:52 Follow up: Response: No adverse reaction; IV Status: Completed infusion; IV Intake: al5 100ml 20:20 Drug: Pantoprazole IVP 80 mg IVP once Route: IVP; Site: right femoral; al5 21:11 Follow up: Response: No adverse reaction al5 20:20 Drug: NS 0.9% IV (30 ml/kg) 30 ml/kg IV at bolus once; Sepsis Protocol; to be given as al5 a bolus over 90 minutes Route: IV; Rate: bolus; Site: right antecubital; 21:11 Follow up: Response: No adverse reaction; IV Status: Completed infusion; IV Intake: al5 1088.7ml 20:20 Drug: foLIC Acid IVPB 1 mg IVPB once Route: IVPB; Site: right femoral; al5 21:11 Follow up: Response: No adverse reaction; IV Status: Completed infusion; IV Intake: al5 102ml 20:20 Drug: Pantoprazole IV 8 mg/hr IV at 25 ml/hr continuous; (Standard dilution is 80 mg in al5 250 mL NS) Route: IV; Rate: 25 ml/hr; Site: right femoral; 04/15 01:57 Follow up: Response: No adverse reaction; IV Status: Infusion continued upon transfer al5 04/14 20:47 Drug: Meropenem IV 1 grams IV at per protocol once; (mix in NS 100 mL) Route: IV; Rate: al5 per protocol; Site: right femoral; 21:17 Follow up: Response: No adverse reaction; IV Status: Completed infusion; IV Intake: al5 100ml 21:52 Drug: Potassium Chloride IV 20 mEq IV at per protocol once; administer over 1-2 hours al5 Route: IV; Rate: per protocol; Site: right antecubital; 04/15 00:00 Follow up: Response: No adverse reaction; IV Status: Completed infusion; IV Intake: al5 100ml 04/14 22:26 Drug: Kcentra IV 500 unit 500 unit 35 units/kg IV at per protocol once; not to exceed al5 3,500 units initiate at 0.12 mL/kg/min (or 3 units/kg/min) not to exceed 8.4 mL/min (or 210 units/min) Route: IV; Rate: per protocol; Site: right femoral; 04/15 00:29 Follow up: Response: No adverse reaction; IV Status: Completed infusion; IV Intake: [id number] Medication: 04/14 19:18 VIS not applicable for this client. al5 Intake: 21:11 IV: 102ml; Total: 102ml. al5 21:11 IV: 1089ml; Total: 1191ml. al5 21:17 IV: 100ml; Total: 1291ml. al5 21:52 IV: 100ml; Total: 1391ml. al5 04/15 00:00 IV: 100ml; Total: 1491ml. al5 00:29 IV: 60ml; Total: 1551ml. al5 Outcome: 04/14 20:15 ER care complete, transfer ordered by MD. lopez 04/15 01:56 Transferred by ground EMS [facility]. to [facility], al5 Condition: stable/critical Instructed on the need for transfer, 01:57 Patient left the ED. al5 Addendum: 04/17/2024 10:09 Addendum: Culture Results: Positive urine culture. culture report faxed to [facility] almaz hernandez [id number]. Signatures: Dispatcher [employer] EDAnn Marie Maciel Corey, MD MD cha Pinkerton, Shawna sp Leal, Jahala RN RN [email or web address] Izabella Figueredo RN RN [email or web address] Oanh Haddad RN RN cm10 Cathleen Prasad, RN RN Olamide Vizcaino Amanda, RN RN al5 Kylah Wilkinson Corrections: (The following items were deleted from the chart) 04/14 21:07 21:07 Meropenem IV 1 grams IV at per protocol in right femoral al5 al5
[2024-04-14] MEDS ORDERED: NA CHLORIDE 0.9% 500 ML ONE (20:23)
[2024-04-14 21:11] LABS: Specific Gravity 1.009 (1.005-1.030); Sqamous Epithelial <5 /HPF (None Seen); Urine Bacteria <20 /HPF (<20); Urine Bilirubin NEGATIVE (Negative); Urine Blood 1+ (Negative); Urine Clarity Extremely Turbid (Clear); Urine Color Light-Orange (Yellow); Urine Crystals Unidentified Few /HPF (None Seen); Urine Culture Reflex Order REFLEXED; Urine Glucose NEGATIVE (Negative); Urine Ketones NEGATIVE (Negative); Urine Microscopic Reflex YN ORDER UMIC; Urine Mucus Slight /HPF (None Seen); Urine Nitrite NEGATIVE (Negative); Urine Protein 2+ (Negative); Urine RBC 21-50 /HPF (None Seen); Urine Urobilinogen 2+ (Normal); Urine WBC >50 /HPF (<5); Urine WBC Clump Many /HPF (None Seen); Urine Yeast (Budding) Many /HPF (None Seen); Urine pH 7.5 (5.0-7.0)
--- NOTE | 2024-04-14 21:44 | RAD REPORT ---
EXAM: CT CHEST, ABDOMEN AND PELVIS WITHOUT CONTRAST CLINICAL INDICATION: Chest and abdominal pain status post fall TECHNIQUE: CT chest, abdomen and pelvis was performed, without IV contrast, as per department protoco l. Axial, sagittal and coronal reconstructions were obtained. One or more of the following dose reduction techniques were used: Automated exposure control, adjustment of the mA and/or kV according to the patient size, and/or iterative reconstruction. Unless otherwise specified, incidental findings do not require dedicated imaging follow-up. The lack of IV and oral contrast limits evaluation of the mediastinum, maryann, vessels, organs and alireza l. COMPARISON: None FINDINGS: No pulmonary contusion. No mediastinal hematoma. No pleural effusion. No pericardial effusion. Liver, spleen, pancreas, adrenals kidneys and bladder do not demonstrate a traumatic injury. Small hyperdense left renal cyst. Additional small left renal cyst. Traore catheter bladder within the bladder. There is no evidence of diverticulitis IMPRESSION: No acute traumatic injury involving the chest, abdomen/pelvis seen
--- NOTE | 2024-04-14 21:45 | RAD REPORT ---
EXAMINATION: CT HEAD WITHOUT CONTRAST CT CERVICAL SPINE WITHOUT CONTRAST CLINICAL INDICATION: Head and neck injury status post fall. Head and neck pain TECHNIQUE: Axial CT images from the skull base to the vertex without intravenous contrast. Axial CT i mages through the cervical spine were obtained without intravenous contrast. Sagittal and coronal reformatted images were created from the data set. Coronal and sagittal reformatted images were creat ed from the data set. One or more of the following dose reduction techniques were used: Automated exposure control, adjustment of the mA and/or kV according to patient size, and/or iterative reconstr uction. Unless otherwise specified, incidental findings do not require dedicated imaging follow-up. [id number]. Comparison: none FINDINGS: An intracranial bleed is not seen. Ventricles are normal in caliber. No significant hypodensity within the brain No extra-axial fluid collection. No fluid within the sinuses/mastoids No fracture or dislocation is seen involving the cervical spine. IMPRESSION: No acute intracranial abnormality noted A cervical fracture is not seen. If the patient continues to have symptoms to suggest acute PHLEBOTOMIST MEDICAL LAB ASSISTANT/spinal pathology then MRI would be rec ommended
--- NOTE | 2024-04-14 21:46 | RAD REPORT ---
Procedure: Chest Single View HISTORY: Cough COMPARISON: 2022 FINDINGS: The lungs appear clear of acute infiltrate. No significant pleural effusion noted. The heart is mildly enlarged. IMPRESSION: No acute abnormality is displayed.
[2024-04-15 00:45] LABS: Anion Gap 6.4 mEq/L (5.0-15.0)
[2024-04-15 00:52] LABS: Potassium 2.4 mEq/L (3.5-5.1)
[2024-04-15 01:22] LABS: Absolute Lymphocytes (CBC) 0.4 K/uL (0.7-4.9); Absolute Monocytes 0.5 K/uL (0.1-1.3); Absolute Neutrophil 5.5 K/uL (1.8-8.0); Basophils % 0.4 % (0-1.3); Eosinophils % 0.1 % (0-4.4); Hematocrit 13.6 % (36.0-45.0); Lymphocytes % 6.3 % (15.3-44.8); MCH 22.9 pg (27.0-35.0); MCHC 34.1 g/dL (32.0-36.0); MCV 67.3 fL (80-100); MPV 9.1 fL (7.6-11.3); Monocytes % 8.3 % (3.3-12.3); Neutrophils % 84.9 % (41.7-73.7); Nucleated Red Blood Cells % 0.7 % (0-0); Platelets 244 thou/uL (152-406); RBC Red Blood Cell Count 2.03 M/uL (3.86-4.86); Red Cell Distribution Width 18.6 % (12.1-15.2)
[2024-04-15 01:37] LABS: Hemoglobin 4.6 g/dL (12.0-15.0)
[2024-04-15 02:41] VITALS: O2SAT 100
[2024-04-15 02:44] VITALS: BP 101/61; TEMP 97.7
--- NOTE | 2024-04-18 12:53 | EKG ---
Test Date: 2024-04-14 Test Time: 19:14:19 Software Test Engineer: DIONE MEASUREMENT RESULTS: Intervals: Rate: 129 NM: 146 QRSD: 94 QT: 380 QTc: 556 [employer]: P: 109 NM: 146 QRS: 73 T: 110 INTERPRETIVE STATEMENTS: Sinus tachycardia with fusion complexes ST & T wave abnormality, consider inferolateral ischemia Abnormal ECG Compared to ECG 05/10/2023 02:33:24 Fusion complex(es) now present ST (T wave) deviation now present Sinus rhythm no longer present Sinus arrhythmia no longer present T-wave abnormality no longer present Prolonged QT interval no longer present Possible ischemia still present Electronically Signed On 04-18-24 12:45:48 GOPHERMAN by Will Patricia
== END 2024-04-15 01:57 | disposition short-term general hospital (02) ==
LOC: ER 18:32
PROC: 30233K1 Transfusion of Nonautologous Frozen Plasma into Peripheral Vein, Percutaneous Approach (ICD-10-PCS; principal; 2024-04-15)
PROC: 30233N1 Transfusion of Nonautologous Red Blood Cells into Peripheral Vein, Percutaneous Approach (ICD-10-PCS; 2024-04-15)
DX: I21.4 Non-ST elevation (NSTEMI) myocardial infarction (principal); I95.9 Hypotension, unspecified; R65.21 Severe sepsis with septic shock; D62 Acute posthemorrhagic anemia; E87.1 Hypo-osmolality and hyponatremia; E87.6 Hypokalemia; K92.2 Gastrointestinal hemorrhage, unspecified; Z79.01 Long term (current) use of anticoagulants
CPT/HCPCS: 93005; 87040 ×2; 87088; 85025 ×2; 81001; 87086; 80048 ×2; 36415; 82140; 86900; 83735; 86850; 84100; 85610; 86901; 80076; 83605 ×2; 86920 ×2; 87077; 87186; 84484; 83690; 83880; 70450; 71250; 72125; 74176; 71045; 99285; 36556 ×2; 36430; J3480 ×2; J7168; J2470; J2185; P9016 ×2; P9059 ×2; J7050 ×2; J7040; J7030

== ENCOUNTER 2024-12-11 16:35 | Inpatient (IN) | payer OTHER ==
--- OUTSIDE RECORDS SUMMARY | 2024-12-11 16:44 | XMS REPORT | Continuity of Care Document ---
Author Name Unknown Address [address] [facility] [place] [address] [facility] [place] Address [address] [facility] [place] [address] Care Team Providers Care Vegetable Grader Name Role Phone Ashly Tafoya Primary Care Physician + [phone] Stanford Sotelo MD Attending Clinician [phone] TA POLLARD Attending Clinician Unav TA Tran Attending Clinician Unav mag Obando RN, Kylah Ramsey Attending Clinician Unava ELKE Klein Attending Clinician Unava ilYvonne Moreno MD Attending Clinician + Elke Rendon MD Attending Clinician [phone] Lab, Ang - Db Attending Clinician Unavailable Stanford Sotelo MD Attending Clinician [phone] STANFORD SOTELO Attending Clinician Unavailpallavi e Claudine Dumont Attending Clinician + [phone] Doctor Unassigned, Tekoa Attending Clinician U navailable CLAUDINE MEMBRENO Attending Clinician Unavailable MARTHA MARRERO Attending Clinician Unavailable Martha Marrero MD Attending Clinician [phone] YVONNE LOPEZ Admitting Clinician Unavailable Yvonne Lopez MD Admitting Clinician [phone] Payers Payer Name Policy Type Policy Number Effective Date Expirati on Date Source [employer] MEDICARE ADV PPO [id number] 2024 00:00:00 MEDICARE PART A \\T\\ B [id number] 2016 00:00:00 2022 00:00:00 Problems Condition Name Condition Details Condition Category Status Onset Date Resolution Date Last Treatment Date Treating Clinician Comments Source 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 -14 00:00: 00 [facility] GIB (gastroint estinal bleeding) GIB (gastroint estinal bleeding) Disease Active 2 00:00: 00 [facility] E46 Unspecifie d severe protein-ca jailene malnutriti on E46 Unspecifie d severe protein-ca jailene malnutriti on Disease Active 04-16 00:00: 00 [facility] Altered awareness, transient Altered awareness, transient Disease Active 04-15 00:00: 00 [facility] Anemia, unspecifie d type Anemia, unspecifie d type Disease Active 04-15 00:00: 00 [facility] Essential hypertensi on, benign Essential hypertensi on, benign Disease Active 03-13 00:00: 00 [facility] Multiple thyroid nodules Multiple thyroid nodules Disease Active 06-20 00:00: 00 [facility] Vitamin D deficiency Vitamin D deficiency Disease Active 2013-03 00:00: 00 [facility] Thyroid nodule Thyroid nodule Disease Active 2013-03 00:00: 00 [facility] Prediabete s Prediabete s Disease Active 2013-03 00:00: 00 [facility] Osteopenia Osteopenia Disease Active 07-12 00:00: 00 [facility] Family history of early CAD Family history of early CAD Disease Active 10-25 00:00: 00 [facility] HLD (hyperlipi demia) HLD (hyperlipi demia) Disease Active 10-25 00:00: 00 Overview: Formattin g of this note might be different from the original. 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 Resolve d 05-04 00:00: 00 2009-04-30 00:00:00 2009-04-30 09:29:06 [facility] Allergies, Adverse Reactions, Alerts Allergy Name Allergy Type Status Severity Reaction(s) Onset Date Inactive Date Treating Clinician Comments Source NO KNOWN ALLERGIE S Drug Class Active [facility] Social History Social Habit Start Date Stop Date Quantity Comments Source Gender identity [facility] Sexual orientation [facility] ASSERTION Possible [facility] Tobacco use and exposure 2024-04-18 00:00:00 2024-04-18 00:00:00 Smokeless tobacco non-user [facility] Alcoholic beverage intake 2024-04-18 00:00:00 2024-04-18 00:00:00 Current non-drinker of alcohol (finding) [facility] History of Social function 2023-09-03 00:00:00 2023-09-03 00:00:00 [facility] Alcohol intake 2022-08-28 00:00:00 2022-08-28 00:00:00 Current non-drinker of alcohol (finding) [facility] Exposure to SARS-CoV-2 (event) 2022-02-03 00:00:00 2022-02-13 13:48:00 Not sure [facility] Sex assigned at 1950 00:00:00 1950 00:00:00 [facility] Smoking Status Start Date Stop Date Source Never smoked tobacco [facility] Medications Ordered Medication Name Filled Medication Name Start Date Stop Date Current Medication? Ordering Clinician Indication Dosage Frequency Signature (SIG) Comments Components Source METHIMAZOLE 5 mg tablet 6-09 00:00: 00 Yes [id number] 5mg TAKE 1 TABLET BY MOUTH EVERY DAY IN THE MORNING [facility] propranolol LA (INDERAL LA) 24 hr capsule 80 mg 04-27 19:45: 00 Yes 80mg 80 mg, Oral, DAILY, First dose on Maddy 04/27/24 at 1345, Until Discontinu ed, Routine [facility] digoxin (LANOXIN) injection 250 mcg 04-27 04:45: 00 04-27 04:52 :00 No 250ug 250 mcg, Intravenou s, ONCE, 1 dose, On Wed04/26/24 at 2245, Routine [facility] diltiazem (CARDIZEM IV) 5 mg/mL injection 10 mg 04-27 02:30: 00 04-27 03:11 :00 No 10mg 10 mg, Slow IV Push, Administer over 2 Minutes, ONCE, 1 dose, On Wed04/26/24 at 2030, Routine [facility] propranoloL (INDERAL) tablet 20 mg 04-27 02:00: 00 04-27 19:36 :46 No 20mg 20 mg, Oral, BID, First dose (after last modificati on) on Wed04/26/24 at 2000, Until Discontinu ed, Routine [facility] propranolol LA 80 mg 24 hr capsule 04-27 00:00: 00 Yes 80mg Take 1 capsule by mouth in the morning. [facility] digoxin (LANOXIN) injection 500 mcg 04-26 22:00: 00 04-26 22:45 :00 No 500ug 500 mcg, Intravenou s, ONCE, 1 dose, On Wed04/26/24 at 1600, AKANKSHA [facility] propranoloL (INDERAL) tablet 10 mg 04-26 17:45: 00 04-26 22:03 :23 No 10mg 10 mg, Oral, BID, First dose on Wed04/26/24 at 1145, Until Discontinu ed, Routine [facility] metoprolol (LOPRESSOR) injection 5 mg 04-26 17:00: 00 04-26 16:46 :00 No 5mg 5 mg, Intravenou s, ONCE, 1 dose, On Wed04/26/24 at 1100, STAT [facility] magnesium sulfate in water 4 gram/50 mL (8 %) IV Piggyback 4 g 04-26 16:15: 00 04-26 17:55 :00 No 4g 4 g, IV Piggyback, at 25 mL/hr Administer over 120 Minutes, ONCE, 1 dose, On Wed04/26/24 at 1015, Routine [facility] metoprolol (LOPRESSOR) injection 5 mg 04-26 14:45: 00 04-26 14:08 :00 No 5mg 5 mg, Slow IV Push, ONCE, 1 dose, On Wed04/26/24 at 0845, STAT [facility] metoprolol tartrate (LOPRESSOR) tablet 25 mg 04-26 14:30: 00 04-26 17:41 :57 No 25mg 25 mg, Oral, BID, First dose (after last modificati on) on Wed04/26/24 at 0830, Until Discontinu ed, Routine [facility] foLIC acid 1 mg tablet 04-26 00:00: 00 Yes 1mg Take 1 tablet by mouth in the morning. [facility] propranoloL 20 mg tablet 04-26 00:00: 00 04-27 00:00 :00 No 20mg Take 1 tablet by mouth in the morning. [facility] metoprolol tartrate 25 mg tablet 04-26 00:00: 00 04-26 00:00 :00 No 25mg Take 1 tablet by mouth in the morning and 1 tablet in the evening. [facility] melatonin 3 mg tablet 04-25 00:00: 00 Yes 3mg Take 1 tablet by mouth at bedtime. [facility] metoprolol tartrate 25 mg tablet 04-25 00:00: 00 04-26 00:00 :00 No 12.5mg Take 0.5 tablets by mouth in the morning and 0.5 tablets in the evening. [facility] foLIC acid (FOLATE) tablet 1 mg 04-21 15:00: 00 Yes 1mg 1 mg, Oral, DAILY, First dose on Wed04/21/24 at 0900, Until Discontinu ed, Routine [facility] pantoprazol e (PROTONIX) EC tablet 40 mg 04-21 15:00: 00 04-28 17:35 :05 No 40mg 40 mg, Oral, DAILY, First dose on Wed04/21/24 at 0900, Until Discontinu ed, Routine [facility] magnesium sulfate in water 2 gram/50 mL (4 %) infusion 2 g 04-20 14:15: 00 04-20 18:39 :00 No 2g 2 g, IV Piggyback, Administer over 60 Minutes, ONCE, 1 dose, On Wed04/20/24 at 0815, Routine [facility] KCL (KLOR-CON M20) tablet 20 mEq 04-19 14:00: 00 04-19 15:06 :00 No 20meq 20 mEq, Oral, ONCE, 1 dose, On Wed04/19/24 at 0800, Routine [facility] metoprolol tartrate (LOPRESSOR) tablet 12.5 mg 04-19 02:00: 00 04-26 14:22 :24 No 12.5mg 12.5 mg, Oral, BID, First dose (after last modificati on) on Wed04/18/24 at 2000, Until Discontinu ed, Routine [facility] sulfur hexafluorid e microsphr (LUMASON) injection 5 mL 04-18 20:30: 00 04-18 20:00 :00 No [id number] 5mL 5 mL, Intravenou s, ONCE, 1 dose, On Wed04/18/24 at 1430, Routine [facility] apixaban (ELIQUIS) tablet 5 mg 04-18 14:00: 00 04-28 17:35 :05 No 5mg 5 mg, Oral, BID, First dose (after last modificati on) on Wed04/18/24 at 0800, Until Discontinu ed, Routine, Indication s: Non-Valvul ar Atrial Fibrillati on [facility] metoprolol (LOPRESSOR) injection 5 mg 04-18 13:45: 00 04-18 15:06 :00 No 5mg 5 mg, Intravenou s, Once, 1 dose, On Wed04/18/24 at 0745, Routine [facility] iopamidol (ISOVUE 370-500 mL) injection 100 mL 04-18 13:00: 00 04-18 13:00 :00 No [id number] 100mL 100 mL, Intravenou s, ONCE, 1 dose, On Wed04/18/24 at 0700, Routine [facility] magnesium sulfate in water 2 gram/50 mL (4 %) infusion 2 g 04-18 07:30: 00 04-18 07:43 :00 No 2g 2 g, IV Piggyback, Administer over 60 Minutes, ONCE, 1 dose, On Wed04/18/24 at 0130, Routine [facility] lactated ringers IV infusion 500 mL 04-18 01:15: 00 04-18 02:45 :00 No 500mL at 500 mL/hr, 500 mL, Intravenou s, ONCE, 1 dose, On Wed04/17/24 at 1915, Routine [facility] methIMAzole (TAPAZOLE) tablet 5 mg 04-17 23:45: 00 04-28 17:35 :05 No 5mg 5 mg, Oral, DAILY, First dose (after last modificati on) on Wed04/17/24 at 1745, Until Discontinu ed, Routine [facility] enoxaparin (LOVENOX) injection 40 mg 04-17 23:00: 00 04-18 13:15 :59 No 40mg 40 mg, Subcutaneo us, DAILY, First dose on Wed04/17/24 at 1700, Until Discontinu ed, Routine [facility] lactated ringers IV infusion 500 mL 04-17 17:30: 00 04-17 18:11 :00 No 500mL at 999 mL/hr, 500 mL, Intravenou s, ONCE, 1 dose, On Wed04/17/24 at 1130, Routine [facility] lactated ringers IV infusion 1,000 mL 04-17 16:00: 00 04-18 02:45 :00 No 1000mL at 75 mL/hr, 1,000 mL, IV Infusion, ONCE, 1 dose, On Wed04/17/24 at 1000, Routine [facility] foLIC acid (FOLATE) 1 mg in NaCl 0.9% (NS) piggyback 04-17 15:00: 00 04-20 16:08 :10 No 1mg IV Piggyback, DAILY, First dose on Wed04/17/24 at 0900, Until Discontinu ed, 50 mL [facility] melatonin (MELATIN) tablet 3 mg 04-17 03:00: 00 Yes 3mg 3 mg, Oral, QHS, First dose on 04/16/24 at 2100, Until Discontinu ed, Routine [facility] diazePAM (VALIUM) injection 5 mg 04-16 22:45: 00 04-17 03:37 :00 No 5mg 5 mg, Intravenou s, ONCE, 1 dose, On Wed04/16/24 at 1645, Routine [facility] diazePAM (VALIUM) injection 2 mg 04-16 22:15: 00 04-16 21:40 :00 No 2mg 2 mg, Intravenou s, ONCE, 1 dose, On Wed04/16/24 at 1615, Routine [facility] OLANZapine (ZYPREXA) intramuscul ar injection 2.5 mg 04-16 21:15: 00 04-16 20:36 :00 No 2.5mg 2.5 mg, Intramuscu lar, ONCE, 1 dose, On 04/16/24 at 1515, Routine [facility] thiamine (VITAMIN B1) 200 mg in NaCl 0.9% (NS) piggyback 04-16 20:00: 00 04-19 14:59 :00 No 200mg IV Piggyback, DAILY, 3 doses, First dose on Wed04/16/24 at 1400, Last dose on Wed04/18/24 at 0900, [address] [facility] polyethylen e glycol 3350 powder 17 g 04-16 15:00: 00 04-28 17:35 :05 No 17g 17 g, Oral, DAILY, First dose on 04/16/24 at 0900, Until Discontinu ed, Routine [facility] methIMAzole (TAPAZOLE) tablet 5 mg 04-16 15:00: 00 04-17 22:18 :16 No 5mg 5 mg, Oral, DAILY, First dose on 04/16/24 at 0900, Until Discontinu ed, Routine [facility] potassium phosphate 30 mmol in NaCl 0.9% (NS) 250 mL piggyback 04-16 13:45: 00 04-16 17:58 :00 No 30mmol 30 mmol, IV Piggyback, ONCE, 1 dose, On 04/16/24 at 0745, 250 mL [facility] Potassium Bicarb-Citr ic Acid (EFFER-K) effervescen t tablet 40 mEq 04-16 01:15: 00 04-16 02:35 :00 No 40meq 40 mEq, Oral, ONCE, 1 dose, On 04/15/24 at 1915, Routine [facility] potassium bicarb-citr ic acid (EFFER-K) effervescen t tablet 10 mEq 04-15 20:54: 00 04-15 22:16 :00 No 10meq 10 mEq, Oral, ONCE, 1 dose, On 04/15/24 at 1500, Routine [facility] magnesium sulfate 2 g, thiamine (VITAMIN B1) 500 mg, foLIC acid (FOLATE) 1 mg in NaCl 0.9% (NS) 1,000 mL IV Infusion 04-15 16:30: 00 04-15 22:18 :00 No IV Infusion, ONCE, 1 dose, On 04/15/24 at 1030, 1,000 mL, at 75 mL/hr [facility] pantoprazol e (PROTONIX) injection 40 mg 04-15 14:00: 00 04-20 16:12 :53 No 40mg 40 mg, Slow IV Push, Q12H, First dose on Wed04/15/24 at 0800, Until Discontinu ed [facility] magnesium sulfate in water 2 gram/50 mL (4 %) infusion 2 g 04-15 13:00: 00 04-15 16:23 :00 No 2g 2 g, IV Piggyback, Administer over 60 Minutes, ONCE, 1 dose, On 04/15/24 at 0700, AKANKSHA [facility] cefTRIAXone (ROCEPHIN) 1,000 mg in water for injection, sterile 10 mL IV Push 04-15 12:15: 00 04-16 18:57 :04 No 1000mg 1,000 mg, Intravenou s, Q24H ABX, 5 doses, First dose on Wed04/15/24 at 0615, Last dose on Wed04/19/24 at 0615, 10 mL, Reason for Anti-Infec tive: Empiric Therapy for Suspected Infection, Empiric Therapy Site: Urine, Duration of therapy: 5 days [facility] glucagon HCL injection 1 mg 04-15 10:01: 04-28 17:35 :05 No 1mg 1 mg, Intramuscu lar, PRN, Starting on 04/15/24 at 0401, Until Wed04/28/24 at 1135, AKANKSHA, Low blood sugar, Blood Glucose < or = 70 mg/dL and patient is NPO, unable to swallow or has mental changes. [facility] dextrose 50 % in water (D50W) injection 25 mL 04-15 10:01: 17 04-28 17:35 :05 No 25mL 25 mL, Slow IV Push, PRN, Starting on Wed04/15/24 at 0401, Until 2/21/25 at 1135, AKANKSHA, Blood Glucose < or = 70 mg/dL and patient is NPO, unable to swallow or has mental status changes. [facility] alendronate 70 mg tablet 09-02 00:00: 00 Yes [id number] 70mg Take 1 tablet by mouth weekly. [facility] methIMAzole 5 mg tablet 09-02 00:00: 00 08-14 00:00 :00 No [id number] 5mg Take 1 tablet by mouth in the morning. [facility] methIMAzole 5 mg tablet 2022-03 00:00: 00 09-02 00:00 :00 No [id number] 5mg Take 1 tablet by mouth in the morning. [facility] alendronate 70 mg tablet 2022-03 00:00: 00 09-02 00:00 :00 No [id number] 70mg Take 1 tablet by mouth weekly. [facility] ALENDRONATE 70 mg tablet 2022-03 00:00: 00 02-26 00:00 :00 No [id number] 70mg TAKE 1 TABLET BY MOUTH ONE TIME PER WEEK [facility] PEXEVA 40 MG ORAL TAB 08-28 13:29: 45 04-25 00:00 :00 No 1 daily [facility] VITAMIN B COMPLEX ORAL 08-28 13:29: 43 Yes Take by mouth daily. [facility] CONCERTA 18 MG ORAL TO24 08-28 13:29: 43 04-25 00:00 :00 No once daily x 5days weekly [facility] methIMAzole 5 mg tablet 08-28 00:00: 00 02-26 00:00 :00 No [id number] 5mg Take 1 tablet by mouth in the morning. [facility] benzonatate 100 mg capsule 07-31 00:00: 00 04-25 00:00 :00 No TAKE 1 CAPSULE BY MOUTH 3 TIMES A DAY NEEDED FOR COUGH [facility] POLY HIST FORTE 10.5-10 mg Tab 5-26 00:00: 00 04-25 00:00 :00 No TAKE 1 TABLET 2 TIMES A DAY NEEDED FOR CONGESTION [facility] hydroCHLORO thiazide 25 mg tablet 4-09 00:00: 00 04-25 00:00 :00 No 25mg Take 1 tablet by mouth in the morning. [facility] RED YEAST RICE EXTRACT ORAL 2021-03 01:49: 42 02-17 00:00 :00 No Take by mouth. [facility] MULTIVITS,C A,MINERALS/ IRON/FA (MULTI FOR HER ORAL) 2021-03 01:49: 36 02-17 00:00 :00 No Take by mouth. [facility] irbesartan (AVAPRO) 300 mg tablet 2021-03 01:49: 30 02-17 00:00 :00 No 300mg Take 300 mg by mouth every morning. [facility] FOLIC ACID/MV,FE, OTHER MIN (CENTRUM ORAL) 2021-03 01:49: 27 02-17 00:00 :00 No Take by mouth. [facility] ANNA LOW STRENGTH 81 MG ORAL TBEC 2021-03 01:49: 21 02-17 00:00 :00 No w/ heart guard -- once daily [facility] alendronate 70 mg tablet 2021-03 00:00: 00 02-24 00:00 :00 No [id number] 70mg Take 1 tablet by mouth weekly. [facility] methIMAzole 5 mg tablet 2021-03 00:00: 00 08-28 00:00 :00 No [id number] 5mg Take 1 tablet by mouth in the morning. [facility] methIMAzole 5 mg tablet 10-17 00:00: 00 02-13 00:00 :00 No [id number] 5mg Take 1 tablet by mouth in the morning. [facility] alendronate 70 mg tablet 2022-0 8-12 00:00: 00 02-13 00:00 :00 No [id number] 70mg Take 1 tablet by mouth weekly. [facility] ELIQUIS 5 mg tablet 03-10 00:00: 00 Yes 5mg Take 5 mg by mouth 2 (two) times daily. [facility] metoprolol tartrate 25 mg tablet 03-10 00:00: 00 04-25 00:00 :00 No 25mg Take 25 mg by mouth 2 (two) times daily. [facility] PROPRANOLOL 10 mg tablet 7 00:00: 00 02-17 00:00 :00 No [id number] TAKE 1 TABLET BY MOUTH EVERY DAY [facility] atorvastati n 10 mg tablet 05-07 00:00: 00 02-17 00:00 :00 No [id number] TAKE 1 TABLET BY MOUTH AT BEDTIME. [facility] ANNA LOW STRENGTH 81 MG ORAL TBEC 03-13 15:48: 40 Yes w/ heart guard -- once daily [facility] PEXEVA 40 MG ORAL TAB 03-13 15:48: 40 Yes 1 daily [facility] CONCERTA 18 MG ORAL TO24 03-13 15:48: 40 Yes once daily x 5days weekly [facility] RED YEAST RICE EXTRACT ORAL 03-13 15:48: 40 Yes Take by mouth. [facility] irbesartan (AVAPRO) 300 mg tablet 03-13 15:48: 40 Yes 300mg Take 300 mg by mouth every morning. [facility] codeine-gua ifenesin 10-100 mg/5 mL solution 03-13 00:00: 00 04-25 00:00 :00 No [id number] 5mL Take 5 mL by mouth every 6 (six) hours as needed for Cough. [facility] hydroCHLORO thiazide 25 mg tablet 03-13 00:00: 00 02-17 00:00 :00 No [id number] 25mg Take 1 tablet by mouth daily. [facility] paroxetine 40 mg tablet 2016-03 00:00: 00 Yes TAKE 1 TABLET BY MOUTH ONCE A DAY [facility] Vital Signs Vital Name Observation Time Observation Value Comments Chio herndon Systolic blood pressure 2024-04-28 13:47:00 149 mm[Hg] [facility] Diastolic blood pressure 2024-04-28 13:47:00 58 mm[Hg] [facility] Heart rate 2024-04-28 13:47:00 60 /min [facility] Body temperature 2024-04-28 13:47:00 36.72 Jazmín [facility] Respiratory rate 2024-04-28 13:47:00 20 /min [facility] Oxygen saturation in Arterial blood by Pulse oximetry 2024-04-28 13:47:00 94 /min [facility] Body height 2024-04-18 15:23:00 [facility] Body weight 2024-04-18 15:23:00 [facility]834 [facility] BMI 2024-04-18 15:23:00 15.43 kg/m2 [facility] Systolic blood pressure 2023-09-03 20:30:00 175 mm[Hg] [facility] Diastolic blood pressure 2023-09-03 20:30:00 108 mm[Hg] [facility] Heart rate 2023-09-03 20:29:00 72 /min [facility] Body height 2023-09-03 20:29:00 152.4 cm [facility] Body weight 2023-09-03 20:29:00 56.246 kg [facility] BMI 2023-09-03 20:29:00 24.22 kg/m2 [facility] Oxygen saturation in Arterial blood by Pulse oximetry 2023-09-03 20:29:00 95 /min [facility] Systolic blood pressure 2023-02-26 20:02:00 213 mm[Hg] [facility] Diastolic blood pressure 2023-02-26 20:02:00 99 mm[Hg] [facility] Body weight 2023-02-26 19:54:00 52.481 [facility] BMI 2023-02-26 19:54:00 22.60 kg/m2 [facility] Systolic blood pressure 2022-08-28 18:16:00 103 mm[Hg] [facility] Diastolic blood pressure 2022-08-28 18:16:00 66 mm[Hg] [facility] Heart rate 2022-08-28 18:16:00 60 /min [facility] Respiratory rate 2022-08-28 18:16:00 18 /min [facility] Body weight 2022-08-28 18:16:00 53.071 [facility] BMI 2022-08-28 18:16:00 22.85 kg/m2 [facility] Oxygen saturation in Arterial blood by Pulse oximetry 2022-08-28 18:16:00 98 /min [facility] Systolic blood pressure 2022-02-13 20:09:00 148 mm[Hg] [facility] Diastolic blood pressure 2022-02-13 20:09:00 81 mm[Hg] [facility] Heart rate 2022-02-13 20:01:00 60 /min [facility] Body weight 2022-02-13 20:01:00 51.574 [facility] BMI 2022-02-13 20:01:00 22.21 kg/m2 [facility] Oxygen saturation in Arterial blood by Pulse oximetry 2022-02-13 20:01:00 98 /min [facility] Procedures Procedure Date / Time Performed Performing Clinician Source MAGNESIUM 2024-04-28 11:15:00 [facility]Mauro [facility] BASIC METABOLIC PANEL (NA, K, CL, CO2, GLUCOSE, BUN, CREATININE, CA) 2024-04-28 11:15:00 Mauro Parker [facility] CBC WITH DIFF 2024-04-28 11:15:00 Mauro Parker [facility] MAGNESIUM 2024-04-27 11:37:00 [facility] COMP. METABOLIC PANEL ([id number]) 2024-04-27 11:37:00 OhMauro [facility] CBC WITHOUT DIFF 2024-04-27 11:37:00 [facility]Ma[facility] MAGNESIUM 2024-04-26 14:22:00 Rosalva Carl [facility] BASIC METABOLIC PANEL (NA, K, CL, CO2, GLUCOSE, BUN, CREATININE, CA) 2024-04-26 14:22:00 Rosalva Carl Kylah [facility] CBC WITHOUT DIFF 2024-04-26 14:22:00 Rosalva Carl [facility] HB ECG ROUTINE & RHYTHM STRIP 2024-04-26 14:10:46 Markus Pa [facility] HB ECG ROUTINE & RHYTHM STRIP 2024-04-26 13:46:34 Rosalva Carl [facility] HB ECG ROUTINE & RHYTHM STRIP 2024-04-25 21:22:24 Mauro Parker [facility] POCT GLUCOSE (AUTOMATED) 2024-04-24 18:44:00 Elke Fink Shayy [facility] POCT GLUCOSE (AUTOMATED) 2024-04-24 14:14:[address] [facility] PHOSPHORUS 2024-04-24 12:08:00 Rosalva Carl Kylah [facility] MAGNESIUM 2024-04-24 12:08:00 Rosalva Carl Kylah [facility] BASIC METABOLIC PANEL (NA, K, CL, CO2, GLUCOSE, BUN, CREATININE, CA) 2024-04-24 12:08:00 Rosalva Carl [facility] CBC WITH DIFF 2024-04-24 12:07:00 Rosalva Carl [facility] POCT GLUCOSE (AUTOMATED) 2024-04-23 23:12:[address] [facility] POCT GLUCOSE (AUTOMATED) 2024-04-23 18:18:[address] [facility] POCT GLUCOSE (AUTOMATED) 2024-04-23 13:50:00 Elke Fink [facility] PHOSPHORUS 2024-04-21 10:42:00 Oh, Mauro [facility] MAGNESIUM 2024-04-21 10:42:00 Oh, [facility] BASIC METABOLIC PANEL (NA, K, CL, CO2, GLUCOSE, BUN, CREATININE, CA) 2024-04-21 10:42:00 Oh, [facility] CBC WITH DIFF 2024-04-21 10:42:00 Oh, Mauro Duran [facility] PHOSPHORUS 2024-04-20 11:15:00 [facility]-20 11:15:00 Oh, [facility] BASIC METABOLIC PANEL (NA, K, CL, CO2, GLUCOSE, BUN, CREATININE, CA) 2024-04-20 11:15:00 Oh, [facility] CBC WITH DIFF 2024-04-20 11:15:00 Oh, Mauro [facility] PHOSPHORUS 2024-04-19 11:11:00 Oh, Mauro [facility] MAGNESIUM 2024-04-19 11:11:00 Oh, [facility] BASIC METABOLIC PANEL (NA, K, CL, CO2, GLUCOSE, BUN, CREATININE, CA) 2024-04-19 11:11:00 Oh, [facility] CBC WITH DIFF 2024-04-19 11:11:00 Oh, Mauro [facility] CREATININE 2024-04-18 20:09:00 Tunde Grijalva [facility] TRANSTHORACIC ECHO (TTE) COMPLETE W/ CONTRAST 2024-04-18 20:09:00 Tunde Grijalva [facility] EKG-12 LEAD 2024-04-18 13:29:11 Doctor Unass igned, Tekoa [facility] HB ECG ROUTINE & RHYTHM STRIP 2024-04-18 13:28:35 Oh, Mauro Duran [facility] PHOSPHORUS 2024-04-18 12:19:00 Tunde Grijalva [facility] MAGNESIUM 2024-04-18 12:19:00 Tunde Grijalva [facility] FREE T4 2024-04-18 12:19:00 Tunde Grijalva [facility] THYROID STIMULATING HORMONE 2024-04-18 12:19:00 Tunde Grijalva [facility] BASIC METABOLIC PANEL (NA, K, CL, CO2, GLUCOSE, BUN, CREATININE, CA) 2024-04-18 12:19:00 Tunde Grijalva [facility] CBC WITH DIFF 2024-04-18 12:19:00 Tunde Grijalva [facility] CT CHEST PULMONARY ANGIOGRAM 2024-04-18 12:00:57 Nba Huang [facility] PHOSPHORUS 2024-04-17 23:29:00 Tunde Grijalva [facility] MAGNESIUM 2024-04-17 23:29:00 Tunde Grijalva [facility] TROPONIN I 2024-04-17 23:29:00 Tunde Grijalva [facility] BASIC METABOLIC PANEL (NA, K, CL, CO2, GLUCOSE, BUN, CREATININE, CA) 2024-04-17 23:29:00 Tunde Grijalva [facility] D-DIMER 2024-04-17 23:29:00 Tunde Grijalva [facility] HB ECG ROUTINE & RHYTHM STRIP 2024-04-17 15:09:17 Garcia Mason [facility] CBC WITH DIFF 2024-04-17 12:06:00 Sheng Shelton [facility] PHOSPHORUS 2024-04-17 12:05:00 Tunde Grijalva [facility] MAGNESIUM 2024-04-17 12:05:00 Sheng [facility] BASIC METABOLIC PANEL (NA, K, CL, CO2, GLUCOSE, BUN, CREATININE, CA) 2024-04-17 12:05:00 [facility] PHOSPHORUS 2024-04-16 11:19:00 Urbano Bernabe [facility] MAGNESIUM 2024-04-16 11:19:00 Urbano Bernabe [facility] COMP. METABOLIC PANEL (92329) 2024-04-16 11:19:00 Srinivasa [facility] CBC WITH DIFF 2024-04-16 11:19:00 Srinivasa [facility] PROTHROMBIN TIME / INR 2024-04-16 11:19:00 Srinivasa [facility] BASIC METABOLIC PANEL (NA, K, CL, CO2, GLUCOSE, BUN, CREATININE, CA) 2024-04-16 04:04:00 Srinivasa [facility] MAGNESIUM 2024-04-15 20:14:00 Leyda Brandjessi [facility] TROPONIN I 2024-04-15 20:14:00 Mony [facility] BASIC METABOLIC PANEL (NA, K, CL, CO2, GLUCOSE, BUN, CREATININE, CA) 2024-04-15 20:14:00 Leyda Brand [facility] HEMOGLOBIN 2024-04-15 20:14:00 Leyda Brandjessi [facility] TROPONIN I 2024-04-15 17:59:00 [facility]INE & RHYTHM STRIP 2024-04-15 17:34:01 Srinivasa [facility] CT THORAX WO CONTRAST 2024-04-15 15:02:02 Vishal Mason [facility] XR CHEST 1 VW 2024-04-15 14:53:00 Srinivasa [facility] PREPARE PACKED RBC 2024-04-15 14:49:54 Eden Sykes [facility] ABORH CONFIRMATION (LAB ONLY) 2024-04-15 12:08:00 Yvonne Lopez [facility] TROPONIN I 2024-04-15 11:32:00 Jess Sykesradhika [facility] FIBRINOGEN 2024-04-15 11:32:00 Mason, Garcia [facility] LACTIC ACID WHOLE BLOOD 2024-04-15 11:32:00 Virginia Sykes [facility] FREE T3 2024-04-15 11:32:00 Leyda Brand [facility] BLOOD CULTURE SCREEN 2024-04-15 11:27:00 Braulio Sykes [facility] PHOSPHORUS 2024-04-15 11:27:00 [facility] DEHY[facility]OGENASE 2024-04-15 11:27:00 Mony marbinmelida [facility] CREATINE KINASE 2024-04-15 11:27:00 Feng Sykes [facility] MAGNESIUM 2024-04-15 11:27:00 [facility] FERRITIN SERUM 2024-04-15 11:27:00 Urbano Sykes [facility] VITAMIN B12, LEVEL 2024-04-15 11:27:00 Eden Sykes [facility] FOLATE 2024-04-15 11:27:00 Mony [facility] HAPTOGLOBIN, SERUM 2024-04-15 11:27:00 [facility] 2024-04-15 11:27:00 Leyda Brand [facility] THYROID STIMULATING HORMONE 2024-04-15 11:27:00 [facility] HEPATIC FUNCTION PANEL (22521) (ALB,T.PRO,BILI T,BU/BC,ALT,AST,ALK PHOS) 2024-04-15 11:27:00 Mony [facility] BASIC METABOLIC PANEL (NA, K, CL, CO2, GLUCOSE, BUN, CREATININE, CA) 2024-04-15 11:27:00 Mony [facility] IRON PANEL 2024-04-15 11:27:00 Mony [facility] URINE DRUG (IMMUNOASSAY) - COMPREHENSIVE DRUG SCREEN 2024-04-15 11:27:00 Virginia Sykes [facility] CBC WITH DIFF 2024-04-15 11:27:00 Virginia Sykes [facility] PROTHROMBIN TIME / INR 2024-04-15 11:27:00 Virginia Sykes [facility] ACTIVATED PARTIAL THRMPLAS VERNON 2024-04-15 11:27:00 Virginia Sykes [facility] URINALYSIS 2024-04-15 11:27:00 Virginia Sykes [facility] HB ABO GROUPING 2024-04-15 11:27:00 Feng Sykes [facility] URINE CULTURE 2024-04-15 11:27:00 Virginia Sykes [facility] RETICULOCYTES AUTOMATED 2024-04-15 11:27:00 Virginia Sykes [facility] N-TERMINAL PRO-BNP 2024-04-15 11:27:00 Eden Sykes [facility] EXTRA TUBE LAV 2024-04-15 11:27:00 Urbano Sykes [facility] EXTRA TUBE LT. BLUE 2024-04-15 11:27:00 Jess Sykes [facility] EXTRA TUBE URINE 2024-04-15 11:27:00 Clarence Sykes [facility] EXTRA TUBE URINE CULTURE 2024-04-15 11:27:00 Virginia Lopez [facility] MRSA / MSSA SCREEN BY PCRALEX 2024-04-15 11:27:00 Virginia Sykes [facility] FENTANYL (IMMUNOASSAY) 2024-04-15 11:27:00 Virginia Sykes [facility] CT ABDOMEN PELVIS WO CONTRAST 2024-04-15 10:01:55 Marlon [facility] CT HEAD WO CONTRAST 2024-04-15 10:01:49 Marlon [facility] POCT HEMOGLOBIN A1C TEST 2023-09-03 20:40:00 Stanford Sotelo [facility] POCT HEMOGLOBIN A1C TEST 2023-02-26 20:05:00 Stanford Sotelo [facility] DEXA AXIAL (HIP AND SPINE) 2022-09-28 18:02:00 Claudine Membreno [facility] US HEAD NECK 2022-09-28 17:56:22 Claudine [facility] ASSIGNMENT OF BENEFITS 2022-09-28 16:55:24 Docto r Unassigned, Tekoa [facility] POCT HEMOGLOBIN A1C TEST 2022-02-13 20:11:00 Stanford Sotelo [facility] Encounters Start Date/Time End Date/Time Encounter Type Admission Type Attending Clinicians Care Facility Care Department Encounter ID Source 2024-11-06 00:00:00 2024-11-06 10:03:54 Stanford Angel [facility] 1.2.840.114 350.1.13.10 4.2.7.2.686 [id number] 220 [id number] [facility] 2024-08-12 00:00:00 2024-08-14 08:22:53 Stanford Angel [facility] 1.2.840.114 350.1.13.10 4.2.7.2.686 [id number] [facility] 2024-05-25 13:20:00 2024-05-25 13:20:00 Outpatient R JERSEY POLLARD CHOCKALINGA M [facility] [id number] [facility] 2024-05-01 00:00:00 2024-05-01 11:35:51 Transition of Care Kylah Obando Christine [address] 1.2.840.114 350.1.13.10 4.2.7.2.686 [id number] [facility] 2024-04-15 03:34:00 2024-04-28 11:34:00 Inpatient X ELKE RENDON [facility] NICK [id number] [facility] 2024-04-15 03:34:00 2024-04-28 11:34:00 Hospital Encounter Yvonne Lopez Sarah Shayy [facility] (JESSY) 1..840.114 350.1.13.10 4.2.7.2.686 [id number] [facility] 2023-09-03 16:30:00 2023-09-03 16:45:00 Design Engineering Manager Visit Lab, Gonsalo Sotelo [facility] 1..840.114 350.1.13.10 4.2.7.2.686 [id number] [facility] 2023-09-03 15:30:00 2023-09-03 16:25:27 Outpatient R STANFORD SOTELO [facility] [id number] [facility] 2023-09-03 15:30:00 2023-09-03 16:25:27 Office Visit Stanford Sotelo [facility] 1..840.114 350.1.13.10 4.2.7.2.686 [id number] [facility] 2023-02-26 14:30:00 2023-02-26 14:57:42 Outpatient R STANFORD SOTELO [facility] [id number] [facility] 2023-02-26 14:30:00 2023-02-26 14:57:42 Office Visit Deepak [facility] 1..840.114 350.1.13.10 4.2.7.2.686 [id number] [facility] 2023-02-21 00:00:00 2023-02-21 00:00:00 Stanford Angel [facility] 1.84.114 350.1.13.10 4.2.7.2.686 [id number] [facility] 2022-10-05 00:00:00 2022-10-05 00:00:00 Telephone Tanvir Claud[facility] 1.284.114 350.1.13.10 4.2.7.2.686 [id number] [facility] 2022-10-05 00:00:00 2022-10-05 00:00:00 Patient Secure Msg Doctor Unassigned, Tekoa [facility] 1.84.114 350.1.13.10 4.2.7.2.686 [id number] 220 [id number] [facility] 2022-09-28 11:59:24 2022-09-28 23:59:00 Hospital Encounter Claudine eMmbreno [facility] 1..114 350.1.13.10 4.2.7.2.686 [id number] [facility] 2022-09-28 11:58:51 2022-09-28 11:58:51 Outpatient R CLAUDINE MEMBRENO [facility] [id number] [facility] 2022-09-28 11:58:51 2022-09-28 11:58:51 Hospital Encounter mavis [facility] 1.284.114 350.1.13.10 4.2.7.2.686 [id number] [facility] 2022-09-28 00:00:00 2022-09-28 00:00:00 Orders Only Doctor Unassigned, Tekoa [facility] 1.2.114 350.1.13.10 4.2.7.2.686 [id number] [facility] 2022-09-04 00:00:00 2022-09-04 00:00:00 Telephone Tanvir [facility] 1.2.840.114 350.1.13.10 4.2.7.2.686 [id number] [facility] 2022-09-01 00:00:00 2022-09-01 00:00:00 Patient Secure Msg Doctor Unassigned, Tekoa [facility] 1.2.840.114 350.1.13.10 4.2.7.2.686 [id number] [facility] 2022-08-28 13:45:00 2022-08-28 14:00:00 Design Engineering Manager Visit Lab, Ang - Db [facility] 1.2.840.114 350.1.13.10 4.2.7.2.686 [id number] [facility] 2022-08-28 13:00:00 2022-08-28 13:51:03 Outpatient R KEVINMAVIS [facility] [id number] [facility] 2022-08-28 13:00:00 2022-08-28 13:51:03 Office Visit [facility] 1.2.840.114 350.1.13.10 4.2.7.2.686 [id number] [facility] 2022-08-14 13:30:00 2022-08-14 13:30:00 Outpatient R STANFORD SOTELO [facility] [id number] [facility] 2022-07-22 00:00:00 2022-07-22 00:00:00 Telephone Stanford Sotelo [facility] 1.2.840.114 350.1.13.10 4.2.7.2.686 [id number] [facility] 2022-07-11 00:00:00 2022-07-11 00:00:00 Patient Secure Msg Doctor Unassigned, Tekoa [facility] 1.2.840.114 350.1.13.10 4.2.7.2.686 [id number] [facility] 2022-03-03 09:00:00 2022-03-03 09:00:00 Outpatient R JANES [facility] [id number] [facility] 2022-03-03 09:00:00 2022-03-03 09:00:00 Outpatient Parviz MARRERO [facility] [id number] [facility] 2022-02-13 15:30:00 2022-02-13 15:45:00 Design Engineering Manager Visit Lab, Gonsalo [facility] 1.2.840.114 350.1.13.10 4.2.7.2.686 [id number] [facility] 2022-02-13 14:30:00 2022-02-13 15:10:34 Outpatient R DEEPAK STANFORD [facility] [id number] [facility] 2022-02-13 14:30:00 2022-02-13 15:10:34 Office Visit Stanford Sotelo [facility] 1.2.840.114 350.1.13.10 4.2.7.2.686 [id number] [facility] 2021-11-07 09:00:00 2021-11-07 09:15:00 Design Engineering Manager Visit Lab, Gonsalo Marrero [facility] 1.2.840.114 350.1.13.10 4.2.7.2.686 [id number] [facility] 2021-11-07 09:00:00 2021-11-07 09:00:00 Outpatient R MARRERO [facility] [id number] [facility] 2021-11-07 09:00:00 2021-11-07 09:00:00 Outpatient R JANES [facility] [id number] [facility] 2021-11-07 09:00:00 2021-11-07 09:00:00 Outpatient R JANES [facility] [id number] [facility] 2021-11-06 00:00:00 2021-11-06 00:00:00 Refill Marrero [facility] 1..840.114 350.1.13.10 4.2.7.2.686 [id number] [facility] 2021-10-17 00:00:00 2021-10-17 00:00:00 Telephone Janes [facility] 1..840.114 350.1.13.10 4.2.7.2.686 [id number] [facility] 2021-08-26 09:45:00 2021-08-26 10:00:00 Design Engineering Manager Visit Lab, Ang - Bakari Marrero [facility] 1..840.114 350.1.13.10 4.2.7.2.686 [id number] [facility] 2021-08-26 09:00:00 2021-08-26 09:44:21 Outpatient R MARRERO [facility] [id number] [facility] 2021-08-26 09:00:00 2021-08-26 09:44:21 Office Visit Janes [facility] 1..114 350.1.13.10 4.2.7.2.686 [id number] [facility] 2021-06-27 00:00:00 2021-06-27 00:00:00 Telephone Janes [facility] 1.114 350.1.13.10 4.2.7.2.686 [id number] [facility] 2021-05-23 08:57:32 2021-05-23 23:59:00 Hospital Encounter Janes [facility] 1.114 350.1.13.10 4.2.7.2.686 [id number] [facility] 2021-05-23 08:57:14 2021-05-23 08:56:00 Outpatient R JANES [facility] [id number] [facility] 2021-05-23 08:40:00 2021-05-23 08:56:00 Hospital Encounter Janes [facility] 1.114 350.1.13.10 4.2.7.2.686 [id number] [facility] 2021-05-14 14:30:00 2021-05-14 14:30:00 Outpatient R JANES [facility] [id number] [facility] 2021-05-14 00:00:00 2021-05-14 00:00:00 Orders Only Doctor Unassigned, Tekoa [facility] 1..114 350.1.13.10 4.2.7.2.686 [id number] [facility] Results Test Description Test Time Test Comments Results Result Co mments Source [facility] (NA, K, CL, CO2, GLUCOSE, BUN, CREATININE, CA)2024-04-28 12:34:36* Test Item Value Reference Range Interpretation Comme nts NA (test code = 4335642269) 136 mmol/L 135-145 K (test code = 3297980677) 4.8 mmol/L 3.5-5.0 CL (test code = 9328272248) 105 mmol/L 98-108 CO2 TOTAL (test code = 1039778369) 27 mmol/L 23-31 AGAP (test code = 1005147299) 4 2-16 BUN (test code = 8749982668) 20 mg/dL 7-23 GLUCOSE (test code = 4440859504) 96 mg/dL 70-110 CREATININE (test code = 2160-0) 0.57 mg/dL 0.50-1.04 CALCIUM (test code = 5993381527) 8.4 mg/dL 8.6-10.6 L eGFR (test code = 81469-4) 96.7 mL/min/1.73m2 CKD-EPI eGFR (2020). Assuming creatinine has been stable day-to-day for at least three months, the eGFR indicates Category G1 (>= 90 mL/min/1.73 m2) Lab Interpretation (test code = 39816-9) Abnormal [facility] with [id number] 12:28:55* Test Item Value Reference Range Interpretation Comme nts WBC (test code = 6690-2) 5.49 4.30-11.10 RBC (test code = 789-8) 2.99 3.93-5.25 L HGB (test code = 718-7) 8.2 g/dL 11.6-15.0 L HCT (test code = 4544-3) 25.7 % 35.7-45.2 L MCV (test code = 787-2) 86.0 fL 80.6-95.5 MCH (test code = 785-6) 27.4 pg 25.9-32.8 MCHC (test code = 786-4) 31.9 g/dL 31.6-35.1 RDW-SD (test code = 81594-2) 76.7 fL 39.0-49.9 H RDW-CV (test code = 788-0) 25.5 % 12.0-15.5 H PLT (test code = 777-3) 335 166-358 MPV (test code = 29298-2) 10.7 fL 9.5-12.9 IPF % (test code = 1979221456) 2.6 % 1.3-7.7 Platelet count measured by fluorescence method. NRBC/100 WBC (test code = 3684624294) 0.0 0.0-10.0 NRBC x10^3 (test code = 1202592310) See_Comment [Automated messa ge] The system which generated this result transmitted reference range: 10*3/?L. The reference range was not used to interpret this result as normal/abnormal. GRAN MAT (NEUT) % (test code = 770-8) 62.1 % IMM GRAN % (test code = 8148830163) 0.40 % LYMPH % (test code = 736-9) 20.4 % MONO % (test code = 5905-5) 8.9 % EOS % (test code = 713-8) 6.7 % BASO % (test code = 706-2) 1.5 % GRAN MAT x10^3(ANC) (test code = 4001214024) 3.41 10*3/uL 1.88-7.09 IMM GRAN x10^3 (test code = 9257276363) 0.00-0.06 LYMPH x10^3 (test code = 731-0) 1.12 10*3/uL 1.32-3.29 L MONO x10^3 (test code = 742-7) 0.49 10*3/uL 0.33-0.92 EOS x10^3 (test code = 711-2) 0.37 10*3/uL 0.03-0.39 BASO x10^3 (test code = 704-7) 0.08 10*3/uL 0.01-0.07 H SCHISTOCYTES (test code = 800-3) 1+ A Lab Interpretation (test code = 56452-3) [facility]:03:47* Test Item Value Reference Range Interpretation Comme nts MAGNESIUM (test code = 3736473902) 2.2 mg/dL 1.7-2.4 Lab Interpretation (test cod e = 88166-6) Normal [facility] (68746)2024-04-27 13:03:47* Test Item Value Reference Range Interpretation Comme nts NA (test code = 3812867465) 137 mmol/L 135-145 K (test code = 1591475650) 4.6 mmol/L 3.5-5.0 CL (test code = 9997785920) 106 mmol/L 98-108 CO2 TOTAL (test code = 2691228041) 26 mmol/L 23-31 AGAP (test code = 6411001138) 5 2-16 BUN (test code = 2323884762) 17 mg/dL 7-23 GLUCOSE (test code = 3695485272) 85 mg/dL 70-110 CREATININE (test code = 2160-0) 0.52 mg/dL 0.50-1.04 TOTAL BILI (test code = 6174940760) 0.6 mg/dL 0.1-1.1 CALCIUM (test code = 0608140853) 8.2 mg/dL 8.6-10.6 L T PROTEIN (test code = 7735233690) 6.7 g/dL 6.3-8.2 ALBUMIN (test code = 4702053709) 3.0 g/dL 3.5-5.0 L ALK PHOS (test code = 0716858936) 71 U/L 34-122 ALTv (test code = 1742-6) 18 U/L 5-35 AST(SGOT) (test code = 3108627598) 41 U/L 13-40 H eGFR (test code = 77472-5) 98.9 mL/min/1.73m2 CKD-EPI eGFR (2020). Assuming creatinine has been stable day-to-day for at least three months, the eGFR indicates Category G1 (>= 90 mL/min/1.73 m2) Lab Interpretation (test code = 31626-4) Abnormal [facility] without [id number] 11:55:41* Test Item Value Reference Range Interpretation Comme nts WBC (test code = 6690-2) 5.95 4.30-11.10 RBC (test code = 789-8) 3.09 3.93-5.25 L HGB (test code = 718-7) 8.3 g/dL 11.6-15.0 L HCT (test code = 4544-3) 26.2 % 35.7-45.2 L MCH (test code = 785-6) 26.9 pg 25.9-32.8 MCV (test code = 787-2) 84.8 fL 80.6-95.5 MCHC (test code = 786-4) 31.7 g/dL 31.6-35.1 PLT (test code = 777-3) 328 166-358 MPV (test code = 67461-1) 10.3 fL 9.5-12.9 RDW-CV (test code = 788-0) 24.8 % 12.0-15.5 H RDW-SD (test code = 45131-2) 72.7 fL 39.0-49.9 H NRBC x10^3 (test code = 6634092576) See_Comment [Automated Stichera ge] The system which generated this result transmitted reference range: 10*3/?L. The reference range was not used to interpret this result as normal/abnormal. NRBC/100 WBC (test code = 2645191043) 0.0 0.0-10.0 IPF % (test code = 9834488938) Lab Interpretation (test code = 34201-4) Abnormal [facility] Metabolic Panel (NA, K, CL, CO2, GLUCOSE, BUN, CREATININE, CA)2024-04-26 15:01:16* Test Item Value Reference Range Interpretation Comme nts NA (test code = 2190577505) 136 mmol/L 135-145 K (test code = 7529623285) 4.5 mmol/L 3.5-5.0 CL (test code = 4797515796) 105 mmol/L 98-108 CO2 TOTAL (test code = 3262101966) 28 mmol/L 23-31 AGAP (test code = 8101913970) 3 2-16 BUN (test code = 4248470152) 21 mg/dL 7-23 GLUCOSE (test code = 8700791969) 112 mg/dL 70-110 H CREATININE (test code = 2160-0) 0.54 mg/dL 0.50-1.04 CALCIUM (test code = 7288134802) 8.6 mg/dL 8.6-10.6 eGFR (test code = 82239-3) 98.0 mL/min/1.73m2 CKD-EPI eGFR (2020). Assuming creatinine has been stable day-to-day for at least three months, the eGFR indicates Category G1 (>= 90 mL/min/1.73 m2) Lab Interpretation (test code = 53999-5) [facility] Test Item Value Reference Range Interpretation Comme nts MAGNESIUM (test code = 7160115068) 1.4 mg/dL 1.7-2.4 L Lab Interpretation (test cod e = 92474-1) [facility]normal [facility] [id number] 14:32:34* Test Item Value Reference Range Interpretation Comme nts WBC (test code = 6690-2) 4.39 4.30-11.10 RBC (test code = 789-8) 3.03 3.93-5.25 L HGB (test code = 718-7) 7.9 g/dL 11.6-15.0 L HCT (test code = 4544-3) 25.0 % 35.7-45.2 L MCH (test code = 785-6) 26.1 pg 25.9-32.8 MCV (test code = 787-2) 82.5 fL 80.6-95.5 MCHC (test code = 786-4) 31.6 g/dL 31.6-35.1 PLT (test code = 777-3) 308 166-358 MPV (test code = 15825-3) 10.1 fL 9.5-12.9 RDW-CV (test code = 788-0) 24.4 % 12.0-15.5 H RDW-SD (test code = 94362-6) 68.6 fL 39.0-49.9 H NRBC x10^3 (test code = 3921406485) See_Comment [Automated messa ge] The system which generated this result transmitted reference range: 10*3/?L. The reference range was not used to interpret this result as normal/abnormal. NRBC/100 WBC (test code = 3265580982) 0.0 0.0-10.0 IPF % (test code = 2239672864) Lab Interpretation (test code = 52160-6) Abnormal [facility] GLUCOSE (AUTOMATED)2024-04-24 18:44:49* Test Item Value Reference Range Interpretation Comme nts POCT GLU (test code = 0500230177) 114 mg/dL 70-110 H Lab Interpretation (test cod e = 36388-5) Abnormal [facility] GLUCOSE (AUTOMATED)2024-04-24 14:14:45* Test Item Value Reference Range Interpretation Comme nts POCT GLU (test code = 9032540864) 89 mg/dL 70-110 Lab Interpretation (test cod e = 36691-4) Normal [facility] Metabolic Panel (NA, K, CL, CO2, GLUCOSE, BUN, CREATININE, CA)2024-04-24 13:05:26* Test Item Value Reference Range Interpretation Comme nts NA (test code = 2049319689) 136 mmol/L 135-145 K (test code = 0458173277) 4.5 mmol/L 3.5-5.0 CL (test code = 0267886283) 105 mmol/L 98-108 CO2 TOTAL (test code = 6974561844) 28 mmol/L 23-31 AGAP (test code = 4868042539) 3 2-16 BUN (test code = 2258871696) 12 mg/dL 7-23 GLUCOSE (test code = 3405476504) 82 mg/dL 70-110 CREATININE (test code = 2160-0) 0.57 mg/dL 0.50-1.04 CALCIUM (test code = 2657253320) 8.1 mg/dL 8.6-10.6 L eGFR (test code = 38315-7) 96.7 mL/min/1.73m2 CKD-EPI eGFR (2020). Assuming creatinine has been stable day-to-day for at least three months, the eGFR indicates Category G1 (>= 90 mL/min/1.73 m2) Lab Interpretation (test code = 93533-9) [facility] 13:05:26* Test Item Value Reference Range Interpretation Comme nts MAGNESIUM (test code = 8893439789) 1.6 mg/dL 1.7-2.4 L Lab Interpretation (test cod e = 33892-8) [facility]normal [facility]2025[facility] 13:05:26* Test Item Value Reference Range Interpretation Comme nts PHOSPHORUS (test code = 0126258094) 4.1 mg/dL 2.5-5.0 Lab Interpretation (test cod e = 92845-5) Normal [facility] with Evpw3642-18-12 12:44:25* Test Item Value Reference Range Interpretation Comme nts WBC (test code = 6690-2) 4.15 4.30-11.10 L RBC (test code = 789-8) 3.28 3.93-5.25 L HGB (test code = 718-7) 8.4 g/dL 11.6-15.0 L HCT (test code = 4544-3) 27.2 % 35.7-45.2 L MCV (test code = 787-2) 82.9 fL 80.6-95.5 MCH (test code = 785-6) 25.6 pg 25.9-32.8 L MCHC (test code = 786-4) 30.9 g/dL 31.6-35.1 L RDW-SD (test code = 82398-2) 68.2 fL 39.0-49.9 H RDW-CV (test code = 788-0) 23.2 % 12.0-15.5 H PLT (test code = 777-3) 304 166-358 MPV (test code = 92468-4) 10.4 fL 9.5-12.9 NRBC/100 WBC (test code = 2308555748) 0.0 0.0-10.0 NRBC x10^3 (test code = 2964463806) See_Comment [Automated messa ge] The system which generated this result transmitted reference range: 10*3/?L. The reference range was not used to interpret this result as normal/abnormal. GRAN MAT (NEUT) % (test code = 770-8) 49.9 % IMM GRAN % (test code = 2552723671) 0.50 % LYMPH % (test code = 736-9) 28.7 % MONO % (test code = 5905-5) 11.3 % EOS % (test code = 713-8) 8.2 % BASO % (test code = 706-2) 1.4 % GRAN MAT x10^3(ANC) (test code = 7297345387) 2.07 10*3/uL 1.88-7.09 IMM GRAN x10^3 (test code = 6649849835) 0.00-0.06 LYMPH x10^3 (test code = 731-0) 1.19 10*3/uL 1.32-3.29 L MONO x10^3 (test code = 742-7) 0.47 10*3/uL 0.33-0.92 EOS x10^3 (test code = 711-2) 0.34 10*3/uL 0.03-0.39 BASO x10^3 (test code = 704-7) 0.06 10*3/uL 0.01-0.07 Lab Interpretation (test code = 42326-7) Abnormal [facility] GLUCOSE (AUTOMATED)2024-04-23 23:13:48* Test Item Value Reference Range Interpretation Comme nts POCT GLU (test code = 1266291673) 128 mg/dL 70-110 H Lab Interpretation (test cod e = 06231-9) Abnormal [facility] GLUCOSE (AUTOMATED)2024-04-23 18:18:46* Test Item Value Reference Range Interpretation Comme nts POCT GLU (test code = 9620813661) 132 mg/dL 70-110 H Lab Interpretation (test cod e = 89999-8) Abnormal [facility] GLUCOSE (AUTOMATED)2024-04-23 13:51:15* Test Item Value Reference Range Interpretation Comme nts POCT GLU (test code = 8631649310) 90 mg/dL 70-110 Lab Interpretation (test cod e = 90981-2) Normal [facility] West[facility] CULTURE DIFPCX6986-45-57 12:01:31* Test Item Value Reference Range Interpretation Comme nts Blood Culture-Aerobic (test code = 02382-9) No organisms isolated No growth Previous preliminary verified result was Order in Process on 04/15/2024 at 0901 CSTPrevious preliminary verified result was No growth at 24 hours on 04/16/2024 at 0601 CSTPrevious preliminary verified result was No growth at 48 hours on 04/17/2024 at 0601 CSTPrevious preliminary verified result was No growth at 72 hours on 04/18/2024 at 0601 [employer]ATION O[employer] Blood Culture-Anaerobic (test code = 94659-8) No organisms isolated No growth Previous preliminary verified result was Order in Process on 04/15/2024 at 0901 CSTPrevious preliminary verified result was No growth at 24 hours on 04/16/2024 at 0601 CSTPrevious preliminary verified result was No growth at 48 hours on 04/17/2024 at 0601 CSTPrevious preliminary verified result was No growth at 72 hours on 04/18/2024 at 0601 [employer] 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 = 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-0) Normal [facility] West[facility]ansthoracic echo (TTE[facility] Odphmxq5051-26-79 04:54:24* Test Item Value Reference Range Interpretation Comme nts Height (test code = 0923814578) 60 in Weight (test code = 3748149915) 79 lbs Systolic BP (test code = 7376963906) 107 mmHg Diastolic BP (test code = 2188796914) 61 mmHg Heart Rate (test code = 0966018647) 95 bpm BSA (test code = 4320652229) 1.26 m2 LVIDD (test code = 8975157963) 4.10 cm Left Ventricular End Diastolic Volume by Teichholz Method (test code = 8442103) 73.3 mL IVS (test code = 3361027587) 0.93 cm Interventricular Septum Diastolic Thickness by 2D (test code = 3492032) 0.93 cm LVPWD (test code = 5827275613) 1.05 cm PW (test code = 7801679211) 1.05 cm 0.6-1.1 EF(Teich) (test code = 3191903798) 43.40 % LVIDS (test code = 8511412491) 3.20 cm Left Ventricular End Systolic Volume by Teichholz Method (test code = 3598277) 41.4 mL FS (test code = 0146250257) 21 % EF - 2D (test code = 67312591) 43.40 % LVOT diameter (test code = 9868685512) 1.97 cm LVOT area (test code = 6146635881) 3.00 cm2 LA size (test code = 8563803927) 3.6 cm LAV(MOD-sp4) (test code = 3618215414) 61.30 mL E wave decelartion time (test code = 4695275780) 0.13 s MV Peak E Rocco (test code = 0115695807) 114.9 cm/s MV Peak A Rocco (test code = 4951015337) 46.1 cm/s E/A ratio (test code = 4490849491) 2.49 ratio Tapse (test code = 6059866249) 1.22 cm LVOT stroke volume (test code = 9237652894) 41.90 cm3 LVOT peak rocco (test code = 7795319509) 100.9 cm/s LVOT mn grad (test code = 7286008104) 2.2 mmHg AV LVOT peak gradient (test code = 5222893228) 4.1 mmHg LVOT peak VTI (test code = 4403168920) 13.8 cm LV V1 mean (test code = 9814277897) 69.90 cm/s LA Volume Index (BP) (test code = 1650791678) 58.4 mL/m2 LA volume (BP) (test code = 6109282453) 73.4 mL LAV(MOD-sp2) (test code = 4525016090) 86.00 mL Sinus (test code = 0410537054) 3.5 cm MV mean gradient (test code = 4564524482) 2.26 mmHg MV peak gradient (test code = 9907631811) 5.8 mmHg MV pk rocco (test code = 1294416320) 120.7 cm/s MV valve area by continuity eq (test code = 4542405531) 1.53 cm2 MV VTI (test code = 0142380900) 27.4 cm MV V2 mean (test code = 9860129324) 70.70 cm/s MV E/e' septal (test code = 2002211709) 6.0 cm/s TASV (test code = 5133691583) 10.0 cm/s RV-quintanilla basal d (test code = 5896028649) 3.30 cm Aortic valve mean velocity (test code = 5378585557) 116.0 cm/s Ao peak rocco (test code = 8570678474) 152.2 cm/s Ao VTI (test code = 4622713240) 27.0 cm AV area by cont VTI (test code = 0129435695) 1.6 cm2 AV area peak rocco (test code = 5282829636) 2.0 cm2 Ao max PG (test code = 0498915029) 9.30 mm[Hg] AV peak gradient (test code = 9128835635) 9.3 mmHg AV valve area (test code = 8681634899) 1.55 cm2 AV mean gradient (test code = 8895514367) 5.8 mmHg IVC Diam Exp(MM) (test code = 2237447460) 1.65 cm A2C EF (test code = 1506101132) 48.70 % EF(sp2-el) (test code = 9294768770) 47.60 % SV(MOD-sp2) (test code = 9322189583) 43.00 mL LV Diastolic Volume Index (BP) (test code = 9728124274) 69.0 mL/m2 LV Systolic Volume Index (BP) (test code = 2369088890) 42.0 mL/m2 LV Diastolic Volume (BP) (test code = 9907166341) 81.6 mL A4C EF (test code = 5185907696) 47.80 % EF(MOD-bp) (test code = 7223804982) 48.30 % EF(sp4-el) (test code = 7505079975) 50.10 % LV Systolic Volume (BP) (test code = 3207288631) 42.1 mL SV(MOD-bp) (test code = 3150534882) 39.40 mL SV(MOD-sp4) (test code = 3380822848) 35.80 mL SV(sp4-el) (test code = 9507359068) 37.60 mL EF (test code = 4526911600) 48 Left Ventricular Stroke Volume by 2-D Biplane-MOD (test code = 5668102) 39.4 mL Radiology Study observation (narrative) (test code = 79344-6) JEFF (test code = JEFF) ?Left?Ventricle: Left ventricle size is normal. There is concentric remodeling. Mild global hypokinesis present. Mildly reduced systolic function, with ?untb-rv-tvyj variability due to arrhythmia and a visually estimated EF of 45 - 50%. EF by 2D Armendariz biplane is 48%. Diastolic dysfunction. No thrombus present. ?. ?Left?Atrium: Left atrium is severely dilated. Left atrium volume index is 58.4 mL/m2. ?Aortic?Valve: Moderately thickened cusps. Moderately calcified cusps. Mild transvalvular regurgitation. No hemodynamically significant . AV mean gradient is 5.8 mmHg. ?Tricuspid?Valve: Trace transvalvular regurgitation. Insufficient tricuspid regurgitation jet to estimate RVSP . ?IVC/SVC: IVC diameter is less than or equal to 21 mm and decreases less than 50% during inspiration; therefore the estimated right atrial pressure is intermediate (~8 mmHg). ?Pericardium: No pericardial effusion. Left VentricleLeft ventricle size is normal. There is concentric remodeling. Mild global hypokinesis present. Mildly reduced systolic function, with daux-tx-zrnt variability due to arrhythmia and a visually estimated EF of 45 - 50%. EF by 2D Armendariz biplane is 48%. Diastolic dysfunction. No thrombus present. .Right VentricleRight ventricle size is normal. Mildly reduced systolic function.Left AtriumLeft atrium is severely dilated. Left atrium volume index is 58.4 mL/m2.Right AtriumRight atrium size is normal.IVC/SVCIVC diameter is less than or equal to 21 mm and decreases less than 50% during inspiration; therefore the estimated right atrial pressure is intermediate (~8 mmHg).Mitral ValveMild mitral annular calcification. Mild transvalvular regurgitation. No stenosis.Tricuspid ValveTricuspid valve structure is normal. Trace transvalvular regurgitation. Insufficient tricuspid regurgitation jet to estimate RVSP . No stenosis.Aortic ValveModerately thickened cusps. Moderately calcified cusps. Mild transvalvular regurgitation. No hemodynamically significant . AV mean gradient is 5.8 mmHg.Pulmonic ValveNot well visualized. Mild transvalvular regurgitation.Ascendin g AortaDilated sinus of Valsalva (3.5 cm, indexed 2.78 cm/m2, normal indexed 1.8 +/- 0.2 cm/m2).PericardiumNo pericardial effusion.Study DetailsStudy quality was adequate. A complete echocardiogram was performed using 2D, color flow Doppler and spectral Doppler. The apical, parasternal, subcostal and suprasternal views were obtained. 5 mL of Lumason ultrasound enhancing agent used. Patient exhibited atrial flutter. [facility]2025-[facility] 15:26:46* Test Item Value Reference Range Interpretation Comme nts PHOSPHORUS (test code = 6763980303) 3.0 mg/dL 2.5-5.0 Lab Interpretation (test cod e = 90397-4) Normal [facility] Chest pulmonary cjvuwxmrg6964-50-35 14:31:53CT SCAN OF THE CHEST WITH CONTRAST 04/18/2024 6:00 AM TECHNIQUE: Multidetector helical CT scan of the chest was performedfollowing the intravenous administration of contrast. Coronal and sagittalreformats as well axial MIPs imaging were acquired. CLINICAL INFORMATION: PE suspected, intermediate prob, positive D-dimer COMPARISON: CT chest dated 04/14/2024 FINDINGS: CARDIOVASCULAR: The enhancement of the pulmonary artery is adequate. Nohypodense filling defects are seen within the pulmonary trunk, mainpulmonary arteries, or segmental branches.Pulmonary trunk is ?mildlyenlarged measuring 3.8 cm. The thoracic aorta is normal in caliber.Calcified atherosclerotic plaque.The cardiac size is enlarged.Trace pericardial effusion. There is moderatecoronary artery calcification. LYMPH NODES: No thoracic adenopathy. MEDIASTINUM/ LOWER NECK: ?No mediastinal mass is seen.. A 9 mm partiallycalcified leftthyroid nodule is seen. BRONCHOPULMONARY/PLEURA: The central airways are patent. Bilateral pleural effusion with adjacentlower lobes atelectasis. No pneumothorax.No suspicious nodules . Mosaicappearance to the lungs may be related to air trapping. UPPER ABDOMEN: Redemonstrated calcified hepatic granuloma. A 1.8 cm leftkidney hypodensity likely representing cyst. A couple of left kidneyhyperdensities may represent hemorrhagic cysts. Moderate aorticcalcifications are noted. BONES/ CHEST WALL: No aggressive or acute abnormalities.[facility] WestThyroid Stimulating Hormone 2024-04-18 14:10:56* Test Item Value Reference Range Interpretation Comme nts TSH (test code = 5964210397) 0.06 0.45-4.70 L Biotin has been reported to cause a negative bias, interpret results relative to patient's use of biotin. Lab Interpretation (test code = 97064-8) Abnormal [facility] WestFree [id number] 13:57:15* Test Item Value Reference Range Interpretation Comme nts FREE T4 (test code = 9950814162) 1.77 ng/dL 0.78-2.20 Lab Interpretation (test cod e = 01814-2) Normal [facility] Metabolic Panel (NA, K, CL, CO2, GLUCOSE, BUN, CREATININE, CA)2024-04-18 13:33:49* Test Item Value Reference Range Interpretation Comme nts NA (test code = 5239400697) 133 mmol/L 135-145 L K (test code = 4877772110) 3.6 mmol/L 3.5-5.0 CL (test code = 2282417435) 95 mmol/L 98-108 L CO2 TOTAL (test code = 9072222215) 37 mmol/L 23-31 H AGAP (test code = 7426865687) 1 2-16 L BUN (test code = 4522657754) 17 mg/dL 7-23 GLUCOSE (test code = 4048609135) 93 mg/dL 70-110 CREATININE (test code = 2160-0) 0.51 mg/dL 0.50-1.04 CALCIUM (test code = 5736692258) 7.7 mg/dL 8.6-10.6 L eGFR (test code = 56612-1) 99.3 mL/min/1.73m2 CKD-EPI eGFR (2020). Assuming creatinine has been stable day-to-day for at least three months, the eGFR indicates Category G1 (>= 90 mL/min/1.73 m2) Lab Interpretation (test code = 15229-2) Abnormal [facility]2025-02-11 13:33:49* Test Item Value Reference Range Interpretation Comme nts MAGNESIUM (test code = 3653387736) 2.0 mg/dL 1.7-2.4 Lab Interpretation (test cod e = 84471-1) Normal [facility] with Eghp3231-49-08 13:22:51* Test Item Value Reference Range Interpretation Comme nts WBC (test code = 6690-2) 3.57 4.30-11.10 L RBC (test code = 789-8) 2.97 3.93-5.25 L HGB (test code = 718-7) 7.5 g/dL 11.6-15.0 L HCT (test code = 4544-3) 23.0 % 35.7-45.2 L MCV (test code = 787-2) 77.4 fL 80.6-95.5 L MCH (test code = 785-6) 25.3 pg 25.9-32.8 L MCHC (test code = 786-4) 32.6 g/dL 31.6-35.1 RDW-SD (test code = 76526-4) 56.5 fL 39.0-49.9 H RDW-CV (test code = 788-0) 20.3 % 12.0-15.5 H PLT (test code = 777-3) 219 166-358 MPV (test code = 01029-0) 10.5 fL 9.5-12.9 IPF % (test code = 9006409894) 4.0 % 1.3-7.7 Platelet count measured by fluorescence method. NRBC/100 WBC (test code = 5894889769) 0.0 0.0-10.0 NRBC x10^3 (test code = 7423329433) See_Comment [Automated Stichera ge] The system which generated this result transmitted reference range: 10*3/?L. The reference range was not used to interpret this result as normal/abnormal. GRAN MAT (NEUT) % (test code = 770-8) 41.7 % IMM GRAN % (test code = 5385018347) 0.60 % LYMPH % (test code = 736-9) 38.1 % MONO % (test code = 5905-5) 11.5 % EOS % (test code = 713-8) 7.3 % BASO % (test code = 706-2) 0.8 % GRAN MAT x10^3(ANC) (test code = 4755777923) 1.49 10*3/uL 1.88-7.09 L IMM GRAN x10^3 (test code = 8768858149) 0.00-0.06 LYMPH x10^3 (test code = 731-0) 1.36 10*3/uL 1.32-3.29 MONO x10^3 (test code = 742-7) 0.41 10*3/uL 0.33-0.92 EOS x10^3 (test code = 711-2) 0.26 10*3/uL 0.03-0.39 BASO x10^3 (test code = 704-7) 0.03 10*3/uL 0.01-0.07 Lab Interpretation (test code = 00526-4) Abnormal [facility] Chest 1 [id number] 22:37:13EXAM: XR CHEST 1 VW COMPARISON: 04/14/2024 HISTORY:73 years old, Female ?with eval for pneumonia .[facility]CT Abdomen pelvis wo donibrzt2419-65-47 17:08:30Interpretation of outside imaging, ?CT ABDOMEN PELVIS WO CONTRAST, CTTHORAX WO CONTRAST 04/14/2024 [facility]Today's date 04/17/2024 10:19 AM HISTORY: Gib COMPARISON: None. PROCEDURE: Axial images of the chest abdomen and pelvis are obtainedwithout intravenous administration of c ontrast. Sagittal and coronalreformats are provided.[facility]CT Thorax wo tkwtbycs2822-03-38 17:08:30Interpretation of outside imaging, ?CT ABDOMEN PELVIS WO CONTRAST, CTTHORAX WO CONTRAST 04/14/2024 [facility]Today's date 04/17/2024 10:19 AM HISTORY: Gib COMPARISON: None. PROCEDURE: Axial images of the chest abdomen and pelvis are obtainedwithout intravenous administration of contrast. Sagittal and coronalreformats are provided.[facility] WestCbc with Diff 2024-04-17 13:07:44* Test Item Value Reference Range Interpretation Comme nts WBC (test code = 6690-2) 3.79 4.30-11.10 L RBC (test code = 789-8) 3.70 3.93-5.25 L HGB (test code = 718-7) 9.4 g/dL 11.6-15.0 L HCT (test code = 4544-3) 27.9 % 35.7-45.2 L MCV (test code = 787-2) 75.4 fL 80.6-95.5 L MCH (test code = 785-6) 25.4 pg 25.9-32.8 L MCHC (test code = 786-4) 33.7 g/dL 31.6-35.1 RDW-SD (test code = 18036-6) 53.3 fL 39.0-49.9 H RDW-CV (test code = 788-0) 19.6 % 12.0-15.5 H PLT (test code = 777-3) 228 166-358 MPV (test code = 74165-9) 10.8 fL 9.5-12.9 IPF % (test code = 7115859279) 4.3 % 1.3-7.7 Platelet count measured by fluorescence method. NRBC/100 WBC (test code = 2615971068) 0.0 0.0-10.0 NRBC x10^3 (test code = 8806480131) See_Comment [Automated messa ge] The system which generated this result transmitted reference range: 10*3/?L. The reference range was not used to interpret this result as normal/abnormal. GRAN MAT (NEUT) % (test code = 770-8) 52.5 % IMM GRAN % (test code = 4064752865) 0.30 % LYMPH % (test code = 736-9) 29.8 % MONO % (test code = 5905-5) 9.2 % EOS % (test code = 713-8) 7.1 % BASO % (test code = 706-2) 1.1 % GRAN MAT x10^3(ANC) (test code = 6448992596) 1.99 10*3/uL 1.88-7.09 IMM GRAN x10^3 (test code = 2439440648) 0.00-0.06 LYMPH x10^3 (test code = 731-0) 1.13 10*3/uL 1.32-3.29 L MONO x10^3 (test code = 742-7) 0.35 10*3/uL 0.33-0.92 EOS x10^3 (test code = 711-2) 0.27 10*3/uL 0.03-0.39 BASO x10^3 (test code = 704-7) 0.04 10*3/uL 0.01-0.07 Lab Interpretation (test code = 69444-2) Abnormal [facility] Metabolic Panel (NA, K, CL, CO2, GLUCOSE, BUN, CREATININE, CA)2024-04-17 12:53:40* Test Item Value Reference Range Interpretation Comme nts NA (test code = 7368714112) 137 mmol/L 135-145 K (test code = 4139840042) 3.8 mmol/L 3.5-5.0 CL (test code = 7449762270) 97 mmol/L 98-108 L CO2 TOTAL (test code = 8169691427) 37 mmol/L 23-31 H AGAP (test code = 5526243709) 3 2-16 BUN (test code = 1910833079) 22 mg/dL 7-23 GLUCOSE (test code = 1075850814) 84 mg/dL 70-110 CREATININE (test code = 2160-0) 0.42 mg/dL 0.50-1.04 L CALCIUM (test code = 7921833672) 7.9 mg/dL 8.6-10.6 L eGFR (test code = 29379-9) 104.1 mL/min/1.73m2 CKD-EPI eGFR (2020). Assuming creatinine has been stable day-to-day for at least three months, the eGFR indicates Category G1 (>= 90 mL/min/1.73 m2) Lab Interpretation (test code = 37705-6) Abnormal [facility]esium2025-02-10 12:53:40* Test Item Value Reference Range Interpretation Comme nts MAGNESIUM (test code = 5442927310) 1.7 mg/dL 1.7-2.4 Lab Interpretation (test cod e = 59753-8) Normal [facility] West[facility]osphorus2025-02-10 12:53:40* Test Item Value Reference Range Interpretation Comme nts PHOSPHORUS (test code = 9098628525) 3.2 mg/dL 2.5-5.0 Lab Interpretation (test cod e = 32720-9) Normal [facility] WestComp. Metabolic Panel (49662)2024-04-16 12:12:48* Test Item Value Reference Range Interpretation Comme nts NA (test code = 3388809881) 136 mmol/L 135-145 K (test code = 0295500145) 3.8 mmol/L 3.5-5.0 Slight hemolysis CL (test code = 1748777011) 96 mmol/L 98-108 L CO2 TOTAL (test code = 9868866250) 44 mmol/L 23-31 H AGAP (test code = 6438897447) 2-16 L BUN (test code = 6170708148) 28 mg/dL 7-23 H Slight hemolysis GLUCOSE (test code = 2194014349) 91 mg/dL 70-110 CREATININE (test code = 2160-0) 0.44 mg/dL 0.50-1.04 L TOTAL BILI (test code = 5863869137) 1.8 mg/dL 0.1-1.1 H CALCIUM (test code = 3185404510) 7.9 mg/dL 8.6-10.6 L T PROTEIN (test code = 3773563480) 6.6 g/dL 6.3-8.2 ALBUMIN (test code = 5245346764) 2.8 g/dL 3.5-5.0 L ALK PHOS (test code = 7665412518) 66 U/L 34-122 Slight hemolysis ALTv (test code = 1742-6) 9 U/L 5-35 AST(SGOT) (test code = 1266413178) 29 U/L 13-40 Slight hemolysis eGFR (test code = 63303-8) 102.9 mL/min/1.73m2 CKD-EPI eGFR (2020). Assuming creatinine has been stable day-to-day for at least three months, the eGFR indicates Category G1 (>= 90 mL/min/1.73 m2) Lab Interpretation (test code = 40686-3) Abnormal [facility] with Klub8791-12-43 12:09:06* Test Item Value Reference Range Interpretation Comme nts WBC (test code = 6690-2) 6.63 4.30-11.10 RBC (test code = 789-8) 3.44 3.93-5.25 L HGB (test code = 718-7) 8.9 g/dL 11.6-15.0 L HCT (test code = 4544-3) 25.9 % 35.7-45.2 L MCV (test code = 787-2) 75.3 fL 80.6-95.5 L MCH (test code = 785-6) 25.9 pg 25.9-32.8 MCHC (test code = 786-4) 34.4 g/dL 31.6-35.1 RDW-SD (test code = 28295-3) 51.3 fL 39.0-49.9 H RDW-CV (test code = 788-0) 19.0 % 12.0-15.5 H PLT (test code = 777-3) 193 166-358 MPV (test code = 71929-6) Not Measured IPF % (test code = 0734485151) 4.4 % 1.3-7.7 Platelet count measured by fluorescence method. NRBC/100 WBC (test code = 0091505271) 0.0 0.0-10.0 NRBC x10^3 (test code = 0544778036) See_Comment [Automated Stichera ge] The system which generated this result transmitted reference range: 10*3/?L. The reference range was not used to interpret this result as normal/abnormal. GRAN MAT (NEUT) % (test code = 770-8) 80.9 % IMM GRAN % (test code = 9782592983) 0.60 % LYMPH % (test code = 736-9) 9.7 % MONO % (test code = 5905-5) 5.9 % EOS % (test code = 713-8) 2.4 % BASO % (test code = 706-2) 0.5 % GRAN MAT x10^3(ANC) (test code = 3821435550) 5.37 10*3/uL 1.88-7.09 IMM GRAN x10^3 (test code = 4362861374) 0.04 10*3/uL 0.00-0.06 LYMPH x10^3 (test code = 731-0) 0.64 10*3/uL 1.32-3.29 L MONO x10^3 (test code = 742-7) 0.39 10*3/uL 0.33-0.92 EOS x10^3 (test code = 711-2) 0.16 10*3/uL 0.03-0.39 BASO x10^3 (test code = 704-7) 0.03 10*3/uL 0.01-0.07 Lab Interpretation (test code = 14322-0) [facility]* Test Item Value Reference Range Interpretation Comme nts MAGNESIUM (test code = 8130964948) 2.0 mg/dL 1.7-2.4 Lab Interpretation (test cod e = 98227-6) [facility]* Test Item Value Reference Range Interpretation Comme nts PHOSPHORUS (test code = 0546872379) 1.7 mg/dL 2.5-5.0 L Lab Interpretation (test cod e = 32306-2) [facility] / [id number] 11:42:17* Test Item Value Reference Range Interpretation Comme nts PROTIME PATIENT (test code = 5964-2) 18.0 10.1-12.6 H INR (test code = 6301-6) 1.6 Normal INR <1.1; Warfarin Therapeutic range 2.0 to 3.0 or 2.5 to 3.5, depending upon the indications. Lab Interpretation (test code = 41488-7) Abnormal [facility] Metabolic Panel (NA, K, CL, CO2, GLUCOSE, BUN, CREATININE, CA)2024-04-16 04:45:49* Test Item Value Reference Range Interpretation Comme nts NA (test code = 6166736864) 132 mmol/L 135-145 L K (test code = 8955098451) 3.9 mmol/L 3.5-5.0 CL (test code = 2240418114) 94 mmol/L 98-108 L CO2 TOTAL (test code = 9912883997) 40 mmol/L 23-31 H AGAP (test code = 7699760021) 2-16 L BUN (test code = 9114775675) 31 mg/dL 7-23 H GLUCOSE (test code = 2602120565) 121 mg/dL 70-110 H CREATININE (test code = 2160-0) 0.53 mg/dL 0.50-1.04 CALCIUM (test code = 5917473594) 7.7 mg/dL 8.6-10.6 L eGFR (test code = 54684-4) 98.4 mL/min/1.73m2 CKD-EPI eGFR (2020). Assuming creatinine has been stable day-to-day for at least three months, the eGFR indicates Category G1 (>= 90 mL/min/1.73 m2) Lab Interpretation (test code = 98520-4) [facility]normal [facility] [id number] 19:23:45* Test Item Value Reference Range Interpretation Comme nts FREE T4 (test code = 8685166536) 1.88 ng/dL 0.78-2.20 Lab Interpretation (test cod e = 40454-5) Normal [facility] [id number] 19:22:45* Test Item Value Reference Range Interpretation Comme nts FREE T3 (test code = 4335881617) 2.40 pg/mL 2.77-5.27 L Lab Interpretation (test cod e = 90899-7) Abnormal [facility] WestHaptoglobin, [id number] 15:52:10* Test Item Value Reference Range Interpretation Comme nts HAPTOGLOB (test code = 6248144151) 145 mg/dL 16-200 Lab Interpretation (test cod e = 30774-6) Normal [facility] WestPrepar Packed RBC (in units), 1 Units 2024-04-15 14:49:54* Test Item Value Reference Range Interpretation Comme nts Cross Match Result (test code = 4409) Compatible ISBT Blood Type Code (test code = 265508) 6200 Unit Blood Type (test code = 4410) A Pos Unit Number (test code = 4411) [id number] Blood Expiration Date & Time (test code = 091516) [id number] Status Information (test code = 4412) Issued Product Identification (test code = 4413) Red Blood Cells Product Code (test code = 4414) [id number] Performed at [facility] B Laboratory Services [facility] Blood [address] [address] Free: [phone] No. [id number] [facility] WestFolate2025-02-08 14:27:48* Test Item Value Reference Range Interpretation Comme nts FOLATE SER (test code = 5567139929) 13.5 ng/mL 3.0-20.0 Biotin has been reported to cause a positive bias, interpret results relative to patient's use of biotin. Lab Interpretation (test code = 77669-2) [facility] (NA, K, CL, CO2, Glucose, BUN, Creatinine, CA)2024-04-15 14:05:23* Test Item Value Reference Range Interpretation Comme nts NA (test code = 8398347109) 133 mmol/L 135-145 L K (test code = 0343686494) 2.2 mmol/L 3.5-5.0 LL CL (test code = 6733403032) 89 mmol/L 98-108 L CO2 TOTAL (test code = 8815065705) 39 mmol/L 23-31 H AGAP (test code = 4634614191) 5 2-16 BUN (test code = 2957820990) 38 mg/dL 7-23 H GLUCOSE (test code = 2821175637) 106 mg/dL 70-110 CREATININE (test code = 2160-0) 0.77 mg/dL 0.50-1.04 CALCIUM (test code = 7736499635) 7.7 mg/dL 8.6-10.6 L eGFR (test code = 20205-5) 82.1 mL/min/1.73m2 CKD-EPI eGFR (2020). Assuming creatinine has been stable day-to-day for at least three months, the eGFR indicates Category G2 (60 - 89 mL/min/1.73 m2) Lab Interpretation (test code = 87929-1) Abnormal [facility] WestVitamin B12, [id number] 14:00:05* Test Item Value Reference Range Interpretation Comme nts VIT B12 (test code = 0411127059) 353 pg/mL 240-930 JEFF (test code = JEFF) Biotin has been reported to cause a positive bias, interpret results relative to patient's use of biotin. Lab Interpretation (test code = 48833-3) Normal [facility] WestFerritin [id number] 13:53:03* Test Item Value Reference Range Interpretation Comme nts FERRITIN (test code = 8192807693) 145.0 ng/mL 11.0-264.0 JEFF (test code = JEFF) Biotin has been reported to cause a negative bias, interpret results relative to patient's use of biotin. Lab Interpretation (test code = 77994-2) Normal [facility] WestThyroid Stimulating [id number] 13:41:04 * Test Item Value Reference Range Interpretation Comme nts TSH (test code = 0153075050) 0.06 0.45-4.70 L Biotin has been reported to cause a negative bias, interpret results relative to patient's use of biotin. Lab Interpretation (test code = 39446-1) Abnormal [facility] WestCT Head wo kywxvtlq9292-65-15 13:32:36EXAM: CT HEAD WO CONTRAST HISTORY: 73 years-old Female; Provided indication: Mental status change,unknown cause . History obtained from EPIC: "d" TECHNIQUE: [facility] wereobtained on 04/14/2024 and were uploaded to [facility] for interpretation. [facility] report was available at the time of dictation. COMPARISON: None FINDINGS: The study is degraded due to patient motion and positioning. No midline shift, hydrocephalus or pathological extra-axial fluidcollection is present. The basal cisterns are unremarkable. No acute intracranial hemorrhage or significant mass effect is visualized.No gross parenchymal attenuation abnormality is seen. The bernal-white matterdifferentiation is preserved. The mastoid air cells and paranasal air sinuses are clear. The calvariumand central skull base are grossly unremarkable. [facility] WestN-Terminal [id number]-[id number] 13:27:25* Test Item Value Reference Range Interpretation Comme [facility] NT-proBNP (test code = 88284-9) 2320 pg/mL <=125 H JEFF (test code = JEFF) Positive: Heart Failure Likely Lab Interpretation (test code = 22587-0) Abnormal [facility] WestIron [id number] 12:49:58* Test Item Value Reference Range Interpretation Comme nts IRON (test code = 9685258633) 221 ug/dL 50-160 H TIBC (test code = 5282687902) 243 ug/dL 250-410 L % FE SAT (test code = 3140199481) 91 % 20-50 H Lab Interpretation (test cod e = 58454-1) Abnormal [facility] WestTroponin [id number] 12:48:37* Test Item Value Reference Range Interpretation Comme nts TROPONIN I (test code = 6176021099) 0.007 ng/mL <=0.034 JEFF (test code = JEFF) Reference (Normal) Range (defined by the 99th percentile reference limit): <= 0.034 ng/mL Note: Cardiac troponin begins to rise 3-4 hours after the onset of ischemia. Repeat in 4-6 hours if the sample was drawn within 3-4 hours of the onset of the symptom and found normal. Diagnosis of myocardial injury is made with acute changes in cTn concentrations with at least one serial sample above the 99th percentile upper reference limit (URL), taken together with the patient's clinical presentation. Biotin has been reported to cause a negative bias, interpret results relative to patient's use of biotin. Lab Interpretation (test code = 13330-3) Normal [facility] WestLactate [id number] 12:44:18* Test Item Value Reference Range Interpretation Comme nts LDH (test code = 8785924826) 214 U/L 120-246 Lab Interpretation (test cod e = 34946-9) Normal [facility] WestMagnesium [id number] 12:42:56* Test Item Value Reference Range Interpretation Comme nts MAGNESIUM (test code = 0942524974) 1.6 mg/dL 1.7-2.4 L Lab Interpretation (test cod e = 35051-8) Abnormal [facility] WestPhosphorus [id number] 12:42:56* Test Item Value Reference Range Interpretation Comme nts PHOSPHORUS (test code = 4792931079) 2.7 mg/dL 2.5-5.0 Lab Interpretation (test cod e = 97815-8) Normal [facility] WestHepatic Function Panel (ALB, T.PRO, BILI T, BU/BC, ALT, AST, ALK, PHOS)2024-04-15 12:42:56* Test Item Value Reference Range Interpretation Comme nts TOTAL BILI (test code = 2050141057) 2.3 mg/dL 0.1-1.1 H BILI UNCON (test code = 3621235969) 1.7 mg/dL 0.1-1.1 H BILI CONJ (test code = 6404859720) 0.0 mg/dL 0.0-0.3 T PROTEIN (test code = 5263961975) 6.3 g/dL 6.3-8.2 ALBUMIN (test code = 4625211444) 2.9 g/dL 3.5-5.0 L ALK PHOS (test code = 5091050594) 80 U/L 34-122 ALTv (test code = 1742-6) 9 U/L 5-35 AST(SGOT) (test code = 9842143024) 37 U/L 13-40 Lab Interpretation (test cod e = 98284-0) Abnormal [facility] WestCreatine [id number] 12:42:56* Test Item Value Reference Range Interpretation Comme nts CK (test code = 0988248094) 63 U/L 33-194 Lab Interpretation (test cod e = 89837-3) Normal [facility] WestABORH Confirmation (Lab Only)2024-04-15 12:24:00* Test Item Value Reference Range Interpretation Comme nts ABO & RH (test code = 20) A Positive [facility] WestaPTT2025-02-08 12:22:53* Test Item Value Reference Range Interpretation Comme [facility] APTT Patient (test code = 3173-2) 34 26-36 Lab Interpretation (test cod e = 84663-3) Normal [facility] WestProthrombin Time / [id number] 12:22:53* Test Item Value Reference Range Interpretation Comme [facility] PROTIME PATIENT (test code = 5964-2) 28.2 10.1-12.6 H INR (test code = 6301-6) 2.6 Normal INR <1.1; Warfarin Therapeutic range 2.0 to 3.0 or 2.5 to 3.5, depending upon the indications. Lab Interpretation (test code = 81748-5) Abnormal [facility] WestFibrinogen2025-02-08 12:21:53* Test Item Value Reference Range Interpretation Comme [facility] Fibrinogen (test code = 2981586134) 294 mg/dL 167-453 Lab Interpretation (test cod e = 21639-9) Normal [facility] WestCBC with [id number] 12:12:32* Test Item Value Reference Range Interpretation Comme [facility] WBC (test code = 6690-2) 5.28 4.30-11.10 RBC (test code = 789-8) 2.50 3.93-5.25 L HGB (test code = 718-7) 6.2 g/dL 11.6-15.0 L HCT (test code = 4544-3) 18.2 % 35.7-45.2 L MCV (test code = 787-2) 72.8 fL 80.6-95.5 L MCH (test code = 785-6) 24.8 pg 25.9-32.8 L MCHC (test code = 786-4) 34.1 g/dL 31.6-35.1 RDW-SD (test code = 68965-5) 50.4 fL 39.0-49.9 H RDW-CV (test code = 788-0) 19.5 % 12.0-15.5 H PLT (test code = 777-3) 221 166-358 MPV (test code = 30197-2) 10.9 fL 9.5-12.9 NRBC/100 WBC (test code = 1096226131) 0.0 0.0-10.0 NRBC x10^3 (test code = 0751659405) See_Comment [Automated messa ge] The system which generated this result transmitted reference range: 10*3/?L. The reference range was not used to interpret this result as normal/abnormal. GRAN MAT (NEUT) % (test code = 770-8) 81.0 % IMM GRAN % (test code = 2486112479) 0.60 % LYMPH % (test code = 736-9) 10.2 % MONO % (test code = 5905-5) 7.4 % EOS % (test code = 713-8) 0.6 % BASO % (test code = 706-2) 0.2 % GRAN MAT x10^3(ANC) (test code = 8404192132) 4.28 10*3/uL 1.88-7.09 IMM GRAN x10^3 (test code = 4029037908) 0.03 10*3/uL 0.00-0.06 LYMPH x10^3 (test code = 731-0) 0.54 10*3/uL 1.32-3.29 L MONO x10^3 (test code = 742-7) 0.39 10*3/uL 0.33-0.92 EOS x10^3 (test code = 711-2) 0.03 10*3/uL 0.03-0.39 BASO x10^3 (test code = 704-7) 0.01-0.07 Lab Interpretation (test code = 07971-1) Abnormal [facility] WestReticulocytes [id number] 12:12:32* Test Item Value Reference Range Interpretation Comme nts RETIC Count Automated (test code = 8929073194) 0.20 % 0.51-1.90 L RETIC Absolute Count (test c ode = 5300378043) 0.0230-0.0950 L IRF % (test code = 7530821421) 9.50 % 2.10-12.60 RETIC-HE (test code = 2890669451) 28.6 pg 28.1-35.8 Lab Interpretation (test cod e = 78773-0) Abnormal [facility] WestType and Screen - ONCE [id number] 11:40:00 * Test Item Value Reference Range Interpretation Comme nts ABO & RH (test code = 20) A POSITIVE IAT (test code = 1185) Negative [facility] Hemoglobin A1C [id number] 20:40:00* Test Item Value Reference Range Interpretation Comme [facility] POCT HBA1C (test code = 4548-4) 6.4 % 4-6 A Lab Interpretation (test cod e = 58764-5) Abnormal [facility] Hemoglobin A1C [id number] 20:06:00* Test Item Value Reference Range Interpretation Comme [facility] POCT HBA1C (test code = 4548-4) 5.6 % 4-6 [facility] Hemoglobin A1C [id number] 20:06:00* Test Item Value Reference Range Interpretation Comme nts POCT HBA1C (test code = 4548-4) 5.6 % 4-6 [facility] HEMOGLOBIN A1C [id number] 20:13:00* Test Item Value Reference Range Interpretation Comme nts POCT HBA1C (test code = 4548-4) 5.2 % 4-6 [facility] HEMOGLOBIN A1C [id number] 20:13:00* Test Item Value Reference Range Interpretation Comme [facility] POCT HBA1C (test code = 4548-4) 5.2 % 4-6 [facility] Consult Notes Date/Time Note Provider Source 2024-04-26 10:13:16 Associated Order(s): CONSULT CARDIOLOGY [facility] GENERAL CARDIOLOGY CONSULT NOTE Requesting Physician: Ashly Tafoya Reason for Consultation/Chief Compliant: Atrial flutter Date of Service: 04/26/2024 History of Present Illness: 73 y/o female with PMH remarkable for Atrial fibrillation on Eliquis, toxic multinodular goiter, hyperthyroidism, hypertension, depression, Pt has stepped down from MICU for toxic metabolic encephalopathy and hypovolemic shock in the setting of severe malnutrition. Pt was found to have a lactic acid of 13 on presentation with several electrolyte derangements. Cardiology was consulted for Afib/flutter with RVR, patient has hyperthyroid TSH 0.06, started on methanethiol few days back, HR this am 140-150 bpm. Patient has longstanding afib earlier today was in NSR, on home Eliquishowever hgb on admit 6.2 from 11 few years back. Mg noted 1.[address] chest with aortic and coronary calcifications. Initial Labs: Recent Labs 04/26/24 0822 CREAT 0.54 HGB 7.9* PLT 308 Review of Systems: REVIEW OF SYSTEMS: Negative except as above Past Medical History: Past Medical History: Diagnosis Date ANXIETY DEPRESSION HTN TOXIC MULTINODULAR GOITER dx 2008 Past Surgical History: Past Surgical History: Procedure Laterality Date SECTION 1975, 1987 TONSILLECTOMY 1960 Family History: Family History Problem Relation Age of Onset Coronary Heart Disease Father acute DE age 47 Hypertension Father GI Mother GERD Heart Mother "heart skips a beat" Thyroid Sister "enlarged thyroid" Hypertension Maternal Grandmother Social History: Pt reports that she has never smoked. She has never been exposed to tobacco smoke. She has never used smokeless tobacco. She reports that she does not drink alcohol and does not use drugs. Medications: No current facility-administered medications on file prior to encounter. Current Outpatient Medications on File Prior to Encounter Medication Sig Dispense Refill metoprolol tartrate 25 mg tablet Take 1 tablet by mouth in the morning and 1 tablet in the evening. foLIC acid 1 mg tablet Take 1 tablet by mouth in the morning. melatonin 3 mg tablet Take 1 tablet by mouth at bedtime. alendronate 70 mg tablet Take 1 tablet by mouth weekly. 13 tablet 3 methIMAzole 5 mg tablet Take 1 tablet by mouth in the morning. 90 tablet 2 ELIQUIS 5 mg tablet Take 5 mg by mouth 2 (two) times daily. paroxetine 40 mg tablet TAKE 1 TABLET BY MOUTH ONCE A DAY 3 VITAMIN B COMPLEX ORAL Take by mouth daily. Hospital Medications: Current Facility-Administered Medications Medication Dose Route Frequency Last Rate Last Admin magnesium sulfate in water 4 gram/50 mL (8 %) IV Piggyback 4 g 4 g IV Piggyback ONCE 25 mL/hr at 04/26/24 0955 4 g at 04/26/24954 metoprolol (LOPRESSOR) injection 5 mg 5 mg Intravenous ONCE metoprolol tartrate (LOPRESSOR) tablet 25 mg 25 mg Oral BID 25 mg at 04/26/24827 foLIC acid (FOLATE) tablet 1 mg 1 mg Oral DAILY 1 mg at 04/26/24954 pantoprazole (PROTONIX) EC tablet 40 mg 40 mg Oral DAILY 40 mg at 04/26/24954 apixaban (ELIQUIS) tablet 5 mg 5 mg Oral BID 5 mg at 04/26/24954 methIMAzole (TAPAZOLE) tablet 5 mg 5 mg Oral DAILY 5 mg at 04/26/24954 melatonin (MELATIN) tablet 3 mg 3 mg Oral QHS 3 mg at 04/25/242044 dextrose 50 % in water (D50W) injection 25 mL 25 mL Slow IV Push PRN glucagon HCL injection 1 mg 1 mg Intramuscular PRN polyethylene glycol 3350 powder 17 g 17 g Oral DAILY 17 g at 04/26/24954 PHYSICAL EXAMINATION: Patient Vitals for the past 24 hrs: BP Temp Temp src Pulse Resp SpO2 04/26/24 1007 108/72 -- -- 145 -- 96 % 04/26/24 0700 (!) 113/98 36.4 ?C (97.5 ?F) Tympanic 102 16 96 % 04/26/24 0427 129/63 36.4 ?C (97.5 ?F) -- 89 17 96 % 04/26/24 0007 115/64 36.9 ?C (98.4 ?F) Tympanic 97 19 94 % 04/25/24 1944 111/60 36.8 ?C (98.3 ?F) -- 97 20 95 % 04/25/24 1641 129/70 37.3 ?C (99.2 ?F) -- 99 16 97 % 04/25/24 1201 117/71 36.3 ?C (97.3 ?F) -- 86 19 99 % Intake/Output Summary (Last 24 hours) at 04/26/2024 1013 Last data filed at 04/26/2024 0620 Gross per 24 hour Intake 1200 ml Output -- Net 1200 ml General: alert and oriented x 4 (person, place, date/time and situation); no apparent distress HEENT: normocephalic atraumatic Neck: supple, no JVD Lungs: clear to auscultation bilaterally Cardio: normal rate, regular rhythm, no murmurs Abdomen: soft; non-distended; Extremities: no clubbing, cyanosis, or edema over extremities Skin: no rashes , dry and warm Neuro: grossly normal motor exam TTE 04/2024 Left Ventricle Left ventricle size is normal. There is concentric remodeling. Mild global hypokinesis present. Mildly reduced systolic function, with aexz-ux-bolc variability due to arrhythmia and a visually estimated EF of 45 - 50%. EF by 2D Armendariz biplane is 48%. Diastolic dysfunction. No thrombus present. . Right Ventricle Right ventricle size is normal. Mildly reduced systolic function. Left Atrium Left atrium is severely dilated. Left atrium volume index is 58.4 mL/m2. Right Atrium Right atrium size is normal. IVC/SVC IVC diameter is less than or equal to 21 mm and decreases less than 50% during inspiration; therefore the estimated right atrial pressure is intermediate (~8 mmHg). Mitral Valve Mild mitral annular calcification. Mild transvalvular regurgitation. No stenosis. Tricuspid Valve Tricuspid valve structure is normal. Trace transvalvular regurgitation. Insufficient tricuspid regurgitation jet to estimate RVSP . No stenosis. Aortic Valve Moderately thickened cusps. Moderately calcified cusps. Mild transvalvular regurgitation. No hemodynamically significant . AV mean gradient is 5.8 mmHg. Pulmonic Valve Not well visualized. Mild transvalvular regurgitation. Ascending Aorta Dilated sinus of Valsalva (3.5 cm, indexed 2.78 cm/m2, normal indexed 1.8 +/- 0.2 cm/m2). Pericardium No pericardial effusion. 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 Would recommend GI work up although ferritin was 144(in acute sickness this can be falsely elevated), if patient is bleeding she does not qualify for low dose eliquis, in that case she will require CAREN occlusion device with Watchman.. - C/w Eliquis 5 mg BID - switch to propranolol 15 mg bid - dig load 500 mcg followed by 250 mcg in 6 hrs. Digoxin 125 mcg daily. - dig level tomorrow 3 pm. - address underlying cause for hyperthyroid with Endocrine/primary team patient already on Methimazole - correct mg> 2.0 please give 4 g of mg, Patient discussed with Dr Matos who agrees with the assessment and plan. Francisco Javier Egan MD tug boat engineer [facility] STATION OPERATOR Associated attestation - Mal Matos MD - 04/26/2024 5:04 PM PUMP STATION OPERATOR I personally examined the patient 04/26/2024 and agree with the note as written. I actively participated in the decision-making process. Please see the note for additional details. [facility] 2024-04-18 10:43:00 Associated Order(s): CONSULT PS PASTORAL CARE Closing consult. Please refer to previous chart note. Chaplain Virgilio Farmer MDiv, [facility] Department of Pastoral Care Pager: [phone] STATION OPERATOR [facility] 2024-04-18 08:35:00 Associated Order(s): CONSULT ADULT OCCUPATIONAL THERAPY OT GENERAL EVALUATION Consult received via [employer], EMR reviewed and evaluation completed 04/18/24. Patient referred to occupational therapy for evaluation and treatment secondary to Anemia. Patient agreeable to participate in occupational therapy. Patient found semireclining in bed. Pt seen in conjunction with Harley Jade DPT, secondary to pt safety secondary to AMS. Only billing for OT services. Discharge Recommendations: Therapy Needs and Potential:- Patient would benefit from continued skilled occupational therapy services to address: Decline in basic activities of daily living, Decline in instrumental activities of daily living, Decline in cognition, Decreased strength, Decreased range of motion, and Decreased endurance - Patient demonstrates good potential to improve and meet therapy goals with further skilled occupational therapy services. - Patient appears motivated to improve their BADLS and IADLs and return to their previous level of function. - Patient demonstrates ability to tolerate at least 30-60 minutes of active participation in occupational therapy. - Patient able to follow commands: 1-step Yes, Multi-step NT, Inconsistencies No Challenges to Home Transition:- Requires physical assistance for BADLS - Requires physical assistance for IADLS - Requires supervision or verbal cues for BADLS - Requires supervision or verbal cues for IADLS - Limited caregiver availability - Decreased safety awareness/judgement - Increased risk of falls Equipment Recommendations:Bedside commode and Shower chair PLAN OF CARE: At least 2x/week Precautions: Weight bearing status: NA General: PPE Utilized: Gloves, Fall, and purewick Bracing: N/A Subjective: Pt resting and bed and repeated multiple times "I haven't been out of his bed in days!" Current Occupational Performance and/or Treatment: AM-PAC 6 Clicks (Raw Score 0=Dependent, 24=Independent; Low function Raw Score 0= Dependent, 32=Independent): Raw Score - Daily Activity: 18 T-Scale Score - Daily Activity: 38.66 Feeding: Supervision, to initiate feeding task and setup; pt ate breakfast with verbal/physical cues for initiation of eating eggs. Pt then demonstrated ability to feed herself. Grooming: Supervision, to wash her face while sitting in bedside chair. Bathing: NT, pt would benefit from shower chair for fall prevention. UB Dressing: Minimal Assistance, to don robe across back with assist to guide pt to sleeves. LB Dressing: Supervision, pt demonstrated functional ROM to perform figure four technique to don/doff socks while sitting on bedside chair. Toilet Transfer: Minimal Assistance, pt simulated transfer by transferring to EOB>bedside chair with rolling walker and verbal cues for body mechanics. Toileting Hygiene: Total Assistance, purewick in place Functional Mobility: HOB elevated; supine<>sit Minimal Assistance, sit<>stand Minimal Assistance with rolling walker, ambulation around room with rolling walker. Patient/caregiver educated on: Adaptive equipment and ADL training (see above), Deep breathing (during ambulation), Positioning (OOB to promote increased alertness and prevent aspiration), Role of OT, and Safety awareness. Patient left reclining in bedside chair with call nguyen in reach. Medline chair alarm engaged. Please, see full evaluation below for more detail. OT EVALUATION: 73 year old female Admit date: 04/15/2024 Date of onset: 04/15/2024 Admit Diagnosis: Anemia, unspecified type [D64.9] Altered mental status [R41.82] GIB (gastrointestinal bleeding) [K92.2] OT Diagnosis: Impaired BADL independence, Impaired IADL independence, Weakness, Decreased endurance, Impaired self-care mobility, and Impaired cognition PMH: Past Medical History: Diagnosis Date ANXIETY DEPRESSION HTN TOXIC MULTINODULAR GOITER dx 2007 PSH: Past Surgical History: Procedure Laterality Date SECTION 1975, 1987 TONSILLECTOMY 1960 PAIN: Denies pain before and after session. OCCUPATIONAL ROLES/HOME ENVIRONMENT: Pt is a questionable historian but was able to corroborate pt's account with care management SFA. Home environment: Lives with spouse and with daughters, 28/09 supervision/assistance is not available, Single story home, and Stairs (2). Bathroom access: Yes Bathroom setup: Shower (unable to confirm) Occupation(s): Retired Function prior to admission: Household ambulation and Independent with BADLs (according to pt.) When asked if she drives herself, she stated "I haven't done that in a long time." Suspected ischemic or hemorraghic stroke patient: No Equipment prior to admission: Rolling Walker PERFORMANCE SKILLS/FACTORS: UE Muscle Tone: bilateral WNL UE ROM: bilateral AROM WFL UE Strength: FARIHA UE WFL Hand dominance: right Dexterity/Coordination: bilateral Intact with cues for initiation Endurance - Sitting: Good Standing: Fair+ Sitting Balance - Static: Good Dynamic: Good Standing: Balance - Static Fair Dynamic: Fair Dizziness: No Skin Integrity: defer full skin assessment to nursing; Edema to R hand secondary to tight bandaging over IV line. Sensation: Patient denies numbness and tingling. Oral Motor: WFL Communication: Able to verbalize needs Yes Other: N/A Vision: WFL Yes Other: glasses or contacts Hearing: hard of hearing and SuperEar utilized to assist with communication COGNITION: Orientation: person and place (with options provided); pt stated that it was May 2013 and then "Almost April 1994"; pt unsure why she was in hospital. Follows Commands: 1-step Yes Multi-step NT Inconsistencies No (pt did get confused but it seems more likely related to hearing vs cognition) Safety Awareness/Judgment: Fair PROBLEM LIST: Decreased independence with ADL, Decreased strength/endurance for functional activity, and Impaired Cognition REHAB POTENTIAL/PROGNOSIS: fair PATIENT/FAMILY GOALS: To get out of bed TREATMENT/INTERVENTION PLAN: Patient/Caregiver Education, Equipment recommendations, Daily living activities, and Therapeutic exercises GOAL(S): By discharge, patient will increase independence in daily living skills as follows: 1 Patient will perform toilet transfer OR 3 in 1 BSC transfer with supervision. 2 Patient will perform UB dressing with independence. 3 Patient will perform LB dressing with independence. 4 Patient will complete 1 grooming task with supervision while standing at the sink. 5 Patient will complete toileting hygiene, including clothing management, with independence. 6 Patient will attend to functional task(s) for 10 minutes with less than 2 cues for initiation to task. 7 Patient will increase endurance for functional activity as evidenced by ability to sustain 20 minutes of active participation. 8 Patient/caregiver will verbalize/demonstrate understanding/proficiency in the following home programs: Fall prevention and 9 General strengthening PATIENT-FAMILY TEACHING Patient provided with preferred teaching of verbal information and demonstration on Adaptive equipment and ADL training (see above), Deep breathing (during ambulation), Positioning (OOB to promote increased alertness and prevent aspiration), Role of OT, and Safety awareness.. Barriers to learning include cognitive limitations. Verbal instruction and Demonstration teaching provided. Individual verbalizes understanding of teaching provided. Matthew OTR, MOT Total Timed Treatment Codes: 8 Min Total Treatment Time: 35 Min Patient Complexity Level High - An occupational therapy evaluation of high complexity was completed using the above tests and measures. The following information was obtained: An occupational profile and medical and therapy history, including review of medical and/or therapy records and extensive additional review of physical, cognitive, or psychosocial history related to current functional performance, Various standardized and non-standardized assessments were used to identify at least 5 or more performance deficits related to physical, cognitive, or psychosocial skills that result in activity limitations and/or participation restrictions, and Clinical decision-making is of high analytic complexity, which includes an analysis of the patient profile, analysis of data from comprehensive assessment(s), and consideration of multiple treatment options. Patient present with comorbidities that affect occupational performance. Significant modification of tasks or assistance (e.g., physical or verbal) with assessment(s) is necessary to enable patient to complete evaluation component. [facility] 2024-04-18 08:25:00 Associated Order(s): CONSULT ADULT PHYSICAL THERAPY Images from the original note were not included. Patient agreeable to working with physical therapy. Patient supine in bed, Sitter present. Consult received, chart reviewed and evaluation completed this date 04/18/24 in conjunction with Gloria Santos OTR/L for safety given patient's decreased activity tolerance. Billing for PT portion only Recommend nursing staff utilize rolling walker to safely assist patient with mobility out of the bed or chair. PHYSICAL THERAPY EVALUATION Consult received, chart reviewed and evaluation complete this date. Patient is referred to PT for evaluation and treatment. Patient is a 73 year old female who presents to hospital for Anemia, unspecified type [D64.9] Altered mental status [R41.82] GIB (gastrointestinal bleeding) [K92.2] . Discharge Recommendations: Therapy Needs and Potential: Patient would benefit from continued physical therapy services to address: decline in bed mobility decline in transfers decline in gait and/or balance decreased strength decreased endurance decreased coordination decreased motor planning Patient demonstrates good potential to improve and meet therapy goals with further physical therapy services. Patient appears motivated to improve their functional mobility and return to their previous level of function. Patient demonstrates ability to tolerate atleast 30-60 minutes of physical therapy with active participation. Challenges to Home Transition: increased risk of falls decreased caregiver availability decreased safety awareness environmental barriers Equipment recommendations: rolling walker Patient would benefit from SNF placement. Rolling Walker or Rollator: I certify that Fortunato Burroughs is under my care and that I had a [id number] encounter with this patient on: 04/18/24 . The primary reason for the durable medical equipment: To prevent falls. I am ordering and certify that, based on my findings, the following is medically necessary durable medical equipment: Rolling walker . Patient has a mobility limitation that significantly impairs his/her ability to participate in one or more mobility-related activities of daily living (MRADL) in the home and the patient is able to safely use the walker and the functional mobility deficit can be sufficiently resolved with use of a walker. Height: Ht Readings from Last 1 Encounters: 09/03/23 5' (1.524 m) Weight: Wt Readings from Last 1 Encounters: 04/15/24 79 lb 5.9 oz (36 kg) Duration of need: 99 months. Current Functional Status and/or Treatment: AM-PAC 6 Clicks (Raw Score 0=Dependent, 24=Independent; Low function Raw Score 0= Dependent, 32=Independent): Raw Score - Basic Mobility : 18 T-Scale Score - Basic Mobility : 41.05 Bed Mobility: Rolling: Minimal Assistance Bridging: Minimal Assistance Supine-sit: Minimal Assistance Sit to supine: Minimal Assistance Educated on hand placement and using the right body mechanics. Dizziness Yes Transfers: Sit to stand: Minimal Assistance using RW Stand to sit: Minimal Assistance using RW Static/dynamic standing balance: Fair Verbal cueing provided for correct hand placement and correct use of AD Educated on foot placement, walker positioning and upright posture. Dizziness Yes Ambulation: Assisted patient with ambulation as follows: 40 feet using RW and Minimal Assistance. Patient presenting with wide NAYAN gait pattern. Instructed patient in directional changes and head movements in all planes during gait trial resulting in 0 instability and 0 LOB. Educated on hell to toe gait, upright posture and to keep the walker close by. Dizziness Yes Therapeutic exercise: patient educated in Compensatory techniques/adaptive strategies, Deep breathing, Energy conservation, Fall prevention, General strengthening, Relaxation/breathing techniques, and Safety awareness., instructed patient in the following: ankle pumps, quad sets, glut sets, heel slides, long arc quads, seated marching, patient/caregiver instructed to perform HEP 3 times per day, 15 repetitions., and patient/caregiver verbalizes understanding of instructions. Patient educated on targeting the right muscles while exercising. Patient seated performed FARIHA LE AROM exercises all joints and planes 10 x 1, 2 sets. Functional Outcome Measures: (Values within the past 12 hours) Tinetti Gait Score- # / 12 Initiation of gait: Hesitancy or multiple attempts to start Step length: Only on foot passes the other Foot clearance: Only one foot clears the floor during swing phase Step Symmetry: Step lengths not equal Step continuity: Steps appear continuous Path: Mild/moderate deviation or uses AD Trunk: Marked sway or uses AD Walking: Heels apart Tinetti Gait Score: 4 Tinetti Gait Score Interpretation: < 7 - Increased risk for falls TINETTI BALANCE SCORE- # / 16 Sitting balance: Leans or slides in chair Arises: Able, uses arms to help Attempts to Rise: Able, requires > 1 Immediate standing balance (first 5 sec): Steady but uses walker or other support Standing Balance: Steady but NAYAN > 4 inches or uses AD/other support Nudged 3 times *: Begins to fall Eyes closed*: Unsteady Turning 360 degrees: Discontinuous steps and unsteady Sitting down: Unsafe Tinetti Balance Score: 4 Tinetti Balance Interpretation: < 9 - Increased risk for falls After session, patient sitting upright in bedside chair, Sitter present. Call button provided. Nursing notified. PLAN OF CARE: While in the hospital, PT will follow patient at least 2 times per week,once or twice a day, per patient's tolerance and needs. See below for complete details. Admit Date: 04/15/2024 Hospital Diagnosis:Anemia, unspecified type [D64.9] Altered mental status [R41.82] GIB (gastrointestinal bleeding) [K92.2] PT Diagnosis: Difficulty walking, Weakness, Malaise/fatigue, and Abnormality of gait and balance Weight Bearing Precaution: NA General Precautions: PPE used:Gloves, General, Fall,Purewick catheter Bracing/Cast present or required:N/A PMH: Past Medical History: Diagnosis Date ANXIETY DEPRESSION HTN TOXIC MULTINODULAR GOITER dx 2007 PSH: Past Surgical History: Procedure Laterality Date SECTION 1975, 1987 TONSILLECTOMY 1960 PRIOR LIVING SITUATION: lives in alone level home with spouse and two daughters per patient., Stairs with right side rail Able to negotiate: Yes DME: Single Point Cane Prior level of Mobility: house hold ambulation Suspected ischemic or hemorraghic stroke:No Subjective: Patient says she is fine. Patient/Family Goals: To get better. Patient/Family verbalizes understanding of condition: Yes PAIN: denies pain before and after session COMMUNICATION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 drink alcohol and does not use drugs. ALLERGIES No Known Allergies REVIEW OF SYSTEMS PER HPI PHYSICAL EXAMINATION There were no vitals filed for this visit. PHYSICAL EXAM Appearance: thin appearing, patient awake somnolent and disoriented HEENT: neck supple, no mass, no lymphadenopathy, dry oral mucosa Cardiovascular: tachycardic, regular rhythm 100s, no murmur Respiratory: clear to auscultation, bilaterally Abdomen: soft, non-tender, non-distended, no liver, spleen or abnormal masses palpated Extremities: no edema, peripheral pulses normal, capillary refill <2 sec Skin: skin color, texture and turgor are normal; no bruising, rashes or lesions noted Labs (pertinent only)/Imaging: LABS: CBC WBC x10 3 (/uL) Date Value 04/12/2013 6.2 WHITE BLOOD CELL COUNT-Q (Thousand/uL) Date Value 06/04/2015 5.4 WBC (10*3/?L) Date Value 10/14/2018 5.26 RBC x10 6 (/uL) Date Value 04/12/2013 4.75 RED BLOOD CELL COUNT-Q (Million/uL) Date Value 06/04/2015 4.47 RBC (10*6/?L) Date Value 10/14/2018 4.32 PLT x10 3 (/uL) Date Value 04/12/2013 281 PLATELET COUNT-Q (Thousand/uL) Date Value 06/04/2015 248 PLT (10*3/?L) Date Value 10/14/2018 300 HGB Date Value 10/14/2018 11.4 g/dL (L) 04/12/2013 13.1 G/DL HEMOGLOBIN-Q (g/dL) Date Value 06/04/2015 12.4 HCT (%) Date Value 10/14/2018 35.7 04/12/2013 39.5 HEMATOCRIT-Q (%) Date Value 06/04/2015 37.3 There are no current results on file for these tests and/or test for 1 year. There are no current results on file for these tests and/or test for 1 year. BMP NA Date Value 08/26/2021 139 mmol/L 04/12/2013 140 MMOL/L SODIUM-Q (mmol/L) Date Value 06/04/2015 139 K Date Value 08/26/2021 3.0 mmol/L (L) 04/12/2013 4.1 MMOL/L POTASSIUM-Q (mmol/L) Date Value 06/04/2015 3.7 CALCIUM Date Value 08/26/2021 8.8 mg/dL 04/12/2013 9.8 MG/DL CALCIUM-Q (mg/dL) Date Value 06/04/2015 9.3 CL Date Value 08/26/2021 98 mmol/L 04/12/2013 98 MMOL/L CHLORIDE-Q (mmol/L) Date Value 06/04/2015 100 BUN Date Value 08/26/2021 6 mg/dL (L) 04/12/2013 12 MG/DL UREA NITROGEN (BUN)-Q (mg/dL) Date Value 06/04/2015 7 CREATININE Date Value 08/26/2021 0.69 mg/dL 04/12/2013 0.50 MG/DL CREATININE-Q (mg/dL) Date Value 06/04/2015 0.70 GLUCOSE Date Value 08/26/2021 100 mg/dL 04/12/2013 111 MG/DL (H) GLUCOSE-Q (mg/dL) Date Value 06/04/2015 100 (H) CO2 TOTAL Date Value 08/26/2021 39 mmol/L (H) 04/12/2013 32 MMOL/L (H) CARBON DIOXIDE-Q (mmol/L) Date Value 06/04/2015 26 Hepatic Function Panel ALBUMIN Date Value 08/26/2021 4.0 g/dL 04/12/2013 4.3 G/DL ALBUMIN-Q (g/dL) Date Value 06/04/2015 4.1 T PROTEIN Date Value 08/26/2021 7.7 g/dL 04/12/2013 7.9 G/DL PROTEIN, TOTAL-Q (g/dL) Date Value 06/04/2015 7.3 TOTAL BILI Date Value 08/26/2021 0.4 mg/dL 04/12/2013 0.4 MG/DL BILIRUBIN, TOTAL-Q (mg/dL) Date Value 06/04/2015 0.5 ALT(SGPT) (U/L) Date Value 10/14/2018 17 04/12/2013 38 ALT-Q (U/L) Date Value 06/04/2015 17 ALTv (U/L) Date Value 08/26/2021 8 AST(SGOT) (U/L) Date Value 08/26/2021 22 04/12/2013 26 AST-Q (U/L) Date Value 06/04/2015 20 ALK PHOS (U/L) Date Value 08/26/2021 81 04/12/2013 125 (H) ALKALINE PHOSPHATASE-Q (U/L) Date Value 06/04/2015 102 Coagulation Panel:There are no current results on file for these tests and/or test for 1 year. ABG:There are no current results on file for these tests and/or test for 1 year. DM & HLD Panel: Recent Labs 09/03/23 1540 [id number] 6.4* No final results containing an impression from the past 2 days were found. EKG (reviewed): sinus tachycardia (129), WV interval 146, Qtc 556 Microbiology: Results No results found for the last 48 hours. Assessment/Plan: Fortunato Burroughs is a 73 year old female admitted to the medical ICU with the following problems: Neuro/Psych Toxic/ metabolic encephalopathy Patient is alert, yet disoriented on presentation. No clear history of dementia or baseline mental status. Tried reaching out to contacts via [facility], with no answer. Concern for AMS in the setting of sepsis vs GI bleed. CT head wo contrast from OSH showed no acute intracranial abnormality. -To try to reach out to family in AM for further history -F/u metabolic/ septic workup sent. Respiratory On room air, not in respiratory distress -No acute concerns Cardiovascular Elevated Trop I - likely TYPE II DE in setting of severe anemia Atrial fibrillation on Eliquis HTN Medication information collected from care everywhere. No clear history of most recent eliquis consumption, or medication compliance. OSH labs showed BNP 1781, and one trop I reading that's high (98 pg/ml). EKG did not show any acute ischemic changes. Likely demand ischemia in view of severe anemia. To continue trending troponin. To hold antihypertensive medication in view of low blood pressure. -Trend troponin -Hold Amlodipine 5mg Daily -Hold Hydrocholorthiazide 25 mg Daily -Hold Eliquis 2.5 mg BID in view of suspected GI bleeding, and high INR -Hold metoprolol 25mg BID FEN/GI Severe Malnutrition, POA Severe Dehydration Concern for GI bleeding Patient presented to [facility], with AMS initially, with lab work noting Hgb 3.9, MCV 67.3, Plt 388, ammonia wnl, transaminases wnl, INR 4.58. There is no documented liver disease in chart. Clinically, patient is noted to be severely dehydrated, and malnourished with BMI of 15.5. MARGARET exam on presentation did not show any blood in stool or melena. CT chest, abdomen and pelvis wo contrast showed no acute abnormalities. She received around 1L of IV fluids, 1 unit PRBCs, K Centra and 1 FFP. - Start Pantoprazole 40mg IV BID - To transfuse another unit PRBCs - CBC q6hs - Send fibrinogen, INR and PTT - Keep NPO - To resume feeds if Hgb responding appropriately to transfusion, and GI bleed is unlikely - Consider CTA abdomen and pelvis once more stable. - Consult Nutrition ID Concern for sepsis Stage II decubitus ulcer Given unclear history of presentation, suspected inadequate living situation, and hemodynamic instability on presentation in setting of AMS, septic workup is warranted. Labs in OSH revealed WBC 3.6, Urine analysis was equivocal for UTI with negative nitrites, positive leukocyte esterase, pyuria, however there was no bacteruria. Patient received merem in OSH. To start ceftriaxone empirically and consider escalating Abx if patient develops fever or cultures are positive. -F/u repeat urine analysis -F/u blood cultures sent -Start Ceftriaxone 1gm Daily (04/15 - -Consider escalating Abx if patient having fever or cultures positive Heme/Onc: Acute on chronic Anemia, likely 2/2 blood loss vs malnutrition Coagulopathy - High INR Prior to this presentation, OSH labs noted Hgb 8.4 on 09/2023. However no recent iron studies could be found. Drop in Hgb from 8.4 to 3.9 in 6-7 months concerning for chronic GI bleeding vs malnutrition vs malignancy given limited history available. Anemia workup sent, to monitor Hgb and INR levels and transfuse accordingly. Marrero CT without contrast was unremarkable. - Type and cross - To transfuse blood with target Hgb >7 - CBC q6h - F/u haptoglobin, LDH - F/u Retic cunt - F/u Iron studies (Ferritin, iron panel) - F/u Folate and B12 levels Renal, fluid, and electrolytes: Acute Kidney Injury, likely prerenal in setting of severe dehydration High Lactate Hypokalemia Mild Hyponatremia On presentation to OSH, patient was noted to have Creatinine 1.25 & lactate 13 that improved to 0.85 and 7.3 respectively with IV hydration. She was also noted to have severe hypokalemia K 1.8 that improved to 2.4 with repletion. - Replete electrolytes - To resume IV hydration if patient is kept NPO - I:O charting - Daily BMP Endo Hyperthyroidism Per chart patient is on methimazole 10mg Daily -F/u TSH sent and consider resuming methimazole accordingly ICU Issues: Lines: R femoral line, R and L peripheral lines VTE Prophylaxis: contraindicated due to suspected bleeding, and severe anemia GI Prophylaxis: Pantoprazole Prognosis: guarded Code Status: Presumed Full MPOA/surrogate decision maker: Unable to reach family, and patient does not have capacity in view of her AMS. Garcia Mason MD Department of Internal Medicine Haroon James MD PGY 1 - Neurology MICU Team STATION OPERATOR Associated attestation - Yvonne Lopez MD - 04/15/2024 9:44 AM PUMP STATION OPERATOR I personally examined the patient on 04/15/[address] James's resident note with the following addition(s): Patient with altered mentation and central nervous system failure, severe electrolyte imbalance, severe anemia (unclear if secondary to acute blood loss, chronic blood loss vs malnutrition. Correct electrolytes. Follow mental status closely. Check cultures. I actively participated in the decision-making process. Please see the resident's note for additional details. I spent 31 minute(s) on date 04/15/24 personally caring for this critically ill patient on the unit/floor. The patient was critically ill due to central nervous system failure and severe electrolyte imbalance. I performed the following services: reviewed imaging studies and lab results. Examined patient and actively participated in decision making process. . Yvonne Lopez MD MICU Attending [facility] Procedure Notes Date/Time Note Provider Source 2024-04-17 17:30:00 Vascular Access Services An ultrasound guided, 20 ga. PIV was placed in the right forearm, in 1 attempt(s). Local anesthetic was not used. Labs were obtained. STATION OPERATOR Luke Calle RN [facility] Notes Date/Time Note Provider Source 2024-11-06 11:43:20 Attempted to contact patient by phone; however, there was no answer. Left a voicemail requesting a return call to schedule an appointment. Dana Lutz [facility] 2024-11-06 10:02:04 Refill alendronate 70 mg [facility]: 09/03/2023 NOV: none Refill denied Per refill policy, needs to schedule follow up PSS: please assist with scheduling visit RAT Marlena Temple RN [facility] 2024-08-14 08:20:53 Refill has been sent to pharmacy on file. Sunni Boyd RN [facility] 2024-04-27 19:42:28 Problem: Falls, Risk of Goal: Absence of falls Outcome: Progressing as expected Problem: Discharge Planning Goal: Adequate for discharge Outcome: Progressing as expected Problem: Pain Goal: Reduction in pain sensation Outcome: Progressing as expected Problem: Mental Status - Impaired Goal: Able to achieve maximum level of cognitive ability Outcome: Progressing as expected NN Kelly RN [facility] 2024-04-27 10:59:18 Problem: Falls, Risk of Goal: Absence of falls Outcome: Progressing as expected Problem: Discharge Planning Goal: Adequate for discharge Outcome: Progressing as expected Problem: Pain Goal: Reduction in pain sensation Outcome: Progressing as expected Problem: Mental Status - Impaired Goal: Able to achieve maximum level of cognitive ability Outcome: Progressing as expected [facility] 2024-04-26 19:47:18 Problem: Discharge Planning Goal: Adequate for discharge Outcome: Progressing as expected Problem: Pain Goal: Reduction in pain sensation Outcome: Progressing as expected Problem: Falls, Risk of Goal: Absence of falls Outcome: Progressing as expected Problem: Mental Status - Impaired Goal: Able to achieve maximum level of cognitive ability Outcome: Progressing as expected [facility] Dana Peters RN [facility] 2024-04-26 19:34:16 Problem: Falls, Risk of Goal: Absence of falls Outcome: Progressing as expected Problem: Discharge Planning Goal: Adequate for discharge Outcome: Progressing as expected Problem: Pain Goal: Reduction in pain sensation Outcome: Progressing as expected Problem: Mental Status - Impaired Goal: Able to achieve maximum level of cognitive ability Outcome: Progressing as expected [facility] 2024-04-25 23:42:41 Problem: Discharge Planning Goal: Adequate for discharge Outcome: Progressing as expected Problem: Pain Goal: Reduction in pain sensation Outcome: Progressing as expected Problem: Falls, Risk of Goal: Absence of falls Outcome: Progressing as expected Problem: Mental Status - Impaired Goal: Able to achieve maximum level of cognitive ability Outcome: Progressing as expected STATION OPERATOR Debra Ambrosio RN [facility] 2024-04-25 11:33:33 Problem: Falls, Risk of Goal: Absence of falls 04/25/2024 1133 by Lindsey Chavez RN Outcome: Resolved 04/25/2024 1044 by Lindsey Chavez RN Outcome: Progressing as expected Problem: Discharge Planning Goal: Adequate for discharge 04/25/2024 1133 by Lindsey Chavez RN Outcome: Resolved 04/25/2024 1044 by Lindsey Chavez RN Outcome: Progressing as expected Goal: Effective communication 04/25/2024 1133 by Lindsey Chavez RN Outcome: Resolved 04/25/2024 1044 by Lindsey Chavez RN Outcome: Progressing as expected Problem: Fluid Volume - Imbalanced Goal: Absence of signs and symptoms of imbalanced fluid volume 04/25/2024 1133 by Lindsey Chavez RN Outcome: Resolved 04/25/2024 1044 by Lindsey Chavez RN Outcome: Progressing as expected Problem: Infection, Risk of or Actual Goal: Absence of infection 04/25/2024 1133 by Lindsey Chavez RN Outcome: Resolved 04/25/2024 1044 by Lindsey Chavez RN Outcome: Progressing as expected Problem: Mental Status - Impaired, Risk of Goal: Mental status restored to baseline 04/25/2024 1133 by Lindsey Chavez RN Outcome: Resolved 04/25/2024 1044 by Lindsey Chavez RN Outcome: Progressing as expected Goal: Absence of physical injury 04/25/2024 1133 by Lindsey Chavez RN Outcome: Resolved 04/25/2024 1044 by Lindsey Chavez RN Outcome: Progressing as expected Problem: Nutrition Deficit Goal: Adequate nutritional intake 04/25/2024 1133 by Lindsey Chavez RN Outcome: Resolved 04/25/2024 1044 by Lindsey Chavez RN Outcome: Progressing as expected Problem: Pain Goal: Control of pain at or below patient's documented comfort goal 04/25/2024 1133 by Lindsey Chavez RN Outcome: Resolved 04/25/2024 1044 by Lindsey Chavez RN Outcome: Progressing as expected Goal: Reduction in pain sensation 04/25/2024 1133 by Lindsey Chavez RN Outcome: Resolved 04/25/2024 1044 by Lindsey Chavez RN Outcome: Progressing as expected STATION OPERATOR Lindsey Chavez RN [facility] 2024-04-25 10:44:07 Problem: Falls, Risk of Goal: Absence of falls 04/25/2024 1044 by Lindsey Chavez RN Outcome: Progressing as expected 04/25/2024 1044 by Lindsey Chavez RN Outcome: Progressing as expected Problem: Discharge Planning Goal: Adequate for discharge 04/25/2024 1044 by Lindsey Chavez RN Outcome: Progressing as expected 04/25/2024 1044 by Lindsey Chavez RN Outcome: Progressing as expected Goal: Effective communication 04/25/2024 1044 by Lindsey Chavez RN Outcome: Progressing as expected 04/25/2024 1044 by Lindsey Chavez RN Outcome: Progressing as expected Problem: Fluid Volume - Imbalanced Goal: Absence of signs and symptoms of imbalanced fluid volume 04/25/2024 1044 by Lindsey Chavez RN Outcome: Progressing as expected 04/25/2024 1044 by Lindsey Chavez RN Outcome: Progressing as expected Problem: Infection, Risk of or Actual Goal: Absence of infection 04/25/2024 1044 by Lindsey Chavez RN Outcome: Progressing as expected 04/25/2024 1044 by Lindsey Chavez RN Outcome: Progressing as expected Problem: Mental Status - Impaired, Risk of Goal: Mental status restored to baseline 04/25/2024 1044 by Lindsey Chavez RN Outcome: Progressing as expected 04/25/2024 1044 by Lindsey Chavez RN Outcome: Progressing as expected Goal: Absence of physical injury 04/25/2024 1044 by Lindsey Chavez RN Outcome: Progressing as expected 04/25/2024 1044 by Lindsey Chavez RN Outcome: Progressing as expected Problem: Nutrition Deficit Goal: Adequate nutritional intake 04/25/2024 1044 by Lindsey Chavez RN Outcome: Progressing as expected 04/25/2024 1044 by Lindsey Chavez RN Outcome: Progressing as expected Problem: Pain Goal: Control of pain at or below patient's documented comfort goal 04/25/2024 1044 by Lindsey Chavez RN Outcome: Progressing as expected 04/25/2024 1044 by Lindsey Chavez RN Outcome: Progressing as expected Goal: Reduction in pain sensation 04/25/2024 1044 by Lindsey Chavez RN Outcome: Progressing as expected 04/25/2024 1044 by Lindsey Chavez RN Outcome: Progressing as expected [facility] 2024-04-24 20:03:52 Problem: Falls, Risk of Goal: Absence of falls Outcome: Progressing as expected Problem: Discharge Planning Goal: Adequate for discharge Outcome: Progressing as expected Goal: Effective communication Outcome: Progressing as expected Problem: Fluid Volume - Imbalanced Goal: Absence of signs and symptoms of imbalanced fluid volume Outcome: Progressing as expected Problem: Infection, Risk of or Actual Goal: Absence of infection Outcome: Progressing as expected Problem: Mental Status - Impaired, Risk of Goal: Mental status restored to baseline Outcome: Progressing as expected Goal: Absence of physical injury Outcome: Progressing as expected Problem: Nutrition Deficit Goal: Adequate nutritional intake Outcome: Progressing as expected Problem: Pain Goal: Control of pain at or below patient's documented comfort goal Outcome: Progressing as expected Goal: Reduction in pain sensation Outcome: Progressing as expected [facility] 2024-04-24 07:31:35 Problem: Falls, Risk of Goal: Absence of falls Outcome: Progressing as expected Problem: Discharge Planning Goal: Adequate for discharge Outcome: Progressing as expected Goal: Effective communication Outcome: Progressing as expected Problem: Fluid Volume - Imbalanced Goal: Absence of signs and symptoms of imbalanced fluid volume Outcome: Progressing as expected Problem: Infection, Risk of or Actual Goal: Absence of infection Outcome: Progressing as expected Problem: Mental Status - Impaired, Risk of Goal: Mental status restored to baseline Outcome: Progressing as expected Goal: Absence of physical injury Outcome: Progressing as expected Problem: Nutrition Deficit Goal: Adequate nutritional intake Outcome: Progressing as expected Problem: Pain Goal: Control of pain at or below patient's documented comfort goal Outcome: Progressing as expected Goal: Reduction in pain sensation Outcome: Progressing as expected STATION OPERATOR Khushi Saavedra RN [facility] 2024-04-24 04:52:25 Problem: Falls, Risk of Goal: Absence of falls Outcome: Progressing as expected Problem: Discharge Planning Goal: Adequate for discharge Outcome: Progressing as expected Goal: Effective communication Outcome: Progressing as expected Problem: Fluid Volume - Imbalanced Goal: Absence of signs and symptoms of imbalanced fluid volume Outcome: Progressing as expected Problem: Infection, Risk of or Actual Goal: Absence of infection Outcome: Progressing as expected Problem: Mental Status - Impaired, Risk of Goal: Mental status restored to baseline Outcome: Progressing as expected Goal: Absence of physical injury Outcome: Progressing as expected Problem: Nutrition Deficit Goal: Adequate nutritional intake Outcome: Progressing as expected Problem: Pain Goal: Control of pain at or below patient's documented comfort goal Outcome: Progressing as expected Goal: Reduction in pain sensation Outcome: Progressing as expected STATION OPERATOR Lefty Tillman RN [facility] 2024-04-23 07:26:29 Problem: Falls, Risk of Goal: Absence of falls Outcome: Progressing as expected Problem: Discharge Planning Goal: Adequate for discharge Outcome: Progressing as expected Goal: Effective communication Outcome: Progressing as expected Problem: Fluid Volume - Imbalanced Goal: Absence of signs and symptoms of imbalanced fluid volume Outcome: Progressing as expected Problem: Infection, Risk of or Actual Goal: Absence of infection Outcome: Progressing as expected Problem: Mental Status - Impaired, Risk of Goal: Mental status restored to baseline Outcome: Progressing as expected Goal: Absence of physical injury Outcome: Progressing as expected Problem: Nutrition Deficit Goal: Adequate nutritional intake Outcome: Progressing as expected Problem: Pain Goal: Control of pain at or below patient's documented comfort goal Outcome: Progressing as expected Goal: Reduction in pain sensation Outcome: Progressing as expected [facility] 2024-04-23 00:45:29 Problem: Falls, Risk of Goal: Absence of falls Outcome: Progressing as expected Problem: Discharge Planning Goal: Adequate for discharge Outcome: Progressing as expected Goal: Effective communication Outcome: Progressing as expected Problem: Fluid Volume - Imbalanced Goal: Absence of signs and symptoms of imbalanced fluid volume Outcome: Progressing as expected Problem: Infection, Risk of or Actual Goal: Absence of infection Outcome: Progressing as expected Problem: Mental Status - Impaired, Risk of Goal: Mental status restored to baseline Outcome: Progressing as expected Goal: Absence of physical injury Outcome: Progressing as expected Problem: Nutrition Deficit Goal: Adequate nutritional intake Outcome: Progressing as expected Problem: Pain Goal: Control of pain at or below patient's documented comfort goal Outcome: Progressing as expected Goal: Reduction in pain sensation Outcome: Progressing as expected [facility] 2024-04-22 07:50:59 Problem: Falls, Risk of Goal: Absence of falls Outcome: Progressing as expected Problem: Discharge Planning Goal: Adequate for discharge Outcome: Progressing as expected Goal: Effective communication Outcome: Progressing as expected Problem: Fluid Volume - Imbalanced Goal: Absence of signs and symptoms of imbalanced fluid volume Outcome: Progressing as expected Problem: Infection, Risk of or Actual Goal: Absence of infection Outcome: Progressing as expected Problem: Mental Status - Impaired, Risk of Goal: Mental status restored to baseline Outcome: Progressing as expected Goal: Absence of physical injury Outcome: Progressing as expected Problem: Nutrition Deficit Goal: Adequate nutritional intake Outcome: Progressing as expected Problem: Pain Goal: Control of pain at or below patient's documented comfort goal Outcome: Progressing as expected Goal: Reduction in pain sensation Outcome: Progressing as expected [facility] 2024-04-21 22:06:51 Problem: Falls, Risk of Goal: Absence of falls Outcome: Progressing as expected Problem: Discharge Planning Goal: Adequate for discharge Outcome: Progressing as expected Goal: Effective communication Outcome: Progressing as expected Problem: Fluid Volume - Imbalanced Goal: Absence of signs and symptoms of imbalanced fluid volume Outcome: Progressing as expected Problem: Infection, Risk of or Actual Goal: Absence of infection Outcome: Progressing as expected Problem: Mental Status - Impaired, Risk of Goal: Mental status restored to baseline Outcome: Progressing as expected Goal: Absence of physical injury Outcome: Progressing as expected Problem: Nutrition Deficit Goal: Adequate nutritional intake Outcome: Progressing as expected Problem: Pain Goal: Control of pain at or below patient's documented comfort goal Outcome: Progressing as expected Goal: Reduction in pain sensation Outcome: Progressing as expected [facility] Harmony Arredondo RN [facility] 2024-04-21 07:33:23 Problem: Falls, Risk of Goal: Absence of falls Outcome: Progressing as expected Problem: Discharge Planning Goal: Adequate for discharge Outcome: Progressing as expected Goal: Effective communication Outcome: Progressing as expected Problem: Fluid Volume - Imbalanced Goal: Absence of signs and symptoms of imbalanced fluid volume Outcome: Progressing as expected Problem: Infection, Risk of or Actual Goal: Absence of infection Outcome: Progressing as expected Problem: Mental Status - Impaired, Risk of Goal: Mental status restored to baseline Outcome: Progressing as expected Goal: Absence of physical injury Outcome: Progressing as expected Problem: Nutrition Deficit Goal: Adequate nutritional intake Outcome: Progressing as expected Problem: Pain Goal: Control of pain at or below patient's documented comfort goal Outcome: Progressing as expected Goal: Reduction in pain sensation Outcome: Progressing as expected [facility] 2024-04-20 21:57:43 Problem: Falls, Risk of Goal: Absence of falls Outcome: Progressing as expected Problem: Discharge Planning Goal: Adequate for discharge Outcome: Progressing as expected Goal: Effective communication Outcome: Progressing as expected Problem: Fluid Volume - Imbalanced Goal: Absence of signs and symptoms of imbalanced fluid volume Outcome: Progressing as expected Problem: Infection, Risk of or Actual Goal: Absence of infection Outcome: Progressing as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
[2024-12-11] MEDS ORDERED: ADENOSINE 6 MG/ 2ML VIAL IV ONE (16:46)
[2024-12-11] MEDS ORDERED: NA CHLORIDE 0.9% 1,000 ML ONE (16:49)
[2024-12-11] MEDS ORDERED: METOPROLOL TARTRATE 5 MG/5 ML INJ IV ONE (16:55)
--- NOTE | 2024-12-11 17:51 | RAD REPORT ---
EXAM: Chest Single View HISTORY: 74 years Female PALPITATIONS COMPARISON: 04/14/2024 FINDINGS: LUNGS/PLEURA: The lungs are clear. No pleural effusions or pneumothorax. No pulmonary edema. CARDIAC/MEDIASTINUM: The cardiac silhouette is within normal limits. UPPER ABDOMEN: No significant abnormality. BONES: No acute abnormality. LINES/TUBES/OTHER: N/A IMPRESSION: No evidence of acute cardiopulmonary disease.
[2024-12-11 18:43] LABS: Absolute Lymphocytes (CBC) 0.8 K/uL (0.7-4.9); Hematocrit 44.8 % (36.0-45.0); Hemoglobin 14.7 g/dL (12.0-15.0); MCH 27.7 pg (27.0-35.0); MCHC 32.9 g/dL (32.0-36.0); MCV 84.4 fL (80-100); MPV 10.2 fL (7.6-11.3); Nucleated RBC Absolute Count 0.0 (0-0); Nucleated Red Blood Cells % 0.0 % (0-0); RBC Red Blood Cell Count 5.31 M/uL (3.86-4.86); White Blood Count 6.60 thou/uL (4.3-10.9)
[2024-12-11 18:51] LABS: PT Prothrombin Time 23.2 SECONDS (10-13.0); Protime INR 2.1
[2024-12-11 19:05] LABS: ALT/SGPT 16 U/L (13-56); AST/SGOT 12 U/L (15-37); Albumin 3.6 g/dL (3.4-5.0); Albumin/Globulin Ratio 0.7 (1.1-1.8); Alkaline Phosphatase 79 U/L (45-117); Anion Gap 12.1 mEq/L (5.0-15.0); BUN Blood Urea Nitrogen 34 mg/dL (7-18); Globulin 5.5 g/dL (2.3-3.5); Glucose Level 140 mg/dL (74-106); Magnesium 2.0 mg/dL (1.6-2.4); NT PRO-BNP 436 pg/mL (<125); Potassium 3.1 mEq/L (3.5-5.1)
[2024-12-11 19:06] LABS: Bilirubin Indirect, Calculated 0.5 mg/dL (0.2-0.8)
[2024-12-11 19:07] LABS: Troponin High Sensitivity 109.6 pg/mL (<58.9)
--- NOTE | 2024-12-11 19:14 | EDPHYS ---
Physician Documentation [facility] Name: Carmelita Ovalles Age: 74 yrs Sex: Female : 1950 Arrival Date: 12/11/2024 Time: 16:35 Bed 3 Private MD: ED Physician Edison Cao HPI: 12/11 17:10 This 74 yrs old Female presents to ER via EMS with complaints of palpitations. sp3 17:10 74-year-old female with history of hypertension, atrial fibrillation on Eliquis sp3 (patient sees Dr. Montejo) who presents via EMS from local [facility] urgent care where patient presented for palpitations. Patient was found to be in SVT at 170-180. No AV summer agent was given and patient was transported to the ED. Patient denies any chest pain, shortness of breath, headache, bleeding, abdominal pain, syncope, or any other signs or symptoms on ROS at this time.. Historical: - Allergies: 16:35 No Known Allergies; jp5 - PMHx: 16:35 depressive disorder; Hypertension; Hypothyroidism; Atrial fibrillation; jp5 - Immunization history:: Adult Immunizations up to date. - Infectious Disease History:: Denies. - Social history:: Smoking status: Patient denies any tobacco usage or history of. ROS: 17:20 Constitutional: Negative for fever, chills, and weight loss, Eyes: Negative for injury, sp3 pain, redness, and discharge, ENT: Negative for injury, pain, and discharge, Neck: Negative for injury, pain, and swelling, Respiratory: Negative for shortness of breath, cough, wheezing, and pleuritic chest pain, Abdomen/GI: Negative for abdominal pain, nausea, vomiting, diarrhea, and constipation, Back: Negative for injury and pain, MS/Extremity: Negative for injury and deformity, Skin: Negative for injury, rash, and discoloration, Neuro: Negative for headache, weakness, numbness, tingling, and seizure, Psych: Negative for depression, anxiety, suicide ideation, homicidal ideation, and hallucinations, Allergy/Immunology: Negative for hives, rash, and allergies, Endocrine: Negative for neck swelling, polydipsia, polyuria, polyphagia, and marked weight changes, 17:20 All other systems are negative, Exam: 17:20 Constitutional: This is a well developed, well nourished patient who is awake, alert, sp3 and in no acute distress. Head/Face: Normocephalic, atraumatic. Eyes: Pupils equal round and reactive to light, extra-ocular motions intact. Lids and lashes normal. Conjunctiva and sclera are non-icteric and not injected. Cornea within normal limits. Periorbital areas with no swelling, redness, or edema. ENT: Nares patent. No nasal discharge, no septal abnormalities noted. External auditory canals are clear. Oropharynx with no redness, swelling, or masses, exudates, or evidence of obstruction, uvula midline. Mucous membranes moist. Neck: Trachea midline, no thyromegaly or masses palpated, and no cervical lymphadenopathy. Supple, full range of motion without nuchal rigidity, or vertebral point tenderness. No Meningismus. Chest/axilla: Normal chest wall appearance and motion. Nontender with no deformity. No lesions are appreciated. Respiratory: Lungs have equal breath sounds bilaterally, clear to auscultation and percussion. No rales, rhonchi or wheezes noted. No increased work of breathing, no retractions or nasal flaring. Abdomen/GI: Soft, non-tender, with normal bowel sounds. No distension or tympany. No guarding or rebound. No evidence of tenderness throughout. Back: No spinal tenderness. No costovertebral tenderness. Full range of motion. Skin: Warm, dry with normal turgor. Normal color with no rashes, no lesions, and no evidence of cellulitis. MS/ Extremity: Pulses equal, no cyanosis. Neurovascular intact. Full, normal range of motion. Neuro: Awake and alert, GCS 15, oriented to person, place, time, and situation. Cranial nerves II-XII grossly intact. Motor strength 5/5 in all extremities. Sensory grossly intact. Cerebellar exam normal. Normal gait. Psych: Awake, alert, with orientation to person, place and time. Behavior, mood, and affect are within normal limits. 17:20 Cardiovascular: Rate: tachycardic, Patient said heart rate in the 170s. Regular on EKG., 17:21 ECG was reviewed by the Attending Physician. EKG demonstrates supraventricular sp3 tachycardia at 172 bpm with QTc of 480, absent VT, narrow complex, regular in nature with nonspecific ST/T changes without evidence of acute ischemia. Vital Signs: 16:36 BP 104 / 88; Pulse 143; Resp 20; Temp 98(O); Pulse Ox 95% on R/A; jp5 16:50 Pulse 131; jp5 17:00 BP 166 / 93; Pulse 87; Resp 20; Pulse Ox 96% on R/A; jp5 17:08 Pulse 111; jp5 17:10 Pulse 78; jp5 17:15 BP 142 / 91; Pulse 82; Resp 18; Pulse Ox 95% on R/A; jp5 17:45 BP 137 / 89; Pulse 74; Resp 18; Pulse Ox 94% on R/A; jp5 18:30 BP 147 / 86; Pulse 82; Resp 18; Pulse Ox 95% on R/A; jp5 20:08 BP 147 / 93; Pulse 78; Resp 20; Pulse Ox 98% on R/A; Pain 0/10; zm 20:55 BP 115 / 76; Pulse 71; Resp 22; Pulse Ox 95% on R/A; kd3 20:08 Pain Scale: Adult zm Chemo Coma Score: 20:08 Eye Response: spontaneous(4). Motor Response: obeys commands(6). Verbal Response: zm oriented(5). Total: 15. MDM: 16:46 Medical Screening Exam initiated sp3 17:22 Data reviewed: vital signs, nurses notes, old medical records, lab test result(s), EKG. sp3 ED course: 74-year-old female with palpitations from urgent care via EMS with heart rate now in the 170s. Full cardiac workup was initiated. Differential diagnosis includes supraventricular tachycardia from atrial fibrillation, atrial flutter, SVT from reentrant rhythm, electrolyte disturbance, other conduction abnormality, sick sinus syndrome, acute coronary syndrome, among others. 12 mg of adenosine were given which slowed ventricular response to show underlying rhythm which was atrial fibrillation. 3 doses of Lopressor and patient's heart rate is now in the 80s still in atrial fibrillation now fully rate controlled. Patient is already on Eliquis. Patient feels significantly better. She never had any chest pain or shortness of breath. Workup is pending but if negative we will safely discharge patient home to her PCP and cardiology clinic for follow-up.. 18:35 ED course: Patient remains in rate controlled rhythm atrial fibrillation. We are sp3 awaiting lab results and if negative we will safely discharge home.. 19:10 ED course: Troponin at 109 in the setting of normal creatinine. Patient will be sp3 admitted to the hospital for NSTEMI and inpatient cardiology consultation.. 12/11 16:48 Order name: Basic Metabolic Panel; Complete Time: 19:09 sp3 12/11 16:48 Order name: CBC with Diff; Complete Time: 18:54 sp3 12/11 16:48 Order name: LFT's; Complete Time: 19:09 sp3 12/11 16:48 Order name: Magnesium; Complete Time: 19:09 sp3 12/11 16:48 Order name: NT PRO-BNP; Complete Time: 19:09 sp3 12/11 16:48 Order name: PT-INR; Complete Time: 18:54 sp3 12/11 16:48 Order name: Troponin HS; Complete Time: 19:09 sp3 12/11 19:52 Order name: CBC with Automated Diff EDMS 12/11 19:52 Order name: CBC with Automated Diff EDMS 12/11 19:52 Order name: Comprehensive Metabolic Panel EDMS 12/11 19:52 Order name: Comprehensive Metabolic Panel EDMS 12/11 19:52 Order name: Lipid Profile EDMS 12/11 19:52 Order name: Lipid Profile EDMS 12/11 19:52 Order name: Troponin High Sensitivity EDMS 12/11 19:52 Order name: Troponin High Sensitivity EDMS 12/11 16:48 Order name: XRAY Chest (1 view); Complete Time: 17:53 sp3 12/11 16:48 Order name: EKG; Complete Time: 16:48 sp3 12/11 16:48 Order name: Cardiac monitoring; Complete Time: 17:05 sp3 12/11 16:48 Order name: EKG - Nurse/Tech; Complete Time: 17:05 sp3 12/11 16:48 Order name: IV Saline Lock; Complete Time: 17:05 sp3 12/11 16:48 Order name: Labs collected and sent; Complete Time: 17:25 sp3 12/11 16:48 Order name: O2 Per Protocol; Complete Time: 17:05 sp3 12/11 16:48 Order name: O2 Sat Monitoring; Complete Time: 17:05 sp3 12/11 16:48 Order name: NPO; Complete Time: 17:25 sp3 Administered Medications: 16:51 Drug: Adenocard IVP 12 mg IVP once Route: IVP; Site: left femoral; jp5 16:57 Drug: Metoprolol IVP 5 mg IVP every 5 minutes; Hold for SBP < 100 or HR < 60. x3 Route: jp5 IVP; Site: left femoral; 17:03 Drug: Adenocard IVP 12 mg IVP once Route: IVP; Site: left forearm; jp5 20:55 Follow up: Response: No adverse reaction; Cardiac rhythm is unchanged kd3 17:03 Drug: Metoprolol IVP 5 mg IVP every 5 minutes; Hold for SBP < 100 or HR < 60. x3 Route: jp5 IVP; Site: left forearm; 17:09 Drug: Metoprolol IVP 5 mg IVP every 5 minutes; Hold for SBP < 100 or HR < 60. x3 Route: jp5 IVP; Site: left forearm; 19:54 Follow up: Response: No adverse reaction zm Disposition Summary: 12/11/24 19:14 Hospitalization Ordered Notes: Hospitalization Status: Inpatient Admission sp3 Provider: Edwardo Galvan sp3 Location: Telemetry/[facility] (Inpatient) sp3 Condition: Stable sp3 Problem: an acute exacerbation sp3 Symptoms: have worsened sp3 Bed/Room Type: Standard sp3 Room Assignment: 213(12/11/24 20:05) cg Diagnosis - Atrial fibrillation with RVR, now rate controlled, NSTEMI, palpitations sp3 Discharge Instructions: - Discharge Summary Sheet sp3 Forms: - Medication Reconciliation Form sp3 - SBAR form sp3 - Leadership Thank You Letter sp3 Critical care time excluding procedures: 17:24 Critical care time: Bedside Care: 15 minutes, Consultation: 5 minutes, Family sp3 Intervention: 5 minutes. Total time: 25 minutes Signatures: Dispatcher [employer] Theresa Claros RN RN cg Patel, Setul, MD MD sp3 Natalya Haddad RN RN Charissa Livingston RN RN jp5 Simona Madera RN kd3 Corrections: (The following items were deleted from the chart) 20:05 19:14 sp3 cg
--- NOTE | 2024-12-11 19:14 | ER ---
Nurse's Notes [facility] Name: Carmelita Ovalles Age: 74 yrs Sex: Female : 1950 Arrival Date: 12/11/2024 Time: 16:35 Bed 3 Private MD: Diagnosis: Atrial fibrillation with RVR, now rate controlled, NSTEMI, palpitations Presentation: 12/11 16:35 Chief complaint: EMS states: Brought from urgent care due elevated HR in the 180's. [facility] Coronavirus screen: Client denies travel out of the [place] in the last 14 days. At this time, the client does not indicate any symptoms associated with coronavirus-19. Ebola Screen: No symptoms or risks identified at this time. Initial Sepsis Screen: Does the patient meet any 2 criteria? HR > 90 bpm. Does the patient have a suspected source of infection? No. Patient's initial sepsis screen is negative. Risk Assessment: Do you want to hurt yourself or someone else? Patient reports no desire to harm self or others. Onset of symptoms was December 11, 2024. 16:35 Method Of Arrival: EMS: [facility] 16:35 Acuity: MARCIA 2 jp5 Historical: - Allergies: 16:35 No Known Allergies; jp5 - PMHx: 16:35 depressive disorder; Hypertension; Hypothyroidism; Atrial fibrillation; jp5 - Immunization history:: Adult Immunizations up to date. - Infectious Disease History:: Denies. - Social history:: Smoking status: Patient denies any tobacco usage or history of. Screenin:00 [facility] ED Fall Risk Assessment (Adult) History of falling in the last 3 months, 5 including since admission No falls in past 3 months (0 pts) Confusion or Disorientation No (0 pts) Intoxicated or Sedated No (0 pts) Impaired Gait No (0 pts) Mobility Assist Device Used No (0 pt) Altered Elimination No (0 pt) Score/Fall Risk Level 0 - 2 = Low Risk Oriented to surroundings, Maintained a safe environment, Educated pt \T\ family on fall prevention, incl call for assistance when getting out of bed, Assessed \T\ reinforced patient's understanding of fall precautions, Provided non-skid footwear, Hourly rounding (assess needs \T\ fall precautionary measures) done, Used ambulatory aids as needed (educated on \T\ assisted with), Used gait belt as appropriate. Abuse screen: Denies threats or abuse. Denies injuries from another. Nutritional screening: No deficits noted. Tuberculosis screening: No symptoms or risk factors identified. Assessment: 19:15 General: Appears in no apparent distress. comfortable, Behavior is calm, cooperative. zm Pain: Denies pain. Neuro: No deficits noted. Level of Consciousness is awake, alert, obeys commands, Oriented to person, place, time, situation. Cardiovascular: Heart tones S1 S2 present Capillary refill < 3 seconds in bilateral fingers Patient's skin is warm and dry. Rhythm is sinus rhythm. Respiratory: Airway is patent Respiratory effort is even, unlabored, Respiratory pattern is regular, symmetrical, Breath sounds with wheezes bilaterally. in right upper lobe, left upper lobe, left lower lobe and right lower lobe. Vital Signs: 16:36 BP 104 / 88; Pulse 143; Resp 20; Temp 98(O); Pulse Ox 95% on R/A; jp5 16:50 Pulse 131; jp5 17:00 BP 166 / 93; Pulse 87; Resp 20; Pulse Ox 96% on R/A; jp5 17:08 Pulse 111; jp5 17:10 Pulse 78; jp5 17:15 BP 142 / 91; Pulse 82; Resp 18; Pulse Ox 95% on R/A; jp5 17:45 BP 137 / 89; Pulse 74; Resp 18; Pulse Ox 94% on R/A; jp5 18:30 BP 147 / 86; Pulse 82; Resp 18; Pulse Ox 95% on R/A; jp5 20:08 BP 147 / 93; Pulse 78; Resp 20; Pulse Ox 98% on R/A; Pain 0/10; zm 20:55 BP 115 / 76; Pulse 71; Resp 22; Pulse Ox 95% on R/A; kd3 20:08 Pain Scale: Adult zm Chemo Coma Score: 20:08 Eye Response: spontaneous(4). Motor Response: obeys commands(6). Verbal Response: zm oriented(5). Total: 15. ED Course: 16:35 Arm band placed on left wrist. jp5 16:45 school lunch monitor on. Pulse ox on. NIBP on. jp5 16:46 Patient arrived in ED. sp3 16:46 Edison Cao MD is Attending Physician. sp3 16:48 Inserted saline lock: 18 gauge in left forearm, using aseptic technique. ,using aseptic jp5 technique. attempted lab draw, unable to get labs from this IV start Flushed with 10 mL NS. 17:00 Triage completed. jp5 17:00 Patient has correct armband on for positive identification. Bed in low position. Call jp5 light in reach. Side rails up X 1. Provided Education on: call light use. 17:22 Initial lab(s) drawn, by me, sent to lab. jp5 17:25 Basic Metabolic Panel Sent. jp5 17:25 CBC with Diff Sent. jp5 17:25 LFT's Sent. jp5 17:25 Magnesium Sent. jp5 17:25 NT PRO-BNP Sent. jp5 17:25 PT-INR Sent. jp5 17:25 Troponin HS Sent. jp5 17:27 No provider procedures requiring assistance completed. jp5 17:35 XRAY Chest (1 view) In Process Unspecified. EDMS 19:00 Report received from ashtyn Alcantar. zm 19:13 Edwardo Galvan MD is Hospitalizing Provider. sp3 19:15 Natalya Haddad, RN is Primary Nurse. zm 20:55 Patient admitted, IV remains in place. kd3 Administered Medications: 16:51 Drug: Adenocard IVP 12 mg IVP once Route: IVP; Site: left femoral; jp5 16:57 Drug: Metoprolol IVP 5 mg IVP every 5 minutes; Hold for SBP < 100 or HR < 60. x3 Route: jp5 IVP; Site: left femoral; 17:03 Drug: Adenocard IVP 12 mg IVP once Route: IVP; Site: left forearm; jp5 20:55 Follow up: Response: No adverse reaction; Cardiac rhythm is unchanged kd3 17:03 Drug: Metoprolol IVP 5 mg IVP every 5 minutes; Hold for SBP < 100 or HR < 60. x3 Route: jp5 IVP; Site: left forearm; 17:09 Drug: Metoprolol IVP 5 mg IVP every 5 minutes; Hold for SBP < 100 or HR < 60. x3 Route: jp5 IVP; Site: left forearm; 19:54 Follow up: Response: No adverse reaction Medication: 19:34 VIS not applicable for this client. zm Outcome: 19:14 Decision to Hospitalize by Provider. sp3 20:54 Admitted to Med/surg accompanied by tech, via stretcher, kd3 20:54 Condition: stable 20:54 Discharge instructions given to patient, Instructed on the need for admit, Demonstrated understanding of instructions, 20:56 Patient left the ED. kd3 Signatures: Dispatcher [employer] EDMS Edison Cao MD MD sp3 Simona Madera RN RN kd3 Natalya Haddad RN Charissa Buck RN RN jp5 Corrections: (The following items were deleted from the chart) 17:26 16:48 Inserted saline lock: 18 gauge in left forearm, using aseptic technique. Flushed jp5 with 10 mL NS jp5
[2024-12-11] MEDS ORDERED: ONDANSETRON 4 MG/2 ML VIAL IV PRN (19:47)
[2024-12-11] MEDS ORDERED: ACETAMINOPHEN 325 MG TABLET PO PRN (19:47)
--- NOTE | 2024-12-11 19:52 | P.HP ---
Certification for Inpatient Patient admitted to: Inpatient With expected LOS: >2 Midnights Practitioner: I am a practitioner with admitting privileges, knowledge of patient current condition, hospital course, and medical plan of care. Services: Services provided to patient in accordance with Admission requirements found in Title 42 Section 412.3 of the Code of Federal Regulations Patient History Date of Service: 12/11/24 Reason for admission: Palpitation History of Present Illness: 74-year-old female with past medical history of hypertension, atrial fibrillation on Eliquis ,depressive disorder; Hypertension; Hypothyroidism who presents via EMS from local [facility] urgent care where patient presented for palpitations. Patient was found to be in tachycardia at 170-180. No AV summer agent was given and patient was transported to the ED. Patient denies any chest pain, shortness of breath, headache, bleeding, abdominal pain, syncope, or any other signs or symptoms on ROS at this time. Patient denies any fever or chills. No sick contacts. Denies any nausea or vomiting. Patient was assessed in the ER was admitted for further management of A-fib with RVR. Allergies No Known Allergies Allergy (Verified 05/10/23 04:11) Home medications list reviewed: Yes Home Medications: Metoprolol Tartrate [Lopressor*] 25 mg PO BID 6AM 6PM #60 tab 02/23/21 methIMAzole [Tapazole*] 10 mg PO DAILY #30 tab 02/23/21 PARoxetine HCL [Paroxetine HCl] 40 mg PO DAILY 03/02/22 Amlodipine [Norvasc*] 5 mg PO DAILY #30 tab 05/14/23 Apixaban [Eliquis] 2.5 mg PO BID #60 tablet 05/14/23 Atorvastatin Calcium [Lipitor] 40 mg PO BEDTIME #30 tab 05/14/23 - Past Medical/Surgical History Diabetic: No Past Medical History: Reviewed- Non-Contributory -: Hyperthyroidism -: HTN -: Afib on chronic anticoagulation Past Surgical History: Reviewed- Non-Contributory -: C section -: tonsillectomy Psychosocial/ Personal History: Patient lives at home with her - Social History Smoking Status: Never smoker Alcohol use: No CD- Drugs: No Caffeine use: Yes Review of Systems 10-point ROS is otherwise unremarkable Physical Examination - Vital Signs Temperature: 98.4 F Blood Pressure: 142/78 Pulse: 82 Respirations: 18 Pulse Ox (%): 94 - Physical Exam General: Alert, In no apparent distress, Oriented x3 HEENT: Atraumatic, Normocephalic Neck: Supple Respiratory: Clear to auscultation bilaterally, Normal air movement Cardiovascular: Regular rate/rhythm, Normal S1 S2 Musculoskeletal: No clubbing, No swelling Integumentary: No rashes Neurological: Other (Alert, Awake Non focal ) Lymphatics: No axilla or inguinal lymphadenopathy - Studies Laboratory Data (last 24 hrs) 12/11/24 12/11/24 12/11/24 17:22 17:22 17:22 WBC 6.60 Hgb 14.7 Hct 44.8 Plt Count 279 PT 23.2 H INR 2.10 Sodium 137 Potassium 3.1 L BUN 34 H Creatinine 1.12 H Glucose 140 H Magnesium 2.0 Total Bilirubin 0.7 AST 12 L ALT 16 Alkaline Phosphatase 79 Assessment and Plan - Plan A-fib with RVR Converted to sinus now Monitor closely on telemetry Beta-laith. Continue Eliquis Thyroid disorder Will get a TSH level and FT3 and FT4 Continue home medications for now NSTEMI possibly type II due to A-fib with RVR Will trend cardiac enzymes Will monitor telemetry Started on aspirin and statin EKG did not show any acute changes suggestive of ischemia Patient denies any chest pain Will get an echocardiogram Cardiology consult Hypertension Antihypertensives titrated Continue home medications and titrate as needed Hyperlipidemia Continue statin CKD stage II Monitor renal parameters Electrolytes monitor and replace accordingly GI/DVT prophylaxis Advanced directive full code Discharge Plan: Home Plan to discharge in: 48 Hours - Advance Directives Does patient have a Living Will: No Does patient have a Durable POA for Healthcare: No - Code Status/Comfort Care Code Status: Full Code Time Spent Managing Pts Care (In Minutes): 48
[2024-12-11 22:10] VITALS: BMI 20.5
[2024-12-11] MEDS: POTASSIUM 25 MEQ EFFERV TAB PO ONE (22:55)
[2024-12-12] MEDS: HEPARIN 5000 UNIT/ML 1 ML VIAL SQ SCH (00:53)
[2024-12-12 05:29] LABS: Absolute Lymphocytes (CBC) 1.4 K/uL (0.7-4.9); Hematocrit 40.5 % (36.0-45.0); Hemoglobin 13.6 g/dL (12.0-15.0); MCH 28.0 pg (27.0-35.0); MCHC 33.6 g/dL (32.0-36.0); MCV 83.5 fL (80-100); MPV 10.0 fL (7.6-11.3); Nucleated RBC Absolute Count 0.0 (0-0); Nucleated Red Blood Cells % 0.0 % (0-0); RBC Red Blood Cell Count 4.85 M/uL (3.86-4.86); White Blood Count 5.80 thou/uL (4.3-10.9)
[2024-12-12 05:57] LABS: Albumin 3.1 g/dL (3.4-5.0); Albumin/Globulin Ratio 0.6 (1.1-1.8); Alkaline Phosphatase 74 U/L (45-117); Anion Gap 8.4 mEq/L (5.0-15.0); BUN Blood Urea Nitrogen 38 mg/dL (7-18); Globulin 4.8 g/dL (2.3-3.5); Glucose Level 103 mg/dL (74-106); HDL Cholesterol 51 mg/dL (40-60); LDL Cholesterol, Calculated 200 mg/dL (<130); LDL Cholesterol,Calc NonReport 200; Thyroid Stimulating Hormone 0.520 uIU/mL (0.358-3.740)
--- NOTE | 2024-12-12 06:11 | P.PN ---
Subjective Date of Service: 12/12/24 Chief Complaint: Palpitation Subjective: No new changes Review of Systems 10-point ROS is otherwise unremarkable Physical Examination - Vital Signs Temperature: 97.9 F Blood Pressure: 162/69 Pulse: 85 Respirations: 16 Pulse Ox (%): 96 - Physical Exam General: Alert, In no apparent distress, Oriented x3 HEENT: Atraumatic, Normocephalic Neck: Supple Respiratory: Clear to auscultation bilaterally, Normal air movement Cardiovascular: Regular rate/rhythm, Normal S1 S2 Capillary refill: <2 Seconds Gastrointestinal: Soft and benign, W/out hepatosplenomegaly Musculoskeletal: No clubbing, No swelling Integumentary: No rashes Neurological: Other (Alert, Awake , nonfocal ) Lymphatics: No axilla or inguinal lymphadenopathy - Studies Laboratory Data (last 24 hrs) 12/11/24 12/11/24 12/11/24 17:22 17:22 17:22 WBC 6.60 Hgb 14.7 Hct 44.8 Plt Count 279 PT 23.2 H INR 2.10 Sodium 137 Potassium 3.1 L BUN 34 H Creatinine 1.12 H Glucose 140 H Magnesium 2.0 Total Bilirubin 0.7 AST 12 L ALT 16 Alkaline Phosphatase 79 Assessment And Plan - Plan A-fib with RVR Converted to sinus now Monitor closely on telemetry Beta-laith. Continue Eliquis Thyroid disorder Will get a TSH level and FT3 and FT4 Continue home medications for now NSTEMI possibly type II due to A-fib with RVR Will trend cardiac enzymes Will monitor telemetry Started on aspirin and statin EKG did not show any acute changes suggestive of ischemia Patient denies any chest pain Will get an echocardiogram Cardiology consult Hypertension Antihypertensives titrated Continue home medications and titrate as needed Hyperlipidemia Continue statin CKD stage II Monitor renal parameters Electrolytes monitor and replace accordingly GI/DVT prophylaxis Advanced directive full code Discharge Plan: Home Plan to discharge in: 48 Hours - Code Status/Comfort Care Code Status: Full Code Time Spent Managing PTS Care (In Minutes): 48
[2024-12-12 06:12] LABS: ALT/SGPT < 14 U/L (13-56); AST/SGOT 17 U/L (15-37); Potassium 3.4 mEq/L (3.5-5.1)
[2024-12-12] MEDS: FLU (Fluarix) 25-26 (6MOS UP)/PF 45 MCG/0.5 ML Syringe IM ONE (09:00)
[2024-12-12] MEDS: PNEUMOCOCCAL VACCINE 0.5 ML IMVAC ONE (09:00)
[2024-12-12] MEDS: POTASSIUM 25 MEQ EFFERV TAB PO ONE (10:29)
--- NOTE | 2024-12-12 11:31 | P.CNS ---
Date of Consult: 12/12/24 Chief Complaint: Palpitation History of Present Illness: Patient with PMH of atrial fibrillation, presented with cough, congestion, denies chest pain, report palpitations, no syncope. Allergies No Known Allergies Allergy (Verified 12/11/24 21:03) Home medications list reviewed: Yes Home Medications: Metoprolol Tartrate [Lopressor*] 25 mg PO BID 6AM 6PM #60 tab 02/23/21 methIMAzole [Tapazole*] 10 mg PO DAILY #30 tab 02/23/21 PARoxetine HCL [Paroxetine HCl] 40 mg PO DAILY 03/02/22 Amlodipine [Norvasc*] 5 mg PO DAILY #30 tab 05/14/23 Apixaban [Eliquis] 2.5 mg PO BID #60 tablet 05/14/23 Atorvastatin Calcium [Lipitor] 40 mg PO BEDTIME #30 tab 05/14/23 Apixaban [Eliquis] 5 mg PO BID 12/12/24 Fluticasone Propion/Salmeterol [Wixela 100-50 Inhub] 1 each IH Q12H 12/12/24 hydroCHLOROthiazide [Hydrochlorothiazide] 25 mg PO DAILY 12/12/24 - Past Medical/Surgical History Diabetic: No -: Hyperthyroidism -: HTN -: Afib on chronic anticoagulation -: C section -: tonsillectomy Psychosocial/ Personal History: Patient lives at home with her - Social History Smoking Status: Unknown if ever smoked Alcohol use: No CD- Drugs: No Caffeine use: Yes Place of Residence: Home Review of Systems 10-point ROS is otherwise unremarkable Physical Examination Temp Pulse Resp BP Pulse Ox 97.4 F 70 16 119/72 98 12/12/24 08:00 12/12/24 08:00 12/12/24 08:00 12/12/24 08:00 12/12/24 08:00 General: Alert, In no apparent distress HEENT: Atraumatic, PERRLA, Mucous membr. moist/pink, EOMI, Sclerae nonicteric Neck: Supple, 2+ carotid pulse no bruit, No LAD, Without JVD or thyroid abnormality Respiratory: Clear to auscultation bilaterally, Normal air movement Cardiovascular: Normal S1 S2, Irregular heart rate/rhythm Gastrointestinal: Normal bowel sounds, No tenderness Musculoskeletal: No tenderness Integumentary: No rashes Neurological: Normal gait, Normal speech, Normal tone, Normal affect Lymphatics: No axilla or inguinal lymphadenopathy Laboratory Data (last 24 hrs) 12/11/24 12/11/24 12/11/24 17:22 17:22 17:22 WBC 6.60 Hgb 14.7 Hct 44.8 Plt Count 279 PT 23.2 H INR 2.10 Sodium 137 Potassium 3.1 L BUN 34 H Creatinine 1.12 H Glucose 140 H Magnesium 2.0 Total Bilirubin 0.7 AST 12 L ALT 16 Alkaline Phosphatase 79 - Problems (1) Atrial fibrillation Current Visit: No Status: Acute Plan: patient currently in sinus rhythm, continue lopressor 25 mg po BID Continue to hold Eliquis for coronary angiogram in am continue to monitor on tele Qualifiers: Atrial fibrillation type: unspecified Qualified Code(s): I48.91 - Unspecified atrial fibrillation (2) Elevated troponin Current Visit: No Status: Acute Plan: Patient with history of abnormal stress test, showing reversible inferior wall ischemia troponin mild elevated NPO after midnight for coronary angiogram in am ASA 81 mg daily Lipitor 40 mg daily (3) HTN (hypertension) Current Visit: No Status: Chronic Plan: lopressor 25 mg po BID Continue to monitor Qualifiers: Hypertension type: primary hypertension Qualified Code(s): I10 - Essential (primary) hypertension
[2024-12-12] MEDS: ASPIRIN 325 MG TAB PO ONE (13:20)
[2024-12-12] MEDS ORDERED: NA CHLORIDE 0.9% 500 ML ONE (14:14)
[2024-12-12] MEDS ORDERED: HEPA 1000U/500MLS 2,000 UNIT/1,000 ML BAG IV ONE (14:38)
[2024-12-12] MEDS ORDERED: LIDOCAINE 1% 20 ML MDV ONE (14:38)
[2024-12-12] MEDS ORDERED: HEPARIN 5000 UNIT/ML 1 ML VIAL ONE (14:38)
[2024-12-12] MEDS ORDERED: FENTANYL CITR 100 MCG/2 ML ONE (15:12)
[2024-12-12] MEDS ORDERED: MIDAZOLAM HCL 2 MG/2 ML INJ ONE (15:12)
[2024-12-12] MEDS ORDERED: TICAGRELOR 90 MG TABLET PO ONE (16:23)
[2024-12-12] MEDS ORDERED: NITROGLYCERIN 0.4 MG/TAB SL PRN (20:23)
[2024-12-12 20:57] VITALS: O2SAT 95
[2024-12-12] MEDS: TICAGRELOR 90 MG TABLET PO SCH (21:09)
[2024-12-13] MEDS: METOPROLOL TARTRATE 5 MG/5 ML INJ IV PRN (00:17)
[2024-12-13 08:25] VITALS: BP 140/81; TEMP 98.1
[2024-12-13] MEDS: CLOPIDOGREL 75 MG TABLET PO ONE (09:43)
[2024-12-13] MEDS: ASPIRIN 81 MG CHEWABLE TABLET PO SCH (09:43)
[2024-12-13 11:02] LABS: Absolute Lymphocytes (CBC) 0.9 K/uL (0.7-4.9); Hematocrit 39.9 % (36.0-45.0); Hemoglobin 13.0 g/dL (12.0-15.0); MCH 27.4 pg (27.0-35.0); MCHC 32.7 g/dL (32.0-36.0); MCV 84.0 fL (80-100); MPV 9.8 fL (7.6-11.3); Nucleated RBC Absolute Count 0.0 (0-0); Nucleated Red Blood Cells % 0.1 % (0-0); RBC Red Blood Cell Count 4.75 M/uL (3.86-4.86); White Blood Count 6.30 thou/uL (4.3-10.9)
[2024-12-13 11:13] LABS: Anion Gap 6.6 mEq/L (5.0-15.0); BUN Blood Urea Nitrogen 32.0 mg/dL (7-18); Glucose Level 125.0 mg/dL (74-106); Magnesium 1.9 mg/dL (1.6-2.4); Potassium 3.6 mEq/L (3.5-5.1)
--- NOTE | 2024-12-13 11:35 | P.PN ---
Date of Service: 12/13/24 Subjective: felt more short of breath overnight and was placed on oxygen denies using oxygen at home otherwise doing okay. Denies chest pain. HR stable. In sinus rhythm Physical Exam: GEN: Alert, oriented, NAD CV: Regular rate and rhythm, no edema Pulm:Nonlabored respirations on 2L NC, diminished ABD: soft, nontender, nondistended Neuro: Normal speech, normal affect Problem List: Acute hypoxic respiratory failure CAD s/p PCI NSTEMI A-fib with RVR Hyponatremia Hypokalemia Hypertension Hyperlipidemia CKD2 Acute hypoxic respiratory failure CAD s/p PCI NSTEMI Troponins mildly elevated. Monitor on telemetry Cardiology consulted s/p [facility] (12/12) and had PCI x1 done. Official report pending. Switch brilinta to plavix. Continue asa 81mg, metoprolol. Overnight patient became hypoxic and had to be placed on O2 wean oxygen as tolerated doesn't use O2 at home A-fib with RVR converted back into sinus rhythm. HR stable in 80-90s Continue metoprolol Hyponatremia Hypokalemia monitor and replete as needed Hypertension Hyperlipidemia CKD2 confirm home meds, restart as appropriate VTE: Code: Full Dispo: Home Pending off Oxygen Time Spent Managing Pts Care (In Minutes): 55
--- NOTE | 2024-12-13 12:24 | P.PN ---
Subjective Date of Service: 12/13/24 Chief Complaint: Palpitation Subjective: No new changes, No C/O voiced, Tolerating diet, Ambulating, Improving Review of Systems 10-point ROS is otherwise unremarkable Physical Examination - Vital Signs Temperature: 98.1 F Blood Pressure: 140/81 Pulse: 91 Respirations: 12 Pulse Ox (%): 95 - Physical Exam General: Alert, In no apparent distress HEENT: Atraumatic, PERRLA, EOMI Neck: Supple, JVD not distended Respiratory: Clear to auscultation bilaterally, Normal air movement Cardiovascular: Regular rate/rhythm, Normal S1 S2 Gastrointestinal: Normal bowel sounds, No tenderness Musculoskeletal: No tenderness Integumentary: No rashes Neurological: Normal speech, Normal tone, Normal affect Lymphatics: No axilla or inguinal lymphadenopathy - Studies Medications List Reviewed: Yes Assessment And Plan - Current Problems (Diagnosis) (1) Atrial fibrillation Current Visit: No Status: Acute Plan: patient currently in sinus rhythm, continue lopressor 25 mg po BID resume elqiuis 5 mg po BID Qualifiers: Atrial fibrillation type: unspecified Qualified Code(s): I48.91 - Unspecified atrial fibrillation (2) Elevated troponin Current Visit: No Status: Acute Plan: Patient with history of abnormal stress test, showing reversible inferior wall ischemia troponin mild elevated coronary angiogram done and patient is s/p PCI of distal LCX ASA 81 mg daily for 4 weeks then D/C Plavix 300 mg po x1 then continue Plavix 75 mg daily Lipitor 40 mg daily (3) HTN (hypertension) Current Visit: No Status: Chronic Plan: lopressor 25 mg po BID Continue to monitor Qualifiers: Hypertension type: primary hypertension Qualified Code(s): I10 - Essential (primary) hypertension
[2024-12-13] MEDS: guaiFENesin 100 MG/5 ML UCUP PO PRN (12:33)
[2024-12-13] MEDS: LORATADINE 10 MG TAB PO ONE (12:33)
[2024-12-13] MEDS: METOPROLOL TAR 25 MG TAB PO ONE (12:34)
[2024-12-13] MEDS ORDERED: METOPROLOL TAR 25 MG TAB PO SCH (18:00)
--- NOTE | 2024-12-13 23:24 | OP ---
Date of Procedure: 12/12/2024 Surgeon: Will Patricia Procedure Performed: 1. Selective coronary angiogram. 2. Percutaneous coronary intervention of the mid to distal left circumflex with Synergy 3.0 x 16 mm d rug-eluting stent. Indication For Procedure: [id number] IA. Complications: None. Estimated Blood Loss: Less than 50 cc. Access: Right radial, closed by TR band. Sedation Time: 30 minutes with 1 of Versed and 25 of fentanyl. Description Of Procedure: After risks, benefits, and alternatives were explained to the patient, the patient agreed to proceed with procedure and signed informed consent. The patient was brought back to the mobile home laborer, prepped and draped in sterile fashion. Time-out was performed. Sedation was admini stered. Next, right radial access was obtained using ultrasound-guided micropuncture technique. Tig er 4 catheter was advanced over a J-wire to the aortic root. Selective angiogram was done using that catheter. That catheter was later exchanged with an EBU3.0 mm guide. Heparin was administered. AC T was therapeutic. Next, Runthrough wire was passed across the lesion, pre-dilated the lesion with a n NC 3.0 mm balloon. After that, the Synergy 3.0 x 16 mm drug-eluting stent was placed across the le jacobo. Final angiogram shows HARRY-3 flow. Wire was removed. Catheter was removed over a J-wire. Sh eath was removed. TR band was applied. Hemostasis was achieved. The patient was moved back to [facility] in stable condition. Findings: 1. Left main normal. 2. LAD with proximal mild luminal irregularities, then mid 20% disease, then distal mild luminal irre gularities. 3. Left circ dominant with mild luminal irregularities proximally and then distal 70% to 80% disease before it continues as a left PDA, status post PCI as above. 4. Left PDA, diffuse 60% disease, a small artery. 5. RCA: Small nondominant, mild luminal irregularities. Assessment: 1. Significant [id number] left circumflex disease, status post percutaneous coronary intervention with Synergy 3.0 x 16 mm drug-eluting stent. 2. Significant left PDA disease, small artery. No plan for intervention. Plan: 1. Aspirin 81 mg daily for life. 2. Brilinta 180 p.o. x1 was given in the mobile home lab[facility], Brilinta 90 mg p.o. to be given tonight, then Plav ix 300 in the morning and then continue Plavix 75 mg daily for 12 months and resume the patient's Chrissie mayela, as she has history of atrial fibrillation. NAILA Voice ID: [id number] Report ID: [id number]
--- NOTE | 2024-12-15 12:27 | P.DS ---
Admission Date: 12/11/24 Discharge Date: 12/13/24 Disposition: ROUTINE DISCHARGE Discharge Condition: GOOD Reason for Admission: Palpitation Consultations: Cardiology - Dr. Patricia Brief History of Present Illness: 74yo F, PMH:: hypertension, atrial fibrillation on Eliquis ,depressive disorder; Hypertension; Hypothyroidism Patient presents via EMS from local [facility] urgent care where patient presente d for palpitations. Patient was found to be in tachycardia at 170-180. No AV summer agent was given and patient was transported to the ED. Patient denies any chest pain, shortness of breath, headache, bleeding, abdominal pain, syncope, or any other signs or symptoms on ROS at this time. Patient denies any fever or chills. No sick contacts. Denies any nausea or vomiting. Patient was assessed in the ER was admitted for further management of A-fib with RVR. Hospital Course: Problem List: CAD s/p PCI NSTEMI A-fib with RVR Acute hypoxic respiratory failure Hyponatremia, improved Hypokalemia, improved Hypertension Hyperlipidemia CKD2 Physician discharge instructions: Patient presented with palpitations associated with elevated HR (170-180s). Troponins were mildly elevated this hospitalization (peak 165). EKG was without ischemic changes. Patient was evaluated by Dr. Patricia who recommended left heart catheterization to further evaluate given her risk factors and history of abnormal stress test. Patient underwent left heart cath with Dr. Patricia on 12/12 and had 1 PCI placed to left circumflex. Official report pending upon discharge. Follow up with Dr. Patricia in 1-2 weeks for further management. Patient was feeling better, heart rate improved, palpitations resolved and was deemed stable for discharge. Medications: continue eliquis 5mg plavix 75mg daily aspirin 81mg daily for 1 month refilled prescription for metoprolol 25mg twice daily Follow up: PCP 3-5 days Cardiology in 1-2 weeks Please call to schedule / confirm appointments Physical Exam: GEN: Alert, oriented, NAD CV: Regular rate and rhythm, no edema Pulm:Nonlabored respirations on RA, clear ABD: soft, nontender, nondistended Neuro: Normal speech, normal affect Vital Signs/Physical Exam: Temp Pulse Resp BP Pulse Ox 98.1 F 91 H 12 140/81 95 12/13/24 12:24 12/13/24 12:24 12/13/24 12:24 12/13/24 12:24 12/13/24 12:24 Laboratory Data at Discharge: WBC 6.30 thou/uL (4.3-10.9) 12/13/24 10:46 Hgb 13.0 g/dL (12.0-15.0) 12/13/24 10:46 Hct 39.9 % (36.0-45.0) 12/13/24 10:46 Plt Count 236 thou/uL (152-406) 12/13/24 10:46 PT 23.2 SECONDS (10-13.0) H 12/11/24 17:22 INR 2.10 12/11/24 17:22 Sodium 132 mEq/L (136-145) L 12/13/24 10:46 Potassium 3.6 mEq/L (3.5-5.1) 12/13/24 10:46 BUN 32 mg/dL (7-18) H 12/13/24 10:46 Creatinine 0.75 mg/dL (0.55-1.02) 12/13/24 10:46 Glucose 125 mg/dL (74-106) H 12/13/24 10:46 Magnesium 1.9 mg/dL (1.6-2.4) 12/13/24 10:46 Total Bilirubin 0.7 mg/dL (0.2-1.0) 12/12/24 04:54 AST 17 U/L (15-37) 12/12/24 04:54 ALT < 14 U/L (13-56) 12/12/24 04:54 Alkaline Phosphatase 74 U/L (45-117) 12/12/24 04:54 Triglycerides 106 mg/dL (<150) 12/12/24 04:54 Cholesterol 272 mg/dL (<200) H 12/12/24 04:54 HDL Cholesterol 51 mg/dL (40-60) 12/12/24 04:54 Cholesterol/HDL Ratio 5.33 12/12/24 04:54 Home Medications: Metoprolol Tartrate [Lopressor*] 25 mg PO BID 6AM 6PM #60 tab 02/23/21 methIMAzole [Tapazole*] 10 mg PO DAILY #30 tab 02/23/21 PARoxetine HCL [Paroxetine HCl] 40 mg PO DAILY 03/02/22 Amlodipine [Norvasc*] 5 mg PO DAILY #30 tab 05/14/23 Apixaban [Eliquis] 2.5 mg PO BID #60 tablet 05/14/23 Atorvastatin Calcium [Lipitor] 40 mg PO BEDTIME #30 tab 05/14/23 Apixaban [Eliquis] 5 mg PO BID 12/12/24 Fluticasone Propion/Salmeterol [Wixela 100-50 Inhub] 1 each IH Q12H 12/12/24 hydroCHLOROthiazide [Hydrochlorothiazide] 25 mg PO DAILY 12/12/24 Aspirin Chewable [Aspirin Chewable*] 81 mg PO DAILY tab.chew 12/13/24 Clopidogrel Bisulfate [Plavix] 75 mg PO DAILY 30 Days #30 tab 12/13/24 Metoprolol Tartrate [Lopressor*] 25 mg PO BID 30 Days #60 tab 12/13/24 New Medications: Metoprolol Tartrate [Lopressor*] 25 mg PO BID 30 Days #60 tab Clopidogrel Bisulfate [Plavix] 75 mg PO DAILY 30 Days #30 tab Physician Discharge Instructions: Physician discharge instructions: Patient presented with palpitations associated with elevated HR (170-180s). Troponins were mildly elevated this hospitalization (peak 165). EKG was without ischemic changes. Patient was evaluated by Dr. Patricia who recommended left heart catheterization to further evaluate given her risk factors and history of abnormal stress test. Patient underwent left heart cath with Dr. Patricia on 12/12 and had 1 PCI placed to left circumflex. Official report pending upon discharge. Follow up with Dr. Patricia in 1-2 weeks for further management. Patient was feeling better, heart rate improved, palpitations resolved and was deemed stable for discharge. Medications: continue eliquis 5mg plavix 75mg daily aspirin 81mg daily for 1 month refilled prescription for metoprolol 25mg twice daily Follow up: PCP 3-5 days Cardiology in 1-2 weeks Please call to schedule / confirm appointments Followup: Ashly Tafoya DO, DO [Primary Care Provider] - 1-2 Weeks Time spent managing pt's care (in minutes): 45
== END 2024-12-13 16:03 | disposition home or self-care (01) | DRG 321 ==
LOC: ER 16:35 → 2ND 19:47
PROVIDERS: ADMIT Family Medicine; ATTEND Hospitalist
PROC: 027034Z Dilation of Coronary Artery, One Artery with Drug-eluting Intraluminal Device, Percutaneous Approach (ICD-10-PCS; principal; 2024-12-12)
DX: I48.91 Unspecified atrial fibrillation (principal); I21.A1 Myocardial infarction type 2; J96.01 Acute respiratory failure with hypoxia; E87.1 Hypo-osmolality and hyponatremia; I47.10 Supraventricular tachycardia, unspecified; E87.6 Hypokalemia; E07.9 Disorder of thyroid, unspecified; E78.5 Hyperlipidemia, unspecified; E03.9 Hypothyroidism, unspecified; I12.9 Hypertensive chronic kidney disease with stage 1 through stage 4 chronic kidney disease, or unspecified chronic kidney disease; N18.2 Chronic kidney disease, stage 2 (mild); I25.10 Atherosclerotic heart disease of native coronary artery without angina pectoris; Z79.01 Long term (current) use of anticoagulants; Z79.899 Other long term (current) drug therapy; Z79.82 Long term (current) use of aspirin
CPT/HCPCS: 36415; 71045; 76937; 80048; 80053; 80061; 80076; 83735; 83880; 84439; 84443; 84481; 84484; 85025; 85347; 85610; 93005; 93454; 94760; 99152; 99153; 99285; C1725; C1874; C1893; C9600; J0153; J1644; J2003; J2250; J3010; J7030; J7040; Q9967